=== PATIENT | male | born 1965 | race Caucasian/White ===

== ENCOUNTER 2020-04-06 01:39 | Emergency (ER) | payer OTHER, SELFPAY ==
--- NOTE | 2020-04-06 01:51 | PC.NURSE ---
PATIENT ARRIVED VIA EMS. WAS CALLED IN CRISIS. DENIES SI/HI WITH STAFF. EMS REPORTS THAT HE DID NOT EXPRESS ANY SI OR HI STATEMENT TO THEM. OFFERED PATIENT TO BE TRIAGED BY POD NURSE AND THEN TRANSFERRED TO A BED IN MAIN ED SOON WAS AVAILABLE. REFUSED ESCALATING IN UNIT. EXPLAINED THE ONLY OTHER OPTION IS TO GO TO THE WAITING ROOM AND START THE TRIAGE PROCESS WITH THE NURSE OUT THERE. REPORTS HE IS ONLY HERE FOR ARM PAIN DUE TO SHOOTING UP FOR DAYS.
[2020-04-06 02:00] VITALS: TEMP 36.1; BMI 23.8
--- NOTE | 2020-04-06 02:09 | PC.NURSE ---
PATIENT REPEATEDLY APPROACHING THIS RN AT ED TRIAGE DESK. STATES I DEMAND TO SPEAK TO THE CHARGE NURSE! SHE PROMISED ME A FUCKING SANDWICH IF I CAME HERE AND GOT SEEN. PATIENT POLITELY ASKED BY THIS RN TO HAVE A SEAT IN THE WAITING ROOM. PATIENT INITIALLY REFUSED TO SIT, STATING WELL I'M JUST GONNA GO TO [facility] THEN . ENCOURAGED TO STAY IN ED FOR EVALUATION. CURRENTLY SITTING IN WAITING ROOM, FIDGETTING BUT COOPERATING WITH STAFF AT THIS TIME. SECURITY NEARBY AND AWARE OF SITUATION.
--- NOTE | 2020-04-06 02:22 | PC.NURSE ---
PATIENT CALLING [facility] FROM WAITING ROOM PHONE, ATTEMPTING TO REQUEST TO BE PICKED UP BY POLICE DEPARTMENT SO THAT HE CAN BE BROUGHT TO HIS TRUCK TO GO TO [place]. SECURITY AND THIS RN REPEATEDLY TELLING PATIENT THAT [facility] WILL NOT PRINT SHOP STENOGRAPHER PATIENT TO PROVIDE RIDE, BUT PATIENT CALLED D ANYWAYS. PATIENT STATING CALL THE CHARGE NURSE AND TELL HER TO GIVE ME A DAMN SANDWICH AND A CAB RIDE OR SOMETHING TO GET OUT OF HERE . PATIENT AWARE THAT HE IS NOT BEING HELD IN ED AGAINST HIS WILL, BUT WILL NEED TO WAIT TO BE SEEN BY ED MD.
[2020-04-06 02:46] VITALS: BP 145/83; PULSE 91; RESP 20; O2SAT 95
--- NOTE | 2020-04-06 02:47 | PC.NURSE ---
Pt ambulatory to the ER for complaint of pain/burning to bilat arms. Pt is CAOx4, speaking full sentences, unable to sit still, states he was sober for several years but recently relapsed 2 week ago. Pt reports smoking crack and using IV cocaine. Pt states he most recently smoked crack 1 hour ago. Pt reports that he hasn't ate in 1 week due to SA. Pt requesting food/drink. This RN discussing detox with pt, per pt, he is unsure if he wants detox. Pt agreeable to VS, awaiting primary MD soria. Continue to monitor.
--- NOTE | 2020-04-06 03:11 | PC.NURSE ---
Pt requesting Ativan for withdrawals. This RN explaining to pt that he has not been seen by an MD yet and there is no orders for Ativan. Pt states if you get me some, I'll buy it off you! This RN explaining to pt that he is not able to buy Ativan from the nursing staff. Pt requesting to file a complaint due to interactions in Triage, bulk sugar handler and nursing dual rate supervisor aware.
--- NOTE | 2020-04-06 03:29 | PC.NURSE ---
Pt again requesting Ativan, pacing in room, awaiting MD soria. Pt previously given 2 sandwiches, again requesting more food. Pt provided with crackers and water. Continue to monitor.
--- NOTE | 2020-04-06 03:45 | PC.NURSE ---
at bedside for primary eval.
--- NOTE | 2020-04-06 03:50 | ED.GENADULT ---
HPI - General Adult General Chief complaint: ETOH/Substance Use Stated complaint: CRISIS Time Seen by Provider: 04/06/20 03:48 Source: patient Mode of arrival: EMS Limitations: no limitations History of Present Illness HPI narrative: This is a 54-year-old male who presents via EMS after a bystander called 911 because patient was sleeping in his own vehicle. Patient is very upset as he states he is not having any fevers, chills, GI symptoms and is demanding to know how he will get back to his truck. He states he has been spending approximately 10,000 dollars on injecting crack cocaine into bilateral upper extremities over the past week. Related Data Allergies Allergy/AdvReac Type Severity Reaction Status Date / Time penicillin G Allergy Unknown UNKNOWN Unverified 01/22/20 15:57 Review of Systems Review of Systems: pertinent positives and negatives as stated in HPI 10 point review of systems is otherwise negative. PMFSH Past Medical History Source: nursing notes reviewed Medical History Asthma Drug abuse Hepatitis C Smoker Social History Social History Advance Directives: No Advance Directives Information Provided: No Physical Exam Vital Signs: Vital Signs: Last Vital Signs Temp 97.0 F 04/06/20 02:00 Pulse 16 L 04/06/20 04:59 Resp 16 04/06/20 06:04 BP 145/83 H 04/06/20 02:46 Pulse Ox 95 04/06/20 02:46 Body Mass Index 23.8 VITAL SIGNS: Reviewed. GENERAL: Well developed, well nourished, in no acute distress. HEAD: Normocephalic/atraumatic, EYES: PERRLA, EOMI intact without pain, no nystagmus/pallor/icterus noted EARS: Ext canals without abnormality, TMs non-bulging and non-erythematous NOSE: Nares patent bilateral OROPHARYNX: no oral lesions noted, posterior pharynx clear and non-erythematous without noted tonsillar enlargement/erythema/exudates NECK: Supple, no adenopathy LUNGS: Normal breath sounds. No adventitious sounds or accessory muscle use. SpO2<95> CARDIOVASCULAR: Regular rate and rhythm without noted murmurs, no JVD or lower extremity edema. ABDOMEN: Soft, non-tender, non-distended with bowel sounds. No rigidity. No guarding. No palpable masses or hernias noted MUSCULOSKELETAL: No tenderness, deformities, or effusions noted on gross inspection. EXTREMITIES: No cyanosis, clubbing or edema. SKIN: Inspection of the skin reveals no rashes, ulcerations, jaundice, pallor, or petechiae. NEUROLOGIC: Alert and oriented x 4. Strength and sensation to light touch were grossly intact x 4. Course Course Course Narrative: This is a 54-year-old male with history and clinical presentation consistent with drug use and declining detox at this time. On review of notes patient was belligerent to the staff in the waiting area and he continues to be aggressive in behavior and antagonistic to the staff in the emergency room. He was calm somewhat after offering juice and sandwiches. Patient was discharged in stable condition as he wanted to get back to his truck. Discharge Plan Discharge Clinical Impression: Substance abuse Patient Disposition: Home, Self-Care Instructions: Polysubstance Abuse (ED) Additional Instructions: The patient and/or family acknowledge understanding of results (as applicable), diagnosis, treatment plan, need for follow up, and symptoms that should prompt a return to the emergency room. Referrals: Physician,Unknown [Primary Care Provider] - 2 days Interventions: ED Discharge Assessment Last Done: 04/06/20 06:33 Discharge Date/Time: 04/06/20 06:45
--- NOTE | 2020-04-06 04:09 | PC.NURSE ---
Pt laying supine in bed, sleeping in NAD, visible chest rise noted. Continue to monitor.
[2020-04-06 04:59] VITALS: PULSE 16
--- NOTE | 2020-04-06 05:00 | PC.NURSE ---
Pt remains asleep in bed, sleeping soundly at this time. Continue to monitor.
[2020-04-06 06:04] VITALS: RESP 16
--- NOTE | 2020-04-06 06:37 | PC.NURSE ---
Pt wakes easily in bed, aware of pending DC. Pt uncooperative with discharge, states what if I want to stay now , how am I going to get back to my car? Pt refusing VS, provided with DC paperwork.
== END 2020-04-06 06:45 | disposition home or self-care (01) ==
PROVIDERS: Emergency Provider Student in an Organized Health Care Education/Training Program
DX: F19.10 Other psychoactive substance abuse, uncomplicated (principal); B19.20 Unspecified viral hepatitis C without hepatic coma; F17.200 Nicotine dependence, unspecified, uncomplicated
CPT/HCPCS: 99283; 99284

== ENCOUNTER 2021-01-17 12:19 | Emergency (ER) | payer OTHER, SELFPAY ==
--- NOTE | 2021-01-17 12:23 | ED.OVERDOSE ---
HPI - Overdose General Chief Complaint: ETOH/Substance Use Stated Complaint: OD,8MG OF NARCAN GIVEN W/GOOD RESULTS Time Seen by Provider: 01/17/21 12:23 Source: patient and EMS Mode of arrival: EMS Limitations: other (uncooperative) History of Present Illness HPI Narrative: EMS unsure why he received narcan by clinic notes he has been agitated during the ride complaint: other (EMS notes he was laying down but breathing at clinic staff gave 8mg IN narcan) Onset (ago): minute(s) Timing confirmed by: other (clinic staff) Context: Accidental Overdose: wanted to get high Treatments Prior to Arrival: narcan (8mg IN narcan but no actual overdose reported. ) Related Data Allergies Allergy/AdvReac Type Severity Reaction Status Date / Time penicillin G Allergy Unknown UNKNOWN Unverified 01/22/20 15:57 Review of Systems Review of Systems: ROS unable to be obtained due to being uncooperative PMFSH Past Medical History Attestation statement: The following information was validated with the patient. Medical History Asthma Drug abuse Hepatitis C Smoker Social History Social History (Updated 01/17/21 @ 12:34 by Jayshree Contreras DO) Patient Tobacco Use Status: Never used Tobacco Substance Use Type: Crack/Cocaine Advance Directives: No Advance Directives Information Provided: No Physical Exam Vital Signs: Vital Signs: Last Vital Signs Temp 98.1 F 01/17/21 12:34 Pulse 109 H 01/17/21 12:34 Resp 18 01/17/21 12:34 BP 106/60 01/17/21 12:34 Pulse Ox 98 01/17/21 12:34 Body Mass Index 20.9 Appearance: Alert. Oriented X3. No acute distress. Anxious, you spic this was directed at our staff. Repeatedly yelling for juice Eyes: Pupils equal, round and reactive to light. ENT: Pharynx normal. Neck: Normal inspection. Neck supple. CVS: Normal heart rate and rhythm. Pulses normal. Respiratory: No respiratory distress. Breath sounds normal. Abdomen: Soft and nontender. Skin: Skin warm and dry. Normal skin color. Normal skin turgor. Extremities: No lower extremity edema. No calf ttp Neuro: Oriented X 3. No motor deficit. No sensory deficit. Course Course Course Narrative: no need for repeat narcan obx x 2 hours MDM - Overdose MDM Narrative Medical decision making narrative: 55 yo male with reported heroin/cocaine abuse demanding food yelling at staff, he denies SI was looking for detox but he is so hostile I don't think he is appropriate for our substance abuse team, no signs of trauma, will observe x 1 hour if no need for repeat narcan will give him detox list Discharge Plan Discharge Clinical Impression: Polysubstance abuse Patient Disposition: Home, Self-Care Instructions: Polysubstance Abuse (ED) Additional Instructions: return to ED for any worsening symptoms or concerns
[2021-01-17 12:34] VITALS: BP 106/60; BP 140/82; PULSE 109; PULSE 98; RESP 18; TEMP 36.7; O2SAT 98; BMI 20.9
--- NOTE | 2021-01-17 13:51 | MHC.RECOVSUP ---
Recovery Support note: Patient is a 55 year old Chinese speaking male who presented to [facility] ED after an accidental overdose. This real estate underwriter met with patient to discuss his substance use and recovery supports. Patient needed to be woken up several times throughout conversation. Patient reported to this real estate underwriter that he is gonna get the person who did this to me, the person who put this in my arms. Patient reports he does not use heroin and that he typically uses cocaine. Patient reports he did not know there was heroin in the substance that he was using. Patient reports he is not interested in reducing his cocaine use at this time. Discussed harm reduction with patient explained community resources available if he chooses to reduce consumption. This real estate underwriter is available if patient is interested in continuing this converstation prior to discharge.
== END 2021-01-17 15:00 | disposition home or self-care (01) ==
LOC: HO.ED 13:22
PROVIDERS: Emergency Provider Emergency Medicine; PCP Student in an Organized Health Care Education/Training Program
DX: T40.5X1A Poisoning by cocaine, accidental (unintentional), initial encounter (principal); Y92.410 Unspecified street and highway as the place of occurrence of the external cause; F17.200 Nicotine dependence, unspecified, uncomplicated; Z71.6 Tobacco abuse counseling; Z79.899 Other long term (current) drug therapy; Z71.51 Drug abuse counseling and surveillance of drug abuser
CPT/HCPCS: 99283

== ENCOUNTER 2021-04-07 11:33 | Outpatient (REF) | payer OTHER, SELFPAY ==
--- NOTE | ~2021-04-07 | XR_ITS ---
EXAMINATION: XR SHOULDER, RIGHT CLINICAL INFORMATION: Primary osteoarthritis. Pain. COMPARISON: None TECHNIQUE: AP external rotation, Grashey, scapular Y, and axillary views of the right shoulder. FINDINGS: Bone alignment is normal. No fracture or dislocation is seen. There is severe arthritis at the glenohumeral joint with joint space narrowing and osteophyte formation. There is arthritis at the acromioclavicular joint. There is subchondral lucency and sclerosis of the humeral head questionable for AVN. Soft tissues are unremarkable. XR/XR shoulder RT min 2V IMPRESSION: Severe arthritis at the glenohumeral joint and mild arthritis at the acromioclavicular joint. Question AVN of the humeral head.
== END 2021-04-07 11:34 | disposition home or self-care (01) ==
LOC: HO.XRAY 11:33
PROVIDERS: Absent Provider Student in an Organized Health Care Education/Training Program; PCP Student in an Organized Health Care Education/Training Program; Visit Provider Emergency Medicine
DX: M19.019 Primary osteoarthritis, unspecified shoulder (principal); M25.511 Pain in right shoulder
CPT/HCPCS: 73030

== ENCOUNTER → 2021-06-09 10:03 | Outpatient (BNVA) | payer OTHER, SELFPAY | PROVIDERS: PCP Student in an Organized Health Care Education/Training Program; Visit Provider Physician Assistant | DX: M19.011 Primary osteoarthritis, right shoulder (principal) | CPT/HCPCS: 20610; 99202; J1040 ==

== ENCOUNTER 2021-08-17 04:44 | Emergency (ER) | payer OTHER, SELFPAY ==
[2021-08-17 05:08] VITALS: BP 132/72; PULSE 120; O2SAT 98
[2021-08-17 05:11] VITALS: BP 132/79; PULSE 82; RESP 18; TEMP 36.7; O2SAT 98; BMI 27.3
--- NOTE | 2021-08-17 05:26 | PC.NURSE ---
pt is walking with a steady gait. asking for food, starving. no meds taken in 4 days. pt has been drinking and using drugs, s1 and h1. with acting on by running out infront of traffic 3 times. pt states he is homeless and was at respite for 14 days.
--- NOTE | 2021-08-17 06:29 | PC.NURSE ---
pt is not sure about having his labs drawn at this time due to he wants to given his veins a rest try later. pt pulls back his arm and is shakey.
--- NOTE | 2021-08-17 06:30 | ED.PSYCH ---
HPI - Psych General Chief Complaint: Psychiatric Symptoms Stated Complaint: crisis Time Seen by Provider: 08/17/21 06:30 Source: patient Mode of arrival: EMS Limitations: no limitations History of Present Illness MD complaint: suicidal ideation, feels depressed and substance abuse Onset (ago): day(s) Duration: getting worse History of same: Yes Relieving factors: none Exacerbating factors: drug use Context: recent drug abuse and significant life stressor Associated psychiatric symptoms: depression and suicidal ideation Associated symptoms: denies other symptoms If self harm: admits thoughts of self harm Related Data Home Medications Medication Instructions Recorded Confirmed clotrimazole 1 % topical cream 1 appl TOPICAL BID 08/17/21 08/17/21 ibuprofen 800 mg tablet 1 tab PO TID 08/17/21 08/17/21 nicotine 21 mg/24 hr daily 1 patch TOPICAL DAILY 08/17/21 08/17/21 transdermal patch sertraline 50 mg tablet 2 tab PO DAILY 08/17/21 08/17/21 trazodone 150 mg tablet 2 tab PO BEDTIME PRN 08/17/21 08/17/21 Allergies Allergy/AdvReac Type Severity Reaction Status Date / Time penicillin G Allergy Unknown UNKNOWN Unverified 06/09/21 10:08 Review of Systems Review of Systems: Constitutional : No Fever, No Chills ENT/Mouth : No Ear Pain, No Nasal Congestion, No sore throat Eyes: No Eye Pain, No Swelling, No Redness Cardiovascular : No Chest Pain, No SOB Respiratory : No Cough, No Sputum, No Dyspnea Gastrointestinal : No Nausea, No Vomiting, No Diarrhea, No Hematochezia, No Melena Genitourinary : No Dysuria, No Urinary Frequency, No Hematuria Musculoskeletal : No Myalgias Skin : No Skin Lesions, No rash Neuro : No Weakness, No Numbness, No Paresthesias, No Dizziness, No Headache Psych : positive Anxiety, positive Depression, positive SI/HI Heme/Lymph: No Lymphadenopathy Endocrine : No Polyuria, No Polydipsia All other systems reviewed and are negative [facility] Past Medical History Attestation statement: The following information was validated with the patient. Medical History Asthma Drug abuse Hepatitis C Smoker Social History Social History Patient Tobacco Use Status: Never used Tobacco Substance Use Type: Crack/Cocaine Advance Directives: No Physical Exam Vital Signs: Vital Signs: Last Vital Signs Temp 98.1 F 08/17/21 05:11 Pulse 82 08/17/21 05:11 Resp 18 08/17/21 05:11 BP 132/79 08/17/21 05:11 Pulse Ox 98 08/17/21 05:11 BMI result Body Mass Index 27.3 Appearance: Alert. Oriented X3. No acute distress. Cooperative initially tearful then was able to answer questions Eyes: Pupils equal, round and reactive to light. ENT: Pharynx normal. Neck: Normal inspection. Neck supple. CVS: Normal heart rate and rhythm. Pulses normal. Respiratory: No respiratory distress. Breath sounds normal. Abdomen: Soft and non-tender. Skin: Skin warm and dry. Normal skin color. Normal skin turgor. Extremities: No lower extremity edema. No calf ttp Neuro: Oriented X 3. No motor deficit. No sensory deficit. CN2-12 intact Course Course Course Narrative: Physician observation started at 416pm. Patient placed in physician observation because the patient needed more time for BHN to assess the need for psych admission. At the time observation was started the patient's vitals were stable, patient is alert and oriented but slightly anxious, Neuro: nonfocal, CV RRR, Lungs clear MDM - Psych MDM Narrative Medical decision making narrative: 56 yo male here with c/o substance abuse as well as SI/HI will need labs, [facility]N consult. Dispo per their recommendation Lab Data Labs: Lab Results 08/17/21 Range/Units 06:19 COVID-19 (CATE) Negative (Negative) COVID-19 Clin Com See Note Discharge Plan Discharge Clinical Impression: Depression Qualifiers: Depression Type: unspecified Qualified Code(s): F32.A - Depression, unspecified Prescriptions: No Action ibuprofen 800 mg tablet 1 tab PO TID 0RF trazodone 150 mg tablet 2 tab PO BEDTIME PRN (Reason: insomnia) 0RF nicotine 21 mg/24 hr patch 24 hour 1 patch topical DAILY 0RF clotrimazole 1 % cream 1 appl topical BID 0RF sertraline 50 mg tablet 2 tab PO DAILY 0RF
[2021-08-17 06:43] LABS: COVID-19 Test Negative (Negative)
--- NOTE | 2021-08-17 06:43 | PC.NURSE ---
attempted to obtain the ekg and pt was shaking and unable to obtain at this time.
--- NOTE | 2021-08-17 07:47 | PC.NURSE ---
patient appears to remain asleep respirations are even and unlabored patient appears in no distress
--- NOTE | 2021-08-17 08:06 | PC.NURSE ---
patient remains asleep presently respirations are even and unlabored patient appears in no distress
[2021-08-17] MEDS: Nicotine 21 MG PATCH.TD24 TRANSDERMA (14:20)
[2021-08-17] MEDS: Ibuprofen 800 MG TABLET PO ×2 (14:20→20:03)
[2021-08-17] MEDS: hydrOXYzine HCL 25 MG TABLET PO (14:20)
[2021-08-17] MEDS: Sertraline HCL 100 MG TABLET PO (14:20)
[2021-08-17 17:31] VITALS: BP 102/72; PULSE 77; RESP 16; TEMP 38.3; O2SAT 97
--- NOTE | 2021-08-17 17:36 | MHC.RECOVSUP ---
Addendum entered by Jose A Son 08/18/21 12:46: Patient accepted to [facility]. patient has to be there for 2:15pm Original Note: ? Reason for consult Recovery support o Current location: [facility] o Identified substance use concern: Alcohol, Cocaine,and Heroin... <del>-</del> <del>Overdose</del> - Withdrawal - Seeking ATS (detox) - Support ? Intervention: o ATS bed search [id number] <del>o</del> <del>MAT</del> <del>started</del> <del>or</del> <del>to</del> <del>be</del> <del>started</del> o Community resources provided o Harm reduction discussion ? Plan: <del>o</del> <del>Referral</del> <del>to</del> <del>CCC</del> <del>o</del> <del>Bed</del> <del>search</del> <del>in</del> <del>progress</del> <del>to</del> o Follow up tomorrow <del>o</del> <del>Patient</del> <del>awaiting</del> <del>crisis</del> <del>evaluation</del> o Patient to follow up with [facility] after discharge ? Additional information: Patient stated that he had a bed at [facility] .. [facility] and was told that he was not on the list for today.. But that he may have a bed tomorrow Morning but may need to update intake.
--- NOTE | 2021-08-17 18:15 | MHC.CARE ---
Patient evaluated by the CARE Team for treatment recommendations he recanted suicidal statements and determined most appropriate for detox/EATS placement. [facility] to update patient intake in the morning. Providers updated
[2021-08-17 18:39] LABS: Basophils Percent Auto 0.4 % (0-2); Eosinophils Absolute Auto 0.1 X10*3/uL (0.0-0.4); Hematocrit 38.4 % (42.0-52.0); Hemoglobin 12.8 g/dl (14.0-18.0); Imm Gran Abs Auto 0.02 X10*3/uL (0.00-0.03); Imm Gran Pct Auto 0.4 % (0.0-0.4); Lymphocytes Absolute Auto 1.5 X10*3/uL (1.2-4.9); MANUAL DIFF FLAG NO; Mean Corpuscular HGB Conc 33.3 g/dl (31.0-36.0); Mean Corpuscular Hemoglobin 29.8 pg (27.0-33.0); Mean Corpuscular Volume 89.5 fL (80.0-98.0); Mean Platelet Volume 9.2 fL (9.4-12.4); Monocytes Absolute Auto 0.9 X10*3/uL (0.1-1.2); Monocytes Percent Auto 19.9 % (2-11); Neutrophils Absolute Auto 2.1 x10*3/uL (2.0-8.3); Neutrophils Percent Auto 44.3 % (45-73); Platelet Count 155 X10*3/uL (160-400); Red Blood Count 4.29 X10*6/uL (4.60-5.80); Red Cell Distribution Width 13.8 % (11.0-16.0); White Blood Count 4.6 X10*3/uL (4.8-10.8)
[2021-08-17 18:50] LABS: Ethanol < 10 mg/dL
[2021-08-17 18:51] LABS: Anion Gap 12 (12-20); Blood Urea Nitrogen 20 mg/dL (9-16); Calcium 8.9 mg/dL (8.4-10.2); Carbon Dioxide 28 mmol/L (22-29); Chloride 102 mmol/L (96-108); Creatinine Clr Calc Pharmacy 97.3; Estimated Glomerular Filt Rate > 60; Glucose Random 82 mg/dL (60-115); Potassium 4.1 mmol/L (3.3-5.1); Sodium 138 mmol/L (135-145)
[2021-08-17 19:12] VITALS: TEMP 37.5
[2021-08-17] MEDS: Acetaminophen 325 MG TABLET 650 MG PO (19:12)
[2021-08-17 19:16] LABS: Influenza A PCR NEGATIVE (Negative); Influenza B PCR NEGATIVE (Negative); Resp Syncy Virus RNA Qual PCR NEGATIVE (Negative); SARS COV2 PCR INHOUSE NEGATIVE (Negative)
[2021-08-17 19:33] VITALS: BP 131/70; PULSE 76; RESP 18; O2SAT 96
--- NOTE | 2021-08-17 19:47 | PC.NURSE ---
PT stated that he is feeling the effects on withdrawal from alcohol and cocaine and would like something to help him feel better. Provider notified of PT's current vital signs and CIWA score. Provider delivered verbal order to this RN for 2 mg of Ativan PO to give now.
[2021-08-17] MEDS: LORazepam 1 MG TABLET 2 MG PO (20:01)
[2021-08-18] MEDS: traZODone HCL 100 MG TABLET 300 MG PO (03:15)
[2021-08-18 03:20] VITALS: BP 134/90; PULSE 68; RESP 16; TEMP 36.7; O2SAT 98
--- NOTE | 2021-08-18 07:38 | PC.NURSE ---
Reports recieved from [facility]. PT has been sleeping since this RN arrival.
[2021-08-18 08:45] LABS: Appearance Urine CLEAR; Color Urine YELLOW; Glucose Urine UA NEG (NEG); Leukocyte Esterase Urine TRACE (NEG); Nitrite Urine NEG (NEG); UACC Culture Trigger YES; Urine Blood NEG (NEG); Urine Ketones NEG (NEG); Urine Protein NEG (NEG-TRACE)
[2021-08-18 08:59] LABS: Amphetamine Screen Urine Not Detected (Not Detect); Barbiturates, Urine Not Detected (Not Detect); Benzodiazepines Screen Urine Not Detected (Not Detect); Cannabinoid Screen Urine POSITIVE (Not Detect); Cocaine Screen Urine POSITIVE (Not Detect); Fentanyl, urine POSITIVE (Not Detect); Opiate Screen Urine Not Detected (Not Detect); Phencyclidine Screen Urine Not Detected (Not Detect)
[2021-08-18 09:04] LABS: Squamous Epithelial Cell Urine TRACE /LPF
[2021-08-18 09:05] LABS: RBC Urine 0 /HPF (0)
[2021-08-18] MEDS: Sertraline HCL 100 MG TABLET PO (09:41)
[2021-08-18] MEDS: Ibuprofen 800 MG TABLET PO (09:41)
--- NOTE | 2021-08-18 11:03 | PC.NURSE ---
Pt has been resting quietly throughout the am. Sleeping on and off. up for mult cups of coffee. Completed [facility] intake conversation and awaits acceptance. No complaints at this time.
--- NOTE | 2021-08-18 11:41 | PC.NURSE ---
PT REFUSED EKG WAS UNCOOPERATIVE
[2021-08-18] MEDS: Acetaminophen 325 MG TABLET 650 MG PO (12:30)
--- NOTE | 2021-08-18 12:37 | PC.NURSE ---
P)t has been sleeping on and off. When awake he is irritable and impatient with multiple requests for coffee. Refused an EKG stating i don't want to pay for that . NO tremor noted. steady on feet.
[2021-08-18 12:53] VITALS: BP 127/76; PULSE 65; RESP 18; TEMP 36.7; O2SAT 98
== END 2021-08-18 14:25 | disposition home or self-care (01) ==
PROVIDERS: Nurse Practitioner Family; Emergency Provider Emergency Medicine
DX: F33.1 Major depressive disorder, recurrent, moderate (principal); R45.851 Suicidal ideations; F14.19 Cocaine abuse with unspecified cocaine-induced disorder; Z20.822 Contact with and (suspected) exposure to COVID-19; Z71.51 Drug abuse counseling and surveillance of drug abuser; Z79.899 Other long term (current) drug therapy
CPT/HCPCS: 0241U; 36415; 80048; 80307; 81001; 82077; 85025; 87086; 87635; 99285

== ENCOUNTER 2022-03-13 07:05 | Emergency (ER) | payer OTHER, SELFPAY ==
[2022-03-13] VITALS (9 sets, daily range): BP systolic 159; BP diastolic 80; PULSE 63; RESP 14–20; TEMP 36.7; O2SAT 99; BMI 26.6
--- NOTE | 2022-03-13 07:22 | PC.NURSE ---
multiple attempts to triage patient. pt in bathroom, outside, and states IM NOT READY YET!
--- OUTSIDE RECORDS SUMMARY | 2022-03-13 08:24 | XMS_ITS | Continuity of Care Document ---
:1965 Author Organization [facility] Address [address] [place] [id number]- Care Team Providers Name Role Phone Nicole Blackmon MD Primary Care Physician Encounter [facility] Date(s): 12/30/19 - 12/30/[address] [id number]- [facility] Discharge Disposition: A-D/C Home Attending Physician: Tej TO, Vielka Rojas Admitting Physician: Tej TO, Vielka Rojas Referring Physician: Not on Staff, Referring MD Allergies, Adverse Reactions, Alerts Substance Reaction Severity Status penicillin Active Immunizations Not Given Vaccine Date Status Refusal Reason influenza virus vaccine, inactivated 02/27/15 Not Given Patient Refuses pneumococcal 23-valent vaccine 02/27/15 Not Given P atient Refuses Medications albuterol CFC free 90 mcg/inh inhalation aerosol 2, puffs, Inhalation, 4 times a day, PRN, # 25 Gm, Refills 0, Tot. Refills 0, Maintenance, 07/08/18 17:23:23 EST, Aerosol, Print Requisition Start Date: 07/08/18 Status: OrderedAzithromycin 5 Day Dose Pack 250 mg oral tablet See Instructions, as directed on package labeling, # 6 tablet, 0 Refills, Maintenance, 07/08/18 17:23:18 EST Start Date: 07/08/18 Status: Orderedclindamycin 300 mg oral capsule 1 capsule = 300 mg, By Mouth, Every 6 hours, # 40 capsule, 0 Refills, Maintenance, 08/27/18 16:54:19EDT, Capsule Start Date: 08/27/18 Stop Date: 09/06/18 Status: OrderedcloNIDine 0.1 mg oral tablet 0.1 mg, 1, tablet, By Mouth, 3 times a day, Refills 0, Maintenance, 08/14/17 9:42:48 EDT Start Date: 08/14/17 Status: Ordereddiclofenac 3% topical gel 1 application, Topically, 2 times a day, # 50 Gm, 0 Refills, Maintenance, 01/14/18 11:18:06 EDT, Gel, 1 application Topically 2 times a day Start Date: 01/14/18 Status: OrderedIbuprofen 600 mg, By Mouth, 3 times a day, with food or milk, Refills 0, Maintenance, 08/14/17 9:43:07 EDT Start Date: 08/14/17 Status: Orderedibuprofen 800 mg oral tablet 800 mg, 1, tablet, By Mouth, Every 8 hours, # 30 tablet, Refills 0, Tot. Refills 0, Maintenance, 08/27/18 16:54:25 EDT, Print Requisition Start Date: 08/27/18 Status: OrderedTrazodone = 100 mg, By Mouth, Daily at bedtime, PRN Sleep, May take 1-2 tabs as needed for sleep., 0 Refills, Maintenance, 08/14/17 9:43:36 EDT Start Date: 08/14/17 Status: OrderedZithromax Z-Bhavesh 250 mg oral tablet 1 pack/packet, By Mouth, Once, # 6 tablet, 0 Refills, Soft Stop, 06/01/19 13:32:00 EST, Tablet, [facility] - [address], 173, cm, 06/01/19 11:04:00 EST, Height, 82, kg, 06/01/19 11:04:00 EST, Dry Weight Start Date: 06/01/19 Status: Ordered Vital Signs Most recent to oldest 1 2 3 [Reference Range]: Height 173 cm 173 cm (12/30/19 3:35 PM) (12/30/19 8:47 AM) Weight 72.5 kg 72.5 kg (12/30/19 3:35 PM) (12/30/19 8:47 AM) Oxygen Saturation [94-100 %] 98 % 99 % 96 % (12/30/19 3:35 PM) (12/30/19 8:47 AM) (12/30/19 8:4 5 AM) Pulse Rate [55-90 bpm] 63 bpm 74 bpm 77 bpm (12/30/19 3:35 PM) (12/30/19 8:47 AM) (12/30/19 8:4 5 AM) Body Mass Index [18.5-24.99] 24.22 24.22 (12/30/19 3:35 PM) (12/30/19 8:47 AM) Blood Pressure [90-138/55-84 mm 131/90 mm Hg 144/90 mm Hg Hg] (12/30/19 3:35 PM) *H* (12/30/19 8:47 AM) Respiratory Rate [16-30 br/min] 18 br/min 18 br/min (12/30/19 3:35 PM) (12/30/19 8:47 AM) Temperature [96.8-100.4 DegF] 98.1 DegF 98.3 DegF (12/30/19 3:35 PM) (12/30/19 8:47 AM) Mode of Delivery (Oxygen) Room air Room air Room a ir (12/30/19 3:35 PM) (12/30/19 8:47 AM) (12/30/19 8:4 5 AM) Blood pressure sites Arm, right Arm, right (12/30/19 3:35 PM) (12/30/19 8:47 AM) Temperature Route Oral Oral (12/30/19 3:35 PM) (12/30/19 8:47 AM) Dry Weight 72.5 kg 72.5 kg (12/30/19 3:35 PM) (12/30/19 8:47 AM) Weight Obtained Via Standing scale (12/30/19 8:47 AM) Dry Weight Obtained Via Standing scale (12/30/19 8:47 AM) Social History Social History Type Response Smoking Status Current every day smoker; To bacco user in household: Yes; Type: Cigarettes; Interested in cessation: Yes; Tobacco use times per day: pack/day; Number of years: 40; Cessation attempts: 0; entered on: 12/19/16 Sex Male
--- OUTSIDE RECORDS SUMMARY | 2022-03-13 08:24 | XMS_ITS | Continuity of Care Document ---
:1965 Author Organization [facility] Address [address] [place] [address]- Care Team Providers Name Role Phone Nicole Blackmon MD Primary Care Physician Encounter [facility] [place] Date(s): 05/17/20 - 05/17/[address] [address]- Encounter Diagnosis Right shoulder pain (Final) - 05/17/20 Muscle strain (Final) - 05/17/20 Discharge Disposition: A-D/C Home Attending Physician: Luciana Gaming MD Admitting Physician: Luciana Gaming MD Referring Physician: Not on Staff, Referring MD [...] Dry Weight Start Date: 06/01/19 Status: Ordered Results Radiology Reports Exam Date Time Procedure Performing Provider Status 05/17/20 11:25 AM Shoulder Min 2 Views Right Mago Allen; Au th (Verified) Notes:(Shoulder Min 2 Views Right) Reason For Exam: PainRESULT: Shoulder Min 2 Views Right Shoulder Min 2 Views Right, 3 views Hx of Present Illness: pt from home, fell last night and has some increased shoulder pain on right side; Reason: Pain; Clinical Question(s): Fracture FINDINGS: Gleno-humeral joint intact. Moderate degenerative changes clinical- humeral joint. AC jointunremarkable. No soft tissue calcifications. IMPRESSION: Moderate degenerative changes. WSN: [id number] Ordering Physician: Pancho Browne MD Dictated By: Burt De León MD Dictated Date/Time: 05/17/20 11:28 a Reviewed By: Burt De León MD Signed By: Burt De León MD Signed Date/Time: 05/17/20 11:28 am Transcribed By: JOSE EDUARDO Transcribed Date/Time: 05/17/20 11:26 am Vital Signs Most recent to oldest [Reference Range]: 1 Oxygen Saturation [94-100 %] 99 % (05/17/20 9:57 AM) Pulse Rate [55-90 bpm] 72 bpm (05/17/20 9:57 AM) Blood Pressure [90-138/55-84 mm Hg] 120/76 mm Hg (05/17/20 9:57 AM) Respiratory Rate [16-30 br/min] 18 br/min (05/17/20 9:57 AM) Temperature [96.8-100.4 DegF] 98.5 DegF (05/17/20 9:57 AM) Mode of Delivery (Oxygen) Room air (05/17/20 9:57 AM) Blood pressure sites Arm, right (05/17/20 9:57 AM) Temperature Route Oral (05/17/20 9:57 AM) Social History Social History Type Response Smoking Status Current every day smoker; To bacco user in household: Yes; Type: Cigarettes; Interested in cessation: Yes; Tobacco use times per day: pack/day; Number of years: 40; Cessation attempts: 0; entered on: 12/19/16 Sex Male
--- OUTSIDE RECORDS SUMMARY | 2022-03-13 08:24 | XMS_ITS | Continuity of Care Document ---
:1965 Author Organization [facility] Address [address] [place] [address]- Care Team Providers Name Role Phone Nicole Blackmon MD Primary Care Physician Encounter [facility] [place] Date(s): 01/21/21 - 01/25/[address] [address]- Encounter Diagnosis Suicidal ideation (Final) - 01/21/21 Cocaine use disorder (Final) - 01/21/21 Discharge Disposition: A-D/C Home Attending Physician: Marvin Valle MD Admitting Physician: Marvin Valle MD Referring Physician: Filiberto Dill MD Allergies, Adverse Reactions, Alerts Substance Reaction [...] Exam Date Time Procedure Performing Provider Status 01/21/21 5:23 AM Chest 2 Views Frontal and Lat Yeni Peace ; Auth (Verified) Notes:(Chest 2 Views Frontal and Lat) Reason For Exam: CoughRESULT: Chest 2 Views Frontal and Lat Chest 2 Views Frontal and Lat INDICATION: Cough; Clinical Question(s): Pneumonia / Pneumonia COMPARISON: 06/01/2019 FINDINGS: LINES AND TUBES: None. LUNGS AND PLEURA: Mild linear scarring in the lingula. Otherwise clear lungs. No pleural effusion. No pneumothorax. HEART, MEDIASTINUM AND DELFINA: Heart is normal in size. Aorta is mildly calcified. BONES AND SOFT TISSUES: No acute abnormality. Right glenohumeral joint osteoarthritis. IMPRESSION: No evidence of acute abnormality. WSN: [id number] Ordering Physician: Filiberto Dill Dictated By: Nas Payton MD Dictated Date/Time: 01/21/21 7:28 am Reviewed By: Nas Payton MD Signed By: Nas Payton MD Signed Date/Time: 01/21/21 7:28 am Transcribed By: JOSE EDUARDO Transcribed Date/Time: 01/21/21 7:27 am Vital Signs Most recent to oldest 1 2 3 [Reference Range]: Oxygen Saturation [94-100 %] 97 % 98 % 98 % (01/24/21 7:03 AM) (01/23/21 11:46 PM) (01/23/21 4: 03 PM) Pulse Rate [55-90 bpm] 68 bpm 70 bpm 77 bpm (01/24/21 7:03 AM) (01/23/21 11:46 PM) (01/23/21 4: 03 PM) Blood Pressure [90-138/55-84 110/66 mm Hg 116/64 mm Hg 121 /71 mm Hg mm Hg] (01/24/21 7:03 AM) (01/23/21 11:46 PM) (01/23/21 4: 03 PM) Respiratory Rate [16-30 16 br/min 16 br/min 16 br/mi n br/min] (01/24/21 7:03 AM) (01/23/21 11:46 PM) (01/23/21 4: 03 PM) Temperature [96.8-100.4 DegF] 97.8 DegF 97.5 DegF 97 .5 DegF (01/24/21 7:03 AM) (01/23/21 11:46 PM) (01/23/21 4: 03 PM) Mode of Delivery (Oxygen) Room air Room air Room a ir (01/24/21 7:03 AM) (01/23/21 11:46 PM) (01/23/21 4: 03 PM) Blood pressure sites Arm, right Arm, right Arm, right (01/24/21 7:03 AM) (01/23/21 11:46 PM) (01/23/21 4: 03 PM) Temperature Route Oral Oral Oral (01/24/21 7:03 AM) (01/23/21 11:46 PM) (01/23/21 4: 03 PM) Social History Social History Type Response Smoking Status Current every day smoker; To bacco user in household: Yes; Type: Cigarettes; Interested in cessation: Yes; Tobacco use times per day: pack/day; Number of years: 40; Cessation attempts: 0; entered on: 12/19/16 Sex Male
--- OUTSIDE RECORDS SUMMARY | 2022-03-13 08:24 | XMS_ITS | Continuity of Care Document ---
:1965 Author Organization [facility] Address [address] [place] [address]- Care Team Providers Name Role Phone Nicole Blackmon MD Primary Care Physician Encounter [facility] [place] Date(s): 05/14/20 - 05/14/[address] [address]- Encounter Diagnosis Chest pain (Final) - 05/14/20 Discharge Disposition: A-D/C AMA Attending Physician: Sheree Vitale DO Admitting Physician: Sheree Vitale DO Referring Physician: Not on Staff, Referring MD [...] Ordered Vital Signs Most recent to oldest [Reference Range]: 1 2 Oxygen Saturation [94-100 %] 100 % (05/14/20 6:01 AM) Pulse Rate [55-90 bpm] 79 bpm 79 bpm (05/14/20 6:10 AM) (05/14/20 6:01 AM) Blood Pressure [90-138/55-84 mm Hg] 127/84 mm Hg 127/ 84 mm Hg (05/14/20 6:10 AM) (05/14/20 6:01 AM) Respiratory Rate [16-30 br/min] 16 br/min 16 br/mi n (05/14/20 6:10 AM) (05/14/20 6:01 AM) Temperature [96.8-100.4 DegF] 98.3 DegF 98.3 DegF (05/14/20 6:10 AM) (05/14/20 6:01 AM) Mode of Delivery (Oxygen) Room air (05/14/20 6:01 AM) Blood pressure sites Arm, right (05/14/20 6:01 AM) Temperature Route Oral Oral (05/14/20 6:10 AM) (05/14/20 6:01 AM) Social History Social History Type Response Smoking Status Current every day smoker; To bacco user in household: Yes; Type: Cigarettes; Interested in cessation: Yes; Tobacco use times per day: pack/day; Number of years: 40; Cessation attempts: 0; entered on: 12/19/16 Sex Male
--- OUTSIDE RECORDS SUMMARY | 2022-03-13 08:24 | XMS_ITS | Continuity of Care Document ---
:1965 Author Organization [facility] Address [address] [place] [address]- Care Team Providers Name Role Phone Nicole Blackmon MD Primary Care Physician Encounter [facility] [place] Date(s): 01/05/22 - 01/05/[address] [address]- Discharge Disposition: A-D/C Walkout Attending Physician: Not on Staff, Attending MD Admitting Physician: Not on Staff, Admitting MD Referring Physician: Not on Staff, Referring [...] Aerosol, Print Requisition Start Date: 07/08/18 Status: Orderedclotrimazole 1% topical cream See Instructions, Topically 2 times a day, # 12 Gm, 0 Refills, Maintenance, 08/10/21 10:23:00 EDT, Cream, [id number], Partial fill upon patient request if the prescription is for a schedule II opioid drug., Topically 2 times a day, 173, cm, 04... Start Date: 08/10/21 Status: Orderednicotine 21 mg/24 hr transdermal film, extended release 1 patch, Topically, Daily, # 30 patch, 0 Refills, Maintenance, 08/10/21 10:24:00 EDT, Patch, [id number], Partial fill upon patient request if the prescription is for a schedule II opioid drug.,1 patch Topically Daily, 173, cm, 08/09/21 22:08:... Start Date: 08/10/21 Status: Orderedsertraline 50 mg oral tablet 2 tablet = 100 mg, By Mouth, Daily, # 60 tablet, 0 Refills, Maintenance, 08/10/21 10:24:00 EDT, Tablet, [id number], Partial fill upon patient request if the prescription is for a schedule II opioid drug., 173, cm, 08/09/21 22:08:00 EDT, Height... Start Date: 08/10/21 Status: OrderedtraZODone 300 mg oral tablet 1 tablet = 300 mg, By Mouth, Daily at bedtime, PRN Sleep, # 30 tablet, 0 Refills, Maintenance, 08/10/21 10:23:00 EDT, Tablet, [id number], Partial fill upon patient request if the prescription is for a schedule II opioid drug., 173, cm, ... Start Date: 08/10/21 Status: OrderedTylenol 325 mg oral tablet 650 mg, 2, tablet, By Mouth, Every 4 hours, PRN, # 120 tablet, Refills 0, Tot. Refills 0, Acute 02/05/22 12:37:00 EDT, for pain, 02/04/21 12:35:00 EDT, Route to Pharmacy Electronically, [facility] - [address], Partial fill upon patient request if the... Start Date: 02/04/21 Stop Date: 02/05/22 Status: Ordered Vital Signs Most recent to oldest [Reference Range]: 1 Oxygen Saturation [94-100 %] 95 % (01/05/22 5:30 AM) Pulse Rate [55-90 bpm] 76 bpm (01/05/22 5:30 AM) Blood Pressure [90-138/55-84 mm Hg] 137/105 mm Hg (01/05/22 5:30 AM) Respiratory Rate [16-30 br/min] 16 br/min (01/05/22 5:30 AM) Temperature [96.8-100.4 DegF] 98.3 DegF (01/05/22 5:30 AM) Mode of Delivery (Oxygen) Room air (01/05/22 5:30 AM) Blood pressure sites Arm, left (01/05/22 5:30 AM) Temperature Route Oral (01/05/22 5:30 AM) Social History Social History Type Response Smoking Status Current every day smoker; To bacco user in household: Yes; Type: Cigarettes; Interested in cessation: Yes; Tobacco use times per day: pack/day; Number of years: 40; Cessation attempts: 0; entered on: 12/19/16 Sex Male Care Team PersonnelName: Neymar TO, Nicole Rodrigues Address: [address] [place] [id number]
--- OUTSIDE RECORDS SUMMARY | 2022-03-13 08:24 | XMS_ITS | Continuity of Care Document ---
:1965 Author Organization [facility] Address [address] [place] [address]- Care Team Providers Name Role Phone Nicole Blackmon MD Primary Care Physician Encounter [facility] [place] Date(s): 02/02/21 - 02/04/[address] [address]- Encounter Diagnosis Suicidal ideation (Final) - 02/02/21 2019 novel coronavirus disease (COVID-19) (Final) - 02/03/21 Discharge Disposition: A-D/C Home Attending Physician: Vielka Burnham MD Admitting Physician: Vielka Burnham MD Referring Physician: Not on Staff, Referring [...] 9:43:07 EDT Start Date: 08/14/17 Status: Orderedibuprofen 400 mg oral tablet 400 mg, 1, tablet, By Mouth, Every 4 hours, PRN, # 60 tablet, Refills 0, Tot. Refills 0, Acute 02/05/22 12:37:00 EDT, for pain, 02/04/21 12:35:00 EDT, Route to Pharmacy Electronically, [email or web address] - [address], Partial fill upon patient request if the p... Start Date: 02/04/21 Stop Date: 02/05/22 Status: Orderedibuprofen 800 mg oral tablet 800 mg, 1, tablet, By Mouth, Every 8 hours, # 30 tablet, Refills 0, Tot. Refills 0, Maintenance, 08/27/18 16:54:25 EDT, Print Requisition Start Date: 08/27/18 Status: OrderedTrazodone = 100 mg, By Mouth, Daily at bedtime, PRN Sleep, May take 1-2 tabs as needed for sleep., 0 Refills, Maintenance, 08/14/17 9:43:36 EDT Start Date: 08/14/17 Status: OrderedTylenol 325 mg oral tablet 650 mg, 2, tablet, By Mouth, Every 4 hours, PRN, # 120 tablet, Refills 0, Tot. Refills 0, Acute 02/05/22 12:37:00 EDT, for pain, 02/04/21 12:35:00 EDT, Route to Pharmacy Electronically, [facility] - [address], Partial fill upon patient request if the... Start Date: 02/04/21 Stop Date: 02/05/22 Status: OrderedZithromax Z-Bhavesh 250 mg oral tablet 1 pack/packet, By Mouth, Once, # 6 tablet, 0 Refills, Soft Stop, 06/01/19 13:32:00 EST, Tablet, [facility] - [address], 173, cm, 06/01/19 11:04:00 EST, Height, 82, kg, 06/01/19 11:04:00 EST, Dry Weight Start Date: 06/01/19 Status: Ordered Results Orders for Microbiology Reports Name Date Blood Culture 02/02/21 Blood Culture #2 02/02/21 Microbiology Reports TEST:Blood Culture, Second Order STATUS:Unauthenticated BODY SITE: SOURCE:Blood COLLECTED DATE/TIME:02/02/21 8:30 AMBlood Culture, Second Order SPECIMEN DESCRIPTION : BLOOD LAC SPECIAL REQUESTS : NONE CULTURE : NO GROWTH AFTER 48 HOURS REPORT STATUS : PRELIMINARY REPORT TEST:Blood Culture STATUS:Unauthenticated BODY SITE: SOURCE:Blood COLLECTED DATE/TIME:02/02/21 8:19 AMBlood Culture SPECIMEN DESCRIPTION : BLOOD RAC SPECIAL REQUESTS : NONE CULTURE : NO GROWTH AFTER 48 HOURS REPORT STATUS : PRELIMINARY REPORT Radiology Reports Exam Date Time Procedure Performing Provider Status 02/02/21 9:56 AM Shoulder Min 2 Views Right Sherine Nieves; Theresa (Verified) Notes:(Shoulder Min 2 Views Right) Reason For Exam: Other:RESULT: Shoulder Min 2 Views Right Shoulder Min 2 Views Right, views Hx of Present Illness: SI. Recently discharged from [facility]. Has been on church. Injecting cocaine about 3g today, last 0500. States he injected EtOH in SI attempt and also had thoughts of jumping in front of bus. +Chills, arm pain.; COMPARISON: 05/17/2020. FINDINGS: No fracture, dislocation, or focal osseous lesions are seen. There is moderate glenohumeral joint space narrowing with moderate-sized marginal osteophyte formation off the inferior aspect humeral head. Lateral downsloping acromion predisposing to impingement. IMPRESSION: No acute osseous abnormality. WSN: [id number] Ordering Physician: Jey Birmingham Dictated By: Colt Leary MD Dictated Date/Time: 02/02/21 12:12 p Reviewed By: Colt Leary MD Signed By: Colt Leary MD Signed Date/Time: 02/02/21 12:12 pm Transcribed By: JOSE EDUARDO Transcribed Date/Time: 02/02/21 12:10 pm Exam Date Time Procedure Performing Provider Status 02/02/21 9:56 AM Chest 2 Views Frontal and Lat Allen Nieves [facility] (Verified) Notes:(Chest 2 Views Frontal and Lat) Reason For Exam: Shortness of Breath, Fever;Other:RESULT: Chest 2 Views Frontal and Lat Chest 2 Views Frontal and Lat INDICATION: Shortness of breath. COMPARISON: Multiple prior radiographs, most recent 01/21/2021. FINDINGS: LINES AND TUBES: None. LUNGS AND PLEURA: Clear lungs. Normal pulmonary vascularity. No pleural effusion. No pneumothorax. HEART, MEDIASTINUM AND DELFINA: Heart is normal in size. Normal upper mediastinal and hilar contour. BONES AND SOFT TISSUES: No acute abnormality. IMPRESSION: No acute abnormality. I have personally reviewed the images and I agree with this report. WSN: [id number] Ordering Physician: Jey Birmingham Dictated By: Rigo Bose MD Dictated Date/Time: 02/02/21 12:32 p Reviewed By: Bunny Gupta MD Signed By: Bunny Gupta MD Signed Date/Time: 02/02/21 12:37 pm Transcribed By: JOSE EDUARDO Transcribed Date/Time: 02/02/21 10:20 am Vital Signs Most recent to oldest 1 2 3 [Reference Range]: Height 173 cm 173 cm 173 cm (02/04/21 6:22 AM) (02/03/21 9:19 AM) (02/02/21 5:5 5 AM) Weight 64 kg 64 kg 64 kg (02/04/21 6:22 AM) (02/03/21 9:19 AM) (02/02/21 5:5 5 AM) Oxygen Saturation [94-100 99 % 98 % 99 % %] (02/04/21 12:49 PM) (02/04/21 6:22 AM) (02/03/21 6: 36 PM) Pulse Rate [55-90 bpm] 62 bpm 60 bpm 62 bpm (02/04/21 12:49 PM) (02/04/21 6:22 AM) (02/03/21 6: 36 PM) Body Mass Index 21.38 21.38 [18.5-24.99] (02/04/21 6:22 AM) (02/03/21 9:19 AM) Blood Pressure 110/82 mm Hg 104/82 mm Hg 109/67 mm Hg [90-138/55-84 mm Hg] (02/04/21 12:49 PM) (02/04/21 6:22 AM) ( 6:36 PM) Respiratory Rate [16-30 18 br/min 20 br/min 16 br/mi n br/min] (02/04/21 12:49 PM) (02/04/21 6:22 AM) (02/04/21 2: 15 AM) Temperature [96.8-100.4 98.1 DegF 98.0 DegF 98.6 Deg F DegF] (02/04/21 12:49 PM) (02/04/21 6:22 AM) (02/03/21 6: 36 PM) Mode of Delivery (Oxygen) Room air Room air Room a ir (02/04/21 12:49 PM) (02/04/21 6:22 AM) (02/03/21 6: 36 PM) Blood pressure sites Arm, right Arm, left Arm, left (02/04/21 12:49 PM) (02/04/21 6:22 AM) (02/03/21 6: 36 PM) Temperature Route Oral Oral Oral (02/04/21 12:49 PM) (02/04/21 6:22 AM) (02/03/21 6: 36 PM) Dry Weight 64 kg 64 kg 64 kg (02/04/21 6:22 AM) (02/03/21 9:19 AM) (02/02/21 5:5 5 AM) Weight Obtained Via Patient/family stated (02/02/21 5:55 AM) Dry Weight Obtained Via Patient/family stated (02/02/21 5:55 AM) Social History Social History Type Response Smoking Status Current every day smoker; To bacco user in household: Yes; Type: Cigarettes; Interested in cessation: Yes; Tobacco use times per day: pack/day; Number of years: 40; Cessation attempts: 0; entered on: 12/19/16 Sex Male
--- OUTSIDE RECORDS SUMMARY | 2022-03-13 08:24 | XMS_ITS | Continuity of Care Document ---
:1965 Author Organization [facility] Address [address] [place] [address]- Care Team Providers Name Role Phone Nicole Blackmon MD Primary Care Physician [place] [facility] [place] - 06/01/[address] [address] [phone] Discharge Disposition: A-D/C Home Attending Physician: Talha Crespo MD Admitting Physician: Talha Crespo MD Referring Physician: Not on Staff, Referring [...] EDT, Print Requisition Start Date: 08/27/18 Status: OrderedNorco 325 mg-5 mg oral tablet 1 tablet, By Mouth, Every 4 hours, PRN for pain, for 2 days, You have the option to receive a partial prescription if you would like., # 7 tablet, 0 Refills, Acute 06/03/19 13:32:00 EST, 06/01/19 13:32:00 EST, Tablet, [facility] - [address], Partial f... Start Date: 06/01/19 Stop Date: 06/03/19 Status: OrderedTrazodone = 100 mg, By Mouth, [...] Exam Date Time Procedure Performing Provider Status 06/01/19 12:12 PM Chest 2 Views Frontal and Lat Cecille Mulligan; Theresa (Verified) Notes:(Chest 2 Views Frontal and Lat) Reason For Exam: Shortness of Breath RESULT: Chest 2 Views Frontal and Lat Chest 2 Views Frontal and Lat Reason: Shortness of Breath; Clinical Question(s): Pneumonia; Hx of Present Illness: Cough, ROBERT, had4 teeth extracted on Sunday. COMPARISON: 09/23/2018 and 07/08/2018. FINDINGS: LINES AND TUBES: None. LUNGS AND PLEURA: There is a hazy opacity in the left lung base. No pleural effusion. No pneumothorax. HEART, MEDIASTINUM AND DELFINA: Heart is normal in size. Normal mediastinal and hilar contour. BONES AND SOFT TISSUES: No acute abnormality. IMPRESSION: Hazy opacity left lung base which given the history of cough may represent pneumonia. Follow-up to resolution is recommended. WSN: [id number] Dictated By: Feli Taylor MD Dictated Date/Time: 06/01/19 12:18 p Reviewed By: Feli Taylor MD Signed By: Feli Taylor MD Signed Date/Time: 06/01/19 12:18 pm Transcribed By: JOSE EDUARDO Transcribed Date/Time: 06/01/19 12:13 pm Vital Signs Most recent to oldest [Reference Range]: 1 2 Height 173 cm 173 cm (06/01/19 1:52 PM) (06/01/19 11:04 AM) Weight 82 kg 82 kg (06/01/19 1:52 PM) (06/01/19 11:04 AM) Oxygen Saturation [94-100 %] 97 % 97 % (06/01/19 1:52 PM) (06/01/19 11:04 AM) Pulse Rate [55-90 bpm] 91 bpm 101 bpm *H* *H* (06/01/19 1:52 PM) (06/01/19 11:04 AM) Body Mass Index [18.5-24.99] 27.4 *H* (06/01/19 1:52 PM) Blood Pressure [90-138/55-84 mm Hg] 124/97 mm Hg 139/ 87 mm Hg (06/01/19 1:52 PM) *H* (06/01/19 11:04 AM) Respiratory Rate [16-30 br/min] 18 br/min 18 br/mi n (06/01/19 1:52 PM) (06/01/19 11:04 AM) Temperature [96.8-100.4 DegF] 99.0 DegF 98.7 DegF (06/01/19 1:52 PM) (06/01/19 11:04 AM) Mode of Delivery (Oxygen) Room air Room air (06/01/19 1:52 PM) (06/01/19 11:04 AM) Blood pressure sites Arm, right Arm, right (06/01/19 1:52 PM) (06/01/19 11:04 AM) Temperature Route Oral Oral (06/01/19 1:52 PM) (06/01/19 11:04 AM) Dry Weight 82 kg 82 kg (06/01/19 1:52 PM) (06/01/19 11:04 AM) Social History Social History Type Response Smoking Status Current every day smoker; To bacco user in household: Yes; Type: Cigarettes; Interested in cessation: Yes; Tobacco use times per day: pack/day; Number of years: 40; Cessation attempts: 0; entered on: 12/19/16 Sex
--- OUTSIDE RECORDS SUMMARY | 2022-03-13 08:24 | XMS_ITS | Continuity of Care Document ---
:1965 Author Organization [facility] Address [address] [place] [address]- Care Team Providers Name Role Phone Nicole Blackmon MD Primary Care Physician Encounter [facility] [place] Date(s): 03/26/21 - 03/26/[address] [address]- Encounter Diagnosis Suicidal ideation (Final) - 03/26/21 Discharge Disposition: A-D/C Home Attending Physician: Luciana [...] 02/04/21 12:35:00 EDT, Route to Pharmacy Electronically, [facility] - [address], Partial fill upon [...] 1 2 Height 173 cm 173 cm (03/26/21 2:51 PM) (03/26/21 3:34 AM) Weight 68.5 kg 68.5 kg (03/26/21 2:51 PM) (03/26/21 3:34 AM) Oxygen Saturation [94-100 %] 99 % (03/26/21 3:34 AM) Pulse Rate [55-90 bpm] 67 bpm (03/26/21 3:34 AM) Blood Pressure [90-138/55-84 mm Hg] 128/81 mm Hg (03/26/21 3:34 AM) Respiratory Rate [16-30 br/min] 18 br/min (03/26/21 3:34 AM) Temperature [96.8-100.4 DegF] 97.4 DegF (03/26/21 3:34 AM) Mode of Delivery (Oxygen) Room air (03/26/21 3:34 AM) Blood pressure sites Arm, right (03/26/21 3:34 AM) Temperature Route Oral (03/26/21 3:34 AM) Dry Weight 68.5 kg 68.5 kg (03/26/21 2:51 PM) (03/26/21 3:34 AM) Dry Weight Obtained Via Patient/family stated (03/26/21 3:34 AM) Social History Social History Type Response Smoking Status Current every day smoker; To bacco user in household: Yes; Type: Cigarettes; Interested in cessation: Yes; Tobacco use times per day: pack/day; Number of years: 40; Cessation attempts: 0; entered on: 12/19/16 Sex Male
--- OUTSIDE RECORDS SUMMARY | 2022-03-13 08:24 | XMS_ITS | Continuity of Care Document ---
:1965 Author Organization [facility] Address [address] [place] [address]- Care Team Providers Name Role Phone Nicole Blackmon MD Primary Care Physician [place] [facility] [place]17[place] - 01/18/[address] [address]- Discharge Disposition: A-D/C Home Attending Physician: John Shirley MD Admitting Physician: John Shirley MD Referring Physician: Not on Staff, Referring [...] oldest 1 2 3 [Reference Range]: Height 172 cm 172 cm 172 cm (01/18/21 10:59 AM) (01/17/21 7:03 PM) (01/17/21 7: 01 PM) Weight 69.0 kg 69.0 kg 69.0 kg (01/18/21 10:59 AM) (01/17/21 7:03 PM) (01/17/21 7: 01 PM) Oxygen Saturation [94-100 %] 98 % 99 % (01/18/21 9:15 AM) (01/17/21 7:01 PM) Pulse Rate [55-90 bpm] 83 bpm 85 bpm (01/18/21 9:15 AM) (01/17/21 7:01 PM) Body Mass Index [18.5-24.99] 23.32 (01/17/21 7:01 PM) Blood Pressure [90-138/55-84 106/59 mm Hg 117/67 mm Hg mm Hg] (01/18/21 9:15 AM) (01/17/21 7:01 PM) Respiratory Rate [16-30 20 br/min 17 br/min 16 br/mi n br/min] (01/18/21 9:15 AM) (01/18/21 4:36 AM) (01/18/21 2:3 8 AM) Temperature [96.8-100.4 DegF] 99.3 DegF 99.5 DegF (01/18/21 9:15 AM) (01/17/21 7:01 PM) Mode of Delivery (Oxygen) Room air Room air (01/18/21 9:15 AM) (01/17/21 7:01 PM) Temperature Route Oral Temporal (01/18/21 9:15 AM) (01/17/21 7:01 PM) Dry Weight 69.0 kg 69.0 kg 69.0 kg (01/18/21 10:59 AM) (01/17/21 7:03 PM) (01/17/21 7: 01 PM) Weight Obtained Via Standing scale (01/17/21 7:01 PM) Social History Social History Type Response Smoking Status Current every day smoker; To bacco user in household: Yes; Type: Cigarettes; Interested in cessation: Yes; Tobacco use times per day: pack/day; Number of years: 40; Cessation attempts: 0; entered on: 12/19/16 Sex Male
--- OUTSIDE RECORDS SUMMARY | 2022-03-13 08:24 | XMS_ITS | Continuity of Care Document ---
:1965 Author Organization [facility] Address [address] [place] [address]- Care Team Providers Name Role Phone Nicole Blackmon MD Primary Care Physician Encounter [facility] [place] Date(s): 05/08/20 - 05/09/[address] [address]- Discharge Disposition: A-D/C Home Attending Physician: Sarina Gonzalez DO Admitting Physician: Sarina Gonzalez DO Referring Physician: Not on Staff, Referring [...] Vital Signs Most recent to oldest [Reference 1 2 3 Range]: Oxygen Saturation [94-100 %] 100 % 99 % 100 % (05/09/20 6:13 AM) (05/08/20 7:04 PM) (05/08/20 12:03 PM) Pulse Rate [55-90 bpm] 66 bpm 76 bpm 74 bpm (05/09/20 6:13 AM) (05/08/20 7:04 PM) (05/08/20 12:03 PM) Blood Pressure [90-138/55-84 mm 110/64 mm Hg 113/75 mm Hg 136/78 mm Hg Hg] (05/09/20 6:13 AM) (05/08/20 7:04 PM) (05/08/20 12:03 PM) Respiratory Rate [16-30 br/min] 18 br/min 20 br/min 20 br/min (05/09/20 6:13 AM) (05/08/20 7:04 PM) (05/08/20 12:03 PM) Temperature [96.8-100.4 DegF] 98.9 DegF 98.9 DegF 97 .4 DegF (05/09/20 6:13 AM) (05/08/20 7:04 PM) (05/08/20 12:03 PM) Mode of Delivery (Oxygen) Room air Room air Room a ir (05/09/20 6:13 AM) (05/08/20 7:04 PM) (05/08/20 12:03 PM) Blood pressure sites Arm, right Arm, left Arm, left (05/09/20 6:13 AM) (05/08/20 7:04 PM) (05/08/20 12:03 PM) Temperature Route Oral Oral Oral (05/09/20 6:13 AM) (05/08/20 7:04 PM) (05/08/20 12:03 PM) Social History Social History Type Response Smoking Status Current every day smoker; To bacco user in household: Yes; Type: Cigarettes; Interested in cessation: Yes; Tobacco use times per day: pack/day; Number of years: 40; Cessation attempts: 0; entered on: 12/19/16 Sex Male
--- OUTSIDE RECORDS SUMMARY | 2022-03-13 08:24 | XMS_ITS | Continuity of Care Document ---
:1965 Author Organization [facility] Address [address] [place] [address]- Care Team Providers Name Role Phone Nicole Blackmon MD Primary Care Physician Encounter [facility] [place] Date(s): 07/21/21 - 07/22/[address] [address]- Discharge Disposition: Transfer to [facility] Facility Attending Physician: Cortney Clements MD Admitting Physician: Cortney Clements MD Referring Physician: Not on Staff, Referring [...] 07/08/18 17:23:18 EST Start Date: 07/08/18 Status: Orderedbaclofen 10 mg oral tablet 10 mg, 1, tablet, By Mouth, 2 times a day, PRN, Refills 0, Maintenance, Spasm, 07/22/21 14:48:00 EDT, Partial fill upon patient request if the prescription is for a schedule II opioid drug. Start Date: 07/22/21 Status: Orderedclindamycin 300 mg oral capsule 1 capsule = 300 mg, By Mouth, Every 6 hours, # 40 capsule, 0 Refills, Maintenance, 08/27/18 16:54:19EDT, Capsule Start Date: 08/27/18 Stop Date: 09/06/18 Status: OrderedcloNIDine 0.1 mg oral tablet 0.1 mg, 1, tablet, By Mouth, 2 times a day, # 180 tablet, Refills 0, Maintenance, 07/21/21 4:58:00 EDT, Partial fill upon patient request if the prescription is for a schedule II opioid drug. Start Date: 07/21/21 Status: OrderedcloNIDine 0.1 mg oral tablet 0.1 mg, 1, tablet, By Mouth, 3 times a day, Refills 0, Maintenance, 08/14/17 9:42:48 EDT Start Date: 08/14/17 Status: Ordereddiclofenac 3% topical gel 1 application, Topically, 2 times a day, # 50 Gm, 0 Refills, Maintenance, 01/14/18 11:18:06 EDT, Gel, 1 application Topically 2 times a day Start Date: 01/14/18 Status: Orderedescitalopram 10 mg oral tablet TAKE 1 TABLET BY MOUTH EVERY DAY Start Date: 07/21/21 Status: OrderedhydrOXYzine hydrochloride 50 mg oral tablet 1 tablet = 50 mg, By Mouth, 3 times a day, PRN as needed for anxiety, 0 Refills, Maintenance, 07/22/21 14:49:00 EDT, Partial fill upon patient request if the prescription is for a schedule II opioid drug. Start Date: 07/22/21 Status: OrderedIbuprofen 600 mg, By Mouth, 3 [...] Requisition Start Date: 08/27/18 Status: OrderedTrazodone = 300 mg, By Mouth, Daily at bedtime, 0 Refills, Maintenance, 08/14/17 9:43:36 EDT Start Date: 08/14/17 Status: OrderedtraZODone 100 mg oral tablet 100 mg, 1, tablet, By Mouth, 3 times a day, # 270 tablet, Refills 0, Maintenance, 07/21/21 4:59:00 EDT, Partial fill upon patient request if the prescription is for a schedule II opioid drug. Start Date: 07/21/21 Status: OrderedTylenol 325 mg oral tablet 650 [...] 3 [Reference Range]: Oxygen Saturation [94-100 %] 99 % 99 % 98 % (07/22/21 1:09 PM) (07/22/21 6:33 AM) (07/21/21 9:1 4 PM) Pulse Rate [55-90 bpm] 80 bpm 84 bpm 72 bpm (07/22/21 1:09 PM) (07/22/21 6:33 AM) (07/21/21 9:1 4 PM) Blood Pressure [90-138/55-84 mm 128/80 mm Hg 124/77 mm Hg 96/66 mm Hg Hg] (07/22/21 1:09 PM) (07/22/21 6:33 AM) (07/21/21 9:1 4 PM) Respiratory Rate [16-30 br/min] 16 br/min 17 br/min 16 br/min (07/22/21 1:09 PM) (07/22/21 6:33 AM) (07/21/21 9:1 4 PM) Temperature [96.8-100.4 DegF] 98.5 DegF 97.7 DegF 98 .5 DegF (07/22/21 1:09 PM) (07/22/21 6:33 AM) (07/21/21 9:1 4 PM) Mode of Delivery (Oxygen) Room air Room air Room a ir (07/22/21 1:09 PM) (07/22/21 6:33 AM) (07/21/21 9:1 4 PM) Blood pressure sites Arm, right Arm, right Arm, right (07/22/21 1:09 PM) (07/22/21 6:33 AM) (07/21/21 9:1 4 PM) Temperature Route Oral Oral Oral (07/22/21 1:09 PM) (07/22/21 6:33 AM) (07/21/21 9:1 4 PM) Social History Social History Type Response Smoking Status Current every day smoker; To bacco user in household: Yes; Type: Cigarettes; Interested in cessation: Yes; Tobacco use times per day: pack/day; Number of years: 40; Cessation attempts: 0; entered on: 12/19/16 Sex Male
--- OUTSIDE RECORDS SUMMARY | 2022-03-13 08:24 | XMS_ITS | Continuity of Care Document ---
:1965 Author Organization [facility] Address [address] [place] [id number]- Care Team Providers Name Role Phone Nicole Blackmon MD Primary Care Physician Encounter [facility] [place] Date(s): 12/07/19 - 12/07/[address] [address]- [facility] Encounter Diagnosis Alcohol intoxication (Final) - 12/07/19 Discharge Disposition: A-D/C Home Attending Physician: Benny Toney MD Admitting Physician: Benny Toney MD Referring Physician: Not on Staff, Referring [...] Range]: 1 2 Oxygen Saturation [94-100 %] 97 % 99 % (12/07/19 6:13 AM) (12/07/19 1:39 AM) Pulse Rate [55-90 bpm] 62 bpm 64 bpm (12/07/19 6:13 AM) (12/07/19 1:39 AM) Blood Pressure [90-138/55-84 mm Hg] 117/64 mm Hg 120/ 79 mm Hg (12/07/19 6:13 AM) (12/07/19 1:39 AM) Respiratory Rate [16-30 br/min] 18 br/min 18 br/mi n (12/07/19 6:13 AM) (12/07/19 1:39 AM) Temperature [96.8-100.4 DegF] 97.2 DegF 98.6 DegF (12/07/19 6:13 AM) (12/07/19 1:39 AM) Mode of Delivery (Oxygen) Room air Room air (12/07/19 6:13 AM) (12/07/19 1:39 AM) Blood pressure sites Arm, right (12/07/19 1:39 AM) Temperature Route Oral Oral (12/07/19 6:13 AM) (12/07/19 1:39 AM) Social History Social History Type Response Smoking Status Current every day smoker; To bacco user in household: Yes; Type: Cigarettes; Interested in cessation: Yes; Tobacco use times per day: pack/day; Number of years: 40; Cessation attempts: 0; entered on: 12/19/16 Sex
--- OUTSIDE RECORDS SUMMARY | 2022-03-13 08:25 | XMS_ITS | Continuity of Care Document ---
:1965 Author Organization [facility] Address [address] [place] [address]- Care Team Providers Name Role Phone Nicoel Blackmon MD Primary Care Physician Encounter [facility] [place] Date(s): 07/22/21 - 08/10/21 [facility] [address] [place] [id number]- Discharge Disposition: A-D/C Home Attending Physician: Espinoza Davenport MD Admitting Physician: Espinoza Davenport MD Referring Physician: Espinoza Davenport MD Allergies, Adverse Reactions, Alerts Substance Reaction [...] Refills, Maintenance, 08/10/21 10:23:00 EDT, Cream, [id number], Partial fill upon patient request if the prescription is for a schedule II opioid drug., Topically 2 times a day, 173, cm, 04... Start Date: 08/10/21 Status: OrderedIbuprofen Tablet 400 mg, Tablet, By Mouth, Every 6 hours, PRN for Pain , Mild, Minor headache, up to 3x/24 hours. Do not give if patient is on [place] or Aspirin, Routine, 07/22/21 15:26:00 EDT Start Date: 07/22/21 Stop Date: 08/10/21 Status: Discontinuednicotine 21 mg/24 hr transdermal film, extended release [...] 0 Refills, Maintenance, 08/10/21 10:24:00 EDT, Tablet, [id number], Partial fill upon [...] Height 173 cm 173 cm 173 cm (08/10/21 8:29 AM) (08/09/21 10:08 PM) (08/09/21 8:40 AM) Weight 80.2 kg 79.1 kg 74.2 kg (08/08/21 3:09 PM) (07/29/21 3:11 PM) (07/22/21 2:52 PM) Oxygen Saturation [94-100 %] 99 % 100 % 99 % (08/10/21 8:29 AM) (08/09/21 10:08 PM) (08/09/21 8:40 AM) Pulse Rate [55-90 bpm] 75 bpm 58 bpm 56 bpm (08/10/21 8:29 AM) (08/09/21 10:08 PM) (08/09/21 8:40 AM) Body Mass Index [18.5-24.99] 24.79 (07/22/21 2:52 PM) Blood Pressure [90-138/55-84 mm 133/87 mm Hg 134/81 mm Hg 107/70 mm Hg Hg] (08/10/21 8:29 AM) (08/09/21 10:08 PM) (08/09/21 8:40 AM) Respiratory Rate [16-30 br/min] 16 br/min 16 br/min 16 br/min (08/10/21 8:30 AM) (08/10/21 8:29 AM) (08/10/21 6:16 A M) Temperature [96.8-100.4 DegF] 97.1 DegF 97.1 DegF 97 .1 DegF (08/10/21 8:29 AM) (08/09/21 10:08 PM) (08/09/21 8:40 AM) Mode of Delivery (Oxygen) Room air Room air Room a ir (08/10/21 8:29 AM) (08/09/21 10:08 PM) (08/09/21 8:40 AM) Blood pressure sites Arm, left Arm, left Arm, left (08/10/21 8:29 AM) (08/09/21 10:08 PM) (08/09/21 8:40 AM) Temperature Route Temporal Temporal Temporal (08/10/21 8:29 AM) (08/09/21 10:08 PM) (08/09/21 8:40 AM) Dry Weight 74.2 kg (07/22/21 2:52 PM) Weight Obtained Via Standing scale (08/08/21 3:09 PM) Social History Social History Type Response Smoking Status Current every day smoker; To bacco user in household: Yes; Type: Cigarettes; Interested in cessation: Yes; Tobacco use times per day: pack/day; Number of years: 40; Cessation attempts: 0; entered on: 12/19/16 Sex Male
--- NOTE | 2022-03-13 09:01 | ED.PSYCH ---
HPI - Psych General Chief Complaint: Psychiatric Symptoms Stated Complaint: depression crisis Time Seen by Provider: 03/13/22 08:15 Source: patient Mode of arrival: ambulatory Limitations: no limitations History of Present Illness HPI Narrative: Patient is a 56-year-old male presents to emergency department for evaluation of suicidal ideations. He reports approximately 2 months ago he relapsed on cocaine, IV heroin, alcohol usage. He states he has been using daily, does not quantify how much she has been using. He states that he has been living in his car and this has been causing him to have increasing depression. Reports that he has never been homeless before. He states that he had a bed at a local detox but he ?missed the chance? and is very upset. He expresses concerns of wanting to jump in front of a vehicle to take his life as he wants to go to detox. He will not discuss whether he has any history of past suicidal attempts. Related Data Home Medications Medication Instructions Recorded Confirmed No Known Home Meds 03/13/22 03/13/22 Allergies Allergy/AdvReac Type Severity Reaction Status Date / Time penicillin G Allergy Unknown UNKNOWN Verified 08/17/21 20:00 Review of Systems Review of Systems: Constitutional : No Fever, No Chills ENT/Mouth : No Ear Pain, No Nasal Congestion, No sore throat Eyes: No Eye Pain, No Swelling, No Redness Cardiovascular : No Chest Pain, No SOB Respiratory : No Cough, No Sputum, No Dyspnea Gastrointestinal : No Nausea, No Vomiting, No Diarrhea, No Hematochezia, No Melena Genitourinary : No Dysuria, No Urinary Frequency, No Hematuria Musculoskeletal : No Myalgias Skin : No Skin Lesions, No rash Neuro : No Weakness, No Numbness, No Paresthesias, No Dizziness, No Headache Psych : positive Anxiety, positive Depression, positive SI, no HI Heme/Lymph: No Lymphadenopathy Endocrine : No Polyuria, No Polydipsia Yes all other systems are reviewed and are negative [facility] Past Medical History Attestation statement: The following information was validated with the patient. Source: old records reviewed Medical History Asthma Drug abuse Hepatitis C Smoker Social History Social History Alcohol intake: current Patient Tobacco Use Status: Never used Tobacco Smoked in Last 30 Days: Yes Use of substances other than those prescribed or required for medical reasons: Yes Substance Use Type: Crack/Cocaine Advance Directives: No Advance Directives Information Provided: No Physical Exam Vital Signs: Vital Signs: Last Vital Signs Temp 98.1 F 03/13/22 08:56 Pulse 63 03/13/22 08:56 Resp 18 03/13/22 15:58 BP 159/80 H 03/13/22 08:56 Pulse Ox 99 03/13/22 08:56 O2 Del Method 03/13/22 08:56 BMI result Body Mass Index 26.6 Appearance: Alert.?Oriented to person, place and time. No acute distress.?Normal affect. Eyes: Pupils equal, round and reactive to light.? ENT: Pharynx normal.?? Neck: Normal inspection.? Neck supple.?? CVS: Heart sounds normal. Normal heart rate and rhythm.? Pulses normal.?? Respiratory: No respiratory distress.? Lung sounds clear to auscultation bilaterally?? Abdomen: Soft and non-tender. Normoactive bowel sounds. ? Skin: Skin warm and dry.? Normal skin color.? Extremities: No lower extremity edema.? Neuro: Moves all extremities spontaneously. Sensation intact bilaterally. CN II-XII intact. No focal neuro deficits. Ambulates with normal steady gait. Course Course Course Narrative: Patient is a 56-year-old male with a past medical history of asthma, polysubstance abuse, hepatitis-C who presents emergency department for evaluation of polysubstance use and suicidal ideations. Patient with no reports of physical complaints at this time. He is well appearing, vital signs are stable. will obtain basic labs, refer to [facility] for evaluation of whether inpatient psychiatric services are required at this time, and may additionally require assistance with detox. Reevaluation(s) Reevaluation #1: Patient was evaluated by care team, he is a voluntary bed search at this time. Labs overall unremarkable for any acute findings. Urinalysis presence of pyuria, no bacteria seen, no genitourinary symptoms, would defer treatment at this time. Culture was sent. Drug abuse screen positive for cocaine marijuana. Ethanol level not detectable. COVID negative. Patient was placed in physician observation at this time, the reason for observation being he will require additional time for bed search to continue. Time: 13:01 Medications Administered Discontinued Medications Generic Name Dose Route Start Last Admin Trade Name Freq PRN Reason Stop Dose Admin Chlordiazepoxide HCl 25 mg 11/07/22 16:09 03/13/22 16:19 Chlordiazepoxide Hcl 25 Mg Capsule PO 03/13/22 16:10 25 mg ONCE ONE Administration MDM - Psych Medical Records Attestation: I reviewed the patient's medical records. Lab Data Attestation: I reviewed the patient's lab results. Result diagrams: 03/13/22 10:24 03/13/22 10:24 Labs: Lab Results 03/13/22 03/13/22 03/13/22 Range/Units 09:05 10:23 10:23 WBC (4.8-10.8) X10*3/uL RBC (4.60-5.80) X10*6/uL Hgb (14.0-18.0) g/dl Hct (42.0-52.0) % MCV (80.0-98.0) fL MCH (27.0-33.0) pg MCHC (31.0-36.0) g/dl RDW (11.0-16.0) % Plt Count (160-400) X10*3/uL MPV (9.4-12.4) fL Immature Gran % (Auto) (0.0-0.4) % Neut % (Auto) (45-73) % Lymph % (Auto) (20-40) % [place] % (Auto) (2-11) % Eos % (Auto) (0-4) % Baso % (Auto) (0-2) % Lymph # (Auto) (1.2-4.9) X10*3/uL [place] # (Auto) (0.1-1.2) X10*3/uL Eos # (Auto) (0.0-0.4) X10*3/uL Baso # (Auto) (0.0-0.2) X10*3/uL Abs Immat Gran (auto) (0.00-0.03) X10*3/uL Absolute Neuts (auto) (2.0-8.3) x10*3/uL Absolute Nucleated RBC (0.0-0.012) X10*3/uL Nucleated RBC % (auto) (0.0-0.2) /100WBC Sodium (135-145) mmol/L Potassium (3.3-5.1) mmol/L Chloride (96-108) mmol/L Carbon Dioxide (22-29) mmol/L Anion Gap (12-20) BUN (9-16) mg/dL Creatinine (0.5-1.4) mg/dL Estim Creat Clear Calc Estimated GFR Random Glucose (60-115) mg/dL Calcium (8.4-10.2) mg/dL Total Bilirubin (0.0-1.0) mg/dL AST (5-37) U/L ALT (0-40) U/L Alkaline Phosphatase (39-117) U/L Total Protein (6.5-8.0) g/dL Albumin (3.5-5.0) g/dL Urine Color Yellow Urine Appearance Turbid Urine pH 8.0 (5.0-9.0) Ur Specific [place] 1.020 (1.005-1.025) Urine Protein Negative (Neg-Trace) mg/dL Urine Glucose (UA) Negative (Negative) mg/dL Urine Ketones Negative (Negative) mg/dL Urine Blood Negative (Negative) Urine Nitrite Negative (Negative) Ur Leukocyte Esterase Moderate (2+) H (Negative) Urine RBC 0-2 (0-2) /HPF Urine WBC 21-50 H (0-5) /HPF Ur Squamous Epith Cells 0-2 (0-2) /HPF Urine Bacteria None Seen (None Seen) Hyaline Casts 0-2 (0-2) /LPF Urine Opiates Screen Not Detected (Not Detect) Urine Fentanyl Screen Not Detected (Not Detect) Ur Barbiturates Screen Not Detected (Not Detect) Ur Phencyclidine Scrn Not Detected (Not Detect) Ur Amphetamines Screen Not Detected (Not Detect) U Benzodiazepines Scrn Not Detected (Not Detect) Urine Cocaine Screen POSITIVE H (Not Detect) U Marijuana (THC) Screen POSITIVE H (Not Detect) Ethyl Alcohol mg/dL COVID-19 (CATE) Negative (Negative) COVID-19 Clin Com See Note 03/13/22 03/13/22 Range/Units 10:24 10:24 WBC 4.6 L (4.8-10.8) X10*3/uL RBC 4.41 L (4.60-5.80) X10*6/uL Hgb 12.6 L (14.0-18.0) g/dl Hct 39.0 L (42.0-52.0) % MCV 88.4 (80.0-98.0) fL MCH 28.6 (27.0-33.0) pg MCHC 32.3 (31.0-36.0) g/dl RDW 13.7 (11.0-16.0) % Plt Count 211 D (160-400) X10*3/uL MPV 9.4 (9.4-12.4) fL Immature Gran % (Auto) 0.2 (0.0-0.4) % Neut % (Auto) 54.7 (45-73) % Lymph % (Auto) 29.1 (20-40) % [place] % (Auto) 12.3 H (2-11) % Eos % (Auto) 3.3 (0-4) % Baso % (Auto) 0.4 (0-2) % Lymph # (Auto) 1.3 (1.2-4.9) X10*3/uL [place] # (Auto) 0.6 (0.1-1.2) X10*3/uL Eos # (Auto) 0.2 (0.0-0.4) X10*3/uL Baso # (Auto) 0.0 (0.0-0.2) X10*3/uL Abs Immat Gran (auto) 0.01 (0.00-0.03) X10*3/uL Absolute Neuts (auto) 2.5 (2.0-8.3) x10*3/uL Absolute Nucleated RBC 0.000 (0.0-0.012) X10*3/uL Nucleated RBC % (auto) 0.0 (0.0-0.2) /100WBC Sodium 141 (135-145) mmol/L Potassium 4.1 (3.3-5.1) mmol/L Chloride 104 (96-108) mmol/L Carbon Dioxide 25 (22-29) mmol/L Anion Gap 16 (12-20) BUN 11 (9-16) mg/dL Creatinine 0.88 (0.5-1.4) mg/dL Estim Creat Clear Calc 87.6 Estimated GFR > 60 Random Glucose 126 H D (60-115) mg/dL Calcium 9.0 (8.4-10.2) mg/dL Total Bilirubin 0.4 (0.0-1.0) mg/dL AST 16 (5-37) U/L ALT 17 (0-40) U/L Alkaline Phosphatase 86 (39-117) U/L Total Protein 6.7 (6.5-8.0) g/dL Albumin 3.9 (3.5-5.0) g/dL Urine Color Urine Appearance Urine pH (5.0-9.0) Ur Specific [place] (1.005-1.025) Urine Protein (Neg-Trace) mg/dL Urine Glucose (UA) (Negative) mg/dL Urine Ketones (Negative) mg/dL Urine Blood (Negative) Urine Nitrite (Negative) Ur Leukocyte Esterase (Negative) Urine RBC (0-2) /HPF Urine WBC (0-5) /HPF Ur Squamous Epith Cells (0-2) /HPF Urine Bacteria (None Seen) Hyaline Casts (0-2) /LPF Urine Opiates Screen (Not Detect) Urine Fentanyl Screen (Not Detect) Ur Barbiturates Screen (Not Detect) Ur Phencyclidine Scrn (Not Detect) Ur Amphetamines Screen (Not Detect) U Benzodiazepines Scrn (Not Detect) Urine Cocaine Screen (Not Detect) U Marijuana (THC) Screen (Not Detect) Ethyl Alcohol < 10 mg/dL COVID-19 (CATE) (Negative) COVID-19 Clin Com Discharge Plan Discharge Clinical Impression: Suicidal ideation, Polysubstance use disorder Patient Disposition: Still a Patient Prescriptions: No Action No Known Home Meds
[2022-03-13 09:32] LABS: COVID-19 Test Negative (Negative); IDNOW Serial# 16C4AD1C
--- NOTE | 2022-03-13 09:35 | PC.NURSE ---
Addendum entered by Soni Larkin 03/13/22 10:53: Belongings researched by security. Per nuclear security officer: belongings are clear of drugs/paraphernalia. Re locked up in Laundry closet. Addendum entered by Soni Larkin 03/13/22 10:32: Contact made to coin machine service repairer and security: Plan at this time is for security to research belongings outside of pod. Due to the nature of belonging being secured there is little to no risk of OD/access. Addendum entered by Soni Larkin 03/13/22 10:25: Pt is verbally aggressive when asked to comply with pod rules. Pt adamently refusing to allow female techs to draw blood/provide UA. A male ERT went into the room to draw blood. ERT reported to me that the patient asked him for heroin/coke/ needles . Per pt: I have stuff in my bag . Addendum entered by Soni Larkin 03/13/22 09:44: Per pt: ruth been off my meds for months . Original Note: Arrives ambulatory w/ verbally abusive and disruptive behaviors. Pt encouraged to change management analyst to pod pants, Smart sheet filled out, Refusing Blood work and UA at this time
[2022-03-13 10:32] LABS: MANUAL DIFF FLAG NO
[2022-03-13 10:34] LABS: Basophils Percent Auto 0.4 % (0-2); Eosinophils Absolute Auto 0.2 X10*3/uL (0.0-0.4); Eosinophils Percent Auto 3.3 % (0-4); Hemoglobin 12.6 g/dl (14.0-18.0); Imm Gran Abs Auto 0.01 X10*3/uL (0.00-0.03); Imm Gran Pct Auto 0.2 % (0.0-0.4); Lymphocytes Absolute Auto 1.3 X10*3/uL (1.2-4.9); Lymphocytes Percent Auto 29.1 % (20-40); Mean Corpuscular HGB Conc 32.3 g/dl (31.0-36.0); Mean Corpuscular Hemoglobin 28.6 pg (27.0-33.0); Mean Corpuscular Volume 88.4 fL (80.0-98.0); Mean Platelet Volume 9.4 fL (9.4-12.4); Monocytes Absolute Auto 0.6 X10*3/uL (0.1-1.2); Monocytes Percent Auto 12.3 % (2-11); Neutrophils Absolute Auto 2.5 x10*3/uL (2.0-8.3); Neutrophils Percent Auto 54.7 % (45-73); Platelet Count 211 X10*3/uL (160-400); Red Blood Count 4.41 X10*6/uL (4.60-5.80); Red Cell Distribution Width 13.7 % (11.0-16.0); White Blood Count 4.6 X10*3/uL (4.8-10.8)
[2022-03-13 10:37] LABS: Appearance Urine Turbid; Color Urine Yellow; Glucose Urine UA Negative (Negative); Leukocyte Esterase Urine Moderate (2+) (Negative); Nitrite Urine Negative (Negative); UMIC TRIGGER UACC YES; Urine Blood Negative (Negative); Urine Ketones Negative (Negative); Urine Protein Negative (Neg-Trace)
[2022-03-13 10:42] LABS: Bacteria Urine None Seen (None Seen); Hyaline Casts Urine 0-2 /LPF (0-2); RBC Urine 0-2 /HPF (0-2); Squamous Epithelial Cell Urine 0-2 /HPF (0-2); UACC Culture Trigger YES; WBC Urine 21-50 /HPF (0-5)
[2022-03-13 10:55] LABS: Amphetamine Screen Urine Not Detected (Not Detect); Barbiturates, Urine Not Detected (Not Detect); Benzodiazepines Screen Urine Not Detected (Not Detect); Cannabinoid Screen Urine POSITIVE (Not Detect); Cocaine Screen Urine POSITIVE (Not Detect); Fentanyl, urine Not Detected (Not Detect); Opiate Screen Urine Not Detected (Not Detect); Phencyclidine Screen Urine Not Detected (Not Detect)
[2022-03-13 10:56] LABS: Alanine Aminotransferase 17 U/L (0-40); Albumin Level 3.9 g/dL (3.5-5.0); Alkaline Phosphatase 86 U/L (39-117); Anion Gap 16 (12-20); Aspartate Amino Transferase 16 U/L (5-37); Bilirubin Total 0.4 mg/dL (0.0-1.0); Blood Urea Nitrogen 11 mg/dL (9-16); Carbon Dioxide 25 mmol/L (22-29); Chloride 104 mmol/L (96-108); Creatinine Clr Calc Pharmacy 87.6; Estimated Glomerular Filt Rate > 60; Ethanol < 10 mg/dL; Glucose Random 126 mg/dL (60-115); Potassium 4.1 mmol/L (3.3-5.1); Sodium 141 mmol/L (135-145); Total Protein 6.7 g/dL (6.5-8.0)
--- NOTE | 2022-03-13 11:21 | MHC.CARE ---
CARE Team met with Pt who reported being frustrated with getting into detox at [facility]. Pt stated he has been on waiting list for multiple days and has not gotten a bed. Pt reports daily alcohol and cocaine use. Pt expressed hopelessness is the context of loosing everything . Pt appears to have chronic, intermittent fleeting suicidal ideation at baseline in the context of ongoing substance use and housing insecurities. Pt is not endorsing active SI with plan, intent or means. Pt stated he has history of mental health treatment. Pt states he would like to go to detox. Plan for recovery team to follow up with Pt.
[2022-03-13] MEDS: chlordiazePOXIDE HCl 25 MG CAPSULE PO (16:19)
--- NOTE | 2022-03-13 16:48 | MHC.RECOVRN ---
This life insurance underwriter met w/ pt. Pt was laying in bed. Pt reports daily CRACK/KARISHMA, ETOH use. Pt reports $100 plus daily in Crack/KARISHMA and a few beers daily. Pt states does not want to do this right now, has already answered these questions. This life insurance underwriter let pt know this is the process to collect information for detoxes. Pt reports only want to go to [facility], do not want to go to any other detox . Pt reports has been calling [facility] detox for past 5 days. This life insurance underwriter confirmed pt is on waitlist at [facility], [facility] reports pt can continue to call daily to see if any male beds. This life insurance underwriter let Pod RN and CM know that at this time recommendation would be for pt to f/u w/ [facility] in the community, as pt is not interested in any other detoxes and has been cleared by the Care Team.
--- NOTE | 2022-03-13 19:08 | PC.NURSE ---
Addendum entered by Rosa Santos RN 03/14/22 06:44: report given to MARQUIS Saravia Original Note: report received from MARQUIS Shafer pt appear asleep no signs of acute distress notice breathing equally unlabored close monitoring maintained
[2022-03-13] MEDS: cloNIDine HCL 0.1 MG TABLET PO (22:41)
[2022-03-13] MEDS: Ibuprofen 800 MG TABLET PO (22:41)
[2022-03-13] MEDS: traZODone HCL 100 MG TABLET 300 MG PO (22:41)
[2022-03-14 05:56] VITALS: RESP 18
--- NOTE | 2022-03-14 07:32 | PC.NURSE ---
patient appears to remain asleep at present respirations are even and unlabored patient appears in no distress
--- NOTE | 2022-03-14 09:15 | MHC.RECOVRN ---
Spoke with Sachi at [facility], per clinical supervisor partial denture department pt requires medications that are not being reported and/or pt is not taking. Pt reported during phone intake with [facility] that he hasn't taken medications for months. Pt must be stabilized on medications prior to being accepted to [facility]. CARE Team aware.
--- NOTE | 2022-03-14 09:46 | PC.NURSE ---
notified client rupa amanda declined admission, informed patient of this then patient said im willing to go to [facility] just not ad care.
--- NOTE | 2022-03-14 12:58 | P.CNPS_ITS ---
History of Present Illness Date of Service: 03/14/22 Chief Complaint: depression crisis Reason for Consult: assess Sources of Information: patient interviewed, chart reviewed and crisis/core team assessment reviewed HPI Narrative: Patient is a 56-year-old male with long history of polysubstance abuse, depression, anxiety, history of poor follow-up with aftercare who presents wanting detox for cocaine abuse but then later saying he is suicidal. Patient is detoxing from cocaine; denies alcohol withdrawal saying he has only been drinking a little bit. Initially patient said that he wanted help getting admission to a detox. He was particular about which once he would not go to however limiting staff from pursuing available resources. When faced with doing dwindling options, patient then said that he was suicidal and would kill himself if he did not get in to somewhere, saying he has never been homeless before (he has) and needs help getting his life back together, expressly saying he needs help getting housing. Patient said that Zoloft was helpful to him and he would like to get back on it; however when writer editor offered to restart it, he refused saying he would only restart it once he got on to a psych unit. Veneer Drier Feeder revisited patient to make sure he understood that on a psychiatric unit, while treatment is available, there is very little staff there can do to help him obtain housing. With this in mind, patient reverted back to his original request now again preferring to go to a detox saying a detox will be fine and that he is safe to go; patient also said he will go pretty much to any detox available. He also agreed to restart Zoloft. Past Psychiatric History: Numerous hospitalizations for similar presentation Med trial: Remeron, not tolerated Seroquel, not tolerated Risperdal: unknown effect Trileptal: unknown effect Medical Evaluation Reviewed: Yes [facility] Medical History Asthma Cocaine dependence Drug abuse Hepatitis C Smoker Family History: deferred Social History: Reports his mother recently History of incarcerations for drug charges Substance History: long hx of polysubstance abuse Trauma History: deferred Diagnostics Vital Signs (24Hr): Vital Signs - 24 hr 03/13/22 14:00 03/13/22 15:58 03/13/22 18:00 Respiratory Rate 18 18 16 03/13/22 20:00 03/13/22 22:00 03/14/22 05:56 Respiratory Rate 18 14 18 BMI result Body Mass Index 26.6 Labs Results: 03/13/22 10:24 03/13/22 10:24 Labs: Laboratory Results - last 48 hr 03/13/22 03/13/22 03/13/22 09:05 10:23 10:23 WBC RBC Hgb Hct MCV MCH MCHC RDW Plt Count MPV Immature Gran % (Auto) Neut % (Auto) Lymph % (Auto) [place] % (Auto) Eos % (Auto) Baso % (Auto) Lymph # (Auto) [place] # (Auto) Eos # (Auto) Baso # (Auto) Abs Immat Gran (auto) Absolute Neuts (auto) Absolute Nucleated RBC Nucleated RBC % (auto) Sodium Potassium Chloride Carbon Dioxide Anion Gap BUN Creatinine Estim Creat Clear Calc Estimated GFR Random Glucose Calcium Total Bilirubin AST ALT Alkaline Phosphatase Total Protein Albumin Urine Color Yellow Urine Appearance Turbid Urine pH 8.0 Ur Specific [place] 1.020 Urine Protein Negative Urine Glucose (UA) Negative Urine Ketones Negative Urine Blood Negative Urine Nitrite Negative Ur Leukocyte Esterase Moderate (2+) H Urine RBC 0-2 Urine WBC 21-50 H Ur Squamous Epith Cells 0-2 Urine Bacteria None Seen Hyaline Casts 0-2 Urine Opiates Screen Not Detected Urine Fentanyl Screen Not Detected Ur Barbiturates Screen Not Detected Ur Phencyclidine Scrn Not Detected Ur Amphetamines Screen Not Detected U Benzodiazepines Scrn Not Detected Urine Cocaine Screen POSITIVE H U Marijuana (THC) Screen POSITIVE H Ethyl Alcohol COVID-19 (CATE) Negative COVID-19 Clin Com See Note 03/13/22 03/13/22 10:24 10:24 WBC 4.6 L RBC 4.41 L Hgb 12.6 L Hct 39.0 L MCV 88.4 MCH 28.6 MCHC 32.3 RDW 13.7 Plt Count 211 D MPV 9.4 Immature Gran % (Auto) 0.2 Neut % (Auto) 54.7 Lymph % (Auto) 29.1 [place] % (Auto) 12.3 H Eos % (Auto) 3.3 Baso % (Auto) 0.4 Lymph # (Auto) 1.3 [place] # (Auto) 0.6 Eos # (Auto) 0.2 Baso # (Auto) 0.0 Abs Immat Gran (auto) 0.01 Absolute Neuts (auto) 2.5 Absolute Nucleated RBC 0.000 Nucleated RBC % (auto) 0.0 Sodium 141 Potassium 4.1 Chloride 104 Carbon Dioxide 25 Anion Gap 16 BUN 11 Creatinine 0.88 Estim Creat Clear Calc 87.6 Estimated GFR > 60 Random Glucose 126 H D Calcium 9.0 Total Bilirubin 0.4 AST 16 ALT 17 Alkaline Phosphatase 86 Total Protein 6.7 Albumin 3.9 Urine Color Urine Appearance Urine pH Ur Specific [place] Urine Protein Urine Glucose (UA) Urine Ketones Urine Blood Urine Nitrite Ur Leukocyte Esterase Urine RBC Urine WBC Ur Squamous Epith Cells Urine Bacteria Hyaline Casts Urine Opiates Screen Urine Fentanyl Screen Ur Barbiturates Screen Ur Phencyclidine Scrn Ur Amphetamines Screen U Benzodiazepines Scrn Urine Cocaine Screen U Marijuana (THC) Screen Ethyl Alcohol < 10 COVID-19 (CATE) COVID-19 Clin Com Mental Status Exam Mental Status Exam Narrative: Pt is alert and oriented; behavior is irritable, demanding; dressed in hospital attire with, disheveled; mood is described as depressed and affect congruent; eye contact appropriate; Speech is normal rate, volume and prosody and not pressured; no psychomotor agitation/retardation present; thought process is organized and goal directed; Thought content is on tx or SI; otherwise pertinent to relevant topics and without any delusional content, paranoid ideations or grandiosity; intermittently endorses SI which depends on disposition options. There is no evidence of perceptual disturbance. Patients insight and judgment appear intact. Medications Allergies Allergies Allergy/AdvReac Type Severity Reaction Status Date / Time penicillin G Allergy Unknown UNKNOWN Verified 08/17/21 20:00 Assessment & Plan Assessment & Plan (1) Cocaine dependence: Status: Acute Code(s): F14.20 - Cocaine dependence, uncomplicated (2) Cocaine abuse with cocaine-induced mood disorder: Status: Acute Code(s): F14.14 - Cocaine abuse with cocaine-induced mood disorder (3) Polysubstance use disorder: Status: Acute Code(s): F19.90 - Other psychoactive substance use, unspecified, uncomplicated Plan Patient is a 56-year-old male with long history of polysubstance abuse, depression, anxiety, history of poor follow-up with aftercare who presents wanting detox for cocaine abuse but then later saying he is suicidal. Patient did not come in suicidal. Suicidality only seemed to arise when trying to negotiate disposition options with staff going from saying he will be suicidal when worried about being discharged from ED to saying he is safe if he's able to get to go to a program. Patient agrees to get back on Zoloft. Veneer Drier Feeder does not dispute that patient is currently in emotional distress, coming off cocaine and not wanting to be homeless. However patient only brings up suicidality when he is trying to negotiate disposition options. His Suicidality cleared up once he decided he would be better suited at a detox than a psychiatric unit. At this time, patient does not seem in imminent risk for harm to self or others and writer editor agrees with patient that his needs will be best met at a detox facility. -Will restart Zoloft (was recently on 100mg) -peers patient has a UTI; discussed with ED attending who will assess I spent minutes with the patient and/or on the patient floor today, greater than?50% of which was spent counseling/coordinating care. Patient educated on: diagnosis, medication risk/benefits and substance abuse Informed Consent: understands
[2022-03-14] MEDS: Sertraline HCL 25 MG TABLET 12.5 MG PO (13:27)
--- NOTE | 2022-03-14 14:12 | MHC.RECOVRN ---
ATS referral sent to [facility].
--- NOTE | 2022-03-14 14:55 | PC.NURSE ---
Attempt made to engage pt in individual OT tx. Pt immediately dismisses this SHARI/L stating I'm too depressed to talk I'm good but thanks . Pts nurse whiteness to refusal and aware of pts current mood/disposition.
[2022-03-14 15:01] LABS: Appearance Urine Clear; Color Urine Yellow; Glucose Urine UA Negative (Negative); Leukocyte Esterase Urine Negative (Negative); Nitrite Urine Negative (Negative); PH 7.5 (5.0-9.0); Urine Blood Negative (Negative); Urine Ketones Negative (Negative); Urine Protein Negative (Neg-Trace)
--- NOTE | 2022-03-14 15:08 | MHC.RECOVRN ---
Unable to reach staff at [facility], will continue to call.
--- NOTE | 2022-03-14 15:39 | PC.NURSE ---
Patient came requesting all his home medications librium, ibupofen, Vistaril, and clonidine. Will request from MD brunson.
--- NOTE | 2022-03-14 16:08 | MHC.RECOVRN ---
Spoke with staff at [facility] who informed t/w it's too late for an admission today and they would call tomorrow and be able to accommodate an admission then. CARE Team aware.
[2022-03-14] MEDS: Ibuprofen 800 MG TABLET PO (16:58)
--- NOTE | 2022-03-14 19:37 | PC.NURSE ---
report received from MARQUIS Tabor pt appears asleep no signs of acute distress notice breathing equally unlabored close monitoring maintained
[2022-03-14] MEDS: traZODone HCL 100 MG TABLET 300 MG PO (20:03)
[2022-03-14] MEDS: cloNIDine HCL 0.1 MG TABLET PO (20:04)
--- NOTE | 2022-03-15 01:00 | PC.NURSE ---
Pt requested a shower and during that time, room was cleaned of excess food and wrappers and linen was changed.
[2022-03-15 06:39] VITALS: BP 143/87; PULSE 67; RESP 17; TEMP 36.8; O2SAT 95
--- NOTE | 2022-03-15 07:06 | PC.NURSE ---
report given to MARQUIS Roach
[2022-03-15 07:27] VITALS: BP 128/70; PULSE 68; RESP 16; TEMP 36.7; O2SAT 98
--- NOTE | 2022-03-15 07:30 | PC.NURSE ---
pt is a/o x 4 no sob/dwaine noted skin pink warm and dry speaks in full sentences. pt states that he would like to his meds.pt states i go to [facility] [address], [facility]. i haven't been taking my meds because i have been living in my car because i am homeless and i have been using drugs. i have need my meds because i feel terrible . aware. pt amb (i) gait steady. pt ate 100% of breakfast.
--- NOTE | 2022-03-15 07:54 | PHA.MEDREC ---
Pharmacy Consult ? Medication Reconciliation Pharmacy has completed the medication reconciliation. MEDS PER THE PHARMACY THE PT SAID HE USES. HE ALSO SAID HE HASNT TAKEN HIS MEDS IN 2 MONTHS BECAUSE HE HAS BEEN HOMELESS
[2022-03-15] MEDS: hydrOXYzine HCL 25 MG TABLET PO (08:09)
[2022-03-15] MEDS: chlordiazePOXIDE HCl 25 MG CAPSULE PO (08:09)
[2022-03-15] MEDS: Sertraline HCL 25 MG TABLET PO (08:10)
[2022-03-15] MEDS: Ibuprofen 800 MG TABLET PO (08:10)
[2022-03-15] MEDS: cloNIDine HCL 0.1 MG TABLET PO (08:10)
--- NOTE | 2022-03-15 08:16 | PC.NURSE ---
pt denies any si/hi.
--- NOTE | 2022-03-15 09:18 | MHC.RECOVRN ---
[facility] does not have available beds today. Referral sent to [facility]. Awaiting review.
--- NOTE | 2022-03-15 11:25 | MHC.RECOVRN ---
Pts referral sent to [facility]. Awaiting review.
--- NOTE | 2022-03-15 12:05 | PC.NURSE ---
dr. shea at bedside pt aware of plan of care.
--- NOTE | 2022-03-15 12:11 | MHC.RECOVRN ---
Spoke with nursing at [facility], pt accepted. Awaiting call for phone intake.
--- NOTE | 2022-03-15 13:06 | MHC.RECOVRN ---
Pt accepted to [facility] for 3PM admission.
--- NOTE | 2022-03-15 13:25 | PC.NURSE ---
pt has a navin size open area to l forearm, no drainage noted area is moist, dr. bedoya assess/eval area. topical abt to be applied and covered with c/d/d.
[2022-03-15 14:02] VITALS: BP 123/76; PULSE 62; RESP 16; TEMP 37.2; O2SAT 98
[2022-03-15] MEDS: Mupirocin 2 % Oint 22 GM TUBE 1 APPL TOPICAL (14:08)
--- NOTE | 2022-03-15 14:11 | PC.NURSE ---
pt's l forearm open area (navin size) was cleansed with normal saline followed by bactroban oint and covered with a large bandaid. pt ronak well. pt was given the bactroban ointment and several bandage upon discharge which he needs to apply for 7 days. pt aware of plan of care.
--- NOTE | 2022-03-15 14:29 | MHC.RECOVRN ---
Pt discharged, escorted to [facility] by t/w. Pt states I'll take the ride but I'm not going to detox. I'm going to get high. Pt continues to verbalize his displeasure with [facility] placement. Pt aware it is the only available bed. Pt did get in Lyft and will be dropped off at [facility].
== END 2022-03-15 14:31 | disposition other institution (70) ==
PROVIDERS: Nurse Practitioner Family; Emergency Provider Emergency Medicine; PCP Student in an Organized Health Care Education/Training Program
DX: R45.851 Suicidal ideations (principal); F19.10 Other psychoactive substance abuse, uncomplicated; F41.9 Anxiety disorder, unspecified; F32.A Depression, unspecified; F14.20 Cocaine dependence, uncomplicated; Z59.02 Unsheltered homelessness; B19.20 Unspecified viral hepatitis C without hepatic coma; F17.200 Nicotine dependence, unspecified, uncomplicated; Z20.822 Contact with and (suspected) exposure to COVID-19
CPT/HCPCS: 80053; 80307; 81001; 81003; 82077; 85025; 87086; 87635; 99285

== ENCOUNTER 2022-03-23 01:13 | Emergency (ER) | payer OTHER, SELFPAY ==
[2022-03-23 01:18] VITALS: BP 148/86; PULSE 86; RESP 20; TEMP 36.2; O2SAT 96; BMI 25.0
[2022-03-23 01:54] LABS: Amphetamine Screen Urine Not Detected (Not Detect); Barbiturates, Urine Not Detected (Not Detect); Benzodiazepines Screen Urine POSITIVE (Not Detect); Cannabinoid Screen Urine Not Detected (Not Detect); Cocaine Screen Urine POSITIVE (Not Detect); Fentanyl, urine Not Detected (Not Detect); Opiate Screen Urine Not Detected (Not Detect); Phencyclidine Screen Urine Not Detected (Not Detect)
[2022-03-23 01:59] LABS: COVID-19 Test Negative (Negative); IDNOW Serial# 16C4AD1C
[2022-03-23] MEDS: Acetaminophen 325 MG TABLET 650 MG PO (02:10)
[2022-03-23 02:12] LABS: Ethanol < 10 mg/dL
--- NOTE | 2022-03-23 03:06 | ED.PSYCH ---
HPI - Psych General Chief Complaint: Psychiatric Symptoms Stated Complaint: SI, depression Time Seen by Provider: 03/23/22 01:43 Source: patient Mode of arrival: ambulatory History of Present Illness HPI Narrative: 56-year-old male who presents with complaints of depression, SI without a plan but continues to state ?I just do not want to go on and I want to join my mother?. Patient states that he was in at detox at [facility] which was a dual diagnosis but states that while he was there they did not continue his depression medication because it was not covered by his insurance. In addition, patient states that the methadone they started him on has been making him sick and that he has not used heroin in a very long time it is simply that the crack/cocaine that he uses was tainted with fentanyl. He otherwise denies any other complaints and denies any other medical history. Related Data Home Medications Medication Instructions Recorded Confirmed clonidine HCl 0.1 mg tablet 1 tab PO TID 03/15/22 03/15/22 hydroxyzine pamoate 50 mg capsule 1 cap PO TID PRN anxiety 03/15/22 03/15/22 sertraline 100 mg tablet 1 tab PO DAILY 03/15/22 03/15/22 trazodone 150 mg tablet 2 tab PO BEDTIME 03/15/22 03/15/22 Previous Rx's Medication Instructions Recorded sertraline 100 mg tablet See Rx Instructions .Route 03/15/22 .COMPLEX #30 tabs Allergies Allergy/AdvReac Type Severity Reaction Status Date / Time penicillin G Allergy Unknown UNKNOWN Verified 03/23/22 01:20 Review of Systems Review of Systems: Pertinent positives and negatives as stated in HPI 10 point review of systems is otherwise PMFSH Past Medical History Source: nursing notes reviewed Medical History Asthma Cocaine dependence Drug abuse Hepatitis C Smoker Social History Social History Alcohol intake: current Alcohol intake frequency: 3 or more drinks per day Alcohol type: beer Patient Tobacco Use Status: Never used Tobacco Smoked in Last 30 Days: Yes Use of substances other than those prescribed or required for medical reasons: Yes Substance Use Type: Crack/Cocaine Substance Use Frequency: Chronic Longstanding Last Used Substance: Hours (ago) Advance Directives: No Physical Exam Vital Signs: Vital Signs: Last Vital Signs Temp 97.2 F 03/23/22 01:18 Pulse 86 03/23/22 01:18 Resp 20 03/23/22 01:18 BP 148/86 H 03/23/22 01:18 Pulse Ox 96 03/23/22 01:18 O2 Del Method 03/23/22 01:18 BMI result Body Mass Index 25.0 VITAL SIGNS: Reviewed. GENERAL: Well developed, well nourished, in no acute distress. HEAD: Normocephalic/atraumatic EYES: PERRLA, EOMI EARS: Ext canals without abnormality OROPHARYNX: no oral lesions noted, posterior pharynx clear LUNGS: Normal breath sounds. No adventitious sounds or accessory muscle use. SpO2<96> CARDIOVASCULAR: Regular rate and rhythm without noted murmurs ABDOMEN: Soft, non-tender, non-distended with bowel sounds. MUSCULOSKELETAL: No tenderness, deformities, or effusions noted on gross inspection. EXTREMITIES: No cyanosis, clubbing or edema. SKIN: Inspection of the skin reveals no rashes, NEUROLOGIC: Alert and oriented x 4. Strength and sensation to light touch were grossly intact x 4, cranial nerves 2-12 are grossly intact. PSYCH: Depressed affect Course Course Course Narrative: 56-year-old male with history and clinical presentation after review of all investigations consistent with depression due to no access to his medication hand patient continues to complain of depression and vague SI and appears to be unhappy with his relapse after leaving [facility] this afternoon. He is otherwise medically cleared for further evaluation by the [facility] team. Reevaluation(s) Reevaluation #1: Patient placed in physician observation because the patient needed more time for crisis evaluation. At the time observation was started the patient's vital signs were stable, patient is alert and oriented, neuro: Nonfocal, CV RRR, lungs clear Time: 03:12 Medications Administered Discontinued Medications Generic Name Dose Route Start Last Admin Trade Name Freq PRN Reason Stop Dose Admin Acetaminophen 650 mg 03/23/22 02:07 03/23/22 02:10 Acetaminophen 325 Mg Tablet PO 03/23/22 02:08 650 mg ONCE ONE Administration MDM - Psych Lab Data Labs: Lab Results 03/23/22 03/23/22 03/23/22 Range/Units 01:35 01:36 01:45 Urine Opiates Screen Not Detected (Not Detect) Urine Fentanyl Screen Not Detected (Not Detect) Ur Barbiturates Screen Not Detected (Not Detect) Ur Phencyclidine Scrn Not Detected (Not Detect) Ur Amphetamines Screen Not Detected (Not Detect) U Benzodiazepines Scrn POSITIVE H (Not Detect) Urine Cocaine Screen POSITIVE H (Not Detect) U Marijuana (THC) Screen Not Detected (Not Detect) Ethyl Alcohol < 10 mg/dL COVID-19 (CATE) Negative (Negative) COVID-19 Clin Com See Note Discharge Plan Discharge Clinical Impression: Depression, Suicidal ideation, Cocaine dependence Patient Disposition: Still a Patient Prescriptions: No Action clonidine HCl 0.1 mg tablet 1 tab PO TID sertraline 100 mg tablet 1 tab PO DAILY hydroxyzine pamoate 50 mg capsule 1 cap PO TID PRN (Reason: anxiety) trazodone 150 mg tablet 2 tab PO BEDTIME sertraline 100 mg tablet See Rx Instructions .ROUTE .COMPLEX Qty: 30 0RF Rx Instructions: take 1/2 tab daily for 4 days and then take 1 tab daily
--- NOTE | 2022-03-23 03:24 | PC.NURSE ---
Smart sheet submitted
--- NOTE | 2022-03-23 03:32 | PC.NURSE ---
Pt sleeping. Breaths are even and unlabored with equal chest rises. No apparent distress noted. Will continue to monitor.
--- NOTE | 2022-03-23 04:12 | PC.NURSE ---
Med req completed.
--- NOTE | 2022-03-23 05:04 | PC.NURSE ---
Pt ambulates to the bathroom with no assistance.
[2022-03-23 05:32] VITALS: BP 110/68; PULSE 64; RESP 16; TEMP 36.9; O2SAT 98
--- NOTE | 2022-03-23 05:49 | PC.NURSE ---
Pt reports abd pain, 5/10, and I don't feel too good, I think I'm having withdrawal from dope. Pt is restless at the bedside and is up and ambulating to the bathroom. VSS. Dr. Ledezma notified. EKG, labs, PO lidocaine and Maalox ordered by Dr. Ledezma. Pt refuses to have EKG, labs, and meds ordered and states I'm not doing any of that. I'm just dope sick. Dr. Ledezma notified.
== END 2022-03-23 10:41 | disposition home or self-care (01) ==
PROVIDERS: Student in an Organized Health Care Education/Training Program; Emergency Provider Emergency Medicine Emergency Medical Services
DX: F33.1 Major depressive disorder, recurrent, moderate (principal); R45.851 Suicidal ideations; F14.20 Cocaine dependence, uncomplicated; Z20.822 Contact with and (suspected) exposure to COVID-19; Z79.899 Other long term (current) drug therapy
CPT/HCPCS: 80307; 82077; 87635; 99285

== ENCOUNTER 2023-01-24 06:20 | Inpatient (IN) | payer OTHER, SELFPAY ==
[2023-01-24 06:49] VITALS: BP 101/66; BP 160/90; PULSE 63; PULSE 70; RESP 16; TEMP 36.3; O2SAT 94; O2SAT 98; BMI 23.5
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
--- NOTE | 2023-01-24 09:14 | MHC.RECOVRN ---
T/w met with pt to discuss recovery goals. Pt reports discharging from detox yesterday, states he blew through 700 dollars on coke and alcohol pt reports he is now homeless, has never been homeless before. Pt stating, I'd rather be than homeless . Pt declining detox at this time. Fixated on his housing situation. Provider and care team aware.
[2023-01-24 12:34] LABS: MANUAL DIFF FLAG NO
[2023-01-24 12:36] LABS: Basophils Percent Auto 0.4 % (0-2); Eosinophils Absolute Auto 0.1 X10*3/uL (0.0-0.4); Eosinophils Percent Auto 1.6 % (0-4); Hematocrit 38.3 % (42.0-52.0); Hemoglobin 12.9 g/dl (14.0-18.0); Imm Gran Abs Auto 0.03 X10*3/uL (0.00-0.03); Imm Gran Pct Auto 0.4 % (0.0-0.4); Lymphocytes Absolute Auto 1.9 X10*3/uL (1.2-4.9); Mean Corpuscular HGB Conc 33.7 g/dl (31.0-36.0); Mean Corpuscular Volume 89.1 fL (80.0-98.0); Monocytes Absolute Auto 1.2 X10*3/uL (0.1-1.2); Monocytes Percent Auto 15.7 % (2-11); Neutrophils Absolute Auto 4.1 x10*3/uL (2.0-8.3); Neutrophils Percent Auto 55.9 % (45-73); Platelet Count 184 X10*3/uL (160-400); Red Cell Distribution Width 13.4 % (11.0-16.0); White Blood Count 7.4 X10*3/uL (4.8-10.8)
[2023-01-24 12:52] LABS: Anion Gap 12 (12-20); Blood Urea Nitrogen 24 mg/dL (9-16); Calcium 9.6 mg/dL (8.4-10.2); Carbon Dioxide 25 mmol/L (22-29); Chloride 105 mmol/L (96-108); Creatinine Clr Calc Pharmacy 83.7; Estimated Glomerular Filt Rate > 60; Glucose Random 114 mg/dL (60-115); Potassium 4.2 mmol/L (3.3-5.1); Sodium 138 mmol/L (135-145)
[2023-01-24 13:56] LABS: Appearance Urine Clear; Color Urine Yellow; Glucose Urine UA Negative (Negative); Leukocyte Esterase Urine Small (1+) (Negative); Nitrite Urine Negative (Negative); Specific Gravity - Urine 1.025 (1.005-1.025); UMIC TRIGGER UACC YES; Urine Blood Negative (Negative); Urine Ketones Negative (Negative); Urine Protein Trace mg/dL (Neg-Trace)
[2023-01-24 13:59] LABS: Bacteria Urine None Seen (None Seen); Hyaline Casts Urine 0-2 /LPF (0-2); RBC Urine 0-2 /HPF (0-2); Squamous Epithelial Cell Urine 0-2 /HPF (0-2); UACC Culture Trigger YES
[2023-01-24 14:02] LABS: Amphetamine Screen Urine Not Detected (Not Detect); Barbiturates, Urine Not Detected (Not Detect); Benzodiazepines Screen Urine POSITIVE (Not Detect); Cannabinoid Screen Urine Not Detected (Not Detect); Cocaine Screen Urine POSITIVE (Not Detect); Fentanyl, urine Not Detected (Not Detect); Opiate Screen Urine Not Detected (Not Detect); Phencyclidine Screen Urine Not Detected (Not Detect)
[2023-01-24 14:17] LABS: Ethanol < 10 mg/dL
--- NOTE | 2023-01-24 15:25 | PC.NURSE ---
med rec done
[2023-01-24 16:20] VITALS: RESP 18; TEMP 37.1
--- NOTE | 2023-01-24 17:32 | PC.NURSE ---
come from main ED here for detox
[2023-01-24] MEDS: Ibuprofen 800 MG TABLET PO ×2 (17:37→20:50)
[2023-01-24] MEDS: cloNIDine HCL 0.1 MG TABLET PO ×2 (17:38→20:50)
[2023-01-24 20:48] VITALS: BP 110/68; PULSE 68; RESP 16; TEMP 36.2; O2SAT 98
[2023-01-24] MEDS: Baclofen 10 MG TABLET PO (20:49)
[2023-01-24] MEDS: traZODone HCL 100 MG TABLET 300 MG PO (20:49)
--- NOTE | 2023-01-25 05:58 | PC.NURSE ---
Patient slept through the night, no distress observed/reported, disposition per care team is pending psych consult, VSS, medication compliant, behavior non concerning but highly labile, labs completed/resulted, asymptomatic of withdrawal, will continue to monitor.
[2023-01-25 06:00] VITALS: BP 122/64; PULSE 70; RESP 18; TEMP 36.8; O2SAT 97
[2023-01-25] MEDS: Sertraline HCL 50 MG TABLET PO (09:13)
[2023-01-25] MEDS: Ibuprofen 800 MG TABLET PO ×3 (09:13→20:58)
[2023-01-25] MEDS: Baclofen 10 MG TABLET PO ×2 (09:14→20:59)
--- NOTE | 2023-01-25 13:06 | ECG_ITS ---
Test Reason : check prolong qt Blood Pressure : / mmHG Vent. Rate : 060 BPM Atrial Rate : 060 BPM P-R Int : 128 ms QRS Dur : 106 ms QT Int : 414 ms P-R-T Axes : -22 003 033 degrees QTc Int : 414 ms Normal sinus rhythm Normal ECG When compared with ECG of 17-SEP-2016 11:39, No significant change was found Referred By: Юлия Contreras Electronically Signed By:RENNY WILLSON
[2023-01-25] MEDS: cloNIDine HCL 0.1 MG TABLET PO ×2 (14:26→20:59)
[2023-01-25] MEDS: hydrOXYzine HCL 50 MG TABLET PO ×2 (14:26→20:58)
[2023-01-25 14:39] LABS: COVID-19 Test Negative (Negative); IDNOW Serial# BCCEAD1C
[2023-01-25 15:15] VITALS: BP 120/64; PULSE 68; RESP 18; TEMP 36.3; O2SAT 96
--- NOTE | 2023-01-25 18:28 | PC.NURSE ---
Marvin has been OOB this shift and has been pleasant and cooperative with staff. No behavioral concerns noted. Marvin has been compliant with medications except his AM clonidine as he reports it can make him tired. Marvin did take his 1500 clonidine and req/rec Hydroxyzine for anxiety with reported good effect. Marvin does endorse SI but reports he is safe while here as his plan was to jump into traffic when discharged.
[2023-01-25] MEDS: traZODone HCL 100 MG TABLET 300 MG PO (20:58)
[2023-01-25] MEDS: traZODone HCL 50 MG TABLET PO (20:59)
[2023-01-25 22:20] VITALS: BP 111/72; PULSE 72; RESP 17; TEMP 36.7; O2SAT 96
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
[2023-01-26] MEDS: cloNIDine HCL 0.1 MG TABLET PO (08:26)
[2023-01-26] MEDS: Ibuprofen 800 MG TABLET PO ×3 (08:26→20:30)
[2023-01-26] MEDS: Baclofen 10 MG TABLET PO ×2 (08:26→20:30)
[2023-01-26] MEDS: Sertraline HCL 50 MG TABLET PO (08:26)
[2023-01-26 08:30] VITALS: BP 105/57; PULSE 64; RESP 16; TEMP 36.1; O2SAT 97
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
[2023-01-26 18:15] VITALS: BP 131/63; PULSE 72; RESP 18; TEMP 36.2; O2SAT 98
[2023-01-26] MEDS: traZODone HCL 100 MG TABLET 300 MG PO (20:30)
[2023-01-27 06:00] VITALS: BP 118/65; PULSE 65; RESP 16; TEMP 36.4; O2SAT 98
[2023-01-27] MEDS: Ibuprofen 800 MG TABLET PO ×3 (08:39→19:13)
[2023-01-27] MEDS: Baclofen 10 MG TABLET PO ×2 (08:39→19:14)
[2023-01-27] MEDS: cloNIDine HCL 0.1 MG TABLET PO ×3 (08:40→19:13)
[2023-01-27] MEDS: Sertraline HCL 50 MG TABLET PO (08:40)
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
[2023-01-27] MEDS: hydrOXYzine HCL 25 MG TABLET PO (12:21)
[2023-01-27] MEDS: Gabapentin 100 MG CAPSULE 200 MG PO ×3 (12:42→19:14)
[2023-01-27] MEDS: traZODone HCL 100 MG TABLET 300 MG PO (19:12)
[2023-01-27 20:26] VITALS: BP 97/54; PULSE 61; RESP 16; TEMP 36.3; O2SAT 97
[2023-01-28 08:06] VITALS: BP 117/70; PULSE 63; RESP 16; TEMP 35.9; O2SAT 97
[2023-01-28] MEDS: Gabapentin 100 MG CAPSULE 200 MG PO (08:28)
[2023-01-28] MEDS: Sertraline HCL 50 MG TABLET PO (08:28)
[2023-01-28] MEDS: cloNIDine HCL 0.1 MG TABLET PO (08:28)
[2023-01-28] MEDS: Ibuprofen 800 MG TABLET PO ×3 (08:28→20:08)
[2023-01-28] MEDS: Baclofen 10 MG TABLET PO ×3 (08:28→20:08)
[2023-01-28] MEDS: hydrOXYzine HCL 50 MG TABLET PO (12:09)
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
[2023-01-28] MEDS: Gabapentin 300 MG CAPSULE PO ×2 (14:05→20:08)
[2023-01-28 19:30] VITALS: BP 118/68; PULSE 68; RESP 16; TEMP 36; O2SAT 97
[2023-01-28] MEDS: traZODone HCL 100 MG TABLET 300 MG PO (20:08)
[2023-01-29 08:14] VITALS: BP 144/71; PULSE 77; RESP 16; TEMP 36.4; O2SAT 96
[2023-01-29] MEDS: hydrOXYzine HCL 50 MG TABLET PO (08:18)
[2023-01-29] MEDS: Baclofen 10 MG TABLET PO ×3 (08:19→20:07)
[2023-01-29] MEDS: cloNIDine HCL 0.1 MG TABLET PO ×2 (08:19→14:06)
[2023-01-29] MEDS: Ibuprofen 800 MG TABLET PO ×3 (08:19→20:09)
[2023-01-29] MEDS: Sertraline HCL 50 MG TABLET PO (08:19)
[2023-01-29] MEDS: Gabapentin 300 MG CAPSULE PO ×3 (08:20→20:08)
[2023-01-29] MEDS: Nicotine 21 MG PATCH.TD24 TRANSDERMA (09:29)
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
[2023-01-29 14:05] VITALS: BP 131/78; PULSE 75
[2023-01-29] MEDS: Sertraline HCL 25 MG TABLET PO (14:06)
[2023-01-29 18:00] VITALS: BP 120/76; PULSE 82; RESP 16; TEMP 36.6; O2SAT 97
[2023-01-29] MEDS: traZODone HCL 100 MG TABLET 300 MG PO (20:14)
[2023-01-30] MEDS: Ibuprofen 800 MG TABLET PO ×3 (08:55→19:19)
[2023-01-30] MEDS: hydrOXYzine HCL 50 MG TABLET PO ×2 (08:56→14:10)
[2023-01-30] MEDS: Gabapentin 300 MG CAPSULE PO ×3 (08:56→19:20)
[2023-01-30] MEDS: Sertraline HCL 25 MG TABLET 75 MG PO (08:56)
[2023-01-30] MEDS: Baclofen 10 MG TABLET PO ×3 (08:56→19:20)
[2023-01-30] MEDS: Nicotine 21 MG PATCH.TD24 TRANSDERMA (09:03)
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
[2023-01-30] MEDS: traZODone HCL 100 MG TABLET 300 MG PO (20:37)
[2023-01-31] MEDS: traZODone HCL 50 MG TABLET PO (01:30)
[2023-01-31] MEDS: cloNIDine HCL 0.1 MG TABLET PO ×2 (08:18→12:40)
[2023-01-31] MEDS: Sertraline HCL 100 MG TABLET PO (08:18)
[2023-01-31] MEDS: Ibuprofen 800 MG TABLET PO ×3 (08:18→20:02)
[2023-01-31] MEDS: Baclofen 10 MG TABLET PO ×3 (08:19→20:03)
[2023-01-31] MEDS: Gabapentin 300 MG CAPSULE PO ×3 (08:19→20:03)
[2023-01-31] MEDS: Nicotine 21 MG PATCH.TD24 TRANSDERMA (08:22)
[2023-01-31 09:17] VITALS: BP 129/72; PULSE 74; RESP 18; TEMP 35.7; O2SAT 99
[2023-01-31 12:38] VITALS: BP 116/76
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
[2023-01-31] MEDS: traZODone HCL 100 MG TABLET 300 MG PO (20:03)
[2023-02-01] MEDS: traZODone HCL 50 MG TABLET PO ×2 (01:27→21:24)
[2023-02-01] MEDS: Sertraline HCL 100 MG TABLET PO (07:59)
[2023-02-01] MEDS: Ibuprofen 800 MG TABLET PO ×3 (07:59→20:12)
[2023-02-01] MEDS: Baclofen 10 MG TABLET PO ×3 (07:59→20:12)
[2023-02-01] MEDS: Gabapentin 300 MG CAPSULE PO ×2 (07:59→14:10)
[2023-02-01] MEDS: Nicotine 21 MG PATCH.TD24 TRANSDERMA (08:02)
[2023-02-01 08:10] VITALS: BP 104/64; PULSE 74; RESP 16; TEMP 36.4; O2SAT 97
[2023-02-01 09:20] VITALS: BMI 28.8
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
[2023-02-01] MEDS: OLANZapine 2.5 MG TABLET PO (12:22)
[2023-02-01] MEDS: OLANZapine 5 MG TABLET PO ×2 (16:20→20:12)
[2023-02-01] MEDS: traZODone HCL 100 MG TABLET 300 MG PO (20:13)
[2023-02-01] MEDS: Gabapentin 400 MG CAPSULE PO (20:13)
[2023-02-02] MEDS: Baclofen 10 MG TABLET PO ×3 (07:57→21:04)
[2023-02-02] MEDS: Gabapentin 400 MG CAPSULE PO ×3 (07:57→21:04)
[2023-02-02] MEDS: Ibuprofen 800 MG TABLET PO ×3 (07:57→21:04)
[2023-02-02] MEDS: Sertraline HCL 100 MG TABLET PO (07:58)
[2023-02-02] MEDS: Famotidine 20 MG TABLET PO (07:58)
[2023-02-02] MEDS: Nicotine 21 MG PATCH.TD24 TRANSDERMA (07:58)
[2023-02-02 08:52] VITALS: BP 129/71; PULSE 70; RESP 16; TEMP 36.5; O2SAT 97
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
[2023-02-02] MEDS: OLANZapine 5 MG TABLET PO ×2 (14:45→21:04)
[2023-02-02 17:12] VITALS: BP 134/78; PULSE 69; TEMP 36.5; O2SAT 97
[2023-02-02] MEDS: traZODone HCL 100 MG TABLET 300 MG PO (21:03)
[2023-02-02] MEDS: traZODone HCL 50 MG TABLET PO (23:18)
[2023-02-02] MEDS: cloNIDine HCL 0.1 MG TABLET PO (23:18)
[2023-02-02] MEDS: hydrOXYzine HCL 50 MG TABLET PO (23:18)
[2023-02-03 08:35] VITALS: BP 141/71; PULSE 63; RESP 16; TEMP 36.4; O2SAT 100
[2023-02-03] MEDS: Nicotine 21 MG PATCH.TD24 TRANSDERMA (08:58)
[2023-02-03] MEDS: OLANZapine 5 MG TABLET PO (08:59)
[2023-02-03] MEDS: Sertraline HCL 25 MG TABLET 125 MG PO (08:59)
[2023-02-03] MEDS: Ibuprofen 800 MG TABLET PO ×3 (08:59→21:21)
[2023-02-03] MEDS: Baclofen 10 MG TABLET PO ×3 (08:59→21:20)
[2023-02-03] MEDS: Famotidine 20 MG TABLET PO (09:00)
[2023-02-03] MEDS: Gabapentin 400 MG CAPSULE PO ×3 (09:37→21:20)
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
[2023-02-03] MEDS: cloNIDine HCL 0.1 MG TABLET PO (12:18)
[2023-02-03] MEDS: hydrOXYzine HCL 50 MG TABLET PO (12:18)
[2023-02-03] MEDS: traZODone HCL 100 MG TABLET 300 MG PO (21:21)
[2023-02-04 08:26] VITALS: BP 123/68; PULSE 84; RESP 16; TEMP 36.4; O2SAT 98
[2023-02-04] MEDS: Baclofen 10 MG TABLET PO ×3 (09:24→21:16)
[2023-02-04] MEDS: Famotidine 20 MG TABLET PO (09:24)
[2023-02-04] MEDS: OLANZapine 5 MG TABLET PO ×2 (09:24→13:50)
[2023-02-04] MEDS: Ibuprofen 800 MG TABLET PO ×3 (09:24→21:17)
[2023-02-04] MEDS: Sertraline HCL 25 MG TABLET 125 MG PO (09:24)
[2023-02-04] MEDS: Gabapentin 400 MG CAPSULE PO ×3 (09:24→21:18)
[2023-02-04] MEDS: Nicotine 21 MG PATCH.TD24 TRANSDERMA (09:25)
[2023-02-04] MEDS: hydrOXYzine HCL 50 MG TABLET PO (13:50)
[2023-02-04] MEDS: cloNIDine HCL 0.1 MG TABLET PO (13:50)
[2023-02-04] MEDS: LORazepam 1 MG TABLET PO (15:48)
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
[2023-02-04] MEDS: traZODone HCL 100 MG TABLET 300 MG PO (21:17)
[2023-02-05] MEDS: cloNIDine HCL 0.1 MG TABLET PO (00:10)
[2023-02-05] MEDS: hydrOXYzine HCL 50 MG TABLET PO ×2 (00:11→14:43)
[2023-02-05] MEDS: Acetaminophen 325 MG TABLET 650 MG PO (05:22)
[2023-02-05 07:45] VITALS: BP 124/77; PULSE 80; RESP 18; TEMP 36.3; O2SAT 98
[2023-02-05] MEDS: Sertraline HCL 25 MG TABLET 125 MG PO (09:01)
[2023-02-05] MEDS: Ibuprofen 800 MG TABLET PO ×3 (09:02→22:09)
[2023-02-05] MEDS: Famotidine 20 MG TABLET PO (09:02)
[2023-02-05] MEDS: Gabapentin 400 MG CAPSULE PO ×3 (09:02→22:09)
[2023-02-05] MEDS: OLANZapine 5 MG TABLET PO (09:03)
[2023-02-05] MEDS: Baclofen 10 MG TABLET PO ×3 (09:03→22:09)
[2023-02-05] MEDS: Nicotine 21 MG PATCH.TD24 TRANSDERMA (09:04)
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
[2023-02-05 18:00] VITALS: RESP 16
[2023-02-05] MEDS: traZODone HCL 100 MG TABLET 300 MG PO (22:08)
[2023-02-06] MEDS: hydrOXYzine HCL 50 MG TABLET PO (00:21)
[2023-02-06 08:54] VITALS: BP 130/73; PULSE 69; RESP 18; TEMP 36.1; O2SAT 97
[2023-02-06] MEDS: Ibuprofen 800 MG TABLET PO ×3 (09:24→21:11)
[2023-02-06] MEDS: Baclofen 10 MG TABLET PO ×3 (09:25→21:12)
[2023-02-06] MEDS: Sertraline HCL 100 MG TABLET PO (09:25)
[2023-02-06] MEDS: Nicotine 21 MG PATCH.TD24 TRANSDERMA (09:26)
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
[2023-02-06 18:00] VITALS: BP 122/77; PULSE 69; TEMP 36.3; O2SAT 98
[2023-02-06] MEDS: traZODone HCL 100 MG TABLET 300 MG PO (21:09)
[2023-02-07] MEDS: traZODone HCL 100 MG TABLET PO (01:52)
[2023-02-07] MEDS: Acetaminophen 325 MG TABLET 650 MG PO ×2 (05:54→16:40)
[2023-02-07] MEDS: hydrOXYzine HCL 50 MG TABLET PO ×2 (06:55→14:34)
[2023-02-07] MEDS: Baclofen 10 MG TABLET PO ×3 (08:13→22:05)
[2023-02-07] MEDS: Ibuprofen 800 MG TABLET PO ×3 (08:13→22:06)
[2023-02-07] MEDS: Nicotine 21 MG PATCH.TD24 TRANSDERMA (08:13)
[2023-02-07] MEDS: Sertraline HCL 100 MG TABLET PO (08:13)
[2023-02-07 08:54] VITALS: BP 115/60; PULSE 65; RESP 16; TEMP 36.4; O2SAT 98
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
[2023-02-07 18:00] VITALS: BP 122/75; PULSE 68; O2SAT 97
[2023-02-07] MEDS: traZODone HCL 100 MG TABLET 300 MG PO (22:05)
[2023-02-08 08:07] VITALS: BP 139/74; PULSE 66; RESP 16; TEMP 36.4; O2SAT 95
[2023-02-08] MEDS: Ibuprofen 800 MG TABLET PO (08:19)
[2023-02-08] MEDS: Sertraline HCL 100 MG TABLET PO (08:19)
[2023-02-08] MEDS: Baclofen 10 MG TABLET PO ×3 (08:19→22:35)
[2023-02-08] MEDS: Nicotine 21 MG PATCH.TD24 TRANSDERMA (08:20)
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
[2023-02-08] MEDS: Acetaminophen 325 MG TABLET 650 MG PO (12:40)
[2023-02-08] MEDS: traZODone HCL 100 MG TABLET 300 MG PO (22:33)
[2023-02-09 08:00] VITALS: BP 117/77; PULSE 70; RESP 18; TEMP 36.6; O2SAT 95
[2023-02-09] MEDS: Nicotine 21 MG PATCH.TD24 TRANSDERMA (08:30)
[2023-02-09] MEDS: Baclofen 10 MG TABLET PO ×3 (08:30→21:39)
[2023-02-09] MEDS: Sertraline HCL 100 MG TABLET PO (08:30)
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
[2023-02-09] MEDS: Acetaminophen 325 MG TABLET 650 MG PO (11:05)
[2023-02-09] MEDS: hydrOXYzine HCL 50 MG TABLET PO ×2 (13:34→21:39)
[2023-02-09] MEDS: traZODone HCL 100 MG TABLET 300 MG PO (21:39)
[2023-02-10] MEDS: Baclofen 10 MG TABLET PO ×3 (09:09→20:49)
[2023-02-10] MEDS: Nicotine 21 MG PATCH.TD24 TRANSDERMA (09:11)
[2023-02-10] MEDS: Sertraline HCL 100 MG TABLET PO (09:14)
--- NOTE | 2023-02-10 09:14 | PC.NURSE ---
Pt states that he was unaware that Sunday is a holiday. He therefore feels that he needs to remain on the unit until Sunday morning to find housing.
[2023-02-10 10:53] VITALS: RESP 16
[2023-02-10] MEDS: hydrOXYzine HCL 50 MG TABLET PO ×2 (14:42→20:54)
[2023-02-10 16:23] VITALS: BP 126/59; PULSE 65; TEMP 36.8; O2SAT 98
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
[2023-02-10] MEDS: Magnesium Hydrox/Alum Hydrox 30 ML ORAL.SUSP PO (18:21)
[2023-02-10] MEDS: traZODone HCL 100 MG TABLET 300 MG PO (20:50)
[2023-02-11] MEDS: Sertraline HCL 100 MG TABLET PO (08:33)
[2023-02-11] MEDS: Baclofen 10 MG TABLET PO ×3 (08:33→20:39)
[2023-02-11] MEDS: hydrOXYzine HCL 50 MG TABLET PO (10:36)
[2023-02-11 11:07] VITALS: RESP 16
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
[2023-02-11 18:00] VITALS: RESP 16
[2023-02-12] MEDS: Baclofen 10 MG TABLET PO (08:26)
[2023-02-12] MEDS: Sertraline HCL 100 MG TABLET PO (08:26)
--- NOTE | 2023-02-12 17:55 | PM.PSYDC ---
DS: Providers Provider Date of Service: 02/12/23 Date of admission: 01/25/23 18:37 Date of discharge: 02/12/23 Primary care physician: None Physician Admitting clinician: Attila Lenz Attending physician on admission: Attila Lenz Attending physician on discharge: Darnell Philippe Discharging clinician: Kalyn Ford DS: Diagnosis Discharge Diagnosis (1) MDD (major depressive disorder), recurrent episode, moderate: Status: Acute (2) Cocaine abuse with cocaine-induced mood disorder: Status: Acute (3) Cocaine dependence: Status: Deleted (4) Alcohol use disorder: Status: Acute DS: Medications Discharge Medications Home Medications: Previous Rx's Medication Instructions Recorded baclofen 10 mg tablet 10 mg PO TID #90 tabs 02/12/23 hydroxyzine pamoate 50 mg capsule 1 cap PO TID PRN anxiety #90 caps 02/12/23 ibuprofen 800 mg tablet 800 mg PO TID #90 tabs 02/12/23 nicotine (polacrilex) 2 mg gum 4 mg buccal Q2H PRN Nicotine 02/12/23 Cravings #60 ea nicotine 21 mg/24 hr daily 21 mg transdermal DAILY #30 ea 02/12/23 transdermal patch sertraline 100 mg tablet 1 tab PO DAILY #30 tabs 02/12/23 trazodone 150 mg tablet 2 tab PO BEDTIME #60 tabs 02/12/23 Mental Status Exam Mental Status Exam Patient Appearance: Appropriate Patient Orientation: Person, Place, Time and Situation Level of Consciousness: Alert Patient Behavior: Talkative Mood Description: Appropriate Affect Description: Appropriate Patient Cognition Impaired: No Ability to Follow Directions: Good Speech Pattern: Spontaneous Speech Memory Description: Intact Hallucinations: None Delusions: Not Present Thought Process: Rumination Thought Content: positive for Perseveration, positive for Suicidal Ideation (denies) and positive for Homicidal Ideation (denies) Judgement: Good Data Data Completed and Pending Completed studies during hospitalization [Text1]: 01/24/23 Unknown Urine clean catch - Urine lopez top Urine Culture - Final No growth. DS: Summary Hospital Course Hospital Course: Admission to adult psychiatry for exacerbation of depression, alcohol and cocaine use disorder. Pt reported leaving detox 72 hours prior to admission. Medications were re-evaluated, suggestions were made-pt would accept only trazodone and sertraline. Pt worked on aftercare planning and was active in calling residential rehab/[facility] programs to interview for ongoing treatment. He is discharged to respite care and will continue to work on placement options while in respite. Time spent discussing smoking cessation with patient: 3 to 10 minutes Status at Discharge Functional status at discharge: independent ambulation Overall status at discharge: patient is back to baseline Time Spent with Patient Time attestation: Total time managing care of this patient today ____ minutes. Time spent: Greater than 30 minutes Discharge Plan Discharge Anticipated Discharge Date/Time: 02/12/23 12:03 Patient Disposition: Xfer to Respite Facility Discharge Diagnosis: Depression Alcohol and Cocaine Use Disorder Referrals: Nicole Blackmon MD [Physician] - (Call office to schedule follow up appointment) Discharge Medications: New baclofen 10 mg Tablet 10 mg PO TID Qty: 90 0RF nicotine 21 mg/24 hr Patch 24 Hour 21 mg transdermal DAILY Qty: 30 0RF nicotine (polacrilex) 2 mg Gum 4 mg buccal Q2H PRN (Reason: Nicotine Cravings) Qty: 60 0RF Continued ibuprofen 800 mg tablet 800 mg PO TID Qty: 90 0RF sertraline 100 mg tablet 1 tab PO DAILY Qty: 30 0RF hydroxyzine pamoate 50 mg capsule 1 cap PO TID PRN (Reason: anxiety) Qty: 90 0RF trazodone 150 mg tablet 2 tab PO BEDTIME Qty: 60 0RF Discontinued clonidine HCl 0.1 mg tablet 1 tab PO TID baclofen 10 mg tablet 10 mg PO BID Discharge Orders: Discharge Order (Routine); Ordered 02/12/23 Ordered By: Kalyn Ford Diet: Advance to usual diet Activity on Discharge: As tolerated Stand Alone Forms: Patient Portal Discharge page, Community Support Care Plan Goals: Mood and Behavioral Stabilization Work on Sobriety Health Concerns: Mood and Behavioral Stabilization Sobriety Plan of Treatment: Attend scheduled appointments Work on sobriety Take medication as directed Assessment: Pt interviewed prior to discharge and found to be fully oriented and without SI/HI. Pt has insight and demonstrates good judgment in terms of wanting to pursue treatment. Pt is not in imminent risk of harm to self or others and has a safety plan that includes presenting to the closest ER or calling 911 if feeling unsafe. Pt has been observed closely by nursing and unit staff throughout admission. Pt has not engaged in any behaviors that suggest dangerousness to self or others and has demonstrated appropriate behaviors and impulse control. Discharge Date/Time: 02/12/23 11:35
== END 2023-02-12 11:35 | DRG 885 ==
LOC: HO.ED 15:22 → HO.PM5 01-25 19:00
PROVIDERS: Admitting Provider Psychiatry & Neurology Psychiatry; Emergency Provider Emergency Medicine; Visit Provider Psychiatry & Neurology Psychiatry
DX: F33.1 Major depressive disorder, recurrent, moderate (principal); R45.851 Suicidal ideations; F14.23 Cocaine dependence with withdrawal; F41.9 Anxiety disorder, unspecified; F14.24 Cocaine dependence with cocaine-induced mood disorder; F17.210 Nicotine dependence, cigarettes, uncomplicated; Z71.6 Tobacco abuse counseling; Z79.899 Other long term (current) drug therapy
CPT/HCPCS: 36415; 80048; 80307; 81001; 85025; 87086; 87635; 93005; 99285; S9485

== ENCOUNTER → 2023-01-25 18:37 | Outpatient (BNV) | payer OTHER, SELFPAY | PROVIDERS: Admitting Provider Psychiatry & Neurology Psychiatry; Emergency Provider Emergency Medicine; Visit Provider Psychiatry & Neurology Psychiatry | DX: F33.1 Major depressive disorder, recurrent, moderate (principal); F14.20 Cocaine dependence, uncomplicated; F10.90 Alcohol use, unspecified, uncomplicated | CPT/HCPCS: 90792; 99231; 99232; 99239 ==

== ENCOUNTER 2024-06-19 11:36 | Outpatient (REF) | payer OTHER, SELFPAY ==
[2024-06-19 14:28] LABS: Alanine Aminotransferase 25 U/L (0-40); Albumin Level 3.4 g/dL (3.5-5.0); Alkaline Phosphatase 91 U/L (39-117); Anion Gap 9 (12-20); Aspartate Amino Transferase 31 U/L (5-37); Bilirubin Direct < 0.2 mg/dL (0.0-0.5); Bilirubin Total 0.2 mg/dL (0.0-1.0); Blood Urea Nitrogen 13 mg/dL (9-16); Calcium 8.7 mg/dL (8.4-10.2); Carbon Dioxide 26 mmol/L (22-29); Chloride 110 mmol/L (96-108); Cholesterol 89 mg/dL (<200); Estimated Glomerular Filt Rate > 60; Glucose Random 104 mg/dL (60-115); HDL Cholesterol 23 mg/dL (>40); LDL Cholesterol Calculated 55 mg/dL (<100); Potassium 4.2 mmol/L (3.3-5.1); Sodium 141 mmol/L (135-145); Total Protein 6.7 g/dL (6.5-8.0); Triglycerides 56 mg/dL (<150)
[2024-06-20 07:56] LABS: HIV AB/AG Nonreactive (Nonreactive); HIV Num 1 0.12 S/CO (0.00-0.99); ~HepC Num1 11.04 S/CO (0.00-0.79); ~Hepatitis C Antibody Reactive (Nonreactive)
[2024-06-23 17:23] LABS: HCV Log PCR <1.18 NOT DETECTED Log IU/mL (NOT DETECTED); HepC Viral Load <15 NOT DETECTED IU/mL (NOT DETECTED)
== END 2024-06-19 11:37 | disposition home or self-care (01) ==
LOC: HO.CHCLDS 11:36
PROVIDERS: Visit Provider Student in an Organized Health Care Education/Training Program
DX: F10.10 Alcohol abuse, uncomplicated (principal); F19.10 Other psychoactive substance abuse, uncomplicated; B18.2 Chronic viral hepatitis C; Z11.3 Encounter for screening for infections with a predominantly sexual mode of transmission; Z13.6 Encounter for screening for cardiovascular disorders
CPT/HCPCS: 36415; 80048; 80061; 80076; 86803; 87389; 87522

== ENCOUNTER 2024-08-15 11:51 | Inpatient (IN) | payer OTHER, SELFPAY ==
--- NOTE | ~2024-08-15 | XR_ITS ---
EXAMINATION: XR CHEST CLINICAL INFORMATION: cough COMPARISON: 09/11/2016. TECHNIQUE: 2 views of the chest were obtained. FINDINGS: The cardiac, hilar, and mediastinal contours are normal. Aortic mural calcifications. The lungs are clear bilaterally. There is no pneumothorax or pleural effusion. There is no focal osseous or soft tissue abnormality. Mild spinal degenerative changes. Degenerative changes in both shoulder joints. XR/XR chest 2V IMPRESSION: No active pulmonary disease. Electronically signed by: Myron Friedman MD 08/15/2024 12:39 PM EDT
[2024-08-15 11:57] VITALS: BP 125/80; PULSE 60; RESP 20; TEMP 37; O2SAT 98; BMI 21.6
--- NOTE | 2024-08-15 11:58 | ED.PSYCH ---
HPI - Psych General Chief Complaint: Psychiatric Symptoms Stated Complaint: Psych, hearing loss Time Seen by Provider: 08/15/24 13:20 Related Data Previous Rx's ?Medication ?Instructions ?Recorded trazodone 150 mg tablet 2 tab PO BEDTIME #60 tabs 02/12/23 Allergies Allergy/AdvReac Type Severity Reaction Status Date / Time penicillin G Allergy Unknown UNKNOWN Verified 08/15/24 12:03 [facility] Past Medical History Medical History Alcohol use disorder MDD (major depressive disorder), recurrent episode, moderate Hepatitis C Smoker Asthma Drug abuse Social History Social History Household Members: Unknown / Unable to assess Unable to assess alcohol history related to: Refusing to respond Alcohol intake: current Alcohol intake frequency: 3 or more drinks per day Alcohol type: beer Patient Tobacco Use Status: Current everyday Tobacco user Tobacco use type: Cigarette Cigarette Packs Per Day: 1 Cigarettes Per Day: 20.0 Smoked in Last 30 Days: No Second Hand Smoke Exposure: No Use of substances other than those prescribed or required for medical reasons: Yes Substance Use Type: Crack/Cocaine Substance Use Frequency: Daily Advance Directives: No Advance Directives Information Provided: Yes service: No Sexual orientation: Straight/Heterosexual Physical Exam Vital Signs: Vital Signs: Last Vital Signs Temp 98.5 F 08/18/24 05:26 Pulse 68 08/18/24 05:26 Resp 12 08/18/24 05:26 BP 140/85 H 08/18/24 05:26 Pulse Ox 97 08/18/24 05:26 O2 Del Method Room Air 08/18/24 05:26 BMI result Body Mass Index 21.6 Course Course Course Narrative: This is an RME performed by Cecile Prakash CNP: Additional HPI, ROS, PE not included below will be deferred to primary provider. Patient is a 59-year-old male who presents emergency department with senior mainframe programmer analyst for evaluation. Over the past few weeks he has been having issues with hearing loss, a productive cough, occasional difficulty breathing, no fevers. Chronic cigarette smoker.. He was evaluated at an urgent care prior to arrival, had COVID-19 testing done which was negative, reports ear examination was normal, no CXR serum labs were obtained. Additionally, he is complaining of depression, ?I do not want to live? my girlfriend last mother's day, and has been trying to go myself with drugs ever since, particularly with cocaine. I am so isolated in my apartment, I am so depressed . pathology laboratory director states he has been she actively planning suicide jumping off of a bridge, walking in front of a bus, buying fentanyl 2 bags will do it? Plan: Serum labs, CXR, toxicology testing, will be brought back to ED promptly for observation given SI Reevaluation(s) Reevaluation #1: see additional note dated 08/15/[address] Lopez Reevaluation #2: This patient was signed out to me by the previous emergency physician. The patient is a 59-year-old male who presented with complaints of depression and suicidal thoughts. He was also complaining of respiratory symptoms and was concerned that he might have sinus infection. He was started on a course of azithromycin by the previous emergency physician. He has been seen by the care team who have recommended that the patient be hospitalized for psychiatric care because of his depression and suicidal ideation. The very soon will therefore be placed in physician observation pending disposition by the care team. Time: 02:31 Reevaluation #3: Time: 08:44 Date: 08/16/24 Provider: Юлия Contreras, Patient in physician observation for psychiatric evaluation.? No acute events reported overnight. No current complaints. VS stable.? Patient is in bed search status. Will continue to monitor. Time: 13:04 Date: 08/18/24 Provider: Юлия Contreras DO Physician observation ended at 104pm. Patient to be admitted as inpatient to psychiatry. Additional Reevaluation(s): Time: 19:29 Date: 08/17/24 Provider: Ricardo Pate MD Patient in physician observation for psychiatric evaluation.? Today the patient complained of decreased hearing which he says affects both of his ears. He says that the change in his hearing began fairly recently. He told me that his change in hearing started fairly abruptly a day or 2 before he came to the emergency room (however the triage note indicates that the patient had complained of 2 weeks' worth of right hearing loss on arrival). The patient tells me that he feels the hearing is diminished in both ears and he can not really tell which your might be hearing better than the other. The patient had assumed that his hearing problems were related to sinusitis and he was started on a course of azithromycin here in the emergency room on the day he arrived. The patient says that his hearing has continued to be poor despite the antibiotic. He is concerned about the degree to which he has had diminished hearing over the last several days or weeks. On my exam both ear canals are normal in both ear canals are clear. He seems to have diminished but not absent hearing in both of his ears. The patient cannot tell me of 1 ear seems to be hearing better than the other. Leone testing with a tuning fork applied to the patient's mid forehead lateralized as to the right ear. Rinne testing indicates that bone conduction is superior to air conduction in both ears. Given the absence of any obstructive process on physical exam and given that bone conduction is superior to air conduction in both ears I am making a presumptive diagnosis of possible sensorineural hearing loss and have started the patient on a course of prednisone. According to Up-to-Date the standard course of steroid therapy is 60 mg once daily for 10 days. At the moment I do not think this necessarily effects the patient is disposition as far as him being a psychiatric bed search. However if he is re-evaluated by the care team and he is judged to be dischargeable from the emergency room the next step would be for him to follow up with the ENT as an outpatient. Labs were done that are unremarkable. Otherwise the the patient seems stable. The patient will be kept in the psychiatric area under physician observation. Medications Administered Generic Name Dose Route Start Last Admin Trade Name Freq PRN Reason Stop Dose Admin Azithromycin 250 mg 08/16/24 09:00 08/18/24 08:49 Azithromycin 250 Mg Tablet PO 08/20/24 16:00 250 mg DAILY [place] Administration Hydroxyzine HCl 50 mg 08/16/24 10:10 08/17/24 20:55 Hydroxyzine Hcl 50 Mg Tablet PO 50 mg TID PRN Administration anxiety/restlessness Prednisone 40 mg 08/18/24 10:00 08/18/24 10:12 Prednisone 20 Mg Tablet PO 08/21/24 09:01 40 mg DAILY [place] Administration Trazodone HCl 300 mg 08/15/24 21:00 08/17/24 20:51 Trazodone Hcl 100 Mg Tablet PO 300 mg BEDTIME [place] Administration Discontinued Medications Generic Name Dose Route Start Last Admin Trade Name Freq PRN Reason Stop Dose Admin Acetaminophen 650 mg 08/17/24 15:47 08/17/24 15:49 Acetaminophen 325 Mg Tablet PO 08/17/24 15:48 650 mg ONCE ONE Administration Al Hydroxide/Mg Hydroxide 30 ml 08/15/24 20:26 08/15/24 20:29 Magnesium Hydrox/Alum Hydrox 30 Ml Oral.Susp PO 08/15/24 20:27 30 ml ONCE ONE Administration Azithromycin 500 mg 08/15/24 15:54 08/15/24 16:26 Azithromycin 500 Mg Tablet PO 08/15/24 15:55 500 mg ONCE ONE Administration Hydroxyzine HCl 50 mg 08/15/24 17:35 08/15/24 17:51 Hydroxyzine Hcl 50 Mg Tablet PO 08/15/24 17:36 50 mg ONCE ONE Administration Hydroxyzine HCl 50 mg 08/16/24 00:14 08/16/24 00:23 Hydroxyzine Hcl 50 Mg Tablet PO 08/16/24 00:15 50 mg ONCE ONE Administration Ibuprofen 400 mg 08/17/24 20:55 08/17/24 20:57 Ibuprofen 400 Mg Tablet PO 08/17/24 20:56 400 mg ONCE STA Administration Loperamide HCl 4 mg 08/16/24 00:15 08/16/24 00:23 Loperamide Hcl 2 Mg Capsule PO 08/16/24 00:16 4 mg ONCE ONE Administration Melatonin 6 mg 08/16/24 00:13 08/16/24 00:23 Melatonin 3 Mg Tablet PO 08/16/24 00:14 6 mg ONCE ONE Administration Melatonin 6 mg 08/16/24 23:31 08/16/24 23:43 Melatonin 3 Mg Tablet PO 08/16/24 23:32 6 mg ONCE ONE Administration Melatonin 6 mg 08/17/24 20:55 08/17/24 20:58 Melatonin 3 Mg Tablet PO 08/17/24 20:56 6 mg ONCE ONE Administration Prednisone 60 mg 08/17/24 17:58 08/17/24 18:49 Prednisone 20 Mg Tablet PO 08/17/24 17:59 60 mg ONCE ONE Administration Medical Decision Making Lab Data 08/17/24 18:13 08/17/24 18:13 Labs: Lab Results 08/15/24 08/15/24 08/15/24 Range/Units 12:36 12:45 15:28 WBC (4.8-10.8) X10*3/uL RBC (4.60-5.80) X10*6/uL Hgb (14.0-18.0) g/dl Hct (42.0-52.0) % MCV (80.0-98.0) fL MCH (27.0-33.0) pg MCHC (31.0-36.0) g/dl RDW (11.0-16.0) % Plt Count (160-400) X10*3/uL MPV (9.4-12.4) fL Immature Gran % (Auto) (0.0-0.4) % Neut % (Auto) (45-73) % Lymph % (Auto) (20-40) % Nance % (Auto) (2-11) % Eos % (Auto) (0-4) % Baso % (Auto) (0-2) % Lymph # (Auto) (1.2-4.9) X10*3/uL Nance # (Auto) (0.1-1.2) X10*3/uL Eos # (Auto) (0.0-0.4) X10*3/uL Baso # (Auto) (0.0-0.2) X10*3/uL Abs Immat Gran (auto) (0.00-0.03) X10*3/uL Absolute Neuts (auto) (2.0-8.3) x10*3/uL Absolute Nucleated RBC (0.0-0.012) X10*3/uL Nucleated RBC % (auto) (0.0-0.2) /100WBC Sodium 139 (135-145) mmol/L Potassium 4.6 (3.3-5.1) mmol/L Chloride 106 (96-108) mmol/L Carbon Dioxide 27 (22-29) mmol/L Anion Gap 11 L (12-20) BUN 12 (9-16) mg/dL Creatinine 0.74 (0.5-1.4) mg/dL Estim Creat Clear Calc 89.6 Estimated GFR > 60 Random Glucose 135 H (60-115) mg/dL Calcium 9.2 (8.4-10.2) mg/dL Total Bilirubin 0.3 (0.0-1.0) mg/dL Direct Bilirubin (0.0-0.5) mg/dL AST 20 (5-37) U/L ALT 9 (0-40) U/L Alkaline Phosphatase 83 (39-117) U/L C-Reactive Protein (< or = 0.50) mg/dL Total Protein 7.1 (6.5-8.0) g/dL Albumin 3.6 (3.5-5.0) g/dL Urine Color Yellow Urine Appearance Clear Urine pH 5.5 (5.0-9.0) Ur Specific [place] 1.010 (1.005-1.025) Urine Protein Negative (Neg-Trace) mg/dL Urine Glucose (UA) Negative (Negative) mg/dL Urine Ketones Negative (Negative) mg/dL Urine Blood Negative (Negative) Urine Nitrite Negative (Negative) Ur Leukocyte Esterase Negative (Negative) Urine Opiates Screen Not Detected (Not Detect) Ur Buprenorphine Scrn Not Detected (Not Detect) ng/mL Ur Oxycodone Screen Not Detected (Not Detect) ng/mL Urine Methadone Screen Not Detected (Not Detect) ng/mL Urine Fentanyl Screen Not Detected (Not Detect) Ur Barbiturates Screen Not Detected (Not Detect) Ur Phencyclidine Scrn Not Detected (Not Detect) Ur Amphetamines Screen Not Detected (Not Detect) U Benzodiazepines Scrn Not Detected (Not Detect) Urine Cocaine Screen POSITIVE H (Not Detect) U Marijuana (THC) Screen Not Detected (Not Detect) Ethyl Alcohol < 10 mg/dL Influenza Type A (PCR) NEGATIVE (Negative) Influenza Type B (PCR) NEGATIVE (Negative) RSV RNA Qual (PCR) NEGATIVE (Negative) SARS-CoV-2 RNA (RT-PCR) NEGATIVE (Negative) 08/17/24 Range/Units 18:13 WBC 6.1 (4.8-10.8) X10*3/uL RBC 3.97 L (4.60-5.80) X10*6/uL Hgb 11.6 L (14.0-18.0) g/dl Hct 35.7 L (42.0-52.0) % MCV 89.9 (80.0-98.0) fL MCH 29.2 (27.0-33.0) pg MCHC 32.5 (31.0-36.0) g/dl RDW 14.1 (11.0-16.0) % Plt Count 193 (160-400) X10*3/uL MPV 9.6 (9.4-12.4) fL Immature Gran % (Auto) 0.8 H (0.0-0.4) % Neut % (Auto) 53.0 (45-73) % Lymph % (Auto) 29.4 (20-40) % Nance % (Auto) 14.3 H (2-11) % Eos % (Auto) 2.0 (0-4) % Baso % (Auto) 0.5 (0-2) % Lymph # (Auto) 1.8 (1.2-4.9) X10*3/uL Nance # (Auto) 0.9 (0.1-1.2) X10*3/uL Eos # (Auto) 0.1 (0.0-0.4) X10*3/uL Baso # (Auto) 0.0 (0.0-0.2) X10*3/uL Abs Immat Gran (auto) 0.05 H (0.00-0.03) X10*3/uL Absolute Neuts (auto) 3.2 (2.0-8.3) x10*3/uL Absolute Nucleated RBC 0.000 (0.0-0.012) X10*3/uL Nucleated RBC % (auto) 0.0 (0.0-0.2) /100WBC Sodium 138 (135-145) mmol/L Potassium 4.2 (3.3-5.1) mmol/L Chloride 102 (96-108) mmol/L Carbon Dioxide 27 (22-29) mmol/L Anion Gap 13 (12-20) BUN 22 H (9-16) mg/dL Creatinine 0.74 (0.5-1.4) mg/dL Estim Creat Clear Calc 89.6 Estimated GFR > 60 Random Glucose 110 (60-115) mg/dL Calcium 9.4 (8.4-10.2) mg/dL Total Bilirubin 0.2 (0.0-1.0) mg/dL Direct Bilirubin < 0.2 (0.0-0.5) mg/dL AST 23 (5-37) U/L ALT 16 (0-40) U/L Alkaline Phosphatase 102 (39-117) U/L C-Reactive Protein 0.56 H (< or = 0.50) mg/dL Total Protein 7.4 (6.5-8.0) g/dL Albumin 3.7 (3.5-5.0) g/dL Urine Color Urine Appearance Urine pH (5.0-9.0) Ur Specific [place] (1.005-1.025) Urine Protein (Neg-Trace) mg/dL Urine Glucose (UA) (Negative) mg/dL Urine Ketones (Negative) mg/dL Urine Blood (Negative) Urine Nitrite (Negative) Ur Leukocyte Esterase (Negative) Urine Opiates Screen (Not Detect) Ur Buprenorphine Scrn (Not Detect) ng/mL Ur Oxycodone Screen (Not Detect) ng/mL Urine Methadone Screen (Not Detect) ng/mL Urine Fentanyl Screen (Not Detect) Ur Barbiturates Screen (Not Detect) Ur Phencyclidine Scrn (Not Detect) Ur Amphetamines Screen (Not Detect) U Benzodiazepines Scrn (Not Detect) Urine Cocaine Screen (Not Detect) U Marijuana (THC) Screen (Not Detect) Ethyl Alcohol mg/dL Influenza Type A (PCR) (Negative) Influenza Type B (PCR) (Negative) RSV RNA Qual (PCR) (Negative) SARS-CoV-2 RNA (RT-PCR) (Negative) Discharge Plan Discharge Clinical Impression: Cocaine abuse with cocaine-induced mood disorder, Suicidal ideation, Acute sinusitis Patient Disposition: Admitted As Inpatient Interventions: [place]-Suicide Risk Severity Scale Last Done: 08/17/24 15:00
--- NOTE | 2024-08-15 12:05 | PC.NURSE ---
Pt also reporting auditory hallucinations from his mom and GF since they have .
[2024-08-15 12:47] LABS: Appearance Urine Clear; Color Urine Yellow; Glucose Urine UA Negative (Negative); Leukocyte Esterase Urine Negative (Negative); Nitrite Urine Negative (Negative); PH 5.5 (5.0-9.0); Urine Blood Negative (Negative); Urine Ketones Negative (Negative); Urine Protein Negative (Neg-Trace)
[2024-08-15 12:52] LABS: Amphetamine Screen Urine Not Detected (Not Detect); Barbiturates, Urine Not Detected (Not Detect); Benzodiazepines Screen Urine Not Detected (Not Detect); Buprenorphine Scr Not Detected (Not Detect); Cannabinoid Screen Urine Not Detected (Not Detect); Cocaine Screen Urine POSITIVE (Not Detect); Fentanyl, urine Not Detected (Not Detect); Methadone Screen, Urine Not Detected (Not Detect); Opiate Screen Urine Not Detected (Not Detect); Oxycodone Screen Urine Not Detected (Not Detect); Phencyclidine Screen Urine Not Detected (Not Detect)
[2024-08-15 13:06] LABS: Alanine Aminotransferase 9 U/L (0-40); Albumin Level 3.6 g/dL (3.5-5.0); Alkaline Phosphatase 83 U/L (39-117); Anion Gap 11 (12-20); Aspartate Amino Transferase 20 U/L (5-37); Bilirubin Total 0.3 mg/dL (0.0-1.0); Blood Urea Nitrogen 12 mg/dL (9-16); Calcium 9.2 mg/dL (8.4-10.2); Carbon Dioxide 27 mmol/L (22-29); Chloride 106 mmol/L (96-108); Creatinine Clr Calc Pharmacy 89.6; Estimated Glomerular Filt Rate > 60; Ethanol < 10 mg/dL; Glucose Random 135 mg/dL (60-115); Potassium 4.6 mmol/L (3.3-5.1); Sodium 139 mmol/L (135-145); Total Protein 7.1 g/dL (6.5-8.0)
--- OUTSIDE RECORDS SUMMARY | 2024-08-15 13:59 | XMS_ITS | Encounter Summary ---
Author Organization [employer] Address [address] [facility] [address] [place] [address] Care Team Providers Care Log Cooker Name Role Phone Nicole Blackmon MD Primary Care Provider [phone] Reason for Visit * Reason Comments Med Change Request Encounter Details Date Type Department Care Team ([facility] st Contact Info) Description 07/25/2022 Refill [facility] [address], [place] [phone] Nicole Blackmon MD [address] [place] [address] Insomnia, unspecified type Social History Tobacco Use Types Packs/Day Years Used Date Smoking Tobacco: Never Assessed Sex and Gender Information Value Date Recorded Sex Assigned at Male 03/06/2022 10:17 AM EDT Legal Sex Male 10:17 AM EDT Gender Identity Male 03/06/2022 10:17 AM EDT Sexual Orientation Straight 03/06/2022 10 :17 AM EDT documented as of this encounter Miscellaneous Notes * Telephone Encounter - Armida Schuler - 07/25/2022 3:32 PM EDT Tc from patient calling in regards to trazodone 300 mg, states his insurance doesn't cover that it only covers 150 mg. Patient is currently out of medication and is requesting a call back when scriptis sent. * Telephone Encounter - Marcia Rowe RN - 07/25/2022 2:35 PM EDT RN called pt and informed him Rx requested for has been sent to the pharmacy. Pt verbalizes understanding documented in this encounter Plan of Treatment Not on file documented as of this encounter Visit Diagnoses Diagnosis Insomnia, unspecified type documented in this encounter Care Teams Log Cooker Relationship Specialty Start Date End Date Nicole Blackmon MD [address] [place] [id number] PCP - General Family Medicine 04/19/12 documented as of this encounter
--- OUTSIDE RECORDS SUMMARY | 2024-08-15 13:59 | XMS_ITS | Encounter Summary ---
Author Organization [facility] [employer] Address [address] [facility] [address] [place] [address] Care Team Providers Care Call Center Dispatcher Name Role Phone Nicole Blackmon MD Primary Care Provider Reason for Visit * Reason Comments Med Refill Encounter Details Date Type Department Care Team (Late st Contact Info) Description 11/06/2023 Refill [facility] [address] [place] [address] Nicole Blackmon MD [address] [place] [address] Pain; Insomnia, unspecified type Social History Tobacco Use Types Packs/Day Years Used Date Smoking Tobacco: Never Assessed Sex and Gender Information Value Date Recorded Sex Assigned at Male 03/06/2022 10:17 AM EDT Legal Sex Male 10:17 AM EDT Gender Identity Male 03/06/2022 10:17 AM EDT Sexual Orientation Straight 03/06/2022 10 :17 AM EDT documented as of this encounter Plan of Treatment Not on file documented as of this encounter Visit Diagnoses Diagnosis Pain Generalized pain Insomnia, unspecified type documented in this encounter Care Teams Call Center Dispatcher Relationship Specialty Start Date End Date Nicole Blackmon MD [address], [place] [phone] PCP - General Family Medicine 04/19/12 documented as of this encounter
--- OUTSIDE RECORDS SUMMARY | 2024-08-15 13:59 | XMS_ITS | Encounter Summary ---
Author Organization [id number] Address [address] [facility] [address] [place] [address] Care Team Providers Care Certified Hyperbaric Technologist Name Role Phone Nicole Blackmon MD Primary Care Provider [phone] Encounter Details Date Type Department Care Team (Late st Contact Info) Description 08/15/2024 Orders Only [facility] External Provider, [facility] Social History Tobacco Use Types Packs/Day Years Used Date Smoking Tobacco: Every Day Cigarettes Alcohol Use Standard Drinks/Week Comments Yes 0 (1 standard drink = 0.6 oz pur e alcohol) Depression Answer Date Recorded Patient Health Questionnaire-9 Score 16 06/12/2024 Patient Health Questionnaire-9 Score 16 06/12/2024 Last PHQ-9: Questionnaire Data Not on file 0 06/12/2024 Housing Stability Answer Date Recorded What is your housing situation today? I have alysia jovel 06/12/[address] you li ve. Do you have problems with any of the following? None of the above 06/12/2024 Food Insecurity Answer Date Recorded Within the past 12 months, y ou worried that your food would run out before you got money to buy more: Never True 06/12/2024 Within the past 12 months,th e food you bought just didn't last and you didn't have enough money to get more: Never True 10/2024 Transportation Answer Date Recorded In the past 12 months, has l ack of transportation kept you from medical appts, meetings, work or from getting things needed for daily living? No 06/12/2024 Utilities Answer Date Recorded In the past 12 months, has t he electric, gas, oil or water company threatened to shut off services in your home? No 06/12/2024 Depression Answer Date Recorded Patient Health Questionnaire-2 Score 6 06/12/2024 Internet Access Answer Date Recorded Internet Access Q1 No 06/12/2024 Internet Access Q2 I do not want or need it 10/2024 Sex and Gender Information Value Date Recorded Sex Assigned at Male 03/06/2022 10:17 AM EDT Legal Sex Male 10:17 AM EDT Gender Identity Male 03/06/2022 10:17 AM EDT Sexual Orientation Straight 03/06/2022 10 :17 AM EDT documented as of this encounter Plan of Treatment Not on file documented as of this encounter Procedures Procedure Name Priority Date/Time Associated Diagnosis Comments ETHANOL Routine 08/15/2024 12:45 PM EDT COMPREHENSIVE METABOLIC PANEL Routine 08/15/2024 12:45 PM EDT DRUG MONITOR, PANEL 1, SCREEN, URINE Routine 08/15/2024 12:36 PM EDT URINALYSIS WITH REFLEX MICROSCOPIC Routine 08/15/2024 12:36 PM EDT XR CHEST 2 VIEWS Routine 08/15/2024 12:0 2 PM EDT documented in this encounter Results * Ethanol (08/15/2024 12:45 PM EDT) ETHANOL (MG/DL) IN SER/PLAS <10 mg/dL [facility] Comment:Serum/plasma ethanol results are to be used formedical/treatment purposes only. 08/15/2024 12:4 5 PM EDT 08/15/2024 12:50 PM EDT us Generic External Data Provider LAB BLOOD ORDERAB LES Final Result [facility] [address] [place] [phone] * (ABNORMAL) Comprehensive Metabolic Panel (08/15/2024 12:45 PM EDT) Sodium 139 135 - 145 mmol/L [facility] Potassium 4.6 3.3 - 5.1 mmol/L [facility] Chloride 106 96 - 108 mmol/L [facility] Carbon Dioxide 27 22 - 29 mmol/L [facility] Anion Gap 11(L) 12 - 20 [facility] Urea Nitrogen (BUN) 12 9 - 16 mg/dL [facility] Creatinine, Serum 0.74 0.5 - 1.4 mg/dL [facility] Creatinine Clr Calc Pharmacy 89.6 [facility] Comment:eGFR (calculated fro m the MDRD study equation) and eCrCl(calculated from the Cockcroft-Gault equation) are based ondifferent parameters and may not yield comparable results.If eCrCl result is absurd, please check patient'sheight/weight. Estimated Glomerular Filt Rate >60 [facility] Comment:Chronic Kidney Disea se: Estimated GFR < 60 mL/min/1.90p5Jukpqv Kidney Disease: Estimated GFR < 15 mL/min/1.73m2 Glucose 135(H) 60 - 115 mg/dL [facility] Calcium 9.2 8.4 - 10.2 mg/dL [facility] Bilirubin, Total 0.3 0.0 - 1.0 mg/dL [facility] Aspartate Amino Transferase 20 5 - 37 U/L [facility] Alanine Aminotransferase 9 0 - 40 U/L [facility] Total Protein 7.1 6.5 - 8.0 g/dL [facility] Albumin Level 3.6 3.5 - 5.0 g/dL [facility] Alkaline Phosphatase 83 39 - 117 U/L [facility] 08/15/2024 12:4 5 PM EDT 08/15/2024 12:50 PM EDT us Generic External Data Provider LAB BLOOD ORDERAB LES Final Result [facility] [address] [place] [phone] * (ABNORMAL) Drug Monitoring, Panel 1, Screen, Urine (08/15/2024 12:36 PM EDT) Opiate Screen Urine Not Detected Not Detect [facility] Comment:Opiate cut-off is 30 0 ng/mL.Positive results are unconfirmed and should not be used fornon-medical purposes. Barbiturates, Urine Not Detected Not Detect [facility] Comment:Barbiturate cut-off is 200 ng/mL.Positive results are unconfirmed and should not be used fornon-medical purposes. Phencyclidine Screen Urine Not Detected Not Detect [facility] Comment:Phencyclidine cut-of f is 25 ng/mL.Positive results are unconfirmed and should not be used fornon-medical purposes. Amphetamine Screen Urine Not Detected Not Detect [facility] Comment:Amphetamine cut-off is 1000 ng/mL.Positive results are unconfirmed and should not be used fornon-medical purposes. Benzodiazepines Screen Urine Not Detected Not Detect [facility] Comment:Benzodiazepine cut-o ff is 200 ng/mL.Positive results are unconfirmed and should not be used fornon-medical purposes. Cocaine Screen Urine POSITIVE(A) Not Detect [facility] Comment:Cocaine cut-off is 3 00 ng/mL.Positive results are unconfirmed and should not be used fornon-medical purposes. Cannabinoid Screen Urine Not Detected Not Detect [facility] Comment:Cannabinoid cut-off is 50 ng/mL.Positive results are unconfirmed and should not be used fornon-medical purposes. Methadone Screen, Urine Not Detected Not Detect ng/mL [facility] Comment:Methadone cut-off is 300 ng/mL.Positive results are unconfirmed and should not be used fornon-medical purposes. FENTANYL URINE Not Detected Not Detect [facility] Comment:Fentanyl cut-off is 1 ng/mL.Positive results are unconfirmed and should not be used fornon-medical purposes. Oxycodone Urine Screen Not Detected Not Detect ng/mL [facility] Comment:Oxycodone cut-off is 100 ng/mL.Positive results are unconfirmed and should not be used fornon-medical purposes. Buprenorphine Screen Not Detected Not Detect ng/mL [facility] Comment:Buprenorphine cut-of f is 5 ng/mL.Positive results are unconfirmed and should not be used fornon-medical purposes. 08/15/2024 12:3 6 PM EDT 08/15/2024 12:39 PM EDT Generic External Data Provider LAB URINE ORDERAB LES Final Result Performing Organization Address [facility] de Phone Number [facility] [address] [place] [phone] * Urinalysis w/reflex microscopic (08/15/2024 12:36 PM EDT) Color Urine Yellow [facility] Appearance Urine Clear [facility] PH 5.5 5.0 - 9.0 [facility] Glucose Urine UA Negative Negative mg/dL [facility] Urine Blood Negative Negative [facility] Specific [place] - Urine 1.010 1.005 - 1.025 [facility] Urine Protein Negative Neg-Trace mg/dL [facility] Urine Ketones Negative Negative mg/dL [facility] Nitrite Urine Negative Negative [facility] Leukocyte Esterase Urine Negative Negative [facility] 08/15/2024 12:3 6 PM EDT 08/15/2024 12:39 PM EDT Narrative [facility] - 08/15/2024 12:49 PM EDT [id number], [employer] Generic External Data Provider LAB URINE ORDERAB LES Final Result Performing Organization Address [facility] de Phone Number [facility] [address] [place] [phone] * XR Chest 2 Views (08/15/2024 12:02 PM EDT) Anatomical Region Laterality Modality Chest Radiographic Cecilia ging 08/15/2024 12:0 2 PM EDT Narrative 08/15/2024 12:42 PM EDT ? [facility] ?[address] ?[place] [address] ?XRay Report ? Signed ? Patient: Rodriguez,Marvin M ?MR#: [id number] ?? [id number] ? : 1965 ?Acct:[id number] ? Age/Sex: 59 / M ?ADM Date: 08/15/24 ? Loc: HO.ED ? Attending Dr: ? Ordering Physician: Ekaterina Prakash CNP ?? Date of Service: 08/15/24 ?? Procedure(s): XR chest 2V ?? Accession Number(s): [id number] ? cc: Ekaterina Prakash CNP; Nicole Blackmon MD ? EXAMINATION: ?? XR CHEST ? CLINICAL INFORMATION: ?? cough ? COMPARISON: ?? 09/11/2016. ? TECHNIQUE: ?? 2 views of the chest were obtained. ? FINDINGS: ?? The cardiac, hilar, and mediastinal contours are normal. Aortic mural ?? calcifications. ? The lungs are clear bilaterally. There is no pneumothorax or pleural ?? effusion. ? There is no focal osseous or soft tissue abnormality. Mild spinal ?? degenerative changes. Degenerative changes in both shoulder joints. ? XR/XR chest 2V ?? IMPRESSION: ?? No active pulmonary disease. ? Electronically signed by: ??Myron Friedman MD ??08/15/2024 12:39 PM EDT RP ? Dictated By: ?Myron Friedman MD ? Signed By: ?<Electronically signed by Myron Friedman MD in OV> ?08/15/24 1239 ? DD/ 1202 ? TD/TT: 08/15/24 1225 ? Coatings Inspector: ? Procedure Note Nancy Orozco - 08/15/[address] [address] XRay Report Signed Patient: Marvin Rodriguez [facility]#: [id number] : 1965Acct:[id number] Age/Sex: 59 / MADM Date: 08/15/24 Loc: HO.ED Attending Dr: Ordering Physician: Ekaterina Prakash CNP Date of Service: 08/15/24 Procedure(s): XR chest 2V Accession Number(s): [id number] cc: kEaterina Prakash CNP; Nicole Blackmon MD EXAMINATION: XR CHEST CLINICAL INFORMATION: cough COMPARISON: 09/11/2016. TECHNIQUE: 2 views of the chest were obtained. FINDINGS: The cardiac, hilar, and mediastinal contours are normal. Aortic mural calcifications. The lungs are clear bilaterally. There is no pneumothorax or pleural effusion. There is no focal osseous or soft tissue abnormality. Mild spinal degenerative changes. Degenerative changes in both shoulder joints. XR/XR chest 2V IMPRESSION: No active pulmonary disease. Electronically signed by: Myron Friedman MD 08/15/2024 12:39 PM EDT RP Dictated By: Myron Friedman MD Signed By: <Electronically signed by Myron Friedman MD in OV> 08/15/24 1239 DD/ 1202 TD/TT: 08/15/24 1225 Coatings Inspector: [facility] External Provider IMG XR PROCEDURES Final Result documented in this encounter Visit Diagnoses Not on filedocumented in this encounter Additional Health Concerns Assessment Noted Time PHQ-9 Depression Total Score: 16 025 10:17 AM EST documented as of this encounter Care Teams Certified Hyperbaric Technologist Relationship Specialty Start Date End Date Nicole Blackmon MD [address] [place] [phone] PCP - General Family Medicine 04/19/12 documented as of this encounter
--- OUTSIDE RECORDS SUMMARY | 2024-08-15 13:59 | XMS_ITS | Clinical Summary ---
Author Organization [employer] Address [address] [place] [address] [address] [place] [address] Care Team Providers Care Slot Floor Attendant Name Role Phone Nicole Blackmon MD Primary Care Provider [phone] Allergies Active Allergy Reactions Criticality Noted Date Comments Penicillin V 05/10/2010 Other reaction(s): unspecified Medications magnesium hydroxide (Milk of Magnesia) 400 MG/5ML suspension Take 5 mL by mouth at bed time. Active Narcan 4 MG/0.1ML nasal spray INSTILL 1 SPRAY IN 1 NOSTRIL, MAY REPEAT DOSE EVERY 2-3 MINS NEEDED. ALTERNATE NOSTRILS 1 Active nicotine (Nicoderm, Step 1) 21 MG/24HR patchIndications :Pain Place 1 patch on the skin 1 (one) time each day at the same time. 30 patch 3 3 Active albuterol 108 (90 Base) MCG/ACT inhaler Inhale 2 puffs every 4 (four) hours if needed for wheezing or shortness of breath. 18 g 1 3 Active capsaicin (Zostrix) 0.025 % cream apply 2 g by topical route 3 times every day to the affected area(s) 56.6 g 11 3 Active ibuprofen 800 MG tabletIndication s:Pain TAKE 1 TABLET BY MOUTH THREE TIMES A DAY WITH FOOD 90 tablet 5 Active sertraline (Zoloft) 50 MG tabletIndication s:Insomnia, unspecified type Take 1 tablet (50 mg) by mouth Once per day. 30 tablet 5 5 Active hydrOXYzine pamoate (Vistaril) 50 MG capsuleIndicatio ns:Insomnia, unspecified type TAKE 1 CAPSULE BY MOUTH TwoTIMES A DAY NEEDED 60 capsule 2 5 Active Nutritional Supplements (Boost High Protein) liquid Use 1 can twice daily 237 mL 11 5 Active traZODone (Desyrel) 150 MG tabletIndication s:Insomnia, unspecified type TAKE 2 TABLETS BY MOUTH AT BEDTIME 60 tablet 3 5 Active Active Problems Problem Noted Date Diagnosed Date Alcohol abuse 06/12/2024 Chronic drug abuse 06/12/2024 Hepatitis C 12/03/2012 Insomnia 12/03/2012 Encounters Date Type Department Care Team Description 08/15/2024 Orders Only [facility] External Provider, [facility] 07/08/[address] [address] Nicoel Blackmon MD Insomnia, unspecified type 06/24/[address] [address] Nicole Blackmon MD Results 06/19/2024 Orders Only [facility] [address] [place] [address] Nicole Blackmon MD 06/17/2024 Patient Outreach [facility] [address] [place] [address] Nicole Blackmon MD Care Coordination ([facility] outreach for SDOH PT-1 and food needs-LVM ) 06/12/2024 9:45 AM EST Office Visit [facility] [address] [place] [address] Nicole Blackmon MD Chronic hepatitis C without hepatic coma (CMS/HCC) (Primary Dx); Insomnia, unspecified type; Alcohol abuse; Chronic drug abuse (CMS/HCC); Depression, unspecified depression type; Screen for STD (sexually transmitted disease); Encounter for screening for malignant neoplasm of colon; Weight loss 06/12/2024 Travel 06/05/2024 Patient Outreach [facility] [address] [place] [address] Nicole Blackmon MD Pre-visit Planning (SDOH unable to reach, number disconnected) 06/05/[address] [address] Nicole Blackmon MD Durable Medical Equipment 06/04/2024 Telephone [facility] [address] [place] [address] Nicole Blackmon MD from Last 3 Months Immunizations Name Administration Dates Next Due Hep A, Adult 05/24/2013,11/13/2003 Hep B, adult 11/13/2003 Influenza, Split (incl. purified surface antigen ) 04/24/2011 Moderna Covid-19 Vaccine 12+ 04/04/2021 Pneumococcal Polysaccharide PPSV23 05/24/2013 Social History Tobacco Use Types Packs/Day Years Used Date Smoking Tobacco: Every Day Cigarettes Tobacco Cessation:Ready to Q uit: Not Asked; Counseling Given: Not Answered Alcohol Use Standard Drinks/Week Comments Yes 0 [...] Orientation Straight 03/06/2022 10 :17 AM EDT Last Filed Vital Signs Vital Sign Reading Time Taken Comments Blood Pressure 131/73 06/12/2024 10:16 AM EST Pulse 80 06/12/2024 10:16 AM EST Temperature 36.6 ??C (97.8 ??F) 06/12/2024 10:[address] Respiratory Rate 20 06/12/2024 10:16 AM EST Oxygen Saturation - - Inhaled Oxygen Concentration - - Weight 69.9 kg (154 lb) 06/12/2024 10:16 AM EST Height 172.7 cm (5' 8 ) 06/12/2024 10:16 AM EST Body Mass Index 23.42 06/12/2024 10:16 AM EST Plan of Treatment Health Maintenance Due Date Last Done Comments CT Colonography 1965 Colonoscopy 1965 Colorectal Cancer Screening 1965 FIT DNA/Cologuard 1965 FIT 1965 FOBT 1965 Sigmoidoscopy 1965 Hepatitis B Vaccines (2 of 3 - 19+ 3-dose series) 12/11/2003 11/13/2003 Pneumococcal Vaccine: 50+ Years (2 of 2 - PCV) 05/24/2014 05/24/2013 Zoster Vaccines (1 of 2) 2015 COVID-19 Vaccine (2 - 2023-2 5 season) 2024 04/04/2021 Influenza Vaccine (#1) 2024 04/24/2011 Depression Monitoring 12/10/2024 06/12/2024 , 06/12/2024 Alcohol/Substance Use Screening 06/12/2025 06/12/2024 Depression Screening 06/12/2025 06/12/2024, 06/12/2024 SDOH Screening 06/12/2025 06/12/2024 Tobacco Screening 06/12/2025 06/12/2024 Lipid Panel 06/19/2029 06/19/2024 DTaP/Tdap/Td Vaccines (2 - T d or Tdap) 11/27/2032 11/27/2022 RSV Patients and Patients Aged 60 years or older (1 - 1-dose 75+ series) 2040 Hepatitis A Vaccines Completed 05/24/2013, 11/13/2003 HIV Screening Completed 06/19/2024, 01/13/2020 HIB Vaccines Aged Out No longer eligi ble based on patient's age to complete this topic HPV Vaccines Aged Out No longer eligi ble based on patient's age to complete this topic IPV Vaccines Aged Out No longer eligi ble based on patient's age to complete this topic Meningococcal Vaccine Aged Out No argelia lesa eligible based on patient's age to complete this topic RSV under 20 months Aged Out No longe r eligible based on patient's age to complete this topic Rotavirus Vaccines Aged Out No longer eligible based on patient's age to complete this topic Procedures Procedure Name Priority Date/Time Associated Diagnosis Comments ETHANOL Routine 08/15/2024 12:45 PM EDT COMPREHENSIVE METABOLIC PANEL Routine 08/15/2024 12:45 PM EDT DRUG MONITOR, PANEL 1, SCREEN, URINE Routine 08/15/2024 12:36 PM EDT URINALYSIS WITH REFLEX MICROSCOPIC Routine 08/15/2024 12:36 PM EDT XR CHEST 2 VIEWS Routine 08/15/2024 12:0 2 PM EDT HEPATITIS C VIRAL RNA, QUANTITATIVE, REAL-TIME PCR Routine 06/19/2024 11:40 AM EST HIV 1/2 ANTIGEN/ANTIBODY, FOURTH GENERATION W/RFL Routine 06/19/2024 11:40 AM EST Screen for STD (sexually transmitted disease) HEPATITIS C AB W/REFL TO HCV RNA, QN, PCR Routine 06/19/2024 11:40 AM EST Chronic hepatitis C without hepatic coma (CMS/HCC) HEPATIC FUNCTION PANEL Routine 11:40 AM EST Chronic hepatitis C without hepatic coma (CMS/HCC) Alcohol abuse Chronic drug abuse (CMS/HCC) LIPID PANEL, STANDARD Routine 06/19/2024 11:40 AM EST Alcohol abuse Chronic drug abuse (CMS/HCC) BASIC METABOLIC PANEL Routine 06/19/2024 11:40 AM EST Alcohol abuse Chronic drug abuse (CMS/HCC) from Last 3 Months Results * Ethanol (08/15/2024 12:45 PM EDT) ETHANOL (MG/DL) IN SER/PLAS <10 mg/dL [facility] Comment:Serum/plasma ethanol results are to be used formedical/treatment purposes only. 08/15/2024 12:4 5 PM EDT 08/15/2024 12:50 PM EDT us Generic External Data Provider LAB BLOOD ORDERAB LES Final Result Performing Organization Address City/State/[facility] Co de Phone Number [facility] [address] [place] [phone] * (ABNORMAL) Comprehensive Metabolic Panel (08/15/2024 12:45 PM EDT) Pathologist [facility] Sodium 139 135 - 145 mmol/L [facility] Potassium 4.6 3.3 - 5.1 mmol/L [facility] Chloride 106 96 - 108 mmol/L [facility] Carbon Dioxide 27 22 - 29 mmol/L [facility] Anion Gap 11(L) 12 - 20 [facility] Urea Nitrogen (BUN) 12 9 - 16 mg/dL [facility] Creatinine, Serum 0.74 0.5 - 1.4 mg/dL [facility] Creatinine Clr Calc Pharmacy 89.6 [facility] Comment:eGFR (calculated fro m the MDRD study equation) and eCrCl(calculated from the Cockcroft-Gault equation) are based ondifferent parameters and may not yield comparable results.If eCrCl result is absurd, please check patient'sheight/weight. Estimated Glomerular Filt Rate >60 [facility] Comment:Chronic Kidney Disea se: Estimated GFR < 60 mL/min/1.74s7Cdflgn Kidney Disease: Estimated GFR < 15 mL/min/1.73m2 Glucose 135(H) 60 - 115 mg/dL [facility] Calcium 9.2 8.4 - 10.2 mg/dL [facility] Bilirubin, Total 0.3 0.0 - 1.0 mg/dL [facility] Aspartate Amino Transferase 20 5 - 37 U/L [facility] Alanine Aminotransferase 9 0 - 40 U/L [facility] Total Protein 7.1 6.5 - 8.0 g/dL [facility] Albumin Level 3.6 3.5 - 5.0 g/dL [facility] Alkaline Phosphatase 83 39 - 117 U/L [facility] 08/15/2024 12:4 5 PM EDT 08/15/2024 12:50 PM EDT us Generic External Data Provider LAB BLOOD ORDERAB LES Final Result [facility] [address] [place] [address] [phone] * (ABNORMAL) Drug Monitoring, Panel 1, Screen, Urine (08/15/2024 12:36 PM EDT) Opiate Screen Urine Not Detected Not Detect [facility] Comment:Opiate cut-off is 30 0 ng/mL.Positive results are unconfirmed and should not be used fornon-medical purposes. Barbiturates, Urine Not Detected Not Detect [facility] Comment:Barbiturate cut-off is 200 ng/mL.Positive results are unconfirmed and should not be used fornon-medical purposes. Phencyclidine Screen Urine Not Detected Not Detect [facility] Comment:Phencyclidine cut-of f is 25 ng/mL.Positive results are unconfirmed and should not be used fornon-medical purposes. Amphetamine Screen Urine Not Detected Not Detect [facility] Comment:Amphetamine cut-off is 1000 ng/mL.Positive results are unconfirmed and should not be used fornon-medical purposes. Benzodiazepines Screen Urine Not Detected Not Detect [facility] Comment:Benzodiazepine cut-o ff is 200 ng/mL.Positive results are unconfirmed and should not be used fornon-medical purposes. Cocaine Screen Urine POSITIVE(A) Not Detect [facility] Comment:Cocaine cut-off is 3 00 ng/mL.Positive results are unconfirmed and should not be used fornon-medical purposes. Cannabinoid Screen Urine Not Detected Not Detect [facility] Comment:Cannabinoid cut-off is 50 ng/mL.Positive results are unconfirmed and should not be used fornon-medical purposes. Methadone Screen, Urine Not Detected Not Detect ng/mL [facility] Comment:Methadone cut-off is 300 ng/mL.Positive results are unconfirmed and should not be used fornon-medical purposes. FENTANYL URINE Not Detected Not Detect [facility] Comment:Fentanyl cut-off is 1 ng/mL.Positive results are unconfirmed and should not be used fornon-medical purposes. Oxycodone Urine Screen Not Detected Not Detect ng/mL [facility] Comment:Oxycodone cut-off is 100 ng/mL.Positive results are unconfirmed and should not be used fornon-medical purposes. Buprenorphine Screen Not Detected Not Detect ng/mL [facility] Comment:Buprenorphine cut-of f is 5 ng/mL.Positive results are unconfirmed and should not be used fornon-medical purposes. 08/15/2024 12:3 6 PM EDT 08/15/2024 12:39 PM EDT Generic External Data Provider LAB URINE ORDERAB LES Final Result [facility] [address] [place] [address] [phone] * Urinalysis w/reflex microscopic (08/15/2024 12:36 PM EDT) Color Urine Yellow [facility] Appearance Urine Clear [facility] PH 5.5 5.0 - 9.0 [facility] Glucose Urine UA Negative Negative mg/dL [facility] Urine Blood Negative Negative [facility] Specific Stigler - Urine 1.010 1.005 - 1.025 [facility] Urine Protein Negative Neg-Trace mg/dL [facility] Urine Ketones Negative Negative mg/dL [facility] Nitrite Urine Negative Negative [facility] Leukocyte Esterase Urine Negative Negative [facility] 08/15/2024 12:3 6 PM EDT 08/15/2024 12:39 PM EDT Narrative [facility] - 08/15/2024 12:49 PM EDT [id number], Clean Catch us Generic External Data Provider LAB URINE ORDERAB LES Final Result [facility] [address] [place] [address] [phone] * XR Chest 2 Views (08/15/2024 12:02 PM EDT) Anatomical Region Laterality Modality Chest Radiographic Cecilia ging 08/15/2024 12:0 2 PM EDT Narrative 08/15/2024 12:42 PM EDT ? [facility] ?[address] ?[place] [address] ?XRay Report ? Signed ? Patient: Marvin Rodriguez ?MR#: [id number] ?? [id number] ? : 1965 ?Acct:[id number] ? Age/Sex: 59 / M ?ADM Date: 08/15/24 ? Loc: HO.ED ? Attending Dr: ? Ordering Physician: Ekaterina Prakash CNP ?? Date of Service: 08/15/24 ?? Procedure(s): XR chest 2V ?? Accession Number(s): [id number] ? cc: Ekaterina Prakash CNP; Nicole Blackmon [...] PM EDT RP ? Dictated By: ?Myron Firedman MD ? Signed By: ?<Electronically signed by Myron Friedman MD in OV> ?08/15/24 1239 ? DD/ 1202 ? TD/TT: 08/15/24 1225 ? Transaction Advisory Services Manager: ? Procedure Note Donalcirater, Image - 08/15/2024 [place] [address] XRay Report Signed Patient: Marvin Rodriguez MMR#: [id number] : 1965Acct:[id number] Age/Sex: 59 / MADM Date: 08/15/24 Loc: HO.ED Attending Dr: Ordering Physician: Ekaterina Prakash CNP Date of Service: 08/15/24 Procedure(s): XR chest 2V Accession Number(s): [id number] cc: Ekaterina Prakash CNP; Nicole Blackmon MD EXAMINATION: XR [...] Myron Friedman MD 08/15/2024 12:39 PM EDT Dictated By: Myron Friedman MD Signed By: <Electronically signed by Myron Friedman MD in OV> 08/15/24 1239 DD/ 1202 TD/TT: 08/15/24 1225 Transaction Advisory Services Manager: [facility] External Provider IMG XR PROCEDURES Final Result * Hepatitis C Viral RNA, Quantitative, Real-Time PCR (06/19/2024 11:40 AM EST) [facility] Hepatitis C Viral Load <15 NOT DETECTED NOT DETECTED IU/mL [facility] HCV Log PCR <1.18 NOT DETECTED NOT DETECTED Log IU/mL [facility] Comment:For additional infor davidecarmelo, please refer [email or web address].[email or web address]/faq/[email or web address](This link is being provided for informational/educational purposes only.)THIS TEST WAS PERFORMED AT:[email or web address] [place] [phone] LEE MD 06/19/2024 11:4 0 AM EST 06/20/2024 11:55 AM EST Nicole Blackmon MD LAB BLOOD ORDERABLES Final Resul t Performing Organization Address [facility] Co de Phone Number [facility] [address] [place] [phone] * (ABNORMAL) Hepatitis C Antibody with Reflex to HCV, RNA, Quantitative, Real- Time PCR (06/19/2024 11:40 AM EST) [facility] Hepatitis C Antibody Reactive( A) Nonreactive [facility] Comment:Presumptive evidence of antibodies to HCV. Blood Venous blood specimen / Unknown 06/19/2024 11:40 AM EST 06/19/2024 2:05 PM EST Result [facility] Nicole Blackmon MD LAB BLOOD ORDERABLES Final Resul t Performing Organization Address [facility] Co de Phone Number [facility] [address] [place] [phone] * HIV-1/2 Antigen and Antibodies, Fourth Generation, with Reflexes (06/19/2024 11:40 AM EST) [facility] HIV AB/AG Nonreactive Nonreactive [facility] Comment:HIV-1 p24 Ag and/or HIV-1/HIV-2 Ab not detected.A test result that is nonreactive does not exclude thepossibility of exposure to or infection with HIV-1 and/orHIV-2. Nonreactive results in this assay for individualswith prior exposure to HIV-1 and/or HIV-2 may be due toantigen and antibody levels that are below the limit ofdetection of this assay.The [employer] HIV Ag/Ab Combo assay result andsupplemental assay results should be interpreted inconjunction with the patient's clinical presentation,history and other laboratory results. If the results areinconsistent with clinical evidence, additional testing issuggested to confirm the result. Blood Venous blood specimen / Unknown 06/19/2024 11:40 AM EST 06/19/2024 2:05 PM EST Nicole Blackmon MD LAB BLOOD ORDERABLES Final Resul t [facility] [address] [place] [phone] * (ABNORMAL) Hepatic Function Panel (06/19/2024 11:40 AM EST) Bilirubin, Total 0.2 0.0 - 1.0 mg/dL [facility] Bilirubin, Direct <0.2 0.0 - 0.5 mg/dL [facility] Aspartate Amino Transferase 31 5 - 37 U/L [facility] Alanine Aminotransferase 25 0 - 40 U/L [facility] Total Protein 6.7 6.5 - 8.0 g/dL [facility] Albumin Level 3.4(L) 3.5 - 5.0 g/dL [facility] Alkaline Phosphatase 91 39 - 117 U/L [facility] Blood Venous blood specimen / Unknown 06/19/2024 11:40 AM EST 06/19/2024 2:05 PM EST Nicole Blackmon MD LAB BLOOD ORDERABLES Final Resul t Performing Organization Address City/[facility] de Phone Number [facility] [address] [place] [address] [phone] * (ABNORMAL) Lipid Panel, Standard (06/19/2024 11:40 AM EST) Triglycerides 56 <150 mg/dL [facility] Comment:Desirable Triglyceri de: less than 150 mg/dLBorderline High Triglyceride 150-199 mg/dLHigh Triglyceride: 200-499 mg/dLVery High Triglyceride: greater than or equal to 5OO mg/dL Cholesterol 89 <200 mg/dL [facility] Comment:Desirable Cholestero l: less than 200 mg/dLBorderline High Cholesterol: 200-239 mg/dLHigh Cholesterol: greater than 239 mg/dL LDL Cholesterol Calculated 55 <100 mg/dL [facility] Comment:Desirable LDL: less than 100 mg/dLNear Optimal/Above Optimal LDL: 110- 129 mg/dLBorderline High LDL: 130-159 mg/dLHigh LDL: 160-189 mg/dLVery High LDL: greater than or equal to 190 mg/dL HDL Cholesterol 23(L) >40 mg/dL [facility] Comment:Desirable HDL: great er than 40 mg/dL Note: This HDL assay may give artificially low results in patients with liver disease. Blood Venous blood specimen / Unknown 06/19/2024 11:40 AM EST 06/19/2024 2:05 PM EST Nicole Blackmon MD LAB BLOOD ORDERABLES Final Resul t Performing Organization Address [facility] Co de Phone Number [facility] [address] [place] [address] [phone] * (ABNORMAL) Basic Metabolic Panel (06/19/2024 11:40 AM EST) Sodium 141 135 - 145 mmol/L [facility] Potassium 4.2 3.3 - 5.1 mmol/L [facility] Chloride 110(H) 96 - 108 mmol/L [facility] Carbon Dioxide 26 22 - 29 mmol/L [facility] Anion Gap 9(L) 12 - 20 [facility] Urea Nitrogen (BUN) 13 9 - 16 mg/dL [facility] Creatinine, Serum 0.81 0.5 - 1.4 mg/dL [facility] Estimated Glomerular Filt Rate >60 [facility] Comment:Chronic Kidney Disea se: Estimated GFR < 60 mL/min/1.04d5Dxmhwh Kidney Disease: Estimated GFR < 15 mL/min/1.73m2 Glucose 104 60 - 115 mg/dL [facility] Calcium 8.7 8.4 - 10.2 mg/dL [facility] Blood Venous blood specimen / Unknown 06/19/2024 11:40 AM EST 06/19/2024 2:05 PM EST us Nicole Blackmon MD LAB BLOOD ORDERABLES Final Resul t [facility] [address] [place] [phone] [phone] from Last [address] [place] [address] [place] [address] - [employer] Care Teams Slot Floor Attendant Relationship Specialty Start Date End Date Nicole Blackmon MD [address] [place] [phone] PCP - General Family Medicine 04/19/12
--- NOTE | 2024-08-15 14:29 | PC.NURSE ---
COUNSELOR JUAN AMAYA CLINICAL DIRECTOR OF CHD, SUPERVISES [facility]. STATES HE HAS BEEN MAKING SI STATEMENTS TO HER, TRYING TO MAKE PLANS FOR AFTER HE DIES.RECENT ADMISSIONS TO [facility] AND [facility] FOR DEPRESSION. TAKES ONLY TRAZODONE AT NIGHT. SHE STATES HE DOES NOT SLEEP WELL, AND TALKS OUT LOUD WITH HIS MOTHER AND PARTNER WHO 1 YEAR AGO. SHE SAYS HEARING HAS WORSENED OVER PAST 2 WKS. HE WAS CLEARED FROM WALK IN CLINIC [facility] FOR COVID & FLU. JUAN'S NUMBER [phone]
--- NOTE | 2024-08-15 15:58 | ED_ITS ---
HPI - Psych General Chief Complaint: Psychiatric Symptoms Stated Complaint: Psych, hearing loss Time Seen by Provider: 08/15/24 13:20 History of Present Illness HPI Narrative: Patient is a 59-year-old male presented today with having hearing loss that is been ongoing. Also complaining of congestion. Patient been coughing up yellow- greenish sputum after using cocaine and smoking. Patient significant other killed herself about a year ago. Patient now has suicidal thoughts. Did not have any specific plans. Patient denies drinking alcohol. Related Data Previous Rx's ?Medication ?Instructions ?Recorded trazodone 150 mg tablet 2 tab PO BEDTIME #60 tabs 02/12/23 Allergies Allergy/AdvReac Type Severity Reaction Status Date / Time penicillin G Allergy Unknown UNKNOWN Verified 08/15/24 12:03 Review of Systems 2 Review of Systems: Positive cocaine Positive congestion Positive upper respiratory symptoms Yes all other systems are reviewed and are negative [facility] Past Medical History Attestation statement: The following information was validated with the patient. Medical History Alcohol use disorder MDD (major depressive disorder), recurrent episode, moderate Hepatitis C Smoker Asthma Drug abuse Social History Social History Household Members: Unknown / Unable to assess Unable to assess alcohol history related to: Refusing to respond Alcohol intake: current Alcohol intake frequency: 3 or more drinks per day Alcohol type: beer Patient Tobacco Use Status: Current everyday Tobacco user Tobacco use type: Cigarette Cigarette Packs Per Day: 1 Cigarettes Per Day: 20.0 Smoked in Last 30 Days: No Second Hand Smoke Exposure: No Use of substances other than those prescribed or required for medical reasons: Yes Substance Use Type: Crack/Cocaine Substance Use Frequency: Daily Advance Directives: No Advance Directives Information Provided: Yes service: No Sexual orientation: Straight/Heterosexual Physical Exam 2 Vital Signs: Vital Signs: Last Vital Signs Temp 98.6 F 08/15/24 11:57 Pulse 60 08/15/24 11:57 Resp 20 08/15/24 11:57 BP 125/80 08/15/24 11:57 Pulse Ox 98 08/15/24 11:57 O2 Del Method Room Air 08/15/24 11:57 BMI result Body Mass Index 21.6 Appearance: Alert. Oriented X3. No acute distress. Eyes: Pupils equal, round and reactive to light. ENT: Pharynx normal. TMs are intact bilaterally. There is no earwax noted. Neck: Normal inspection. Neck supple. No lymph nodes noted. No crepitus CVS: Normal heart rate and rhythm. Pulses normal. Normal S1 and S2 Respiratory: No respiratory distress. Breath sounds normal. No Wheezing. No rales Abdomen: Soft and nontender. No rigidity. No distention. good BS x4 Skin: Skin warm and dry. Normal skin color. Normal skin turgor. Extremities: No lower extremity edema. Neurovascular intact to all extremities. No Lacerations. No Rash Neuro: Oriented X 3. No motor deficit. No sensory deficit. Moving all extermities. No slurred speech. Cranial nerves intact Medical Decision Making Medical Decision Making [facility] Narrative: Patient well-appearing no acute distress. Positive suicidal ideation after using crack cocaine. Positive coughing upper respiratory symptoms. Will get a COVID flu RSV test. Patient wants an antibiotic for his sinusitis. A Z-Bhavesh was prescribed. Patient chest x-ray by my interpretation was grossly negative no pneumonia noted. Patient's alcohol was negative electrolytes are unremarkable. Case discussed with care team. Patient to be evaluated. Differential Diagnosis Differential Diagnoses: The differential diagnosis associated with the presentation includes Suicidal ideation, polysubstance abuse Admission/Observation Consideration of admission/observation: Escalation of care including admission/observation considered Consult Healthcare Provider Management of the patient was discussed with: Missile Tracking Technician (Care team) Lab Data [facility] Lab Attestation statement: I reviewed the patient's lab results. 08/15/24 12:45 Labs: Lab Results 08/15/24 08/15/24 Range/Units 12:36 12:45 Sodium 139 (135-145) mmol/L Potassium 4.6 (3.3-5.1) mmol/L Chloride 106 (96-108) mmol/L Carbon Dioxide 27 (22-29) mmol/L Anion Gap 11 L (12-20) BUN 12 (9-16) mg/dL Creatinine 0.74 (0.5-1.4) mg/dL Estim Creat Clear Calc 89.6 Estimated GFR > 60 Random Glucose 135 H (60-115) mg/dL Calcium 9.2 (8.4-10.2) mg/dL Total Bilirubin 0.3 (0.0-1.0) mg/dL AST 20 (5-37) U/L ALT 9 (0-40) U/L Alkaline Phosphatase 83 (39-117) U/L Total Protein 7.1 (6.5-8.0) g/dL Albumin 3.6 (3.5-5.0) g/dL Urine Color Yellow Urine Appearance Clear Urine pH 5.5 (5.0-9.0) Ur Specific [place] 1.010 (1.005-1.025) Urine Protein Negative (Neg-Trace) mg/dL Urine Glucose (UA) Negative (Negative) mg/dL Urine Ketones Negative (Negative) mg/dL Urine Blood Negative (Negative) Urine Nitrite Negative (Negative) Ur Leukocyte Esterase Negative (Negative) Urine Opiates Screen Not Detected (Not Detect) Ur Buprenorphine Scrn Not Detected (Not Detect) ng/mL Ur Oxycodone Screen Not Detected (Not Detect) ng/mL Urine Methadone Screen Not Detected (Not Detect) ng/mL Urine Fentanyl Screen Not Detected (Not Detect) Ur Barbiturates Screen Not Detected (Not Detect) Ur Phencyclidine Scrn Not Detected (Not Detect) Ur Amphetamines Screen Not Detected (Not Detect) U Benzodiazepines Scrn Not Detected (Not Detect) Urine Cocaine Screen POSITIVE H (Not Detect) U Marijuana (THC) Screen Not Detected (Not Detect) Ethyl Alcohol < 10 mg/dL External Record Review External record reviewed: Inpatient record and Office record Chronic Conditions Polysubstance abuse Social Determinants Patient?s care significantly limited by Social Determinants of Health including: Alcoholism and drug addiction in family and Problems related to primary support group Discharge Plan Discharge Clinical Impression: Cocaine abuse with cocaine-induced mood disorder, Suicidal ideation Prescriptions: No Action trazodone 150 mg tablet 2 tab PO BEDTIME Qty: 60 0RF Interventions: Prentiss-Suicide Risk Severity Scale Last Done: 08/15/24 15:12 Print Language: Niuean
[2024-08-15 16:14] LABS: Influenza A PCR NEGATIVE (Negative); Influenza B PCR NEGATIVE (Negative); Resp Syncy Virus RNA Qual PCR NEGATIVE (Negative); SARS COV2 PCR INHOUSE NEGATIVE (Negative)
[2024-08-15] MEDS: Azithromycin 500 MG TABLET PO (16:26)
[2024-08-15] MEDS: hydrOXYzine HCL 50 MG TABLET PO (17:51)
--- NOTE | 2024-08-15 19:08 | MHC.EDTECH ---
Pt refused blood draw at this time due to having a hard time with previous tech. Offered to do a finger stick instead but pt still refused. RN aware
[2024-08-15] MEDS: traZODone HCL 100 MG TABLET 300 MG PO (20:01)
[2024-08-15 20:03] VITALS: RESP 16
[2024-08-15] MEDS: Magnesium Hydrox/Alum Hydrox 30 ML ORAL.SUSP PO (20:29)
[2024-08-16] MEDS: Loperamide HCl 2 MG CAPSULE 4 MG PO (00:23)
[2024-08-16] MEDS: hydrOXYzine HCL 50 MG TABLET PO ×3 (00:23→19:11)
[2024-08-16] MEDS: Melatonin 3 MG TABLET 6 MG PO ×2 (00:23→23:43)
--- NOTE | 2024-08-16 01:17 | PC.NURSE ---
late entry-patient c/o stomach upset, periodic swearing, had declined cbc and soon thereafter declined blood pressure also. a few hrs after administration client awake and irritable, stated he was going to make a phone call and be dc'ed, t/w informed client that wasnt possible presently and that he'd be reassessed in am, patient was irritable and continued to use foul language briefly. some brief period after this client requested addl medications to help him sleep which t/w pursued and administered. patient remains asleep at present. appears in no distress.
--- NOTE | 2024-08-16 09:18 | MHC.EDTECH ---
Patient is refusing labs. RN aware.
[2024-08-16 09:57] VITALS: BP 96/62; PULSE 75; RESP 18; TEMP 36.9; O2SAT 97
[2024-08-16] MEDS: Azithromycin 250 MG TABLET PO (11:04)
--- NOTE | 2024-08-16 15:31 | PC.NURSE ---
Patient educated on the importance of having labs drawn to medically clear him for care team. Patient refused x 2 for this nurse.
[2024-08-16 17:30] VITALS: BP 116/73; PULSE 63; RESP 16; O2SAT 98
--- NOTE | 2024-08-16 20:20 | PC.NURSE ---
patient irritable upon arrival to unit, had prev asked tech for hamburgers which tech had pursued for client. this was late on arrving so patient was escalated. loud accusatory tone, t/w told client we had called which was reiterated by tech for adult education professional but patient seemed hostile and dissatisfied. asked about discharge and t/w informed client that would have to be approached in am. t/w reiterated to zoila
[2024-08-16] MEDS: traZODone HCL 100 MG TABLET 300 MG PO (20:49)
--- NOTE | 2024-08-16 21:37 | MHC.EDTECH ---
pt refuse blood work
--- NOTE | 2024-08-16 22:41 | PC.NURSE ---
very frequently approaches staff asking for extra food.
--- NOTE | 2024-08-17 03:20 | PC.NURSE ---
Report received from Milagros rn ,, pt sleeping at this time.
[2024-08-17] MEDS: Azithromycin 250 MG TABLET PO (08:36)
--- NOTE | 2024-08-17 12:09 | PC.NURSE ---
Patient alert and oriented, states he cant hear but is able to use phone to talk with friend. Becomes agitated about food. Eat breakfast tray but immediately stating he is hungry and is being starved. Provided with pudding, cheese, and cereal multiple times. Care team at bedside
[2024-08-17] MEDS: hydrOXYzine HCL 50 MG TABLET PO ×2 (15:29→20:55)
[2024-08-17] MEDS: Acetaminophen 325 MG TABLET 650 MG PO (15:49)
--- NOTE | 2024-08-17 16:18 | PHA.MEDREC ---
Pharmacy Consult ? Medication Reconciliation Pharmacy has completed the medication reconciliation. Reviewed med rec done by nursing.
--- NOTE | 2024-08-17 16:33 | PC.NURSE ---
Patient agitated yelling at this RN that he cant hear and needs to be seen by the MD, reminded patient that MD is aware and will come check patients ears when he is able to. Patient agitated stating this RN is a liar and never told the MD that he needs to be seen. MD at bedside to assess patient
--- NOTE | 2024-08-17 16:37 | MHC.EDTECH ---
patient has been Verbally abusive towards staff and continues to state i lost my hearing but continues to speak with staff and understands what we are stating clearly . stated if the doctor does not come to see me i will throw things around .
[2024-08-17 18:22] LABS: MANUAL DIFF FLAG NO
[2024-08-17 18:23] LABS: Basophils Percent Auto 0.5 % (0-2); Eosinophils Absolute Auto 0.1 X10*3/uL (0.0-0.4); Hematocrit 35.7 % (42.0-52.0); Hemoglobin 11.6 g/dl (14.0-18.0); Imm Gran Abs Auto 0.05 X10*3/uL (0.00-0.03); Imm Gran Pct Auto 0.8 % (0.0-0.4); Lymphocytes Absolute Auto 1.8 X10*3/uL (1.2-4.9); Lymphocytes Percent Auto 29.4 % (20-40); Mean Corpuscular HGB Conc 32.5 g/dl (31.0-36.0); Mean Corpuscular Hemoglobin 29.2 pg (27.0-33.0); Mean Corpuscular Volume 89.9 fL (80.0-98.0); Mean Platelet Volume 9.6 fL (9.4-12.4); Monocytes Absolute Auto 0.9 X10*3/uL (0.1-1.2); Monocytes Percent Auto 14.3 % (2-11); Neutrophils Absolute Auto 3.2 x10*3/uL (2.0-8.3); Platelet Count 193 X10*3/uL (160-400); Red Blood Count 3.97 X10*6/uL (4.60-5.80); Red Cell Distribution Width 14.1 % (11.0-16.0); White Blood Count 6.1 X10*3/uL (4.8-10.8)
[2024-08-17 18:46] LABS: Alanine Aminotransferase 16 U/L (0-40); Albumin Level 3.7 g/dL (3.5-5.0); Alkaline Phosphatase 102 U/L (39-117); Anion Gap 13 (12-20); Aspartate Amino Transferase 23 U/L (5-37); Bilirubin Direct < 0.2 mg/dL (0.0-0.5); Bilirubin Total 0.2 mg/dL (0.0-1.0); Blood Urea Nitrogen 22 mg/dL (9-16); C Reactive Protein 0.56 mg/dL (< or = 0.50); Calcium 9.4 mg/dL (8.4-10.2); Carbon Dioxide 27 mmol/L (22-29); Chloride 102 mmol/L (96-108); Creatinine Clr Calc Pharmacy 89.6; Estimated Glomerular Filt Rate > 60; Glucose Random 110 mg/dL (60-115); Potassium 4.2 mmol/L (3.3-5.1); Sodium 138 mmol/L (135-145); Total Protein 7.4 g/dL (6.5-8.0)
[2024-08-17] MEDS: predniSONE 20 MG TABLET 60 MG PO (18:49)
[2024-08-17] MEDS: traZODone HCL 100 MG TABLET 300 MG PO (20:51)
[2024-08-17] MEDS: Ibuprofen 400 MG TABLET PO (20:57)
[2024-08-17] MEDS: Melatonin 3 MG TABLET 6 MG PO (20:58)
--- NOTE | 2024-08-18 | ECG_ITS ---
Test Reason : CHECK FOR PLONG QT Blood Pressure : */* mmHG Vent. Rate : 65 BPM Atrial Rate : 65 BPM P-R Int : 134 ms QRS Dur : 102 ms QT Int : 394 ms P-R-T Axes : 4 16 45 degrees QTcB Int : 409 ms Normal sinus rhythm Normal ECG When compared with ECG of 25-Jan-2023 14:41, No significant change was found Referred By: Ricarod Pate Electronically Signed By: PAM ARMANDO MD
[2024-08-18 05:26] VITALS: BP 140/85; PULSE 68; RESP 12; TEMP 36.9; O2SAT 97
--- NOTE | 2024-08-18 06:02 | PC.NURSE ---
Patient slept through the night, no distress observed/reported, meds and meals compliant. 15 minutes safety check, no behavior and safety concerns, disposition per care team is section 12 inpatient bed search, will continue to monitor
--- NOTE | 2024-08-18 06:06 | PC.NURSE ---
Patient slept most part of the night, no distress observed/reported, comes out of room intermittently for snacks and drinks, meds and meals compliant. 15 minutes safety check, no behavior and safety concerns, disposition per care team is section 12 inpatient bed search, will continue to monitor
--- NOTE | 2024-08-18 07:22 | PC.NURSE ---
Assumed care of patient at 0645, patient appears to be in no apparent distress, ate breakfast and now is resting in bed. Continue plan of care for S12 dual dx bedsearh
[2024-08-18] MEDS: Azithromycin 250 MG TABLET PO (08:49)
[2024-08-18] MEDS: predniSONE 20 MG TABLET 40 MG PO (10:12)
[2024-08-18 13:33] VITALS: BP 149/83; PULSE 72; RESP 18; TEMP 37; O2SAT 98
[2024-08-18 13:52] VITALS: BMI 26.4
[2024-08-18] MEDS: hydrOXYzine HCL 50 MG TABLET PO ×2 (14:17→21:35)
--- NOTE | 2024-08-18 14:49 | PC.NURSE ---
Cuauhtemoc's girlfriend came to the unit to drop off clean clothes for him. Per his request, she left with some of his belongings before they were inventoried on our unit. She took: Set of keys, Bowman, lopez joggers, black jacket, white baseball cap, 1 pair of socks.
[2024-08-18] MEDS: Acetaminophen 325 MG TABLET 650 MG PO (15:30)
[2024-08-18] MEDS: Baclofen 10 MG TABLET PO (15:30)
[2024-08-18 15:41] VITALS: BP 137/80
[2024-08-18] MEDS: cloNIDine HCL 0.1 MG TABLET PO ×2 (15:41→19:57)
--- NOTE | 2024-08-18 17:16 | PC.NURSE ---
Marvin (Cuauhtemoc) arrived from the pod at 13:30. He is here for depression and SI. The skin check was unremarkable aside from dry skin on his feet which he would like a prescription cream to address. He was selectively cooperative with the admission process, filling out menus but refusing to sign ROIs. He repeatedly states that his anxiety and depression are unmanageable. He is demanding of staff, asking for extra accommodations in his food and room. He makes some grandiose statements like ?my problem with cocaine is that I just never run out of money! I spend hundreds a day and I never run out. I have a [place] and two beautiful motorcycles and I just sit at home.? Per crisis report he is experiencing visual and auditory hallucinations but he did not mention this during the admission process and does not appear internally preoccupied. He became angry repeatedly about a variety of issues including being originally placed in a double room, being given only 2 coffees per meal, and the clothes that were delivered for him being too big. Tox screen is positive for cocaine only. Smoking consult ordered due to the history of pack per day for over 40 years. He states that he is here to start on meds and proudly proclaims that he never has taken anything ?on the street,? only using psych meds during his hospitalization. He plans to go to [facility] upon discharge.
[2024-08-18 19:51] VITALS: BP 131/75; PULSE 66; TEMP 36.9; O2SAT 96
[2024-08-18] MEDS: traZODone HCL 100 MG TABLET 300 MG PO (21:35)
[2024-08-18] MEDS: Magnesium Hydrox/Alum Hydrox 30 ML ORAL.SUSP PO (22:23)
[2024-08-19] MEDS: Azithromycin 250 MG TABLET PO (08:54)
[2024-08-19] MEDS: predniSONE 20 MG TABLET 40 MG PO (08:54)
[2024-08-19] MEDS: hydrOXYzine HCL 50 MG TABLET PO ×2 (09:44→16:52)
[2024-08-19] MEDS: Acetaminophen 325 MG TABLET 650 MG PO (09:44)
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
[2024-08-19 11:24] VITALS: BP 102/60
[2024-08-19] MEDS: cloNIDine HCL 0.1 MG TABLET PO ×2 (11:24→16:50)
[2024-08-19] MEDS: Sertraline HCL 25 MG TABLET PO (14:03)
[2024-08-19] MEDS: Clotrimazole 1 % Cream 15 GM TUBE 1 APPL TOPICAL (14:13)
[2024-08-19 16:50] VITALS: BP 116/67
[2024-08-19] MEDS: LORazepam 1 MG TABLET PO (17:33)
--- NOTE | 2024-08-19 18:16 | PC.NURSE ---
pt approached force dispatcher to ask for his [employer] yemeni . Slate Trimmer asked TW if she could give pt the entire box to which TW responded, NO, thats too much and pt's shouldn't be storing food in their rooms . Pt became irrate when he, although hard of hearing, overheard this typewriter assembler and force dispatcher discussing the situation. Pt began yelling and calling TW profanities and shouted, WTF just give it to me so I can eat it . At this point, TW instructed the force dispatcher to take the yemeni out of the box, cut it in half and hand him both plates as the container contained a tin-like plate, and it was falsely assumed by this typewriter assembler that the patient wanted to share and eat the yemeni in the common area. WTF is that, seriously? put it in the f*cking box . TW then explained the unit rules to the pt to which he responded, I already have a huge box of cereal and chips in my room, why are you being such a b*tch? Everyone else lets me TW attempted to to explain unit rules to the pt but kept being spoken over by pt. At this point the pt kept yelling and screaming and TW raised her voice to tell pt the conversation was over and instructed the pt that the serenity prayer may be helpful as pt was known to attend AA. Pt became rumanitive about the bitch behind the counter to other staff and peers. A short time later, he approached TW to ask to shave and insisted he had his own razor. Pt was initially instructed that he may only use a single bladed razor and again, became irrate, yelling that TW was trying to sabatoge me . TW then obtained acopy of the contraband list which clearly forbids personal razor to which the pt ripped in this writers face. Pt requested prn medication and TW asked another nurse to medicate the pt. Pt received hydroxyzine 50mg and clonodine 0.1mg Pt then demanded to leave and the new RN contacted the doctor to obtain DC orders and MD declined. Pt then stated, If I don't leave, I'm gonna act out . TW contacted security to do a walk through and speak with the pt. Security arrived to the unit and TW discussed the situation with security as the hard of hearing pt listened in the conversation, clearly understanding what was said, evidenced by the fact that he responded, thats not what happened . Security instructed pt that his behavior is not acceptable and instructed pt to remain in behavioral control. I short time later, pt continued to ruminate over his interactions w/ tW and a one time order for Ativan 1mg was ordered and administered. Pt then spoke to peers in a loud voice explaining, I have lots of woman, a sofi, and my own home. I don;t need to be here. I'm not like these other people . Pt also requested staff to call the kitchen numerous times for 2 grilled cheese sandwiches and a cheeseburger. Pt food was ordered and delivered. Again, a short time later, pt approached the nurses station reporting he did not receive his food to which another pt responded, yes you did, I watched you eat it . Kitchen was not contacted for additinal food. Pt was offered his yemeni.
[2024-08-19] MEDS: OLANZapine 5 MG TABLET PO (19:11)
[2024-08-19] MEDS: traZODone HCL 100 MG TABLET 300 MG PO (21:13)
[2024-08-19] MEDS: Baclofen 10 MG TABLET PO (21:14)
[2024-08-20] MEDS: OLANZapine 5 MG TABLET PO (01:51)
[2024-08-20] MEDS: hydrOXYzine HCL 50 MG TABLET PO ×5 (01:51→20:16)
[2024-08-20] MEDS: traZODone HCL 50 MG TABLET PO (01:51)
[2024-08-20 07:50] VITALS: BP 148/77; PULSE 80; RESP 16; TEMP 36.9; O2SAT 97
[2024-08-20] MEDS: Acetaminophen 325 MG TABLET 650 MG PO ×2 (08:48→16:53)
[2024-08-20] MEDS: Azithromycin 250 MG TABLET PO (08:48)
[2024-08-20] MEDS: predniSONE 20 MG TABLET 40 MG PO (08:48)
[2024-08-20] MEDS: cloNIDine HCL 0.1 MG TABLET PO ×2 (08:49→20:16)
[2024-08-20] MEDS: Sertraline HCL 50 MG TABLET PO (08:49)
[2024-08-20] MEDS: Baclofen 10 MG TABLET PO ×2 (08:49→16:53)
[2024-08-20] MEDS: Clotrimazole 1 % Cream 15 GM TUBE 1 APPL TOPICAL (08:51)
--- NOTE | 2024-08-20 11:17 | HO.PSYCHPN ---
Subjective Subjective Date of Service: 08/20/24 Reason For Visit: depression Diagnostics Vital Signs (24Hr): Vital Signs - 24 hr 08/19/24 11:24 08/19/24 16:50 08/20/24 07:50 Temperature 98.5 F Pulse Rate 80 Respiratory Rate 16 Blood Pressure 102/60 116/67 148/77 H Pulse Oximetry 97 BMI result Body Mass Index 26.4 Labs 08/17/24 18:13 08/17/24 18:13 Imaging Radiology Impressions: ITS Impressions Chest X-Ray 08/15/24 12:02 IMPRESSION: No active pulmonary disease. Electronically signed by: Myron Friedman MD 08/15/2024 12:39 PM EDT RP Medications Medications Current Medications Acetaminophen (Acetaminophen 325 Mg Tablet) 650 mg PO Q6H PRN PRN Reason: Headache/Pain, Scale 1-10 Last Admin: 08/20/24 08:48 Dose: 650 mg Al Hydroxide/Mg Hydroxide (Magnesium Hydrox/Alum Hydrox 30 Ml Oral.Susp) 30 ml PO Q6H PRN PRN Reason: Heartburn/Nausea Last Admin: 08/18/24 22:23 Dose: 30 ml Azithromycin (Azithromycin 250 Mg Tablet) 250 mg PO DAILY [place] Stop: 08/20/24 16:00 Last Admin: 08/20/24 08:48 Dose: 250 mg Baclofen (Baclofen 10 Mg Tablet) 10 mg PO BID PRN PRN Reason: sx of cocaine withdrawal Last Admin: 08/20/24 08:49 Dose: 10 mg Clonidine HCl (Clonidine Hcl 0.1 Mg Tablet) 0.1 mg PO Q4H PRN; Protocol PRN Reason: moderate anxiety Last Admin: 08/20/24 08:49 Dose: 0.1 mg Clotrimazole (Clotrimazole 1 % Cream 15 Gm Tube) 1 appl TOPICAL BID [place]; Protocol Last Admin: 08/20/24 08:51 Dose: 1 appl Hydroxyzine HCl (Hydroxyzine Hcl 50 Mg Tablet) 50 mg PO TID PRN PRN Reason: mild Anxiety/Restlessness Ibuprofen (Ibuprofen 600 Mg Tablet) 600 mg PO Q8H PRN PRN Reason: Pain, Mild (Pain Scale 1-3) Lorazepam (Lorazepam 1 Mg Tablet) 1 mg PO DAILY PRN PRN Reason: more severe anxiety Magnesium Hydroxide (Milk Of Magnesia 30 Ml Oral.Susp) 30 ml PO DAILY PRN PRN Reason: Constipation Nicotine Polacrilex (Nicotine Polacrilex 2 Mg Gum) 4 mg BUCCAL Q2H PRN PRN Reason: Nicotine Cravings Olanzapine (Olanzapine 5 Mg Tablet) 5 mg PO Q4H PRN PRN Reason: agitation Last Admin: 08/20/24 01:51 Dose: 5 mg Prednisone (Prednisone 20 Mg Tablet) 40 mg PO DAILY [place] Stop: 08/21/24 09:01 Last Admin: 08/20/24 08:48 Dose: 40 mg Sertraline HCl (Sertraline Hcl 50 Mg Tablet) 50 mg PO DAILY [place] Last Admin: 08/20/24 08:49 Dose: 50 mg Trazodone HCl (Trazodone Hcl 100 Mg Tablet) 300 mg PO BEDTIME [place] Last Admin: 08/19/24 21:13 Dose: 300 mg Trazodone HCl (Trazodone Hcl 50 Mg Tablet) 50 mg PO BEDTIME MRX1 PRN PRN Reason: Insomnia Last Admin: 08/20/24 01:51 Dose: 50 mg Allergies Allergies Allergy/AdvReac Type Severity Reaction Status Date / Time penicillin G Allergy Unknown UNKNOWN Verified 08/15/24 12:03 Assessment & Plan Time Spent With Patient Time: Total time managing care of this patient today ____ minutes.
[2024-08-20] MEDS: Ibuprofen 600 MG TABLET PO ×2 (13:16→22:51)
[2024-08-20] MEDS: LORazepam 1 MG TABLET PO (13:16)
[2024-08-20 20:00] VITALS: BP 124/76; PULSE 76; TEMP 36.6; O2SAT 96
[2024-08-20 20:16] VITALS: BP 125/69
[2024-08-20] MEDS: Gabapentin 300 MG CAPSULE PO (21:42)
[2024-08-20] MEDS: traZODone HCL 100 MG TABLET 300 MG PO (22:50)
[2024-08-21 07:00] VITALS: BMI 28.0
[2024-08-21] MEDS: Ibuprofen 600 MG TABLET PO (07:16)
[2024-08-21] MEDS: Gabapentin 300 MG CAPSULE PO ×4 (07:17→21:26)
[2024-08-21 08:00] VITALS: BP 133/76; PULSE 61; TEMP 36.7; O2SAT 97
[2024-08-21] MEDS: predniSONE 20 MG TABLET 40 MG PO (08:13)
[2024-08-21 08:14] VITALS: BP 133/76
[2024-08-21] MEDS: cloNIDine HCL 0.1 MG TABLET PO ×2 (08:14→18:24)
[2024-08-21] MEDS: Sertraline HCL 50 MG TABLET PO (08:14)
[2024-08-21] MEDS: Baclofen 10 MG TABLET PO (08:14)
[2024-08-21] MEDS: Acetaminophen 325 MG TABLET 650 MG PO (08:14)
[2024-08-21] MEDS: LORazepam 1 MG TABLET PO (08:19)
[2024-08-21] MEDS: hydrOXYzine HCL 50 MG TABLET PO ×3 (08:19→18:24)
[2024-08-21] MEDS: Clotrimazole 1 % Cream 15 GM TUBE 1 APPL TOPICAL (08:24)
[2024-08-21 18:24] VITALS: BP 130/70
[2024-08-21 20:00] VITALS: BP 133/86; PULSE 87; RESP 16; TEMP 36.6; O2SAT 97
[2024-08-21] MEDS: traZODone HCL 100 MG TABLET 300 MG PO (21:26)
[2024-08-22] MEDS: Gabapentin 300 MG CAPSULE PO (06:34)
[2024-08-22] MEDS: Ibuprofen 600 MG TABLET PO (06:34)
[2024-08-22] MEDS: Acetaminophen 325 MG TABLET 650 MG PO (06:34)
--- NOTE | 2024-08-22 08:52 | P.PNPSI_ITS ---
Subjective Subjective Date of Service: 08/21/24 Reason For Visit: depression Interim History: Late entry note for patient seen on 08/21 Diagnostics Vital Signs (24Hr): Vital Signs - 24 hr 08/21/24 18:24 08/21/24 20:00 Temperature 97.9 F Pulse Rate 87 Respiratory Rate 16 Blood Pressure 130/70 133/86 Pulse Oximetry 97 Oxygen Delivery Method Room Air BMI result Body Mass Index 28.0 Labs 08/17/24 18:13 08/17/24 18:13 Imaging Radiology Impressions: ITS Impressions Chest X-Ray 08/15/24 12:02 IMPRESSION: No active pulmonary disease. Electronically signed by: Myron Friedman MD 08/15/2024 12:39 PM EDT RP Medications Medications Current Medications Acetaminophen (Acetaminophen 325 Mg Tablet) 650 mg PO Q6H PRN PRN Reason: Headache/Pain, Scale 1-10 Last Admin: 08/22/24 06:34 Dose: 650 mg Al Hydroxide/Mg Hydroxide (Magnesium Hydrox/Alum Hydrox 30 Ml Oral.Susp) 30 ml PO Q6H PRN PRN Reason: Heartburn/Nausea Last Admin: 08/18/24 22:23 Dose: 30 ml Baclofen (Baclofen 10 Mg Tablet) 10 mg PO BID PRN PRN Reason: sx of cocaine withdrawal Last Admin: 08/21/24 08:14 Dose: 10 mg Clonidine HCl (Clonidine Hcl 0.1 Mg Tablet) 0.1 mg PO Q4H PRN; Protocol PRN Reason: moderate anxiety Last Admin: 08/21/24 18:24 Dose: 0.1 mg Clotrimazole (Clotrimazole 1 % Cream 15 Gm Tube) 1 appl TOPICAL BID COUNTS INCLUDE 234 BEDS AT THE [facility]; Protocol Last Admin: 08/21/24 22:20 Dose: Not Given Gabapentin (Gabapentin 300 Mg Capsule) 300 mg PO BID PRN PRN Reason: continued anxiety Last Admin: 08/22/24 06:34 Dose: 300 mg Hydroxyzine HCl (Hydroxyzine Hcl 50 Mg Tablet) 50 mg PO TID PRN PRN Reason: mild Anxiety/Restlessness Last Admin: 08/21/24 18:24 Dose: 50 mg Ibuprofen (Ibuprofen 600 Mg Tablet) 600 mg PO Q8H PRN PRN Reason: Pain, Mild (Pain Scale 1-3) Last Admin: 08/22/24 06:34 Dose: 600 mg Lorazepam (Lorazepam 1 Mg Tablet) 1 mg PO DAILY PRN PRN Reason: more severe anxiety Last Admin: 08/21/24 08:19 Dose: 1 mg Magnesium Hydroxide (Milk Of Magnesia 30 Ml Oral.Susp) 30 ml PO DAILY PRN PRN Reason: Constipation Multi-Ingred Cream/Lotion/Oil/Oint (Mineral Oil/Petrolatum,White 106 Gm Tube) 1 appl TOPICAL TID PRN; Protocol PRN Reason: dry skin Nicotine Polacrilex (Nicotine Polacrilex 2 Mg Gum) 4 mg BUCCAL Q2H PRN PRN Reason: Nicotine Cravings Olanzapine (Olanzapine 5 Mg Tablet) 5 mg PO Q4H PRN PRN Reason: agitation Last Admin: 08/20/24 01:51 Dose: 5 mg Sertraline HCl (Sertraline Hcl 25 Mg Tablet) 75 mg PO DAILY [place] Trazodone HCl (Trazodone Hcl 100 Mg Tablet) 300 mg PO BEDTIME [place] Last Admin: 08/21/24 21:26 Dose: 300 mg Trazodone HCl (Trazodone Hcl 50 Mg Tablet) 50 mg PO BEDTIME MRX1 PRN PRN Reason: Insomnia Last Admin: 08/20/24 01:51 Dose: 50 mg Allergies Allergies Allergy/AdvReac Type Severity Reaction Status Date / Time penicillin G Allergy Unknown UNKNOWN Verified 08/15/24 12:03 Assessment & Plan Time Spent With Patient Time: Total time managing care of this patient today ____ minutes.
--- NOTE | 2024-08-22 08:55 | PM.PSYDC ---
DS: Providers Provider Date of Service: 08/22/24 Date of admission: 08/18/24 12:43 Date of discharge: 08/22/24 Primary care physician: Nicole Blackmon MD Attending physician on admission: Attila Lenz Attending physician on discharge: Attila Lenz DS: Medications Discharge Medications Home Medications: Previous Rx's ?Medication ?Instructions ?Recorded clonidine HCl 0.1 mg tablet 0.1 mg PO Q4H PRN moderate anxiety 08/21/24 30 days #60 tabs clotrimazole 1 % topical cream 1 appl topical BID 4 weeks #15 08/21/24 grams food supplemt, lactose-reduced 1 ea PO BID 24 days #5,688 mL 08/21/24 (Ensure oral liquid) gabapentin 300 mg capsule 300 mg PO BID PRN continued 08/21/24 anxiety 30 days #60 caps hydroxyzine HCl 50 mg tablet 50 mg PO TID PRN mild 08/21/24 Anxiety/Restlessness 30 days #60 tabs sertraline 50 mg tablet 75 mg (1.5 x 50 mg) PO DAILY 30 08/21/24 days #45 tabs trazodone 150 mg tablet 300 mg (2 x 150 mg) PO BEDTIME 30 08/21/24 days #60 tabs Data Data Completed and Pending Completed studies during hospitalization [Text1]: 08/15/24 08/15/24 08/15/24 12:36 12:45 15:28 WBC RBC Hgb Hct MCV MCH MCHC RDW Plt Count MPV Immature Gran % (Auto) Neut % (Auto) Lymph % (Auto) [place] % (Auto) Eos % (Auto) Baso % (Auto) Lymph # (Auto) [place] # (Auto) Eos # (Auto) Baso # (Auto) Abs Immat Gran (auto) Absolute Neuts (auto) Absolute Nucleated RBC Nucleated RBC % (auto) Sodium 139 Potassium 4.6 Chloride 106 Carbon Dioxide 27 Anion Gap 11 L BUN 12 Creatinine 0.74 Estim Creat Clear Calc 89.6 Estimated GFR > 60 Random Glucose 135 H Calcium 9.2 Total Bilirubin 0.3 Direct Bilirubin AST 20 ALT 9 Alkaline Phosphatase 83 C-Reactive Protein Total Protein 7.1 Albumin 3.6 Urine Color Yellow Urine Appearance Clear Urine pH 5.5 Ur Specific [place] 1.010 Urine Protein Negative Urine Glucose (UA) Negative Urine Ketones Negative Urine Blood Negative Urine Nitrite Negative Ur Leukocyte Esterase Negative Urine Opiates Screen Not Detected Ur Buprenorphine Scrn Not Detected Ur Oxycodone Screen Not Detected Urine Methadone Screen Not Detected Urine Fentanyl Screen Not Detected Ur Barbiturates Screen Not Detected Ur Phencyclidine Scrn Not Detected Ur Amphetamines Screen Not Detected U Benzodiazepines Scrn Not Detected Urine Cocaine Screen POSITIVE H U Marijuana (THC) Screen Not Detected Ethyl Alcohol < 10 Influenza Type A (PCR) NEGATIVE Influenza Type B (PCR) NEGATIVE RSV RNA Qual (PCR) NEGATIVE SARS-CoV-2 RNA (RT-PCR) NEGATIVE 08/17/24 18:13 WBC 6.1 RBC 3.97 L Hgb 11.6 L Hct 35.7 L MCV 89.9 MCH 29.2 MCHC 32.5 RDW 14.1 Plt Count 193 MPV 9.6 Immature Gran % (Auto) 0.8 H Neut % (Auto) 53.0 Lymph % (Auto) 29.4 [place]anner % (Auto) 14.3 H Eos % (Auto) 2.0 Baso % (Auto) 0.5 Lymph # (Auto) 1.8 [place] # (Auto) 0.9 Eos # (Auto) 0.1 Baso # (Auto) 0.0 Abs Immat Gran (auto) 0.05 H Absolute Neuts (auto) 3.2 Absolute Nucleated RBC 0.000 Nucleated RBC % (auto) 0.0 Sodium 138 Potassium 4.2 Chloride 102 Carbon Dioxide 27 Anion Gap 13 BUN 22 H Creatinine 0.74 Estim Creat Clear Calc 89.6 Estimated GFR > 60 Random Glucose 110 Calcium 9.4 Total Bilirubin 0.2 Direct Bilirubin < 0.2 AST 23 ALT 16 Alkaline Phosphatase 102 C-Reactive Protein 0.56 H Total Protein 7.4 Albumin 3.7 Urine Color Urine Appearance Urine pH Ur Specific [place] Urine Protein Urine Glucose (UA) Urine Ketones Urine Blood Urine Nitrite Ur Leukocyte Esterase Urine Opiates Screen Ur Buprenorphine Scrn Ur Oxycodone Screen Urine Methadone Screen Urine Fentanyl Screen Ur Barbiturates Screen Ur Phencyclidine Scrn Ur Amphetamines Screen U Benzodiazepines Scrn Urine Cocaine Screen U Marijuana (THC) Screen Ethyl Alcohol Influenza Type A (PCR) Influenza Type B (PCR) RSV RNA Qual (PCR) SARS-CoV-2 RNA (RT-PCR) Imaging Diagnostic Imaging Impressions Chest X-Ray 08/15/24 12:02 IMPRESSION: No active pulmonary disease. Electronically signed by: Myron Friedman MD 08/15/2024 12:39 PM EDT RP DS: Summary Time Spent with Patient Time attestation: Total time managing care of this patient today ____ minutes. 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 Hours: M-F 10-12pm) [facility] with Jg Burnham [Other] - 1 Week (When you are ready to make the appointment with Jg call the above number. ) Blessing Vaughn [facility] Clinical Director [Other] - 1 Week AA Support: [facility] [Other] - 1 Week Norris Clemente [Physician] - 09/01/24 9:00 am (In office appointment ) Nicole Blackmon MD [Primary Care Provider] - 1 Week Discharge Medications: New clonidine HCl 0.1 mg Tablet 0.1 mg PO Q4H PRN (Reason: moderate anxiety) 30 Days Qty: 60 0RF Protocol: Hold for SBP< HOLD for SBP < : 90 gabapentin 300 mg Capsule 300 mg PO BID PRN (Reason: continued anxiety) 30 Days Qty: 60 0RF hydroxyzine HCl 50 mg Tablet 50 mg PO TID PRN (Reason: mild Anxiety/Restlessness) 30 Days Qty: 60 0RF sertraline 50 mg tablet 75 mg PO DAILY 30 Days Qty: 45 0RF clotrimazole 1 % Cream 1 appl topical BID 28 Days Qty: 15 0RF Protocol: Apply to: Apply to: b/l feet Rx Instructions: apply to affected areas on both feet Ensure Liquid 1 ea PO BID 24 Days Qty: 5688 0RF Changed trazodone 150 mg tablet 300 mg PO BEDTIME 30 Days Qty: 60 0RF Discharge Orders: Discharge Order (Routine); Ordered 08/22/24 Ordered By: Attila Lenz Diet: Regular diet Activity on Discharge: As tolerated Stand Alone Forms: Patient Portal Discharge page Print Language: Italian Care Plan Goals: Maintain mood and safe behaviors Take medications as prescribed Continue to pursue sobriety Practice coping skills Continue with outpatient providers and reach out to them as needed Health Concerns: Mood stability and behaviors Sobriety Plan of Treatment: Follow up with your PCP, psychiatric provider and other outpatient providers regarding above concerns Take medications as prescribed Assessment: Risk assessment at time of discharge:? Patient was interviewed prior to discharge and found to be fully oriented and without any SI or HI. Patient has improved insight and judgment and wants to continue treatment. Patient is not in imminent risk of harm to self or others and has a safety plan that includes presenting to the closest ER or calling 911 if feeling unsafe.? Patient has been observed closely by nursing and unit staff throughout admission; patient has not engaged in any behaviors that suggest dangerousness to self or others and has demonstrated appropriate behaviors and impulse control
[2024-08-22 09:00] VITALS: BP 122/54; PULSE 74; TEMP 36.9; O2SAT 97
[2024-08-22] MEDS: Sertraline HCL 25 MG TABLET 75 MG PO (09:21)
[2024-08-22] MEDS: Clotrimazole 1 % Cream 15 GM TUBE 1 APPL TOPICAL (10:16)
== END 2024-08-22 10:25 | disposition home or self-care (01) | DRG 885 ==
LOC: HO.ED 16:32 → HO.PM5 08-18 12:52
PROVIDERS: Emergency Medicine Emergency Medical Services; Nurse Practitioner Family; Admitting Provider Clinical Nurse Specialist Psychiatric/Mental Health, Adult; Emergency Provider Emergency Medicine; PCP Student in an Organized Health Care Education/Training Program; Visit Provider Psychiatry & Neurology Psychiatry
DX: F33.1 Major depressive disorder, recurrent, moderate (principal); R45.851 Suicidal ideations; F17.210 Nicotine dependence, cigarettes, uncomplicated; F43.10 Post-traumatic stress disorder, unspecified; Z62.810 Personal history of physical and sexual abuse in childhood; F14.10 Cocaine abuse, uncomplicated; F10.11 Alcohol abuse, in remission; Z20.822 Contact with and (suspected) exposure to COVID-19; Z71.6 Tobacco abuse counseling; Z91.199 Patient's noncompliance with other medical treatment and regimen due to unspecified reason; Z79.899 Other long term (current) drug therapy
CPT/HCPCS: 0241U; 36415; 71046; 80048; 80053; 80076; 80307; 81003; 85025; 86140; 93005; 99285; S9485

== ENCOUNTER → 2024-08-15 12:02 | Outpatient (BNV) | payer OTHER, SELFPAY | PROVIDERS: PCP Student in an Organized Health Care Education/Training Program; Visit Provider Radiology Diagnostic Radiology | DX: R05.9 Cough, unspecified (principal) | CPT/HCPCS: 71046 ==

== ENCOUNTER → 2024-08-18 09:21 | Outpatient (BNV) | payer OTHER, SELFPAY | PROVIDERS: Admitting Provider Clinical Nurse Specialist Psychiatric/Mental Health, Adult; Emergency Provider Emergency Medicine; PCP Student in an Organized Health Care Education/Training Program; Visit Provider Internal Medicine Cardiovascular Disease | DX: Z13.6 Encounter for screening for cardiovascular disorders (principal) | CPT/HCPCS: 93010 ==

== ENCOUNTER → 2024-08-18 12:43 | Outpatient (BNV) | payer OTHER, SELFPAY | PROVIDERS: Admitting Provider Clinical Nurse Specialist Psychiatric/Mental Health, Adult; Emergency Provider Emergency Medicine; PCP Student in an Organized Health Care Education/Training Program; Visit Provider Psychiatry & Neurology Psychiatry | DX: F33.1 Major depressive disorder, recurrent, moderate (principal); F60.9 Personality disorder, unspecified; F14.10 Cocaine abuse, uncomplicated; F43.11 Post-traumatic stress disorder, acute; H91.93 Unspecified hearing loss, bilateral | CPT/HCPCS: 90792; 99231; 99232; 99239 ==

== ENCOUNTER 2024-09-01 08:57 | Outpatient (REF) | payer OTHER, SELFPAY ==
--- OUTSIDE RECORDS SUMMARY | 2024-09-01 09:42 | XMS_ITS | Encounter Summary ---
Author Organization [employer] Address [address] [facility] [address] [place] [address] Care Team Providers Care Information Security Specialist Name Role Phone Nicole Blackmon MD Primary Care Provider [phone] Reason for Visit * Reason Comments Med Change Request Encounter Details Date Type Department Care Team ([facility] st Contact Info) Description 07/25/2022 Refill [facility]EDS [address] [place], [place] [phone] Nicole Blackmon MD [address] [place] [address] Insomnia, unspecified type Social History Tobacco Use [...] documented in this encounter Plan of Treatment Upcoming Encounters Date Type Department Care Team (Late st Contact Info) Description 09/02/2024 2:15 PM EDT Office Visit [facility] MED [facility]EDS [address] [place], [place] [phone] Kenna Gallagher MD [address] [place], [place] [phone] documented as of this encounter Visit Diagnoses Diagnosis Insomnia, unspecified type documented in this encounter Care Teams Information Security Specialist Relationship Specialty Start Date End Date Nicole Blackmon MD [address] [place] [id number] PCP - General Family Medicine 04/19/12 documented as of this encounter
--- OUTSIDE RECORDS SUMMARY | 2024-09-01 09:42 | XMS_ITS | Encounter Summary ---
Author Organization [employer] Address [address] [facility] [address] [place] [address] Care Team Providers Care Server Engineer Name Role Phone Nicole Blackmon MD Primary Care Provider [phone] Reason for Visit * Reason Comments Med Refill Encounter Details Date Type Department Care Team (Late st Contact Info) Description 11/06/2023 Refill [facility] MEDICINE [address] [place] [address] Nicole Blackmon MD [address] [place], [place] [phone] Pain; Insomnia, unspecified type Social History Tobacco Use Types Packs/Day Years Used Date Smoking Tobacco: Never Assessed Sex and Gender Information Value Date Recorded Sex Assigned at Male 03/06/2022 10:17 AM EDT Legal Sex Male 10:17 AM EDT Gender Identity Male 03/06/2022 10:17 AM EDT Sexual Orientation Straight 03/06/2022 10 :17 AM EDT documented as of this encounter Plan of Treatment Upcoming Encounters Date Type Department Care Team (Late st Contact Info) Description 09/02/2024 2:15 PM EDT Office Visit [facility] MED & PEDS [address] [place], [place] [phone] Kenna Gallagher MD [address] [place], [place] [phone] documented as of this encounter Visit Diagnoses Diagnosis Pain Generalized pain Insomnia, unspecified type documented in this encounter Care Teams Server Engineer Relationship Specialty Start Date End Date Nicole Blackmon MD [address] [place] [address] PCP - General Family Medicine 04/19/12 documented as of this encounter
--- OUTSIDE RECORDS SUMMARY | 2024-09-01 09:42 | XMS_ITS | Clinical Summary ---
Author Organization [employer] Address [address] [facility] [address] [place] [address] Care Team Providers Care Vacuum Metalizing Supervisor Name Role Phone Nicole Blackmon MD Primary Care Provider [phone] Allergies Active Allergy Reactions Criticality Noted Date Comments Penicillin V 05/10/2010 Other reaction(s): unspecified Medications magnesium hydroxide (Milk of Magnesia) 400 MG/5ML suspension Take 5 mL by mouth at bed time. Active Narcan 4 MG/0.1ML nasal spray INSTILL 1 SPRAY IN 1 NOSTRIL, MAY REPEAT DOSE EVERY 2-3 MINS NEEDED. ALTERNATE NOSTRILS 05/04/20 21 Active nicotine (Nicoderm, Step 1) 21 MG/24HR patchIndication s:Pain Place 1 patch on the skin 1 (one) time each day at the same time. 30 patch 3 07/21/19 23 Active albuterol 108 (90 Base) MCG/ACT inhaler Inhale 2 puffs every 4 (four) hours if needed for wheezing or shortness of breath. 18 g 1 08/01/19 23 Active capsaicin (Zostrix) 0.025 % cream apply 2 g by topical route 3 times every day to the affected area(s) 56.6 g 11 08/02/19 23 Active ibuprofen 800 MG tabletIndicatio ns:Pain TAKE 1 TABLET BY MOUTH THREE TIMES A DAY WITH FOOD 90 tablet 05/08/19 25 Active traZODone (Desyrel) 150 MG tabletIndicatio ns:Insomnia, unspecified type TAKE 2 TABLETS BY MOUTH AT BEDTIME 60 tablet 3 07/10/19 25 Active cloNIDine (Catapres) 0.1 MG tablet Take 0.1 mg by mouth every 4 (four) hours if needed (moderate anxiety). 08/22/19 Active gabapentin (Neurontin) 300 MG capsule Take 1 capsule by mouth if needed in the morning and at bedtime (continued anxiety). 08/22/19 Active hydrOXYzine HCl (Atarax) 50 MG tablet Take 1 tablet by mouth if needed in the morning, at noon, and at bedtime for anxiety (and restlesness) . 08/22/19 Active sertraline (Zoloft) 50 MG tablet Take 1.5 tablets by mouth Once per day. Active clotrimazole (Lotrimin) 1 % cream 1 APPL TOPICALLY 2 TIMES A DAY FOR 4 WEEKS APPLY TO AFFECTED AREAS ON BOTH FEET 08/22/19 Active Nutritional Supplements (ENSURE ORIGINAL PO) Take by mouth 2 times daily. Active sertraline (Zoloft) 50 MG tabletIndicatio ns:Insomnia, unspecified type Take 1 tablet (50 mg) by mouth Once per day. 30 tablet 5 06/12/19 25 025 Discontinued(Me d list cleanup (will not trigger notification to Pharmacy)) hydrOXYzine pamoate (Vistaril) 50 MG capsuleIndicati ons:Insomnia, unspecified type TAKE 1 CAPSULE BY MOUTH TwoTIMES A DAY NEEDED 60 capsule 2 06/12/19 25 025 Discontinued(Me d list cleanup (will not trigger notification to Pharmacy)) Nutritional Supplements (Boost High Protein) liquid Use 1 can twice daily 237 mL 11 06/16/19 25 025 Discontinued(Me d list cleanup (will not trigger notification to Pharmacy)) Active Problems Problem Noted Date Diagnosed Date Alcohol abuse 06/12/2024 Chronic drug abuse 06/12/2024 Hepatitis C 12/03/2012 Insomnia 12/03/2012 Encounters Date Type Department Care Team Description 08/31/2024 Refill [facility] [address] [place], [place] [phone] Nicole Blackmon MD Pain 08/26/2024 Orders Only [facility] [address] [place], [place] [phone] Kandis Oleary, PharmD 08/22/2024 Patient Outreach [facility] [address] [place], [place] [phone] Nicole Blackmon MD Transition Of Care (Tcm) (HDF scheduled and SDOH screening unable to complete) 08/20/2024 Orders Only [facility] [address] [place] [address] Nicole Blackmon MD 08/17/2024 Orders Only GENERIC EXTERNAL DATA DEPARTMENT Provider, Generic External Data 08/15/2024 Orders Only [facility] External Provider, [facility] 07/08/2024 Refill [facility] [address] [place] [phone] Nicole Blackmon MD Insomnia, unspecified type 06/24/[address] [phone] Nicole Blackmon MD Results 06/19/2024 Orders Only [facility] [address] [place] [address] Nicole Blackmon MD 06/17/2024 Patient Outreach [facility] [address] [place] [address] Nicole Blackmon MD Care Coordination (CHW outreach for SDOH PT-1 and food needs-LVM ) 06/12/2024 9:45 AM EST Office Visit [facility] [address] [place] [phone] Nicole Blackmon MD Chronic hepatitis C without hepatic coma (CMS/HCC) (Primary Dx); Insomnia, unspecified type; Alcohol abuse; Chronic drug abuse (CMS/HCC); Depression, unspecified depression type; Screen for STD (sexually transmitted disease); Encounter for screening for malignant neoplasm of colon; Weight loss 06/12/2024 Travel 06/05/2024 Patient Outreach [facility] [address] [place] [address] Nicole Blackmon MD Pre-visit Planning (SDOH unable to reach, number disconnected) 06/05/2024 Telephone [facility] [address] [place] [phone] Nicole Blackmon MD Durable Medical Equipment 06/04/2024 Telephone [facility] [address] [place] [address] Nicole Blackmon MD from Last 3 Months Immunizations Name Administration Dates Next Due Hep A, Adult 05/24/2013,11/13/2003 Hep B, adult 11/13/2003 Influenza, Split (incl. purified surface antigen ) 04/24/2011 Moderna Covid-19 Vaccine 12+ 04/04/2021 Pneumococcal Polysaccharide PPSV23 05/24/2013 Tdap 11/27/2022 Social History Tobacco Use Types Packs/Day Years [...] is your housing situation today? I have alysiaquita jovel 06/12/[address] you [...] t he electric, gas, oil or water [employer] threatened to shut off services in your [...] 06/12/2024 10:16 AM EST Plan of Treatment Upcoming Encounters Date Type Department Care Team (Late st Contact Info) Description 09/02/2024 2:15 PM EDT Office Visit [facility] [address] [place], [place] [phone] Kenna Gallagher MD [address] [place], [place] [phone] Health Maintenance Due Date Last Done Comments [...] 2024 04/04/2021 Influenza Vaccine (#1) 2024 04/24/2011 Alcohol/Substance Use Screening 06/12/2025 06/12/2024 Depression Screening [...] Procedure Name Priority Date/Time Associated Diagnosis Comments C-REACTIVE PROTEIN Routine 08/17/2024 6: 13 PM EDT BASIC METABOLIC PANEL Routine 08/17/2024 6:13 PM EDT HEPATIC FUNCTION PANEL Routine 6:13 PM EDT CBC WITH AUTO DIFFERENTIAL Routine 08/17/2024 6:13 PM EDT SARS COV2/INFLUENZA A/B AND RSV RNA QL NAAT Routine 08/15/2024 3:28 PM EDT ETHANOL Routine 08/15/2024 12:45 PM EDT COMPREHENSIVE [...] (CMS/HCC) from Last 3 Months Results * (ABNORMAL) CBC auto differential (08/17/2024 6:13 PM EDT) White Blood Count 6.1 4.8 - 10.8 X10*3/uL [facility] Red Blood Count 3.97(L) 4.60 - 5.80 X10*6/uL [facility] Hemoglobin 11.6(L) 14.0 - 18.0 g/dl [facility] Hematocrit 35.7(L) 42.0 - 52.0 % [facility] Mean Corpuscular Volume 89.9 80.0 - 98.0 fL [facility] Mean Corpuscular Hemoglobin 29.2 27.0 - 33.0 pg [facility] Mean Corpuscular HGB Conc 32.5 31.0 - 36.0 g/dl [facility] Red Cell Distribution Width 14.1 11.0 - 16.0 % [facility] Platelet Count 193 160 - 400 X10*3/uL [facility] Mean Platelet Volume 9.6 9.4 - 12.4 fL [facility] Neutrophils Percent Auto 53.0 45 - 73 % [facility] Imm Gran Pct Auto 0.8(H) 0.0 - 0.4 % [facility] Lymphocytes Percent Auto 29.4 20 - 40 % [facility] Monocytes Percent Auto 14.3(H) 2 - 11 % [facility] Eosinophils Percent Auto 2.0 0 - 4 % [facility] Basophils Percent Auto 0.5 0 - 2 % [facility] NRBC Pct Auto 0.0 0.0 - 0.2 /100WBC [facility] Neutrophils Absolute Auto 3.2 2.0 - 8.3 x10*3/uL [facility] Imm Gran Abs Auto 0.05(H) 0.00 - 0.03 X10*3/uL [facility] Lymphocytes Absolute Auto 1.8 1.2 - 4.9 X10*3/uL [facility] Monocytes Absolute Auto 0.9 0.1 - 1.2 X10*3/uL [facility] Eosinophils Absolute Auto 0.1 0.0 - 0.4 X10*3/uL [facility] Basophils Absolute Auto 0.0 0.0 - 0.2 X10*3/uL [facility] NRBC Abs Auto 0.000 0.0 - 0.012 X10*3/uL [facility] 08/17/2024 6:13 PM EDT 08/17/2024 6:21 PM EDT us Generic External Data Provider LAB BLOOD ORDERAB LES Final Result [facility] [address] [place], [place] [phone] * (ABNORMAL) C-reactive Protein (08/17/2024 6:13 PM EDT) C Reactive Protein 0.56(H) < or = 0.50 mg/dL [facility] 08/17/2024 6:13 PM EDT 08/17/2024 6:21 PM EDT Generic External Data Provider LAB BLOOD ORDERAB LES Final Result Performing Organization Address [facility] Co de Phone Number [facility] [address] [place] [phone] * Hepatic Function Panel (08/17/2024 6:13 PM EDT) Only the most recent of2 resultswithin the time period is included. Bilirubin, Total 0.2 0.0 - 1.0 mg/dL [facility] Bilirubin, Direct <0.2 0.0 - 0.5 mg/dL [facility] Aspartate Amino Transferase 23 5 - 37 U/L [facility] Alanine Aminotransferase 16 0 - 40 U/L [facility] Total Protein 7.4 6.5 - 8.0 g/dL [facility] Albumin Level 3.7 3.5 - 5.0 g/dL [facility] Alkaline Phosphatase 102 39 - 117 U/L [facility] 08/17/2024 6:13 PM EDT 08/17/2024 6:21 PM EDT us Generic External Data Provider LAB BLOOD ORDERAB LES Final Result Performing Organization Address [facility] de Phone Number [facility] [address] [place] [phone] * (ABNORMAL) Basic Metabolic Panel (08/17/2024 6:13 PM EDT) Only the most recent of2 resultswithin the time period is included. Sodium 138 135 - 145 mmol/L [facility] Potassium 4.2 3.3 - 5.1 mmol/L [facility] Chloride 102 96 - 108 mmol/L [facility] Carbon Dioxide 27 22 - 29 mmol/L [facility] Anion Gap 13 12 - 20 [facility] Urea Nitrogen (BUN) 22(H) 9 - 16 mg/dL [facility] Creatinine, Serum 0.74 0.5 - 1.4 mg/dL [facility] Creatinine Clr Calc Pharmacy 89.6 [facility] Comment:eGFR (calculated fro m the MDRD study equation) and eCrCl(calculated from the Cockcroft-Gault equation) are based ondifferent parameters and may not yield comparable results.If eCrCl result is absurd, please check patient'sheight/weight. Estimated Glomerular Filt Rate >60 [facility] Comment:Chronic Kidney Disea se: Estimated GFR < 60 mL/min/1.57g2Mssxrz Kidney Disease: Estimated GFR < 15 mL/min/1.73m2 Glucose 110 60 - 115 mg/dL [facility] Calcium 9.4 8.4 - 10.2 mg/dL [facility] 08/17/2024 6:13 PM EDT 08/17/2024 6:21 PM EDT us Generic External Data Provider LAB BLOOD ORDERAB LES Final Result [facility] [address] [place] [phone] * SARS-CoV-2 RNA, Influenza A/B, and RSV RNA, Ql NAAT (08/15/2024 3:28 PM EDT) Influenza A PCR NEGATIVE Negative [facility] Influenza B PCR NEGATIVE Negative [facility] Resp Syncy Virus RNA Qual PCR NEGATIVE Negative [facility] SARS COV2 PCR NEGATIVE Negative [facility] Comment:All test results mus t be correlated with clinical findings.Negative results do not preclude SARS-CoV2, influenza Avirus, influenza B virus and/or RSV infectionand should not be used as the sole basis for treatment orother patient management decisions. Negative results must becombined with clinical observations, patient history, andepidemiological information.This test has not been evaluated for monitoring treatment ofinfection.This test has been authorized by the FDA under an EmergencyUse Authorization (EUA) for use by authorized laboratories.Testing performed on the [employer] GeneXpert utilizingreal-time RT-PCR.All SARS CoV2 and positive influenza A/B results arereported to [facility]. 08/15/2024 3:28 PM EDT 08/15/2024 3:34 PM EDT Generic External Data Provider LAB MICROBIOLOGY - GENERAL ORDERABLES Final Result Performing Organization Address [facility]/ZIP Co de Phone Number [facility] [address] [place] [phone] * Ethanol (08/15/2024 12:45 PM EDT) ETHANOL (MG/DL) IN SER/PLAS <10 mg/dL [facility] Comment:Serum/plasma ethanol results are to be used formedical/treatment purposes only. 08/15/2024 12:4 5 PM EDT 08/15/2024 12:50 PM EDT Generic External Data Provider LAB BLOOD ORDERAB LES Final Result Performing Organization Address [facility] Co de Phone Number [facility] [address] [place] [phone] * (ABNORMAL) Comprehensive Metabolic Panel (08/15/2024 12:45 PM EDT) Sodium 139 135 - 145 mmol/L [facility] Potassium 4.6 3.3 - 5.1 mmol/L [facility] Chloride 106 96 - 108 mmol/L [facility] Carbon Dioxide 27 22 - 29 mmol/L [facility] Anion Gap 11(L) 12 - 20 [facility] Urea Nitrogen (BUN) 12 9 - 16 mg/dL [facility] Creatinine, Serum 0.74 0.5 - 1.4 mg/dL [facility] Creatinine Clr Calc Pharmacy 89.6 [facility] Comment:eGFR (calculated fro m the MDRD study equation) and eCrCl(calculated from the Cockcroft-Gault equation) are based ondifferent parameters and may not yield comparable results.If eCrCl result is absurd, please check patient'sheight/weight. Estimated Glomerular Filt Rate >60 [facility] Comment:Chronic Kidney Disea se: Estimated GFR < 60 mL/min/1.82j4Pghejh Kidney Disease: Estimated GFR < 15 mL/min/1.73m2 Glucose 135(H) 60 - 115 mg/dL [facility] Calcium 9.2 8.4 - 10.2 mg/dL [facility] Bilirubin, Total 0.3 0.0 - 1.0 mg/dL [facility] Aspartate Amino Transferase 20 5 - 37 U/L [facility] Alanine Aminotransferase 9 0 - 40 U/L [facility] Total Protein 7.1 6.5 - 8.0 g/dL [facility] Albumin Level 3.6 3.5 - 5.0 g/dL [facility] Alkaline Phosphatase 83 39 - 117 U/L [facility] 08/15/2024 12:4 5 PM EDT 08/15/2024 12:50 PM EDT us Generic External Data Provider LAB BLOOD ORDERAB LES Final Result [facility] [address] [place] [phone] * (ABNORMAL) Drug Monitoring, Panel 1, Screen, Urine (08/15/2024 12:36 PM EDT) Opiate Screen Urine Not Detected Not Detect [facility] Comment:Opiate cut-off is 30 0 ng/mL.Positive results are unconfirmed and should not be used fornon-medical purposes. Barbiturates, Urine Not Detected Not Detect [facility] Comment:Barbiturate cut-off is 200 ng/mL.Positive results are unconfirmed and should not be used fornon-medical purposes. Phencyclidine Screen Urine Not Detected Not Detect [facility] Comment:Phencyclidine cut-of f is 25 ng/mL.Positive results are unconfirmed and should not be used fornon-medical purposes. Amphetamine Screen Urine Not Detected Not Detect [facility] Comment:Amphetamine cut-off is 1000 ng/mL.Positive results are unconfirmed and should not be used fornon-medical purposes. Benzodiazepines Screen Urine Not Detected Not Detect [facility] Comment:Benzodiazepine cut-o ff is 200 ng/mL.Positive results are unconfirmed and should not be used fornon-medical purposes. Cocaine Screen Urine POSITIVE(A) Not Detect [facility] Comment:Cocaine cut-off is 3 00 ng/mL.Positive results are unconfirmed and should not be used fornon-medical purposes. Cannabinoid Screen Urine Not Detected Not Detect [facility] Comment:Cannabinoid cut-off is 50 ng/mL.Positive results are unconfirmed and should not be used fornon-medical purposes. Methadone Screen, Urine Not Detected Not Detect ng/mL [facility] Comment:Methadone cut-off is 300 ng/mL.Positive results are unconfirmed and should not be used fornon-medical purposes. FENTANYL URINE Not Detected Not Detect [facility] Comment:Fentanyl cut-off is 1 ng/mL.Positive results are unconfirmed and should not be used fornon-medical purposes. Oxycodone Urine Screen Not Detected Not Detect ng/mL [facility] Comment:Oxycodone cut-off is 100 ng/mL.Positive results are unconfirmed and should not be used fornon-medical purposes. Buprenorphine Screen Not Detected Not Detect ng/mL [facility] Comment:Buprenorphine cut-of f is 5 ng/mL.Positive results are unconfirmed and should not be used fornon-medical purposes. 08/15/2024 12:3 6 PM EDT 08/15/2024 12:39 PM EDT us Generic External Data Provider LAB URINE ORDERAB LES Final Result [facility] [address] [place] [phone] * Urinalysis w/reflex microscopic (08/15/2024 12:36 PM EDT) Color Urine Yellow [facility] Appearance Urine Clear [facility] PH 5.5 5.0 - 9.0 [facility] Glucose Urine UA Negative Negative mg/dL [facility] Urine Blood Negative Negative [facility] Specific [place] - Urine 1.010 1.005 - 1.025 [facility] Urine Protein Negative Neg-Trace mg/dL [facility] Urine Ketones Negative Negative mg/dL [facility] Nitrite Urine Negative Negative [facility] Leukocyte Esterase Urine Negative Negative [facility] 08/15/2024 12:3 6 PM EDT 08/15/2024 12:39 PM EDT Narrative [facility] - 08/15/2024 12:49 PM EDT [id number], Clean Catch us Generic External Data Provider LAB URINE ORDERAB LES Final Result [facility] [address] [place] [phone] * XR Chest 2 Views (08/15/2024 12:02 PM EDT) Anatomical Region Laterality Modality Chest Radiographic Cecilia ging 08/15/2024 12:0 2 PM EDT Narrative 08/15/2024 12:42 PM EDT ? [facility] ?[address] ?[place] [address] ?XRay Report ? Signed ? Patient: Marvin Rodriguez ?MR#: [id number] ?? [id number] ? : 1965 ?Acct:[id number] ? Age/Sex: 59 / M ?ADM Date: 04//25 ? Loc: HO.ED ? Attending Dr: ? Ordering Physician: Ekaterina Prakash [employer] ?? Date of Service: 08/15/24 ?? Procedure(s): XR chest 2V ?? Accession Number(s): [id number] ? cc: Ekaterina Prakash CNP; Nicole Blackmon [...] DD/ 1202 ? TD/TT: 08/15/24 1225 ? Display Carver: ? Procedure Note Donjosseline, Image - 08/15/2024 [place] [address] XRay Report Signed Patient: Marvin Rodriguez MMR#: [id number] : 1965Acct:[id number] Age/Sex: 59 / MADM Date: 08/15/24 Loc: HO.ED Attending Dr: Ordering Physician: Ekaterina Prakash CNP Date of Service: 08/15/24 Procedure(s): XR chest 2V Accession Number(s): [id number] cc: Ekaterina Prakash CNP; Nicole Blackmon MD [...] 08/15/24 1239 DD/ 1202 TD/TT: 08/15/24 1225 Display Carver: Result [facility] External Provider IMG XR PROCEDURES Final Result * Hepatitis C Viral RNA, Quantitative, Real-Time PCR (06/19/2024 11:40 AM EST) Pathologist [facility] [place] Hepatitis C Viral Load <15 NOT DETECTED NOT DETECTED IU/mL [facility] HCV Log PCR <1.18 NOT DETECTED NOT DETECTED Log IU/mL [facility] Comment:For additional infor mation, please refer tohttp://education.[employer]/faq/AND42r0(This link is being provided for informational/educational purposes only.)THIS TEST WAS PERFORMED AT:[facility] [place] [phone] LEE MD 06/19/2024 11:4 0 AM EST 06/20/2024 11:55 AM EST Result [facility] Nicole Blackmon MD LAB BLOOD ORDERABLES Final Resul t Performing Organization Address [facility] Co de Phone Number [facility] [address] [place] [phone] * (ABNORMAL) Hepatitis C Antibody with Reflex to HCV, RNA, Quantitative, Real- Time PCR (06/19/2024 11:40 AM EST) Pathologist [facility] [place] Hepatitis C Antibody Reactive( A) Nonreactive [facility] Comment:Presumptive evidence of antibodies to HCV. Blood Venous blood specimen / Unknown 06/19/2024 11:40 AM EST 06/19/2024 2:05 PM EST Result [facility] Nicole Blackmon MD LAB BLOOD ORDERABLES Final Resul t Performing Organization Address [facility]/ZIP Co de Phone Number [facility] [address] [place] [address] [phone] * HIV-1/2 Antigen and Antibodies, Fourth Generation, with Reflexes (06/19/2024 11:40 AM EST) HIV AB/AG Nonreactive Nonreactive [facility] Comment:HIV-1 p24 Ag and/or HIV-1/HIV-2 Ab not detected.A test result that is nonreactive does not exclude thepossibility of exposure to or infection with HIV-1 and/orHIV-2. Nonreactive results in this assay for individualswith prior exposure to HIV-1 and/or HIV-2 may be due toantigen and antibody levels that are below the limit ofdetection of this assay.The benchee HIV Ag/Ab Combo assay result andsupplemental assay results should be interpreted inconjunction with the patient's clinical presentation,history and other laboratory results. If the results areinconsistent with clinical evidence, additional testing issuggested to confirm the result. Blood Venous blood specimen / Unknown 06/19/2024 11:40 AM EST 06/19/2024 2:05 PM EST us Nicole Blackmon MD LAB BLOOD ORDERABLES Final Resul t [facility] [address] [place] [phone] * (ABNORMAL) Lipid Panel, Standard (06/19/2024 11:40 AM EST) Triglycerides 56 <150 mg/dL [facility] Comment:Desirable Triglyceri de: less than 150 mg/dLBorderline High Triglyceride 150-199 mg/dLHigh Triglyceride: 200-499 mg/dLVery High Triglyceride: greater than or equal to 5OO mg/dL Cholesterol 89 <200 mg/dL [facility] Comment:Desirable Cholestero l: less than 200 mg/dLBorderline High Cholesterol: 200-239 mg/dLHigh Cholesterol: greater than 239 mg/dL LDL Cholesterol Calculated 55 <100 mg/dL [facility] Comment:Desirable LDL: less than 100 mg/dLNear Optimal/Above Optimal LDL: 110- 129 mg/dLBorderline High LDL: 130-159 mg/dLHigh LDL: 160-189 mg/dLVery High LDL: greater than or equal to 190 mg/dL HDL Cholesterol 23(L) >40 mg/dL [facility] Comment:Desirable HDL: great er than 40 mg/dL Note: This HDL assay may give artificially low results in patients with liver disease. Blood Venous blood specimen / Unknown 06/19/2024 11:40 AM EST 06/19/2024 2:05 PM EST us Nicole Blackmon MD LAB BLOOD ORDERABLES Final Resul t [facility] [address] [place] [address] [phone] from Last 3 Months Insurance [facility] < 65 [place] G[place] [phone] Care Teams Vacuum Metalizing Supervisor Relationship Specialty Start Date End Date Nicole Blackmon MD [address] [place] [phone] PCP - General Family Medicine 04/19/12
--- OUTSIDE RECORDS SUMMARY | 2024-09-01 09:42 | XMS_ITS | Encounter Summary ---
Author Organization [employer] Address [address] [facility] [address] [place] [address] Care Team Providers Care Sap [employer] Consultant Name Role Phone Nicole Blackmon MD Primary Care Provider [phone] Reason for Visit * Reason Comments Med Refill Encounter Details Date Type Department Care Team ([facility] st Contact Info) Description 08/31/2024 Refill [facility] MED & PEDS [address] [place], [place] [phone] Nicole Blackmon MD [address] [place] [address] Pain Social History Tobacco Use Types Packs/Day Years [...] Description 09/02/2024 2:15 PM EDT Office Visit [facility] [address] [place] [address] Kenna Gallagher MD [address] [place] [address] documented as of this encounter Visit Diagnoses Diagnosis Pain Generalized pain documented in this encounter Additional Health Concerns Assessment Noted Time PHQ-9 Depression Total Score: 16 025 10:17 AM EST documented as of this encounter Care Teams S[employer] Consultant Relationship Specialty Start Date End Date Nicole Blackmon MD [address] [place] [id number] PCP - General Family Medicine 04/19/12 documented as of this encounter
--- OUTSIDE RECORDS SUMMARY | 2024-09-01 09:42 | XMS_ITS | Encounter Summary ---
Author Organization [employer] Address [address] [facility] [address] [place] [address] Care Team Providers Care Is Project Manager Name Role Phone Nicole Blackmon MD Primary Care Provider [phone] Encounter Details Date Type Department Care Team ([facility] st Contact Info) Description 08/20/2024 Orders Only [facility] CHC MED & PEDS [address] [place] [address] Nicole Blackmon MD [address] [place] [address] Social History Tobacco Use Types Packs/Day Years [...] Upcoming Encounters Date Type Department Care Team ([facility] st Contact Info) Description 09/02/2024 2:15 PM EDT Office Visit [facility] [address] [place] [address] Kenna Gallagher MD [address] [place] [address] documented as of this encounter Visit Diagnoses Not on filedocumented in this encounter Additional Health Concerns Assessment Noted Time PHQ-9 Depression Total Score: 16 025 10:17 AM EST documented as of this encounter Care Teams Is Project Manager Relationship Specialty Start Date End Date Nicole Blackmon MD [address] [place] [phone] PCP - General Family Medicine 04/19/12 documented as of this encounter
== END 2024-09-01 08:58 | disposition home or self-care (01) ==
LOC: HO.SH 08:57
PROVIDERS: Visit Provider Colon & Rectal Surgery
DX: Z01.118 Encounter for examination of ears and hearing with other abnormal findings (principal); H90.6 Mixed conductive and sensorineural hearing loss, bilateral
CPT/HCPCS: 92553; 92555; 92567

== ENCOUNTER 2024-10-17 06:53 | Emergency (ER) | payer OTHER, SELFPAY ==
--- NOTE | 2024-10-17 07:30 | PC.NURSE ---
PT NOT IN THE WR, REGISTRATION REPORTS HE LEFT THE ED AND STATED HE WOULD BE BACK
== END 2024-10-17 08:00 | disposition left against medical advice (07) ==
PROVIDERS: Emergency Provider Emergency Medicine; PCP Student in an Organized Health Care Education/Training Program
DX: L98.9 Disorder of the skin and subcutaneous tissue, unspecified (principal); Z53.21 Procedure and treatment not carried out due to patient leaving prior to being seen by health care provider

== ENCOUNTER 2024-12-27 00:08 | Emergency (ER) | payer OTHER, SELFPAY ==
--- NOTE | 2024-12-27 00:36 | PC.NURSE ---
Pt called at 0015, [phone], and [phone]. no answer. Registration reported he stepped outside but pt no where to be seen.
== END 2024-12-27 00:38 | disposition left against medical advice (07) ==
PROVIDERS: Emergency Provider Emergency Medicine
DX: F33.1 Major depressive disorder, recurrent, moderate (principal); F60.9 Personality disorder, unspecified; F43.10 Post-traumatic stress disorder, unspecified; F14.10 Cocaine abuse, uncomplicated; Z53.21 Procedure and treatment not carried out due to patient leaving prior to being seen by health care provider

== ENCOUNTER 2025-01-15 22:00 | Inpatient (IN) | payer OTHER, SELFPAY ==
--- NOTE | 2025-01-15 22:05 | ED.PSYCH ---
HPI - Psych General Chief Complaint: Psychiatric Symptoms Stated Complaint: SI Time Seen by Provider: 01/15/25 22:26 Source: patient and old records reviewed Mode of arrival: ambulatory Limitations: no limitations History of Present Illness ED Provider: CHRISTINA FARRELL Narrative: 59 yo male with PMH of personality disorder, PTSD, hep C, IV cocaine use disorder, ETOH use disorder states he fell off the wagon 1 year ago after his girlfriend . He has been using $100 per day on cocaine since then. He admits he thinks there is opiates in it but he doesn't do opiates as he feels like shit right now. He states he has his Petey outside and he has SI he plans to crash it on the highway. He just became newly homeless. He denies any medical issue or trauma. MD complaint: suicidal ideation and feels depressed Onset (ago): month(s) Duration: getting worse History of same: Yes Relieving factors: none Exacerbating factors: drug use and other Context: recent drug abuse and significant life stressor Associated psychiatric symptoms: depression and suicidal ideation Associated symptoms: denies other symptoms Treatments prior to arrival: placed on mental health hold If self harm: admits thoughts of self harm and has plan Related Data Home Medications ?Medication ?Instructions ?Recorded ?Confirmed ibuprofen 800 mg tablet 800 mg PO TID 01/15/25 01/15/25 trazodone 100 mg tablet 200 mg PO BEDTIME PRN Anxiety 01/15/25 01/15/25 Allergies Allergy/AdvReac Type Severity Reaction Status Date / Time penicillin G Allergy Unknown UNKNOWN Verified 01/15/25 22:11 Review of Systems Review of Systems: Constitutional : No Fever, No Chills ENT/Mouth : No Ear Pain, No Nasal Congestion, No sore throat Eyes: No Eye Pain, No Swelling, No Redness Cardiovascular : No Chest Pain, No SOB Respiratory : No Cough, No Sputum, No Dyspnea Gastrointestinal : No Nausea, No Vomiting, No Diarrhea, No Hematochezia, No Melena Genitourinary : No Dysuria, No Urinary Frequency, No Hematuria Musculoskeletal : No Myalgias Skin : No Skin Lesions, No rash Neuro : No Weakness, No Numbness, No Paresthesias, No Dizziness, No Headache Psych : positive Anxiety, positive Depression, positive SI no HI All other systems reviewed and are negative [facility] Past Medical History Attestation statement: The following information was validated with the patient. Source: old records reviewed Medical History Cocaine use disorder Personality disorder PTSD (post-traumatic stress disorder) Alcohol use disorder MDD (major depressive disorder), recurrent episode, moderate Hepatitis C Smoker Asthma Drug abuse Social History Social History Household Members: None Housing: Apartment Do you presently have visiting nurse or other home services: No Unable to assess alcohol history related to: Refusing to respond Alcohol intake: current Alcohol intake frequency: 3 or more drinks per day Alcohol type: beer Patient Tobacco Use Status: Current everyday Tobacco user Tobacco use type: Cigarette Cigarette Packs Per Day: 1 Cigarettes Per Day: 20 Years Smoked: 40 e-Cigarette/Vaping Use: Never Used Second Hand Smoke Exposure: No Use of substances other than those prescribed or required for medical reasons: Yes Substance Use Type: Crack/Cocaine Substance Use Frequency: Daily Last Used Substance: Hours (ago) Advance Directives: No Advance Directives Information Provided: Yes service: No Sexual orientation: Straight/Heterosexual Physical Exam Vital Signs: Vital Signs: Last Vital Signs Temp 99.1 F 01/15/25 22:09 Pulse 88 01/15/25 22:09 Resp 16 01/16/25 06:33 BP 147/65 H 01/15/25 22:09 Pulse Ox 96 01/15/25 22:09 O2 Del Method Room Air 01/15/25 22:09 BMI result Body Mass Index 22.5 Appearance: Alert. Oriented X3. No acute distress. appears at times under the influence Eyes: Pupils equal, round and reactive to light. ENT: Pharynx normal. atraumatic Neck: Normal inspection. Neck supple. CVS: Normal heart rate and rhythm. Pulses normal. Respiratory: No respiratory distress. Breath sounds normal. Abdomen: Soft and nontender. Skin: Skin warm and dry. Normal skin color. Normal skin turgor. Extremities: No lower extremity edema. Track saldaña on both arms noted but no signs of infection Neuro: Oriented X 3. No motor deficit. No sensory deficit. CN2-12 intact Course Course Course Narrative: This is a RME preformed in triage by Nadya Ortiz PA-C. Date: 01/15/2025, time 10:09 pm. Patient presents with SI with plan to crash bike on highway, gf a year ago (grief), cocaine use only, no HI, homeless for one month (lost apt, living in his car), no employment, hearing his gf and talking back to her. no new injuries or illnesses. Work UP: crisis order set Will defer full ROS and PE to treating provider. Patient will continued to be monitored in the interim- placed in POD. Reevaluation(s) Reevaluation #1: Time: 06:23 Date: 01/16/25 Provider: Rai Schulte MD Patient in physician observation for psychiatric evaluation.? No acute events reported overnight. No current complaints. VS stable.? Patient is in bed search status/pending CARE team evaluation. Will continue to monitor. Reevaluation #2: 01/16/2025 12:47 patient will be admitted to the psychiatric unit this will end the ED obs status Time: 12:48 Medications Administered Discontinued Medications Generic Name Dose Route Start Last Admin Trade Name Freq PRN Reason Stop Dose Admin Lorazepam 2 mg 01/15/25 22:33 01/15/25 23:17 Lorazepam 1 Mg Tablet PO 2 mg Q3H PRN Administration Anxiety Trazodone HCl 200 mg 01/15/25 22:34 01/15/25 23:17 Trazodone Hcl 100 Mg Tablet PO 01/15/25 22:35 200 mg ONCE ONE Administration Medical Decision Making Medical Decision Making MDM Narrative: 59 yo male with PMH of personality disorder, PTSD, hep C, IV cocaine use disorder, ETOH use disorder here with SI and plan to kill himself. He denies medical complaints other than he wants trazodone and ativan. I am going to obtain labs, CARE team consult. PRN ativan. Differential Diagnosis Differential Diagnoses: The differential diagnosis associated with the presentation includes substance abuse, personality d/o, SI Admission/Observation Consideration of admission/observation: Escalation of care including admission/observation considered physician observation started at 11pm pending CARE team Consult Healthcare Provider Management of the patient was discussed with: Behavioral Health Provider Lab Data [facility] Lab Attestation statement: I reviewed the patient's lab results. 01/15/25 22:53 01/15/25 22:53 Labs: Lab Results 01/15/25 Range/Units 22:53 WBC 8.0 (4.8-10.8) X10*3/uL RBC 4.17 L (4.60-5.80) X10*6/uL Hgb 12.5 L (14.0-18.0) g/dl Hct 36.1 L (42.0-52.0) % MCV 86.6 (80.0-98.0) fL MCH 30.0 (27.0-33.0) pg MCHC 34.6 (31.0-36.0) g/dl RDW 13.2 (11.0-16.0) % Plt Count 165 (160-400) X10*3/uL MPV 9.1 L (9.4-12.4) fL Immature Gran % (Auto) 0.4 (0.0-0.4) % Neut % (Auto) 74.5 H (45-73) % Lymph % (Auto) 17.2 L (20-40) % [place] % (Auto) 6.9 (2-11) % Eos % (Auto) 0.5 (0-4) % Baso % (Auto) 0.5 (0-2) % Lymph # (Auto) 1.4 (1.2-4.9) X10*3/uL [place] # (Auto) 0.6 (0.1-1.2) X10*3/uL Eos # (Auto) 0.0 (0.0-0.4) X10*3/uL Baso # (Auto) 0.0 (0.0-0.2) X10*3/uL Abs Immat Gran (auto) 0.03 (0.00-0.03) X10*3/uL Absolute Neuts (auto) 5.9 (2.0-8.3) x10*3/uL Absolute Nucleated RBC 0.000 (0.0-0.012) X10*3/uL Nucleated RBC % (auto) 0.0 (0.0-0.2) /100WBC Sodium 140 (135-145) mmol/L Potassium 3.4 (3.3-5.1) mmol/L Chloride 103 (96-108) mmol/L Carbon Dioxide 26 (22-29) mmol/L Anion Gap 14 (12-20) BUN 18 H (9-16) mg/dL Creatinine 1.00 (0.5-1.4) mg/dL Estim Creat Clear Calc 75.6 Estimated GFR > 60 Random Glucose 119 H (60-115) mg/dL Calcium 8.8 D (8.4-10.2) mg/dL Total Bilirubin 0.4 (0.0-1.0) mg/dL AST 21 (5-37) U/L ALT 12 (0-40) U/L Alkaline Phosphatase 61 (39-117) U/L Total Protein 7.1 (6.5-8.0) g/dL Albumin 4.1 (3.5-5.0) g/dL Salicylates < 5.0 L (15-30) mg/dL Acetaminophen < 3 (<30) mcg/mL Ethyl Alcohol < 10 mg/dL Independent Interpretation I performed an independent interpretation of an: EKG Interpretation: Rate: 71 Rhythm: NSR with a PAC [place]: normal Normal P waves. Normal KHLOE. Normal QRS complex. ST T wave : normal no NARGIS qTC: 421 prior studies: no acute ischemia The study has been interpreted contemporaneously by me. . External Record Review External record reviewed: Inpatient record and Outpatient record Social Determinants Patient?s care significantly limited by Social Determinants of Health including: Inadequate housing and Problems related to primary support group Discharge Plan Discharge Clinical Impression: Suicidal ideation Patient Disposition: Admitted As Inpatient Interventions: [place]-Suicide Risk Severity Scale Last Done: 01/15/25 22:26 Admission Worksheet (ED) Last Done: 01/16/25 12:48
--- NOTE | 2025-01-15 22:07 | ECG_ITS ---
Test Reason : MED CLEARANCE Blood Pressure : */* mmHG Vent. Rate : 71 BPM Atrial Rate : 71 BPM P-R Int : 126 ms QRS Dur : 112 ms QT Int : 388 ms P-R-T Axes : 8 25 61 degrees QTcB Int : 421 ms Sinus rhythm with Premature atrial complexes Otherwise normal ECG When compared with ECG of 18-Aug-2024 09:21, Premature atrial complexes are now Present Referred By: Nadya Ortiz Electronically Signed By: PAM ARMANDO MD
[2025-01-15 22:09] VITALS: BP 147/65; PULSE 88; RESP 16; TEMP 37.3; O2SAT 96; BMI 22.5
[2025-01-15 22:57] LABS: MANUAL DIFF FLAG NO
[2025-01-15 22:58] LABS: Hematocrit 36.1 % (42.0-52.0); Hemoglobin 12.5 g/dl (14.0-18.0); Imm Gran Abs Auto 0.03 X10*3/uL (0.00-0.03); Imm Gran Pct Auto 0.4 % (0.0-0.4); Lymphocytes Absolute Auto 1.4 X10*3/uL (1.2-4.9); Mean Corpuscular HGB Conc 34.6 g/dl (31.0-36.0); Mean Corpuscular Hemoglobin 30.0 pg (27.0-33.0); Mean Corpuscular Volume 86.6 fL (80.0-98.0); NRBC Abs Auto 0.000 X10*3/uL (0.0-0.012); NRBC Pct Auto 0.0 /100WBC (0.0-0.2); Platelet Count 165 X10*3/uL (160-400); Red Blood Count 4.17 X10*6/uL (4.60-5.80); White Blood Count 8.0 X10*3/uL (4.8-10.8)
[2025-01-15 23:15] LABS: Acetaminophen LAB < 3 mcg/mL (<30); Alanine Aminotransferase 12 U/L (0-40); Albumin Level 4.1 g/dL (3.5-5.0); Alkaline Phosphatase 61 U/L (39-117); Anion Gap 14 (12-20); Aspartate Amino Transferase 21 U/L (5-37); Blood Urea Nitrogen 18 mg/dL (9-16); Calcium 8.8 mg/dL (8.4-10.2); Carbon Dioxide 26 mmol/L (22-29); Chloride 103 mmol/L (96-108); Creatinine Clr Calc Pharmacy 75.6; Estimated Glomerular Filt Rate > 60; Potassium 3.4 mmol/L (3.3-5.1); Salicylate < 5.0 mg/dL (15-30); Sodium 140 mmol/L (135-145); Total Protein 7.1 g/dL (6.5-8.0)
--- OUTSIDE RECORDS SUMMARY | 2025-01-16 01:57 | XMS_ITS | Encounter Summary ---
Author Organization [employer] Address [address] [facility] [address] [place] [address] Care Team Providers Care Manager Knowledge Name Role Phone Nicole Blackmon MD Primary Care Provider [phone] Encounter Details Date Type Department Care Team ([facility] st Contact Info) Description 08/20/2024 Orders Only [facility] CHC MED & PEDS [address] [place] [address] Nicole Blackmon MD [address] [place] [address] Social History Tobacco Use Types Packs/Day Years [...] Care Team (Late st Contact Info) Description 01/22/2025 10:00 AM EDT Office Visit [facility] [address] [place] [address] Leola Underwood DDS [address] [place] [address] documented as of this encounter Visit Diagnoses Not on filedocumented in this encounter Additional Health Concerns Assessment Noted Time PHQ-9 Depression Total Score: 16 025 10:17 AM EST documented as of this encounter Care Teams Manager Knowledge Relationship Specialty Start Date End Date Nicole Blackmon MD [address] [place] [address] PCP - General Family Medicine 04/19/12 documented as of this encounter
--- OUTSIDE RECORDS SUMMARY | 2025-01-16 01:57 | XMS_ITS | Clinical Summary ---
Author Organization [facility] Address [address] [place] [address] Phone Care Team Providers Care Mine Equipment Design Engineer Name Role Phone Physician, Pcp Unknown Primary Care Provider Leona vailable Allergies No known active allergies Encounters Date Type Department Care Team Description 12/09/2024 2:25 PM EDT - 12/09/2024 2:[address] [facility] [address] [place] [address] Jh Monsivais MD Encounter for medical clearance for patient hold (Primary Dx) Discharge Disposition: Home or Self Care from Last 3 Months Social History Tobacco Use Types Packs/Day Years Used Date Smoking Tobacco: Every Day Cigarettes Smokeless Tobacco: Never Tobacco Cessation:Ready to Q uit: Not Asked; Counseling Given: Not Answered Alcohol Use Standard Drinks/Week Comments Never 0 (1 standard drink = 0.6 oz pur e alcohol) Sex and Gender Information Value Date Recorded Sex Assigned at Not on file Legal Sex Male 11:20 PM EST Gender Identity Not on file Sexual Orientation Not on file Obstetrics History Last Filed Vital Signs Vital Sign Reading Time Taken Comments Blood Pressure 122/79 12/09/2024 1:55 PM EDT Pulse 69 12/09/2024 1:55 PM EDT Temperature 36.8 C (98.2 F) 12/09/2024 1:55 PM EDT Respiratory Rate 18 12/09/2024 1:55 PM EDT Oxygen Saturation 99% 12/09/2024 1:55 PM EDT Inhaled Oxygen Concentration - - Weight 68 kg (150 lb) 12/09/2024 1:55 PM EDT Height 172.7 cm (5' 8 ) 12/09/2024 1:55 PM EDT Body Mass Index 22.81 12/09/2024 1:55 PM EDT Plan of Treatment Health Maintenance Due Date Last Done Comments Hepatitis B Vaccines (3 of 3 - 19+ 3-dose series) 07/19/2013 05/24/2013, 11/13/2003 Pneumococcal Vaccine: 50+ Years (2 of 2 - PCV) 05/24/2014 05/24/2013 Zoster Vaccines (1 of 2) 2015 Cholesterol Screening (Lipid Panel) 04/09/2022 Colorectal Cancer Screening: Colonoscopy 04/09/2022 Medicare Annual Wellness Visit 04/09/2022 Social Influencers of Health Screening 04/09/2022 Depression Screening 05/07/2024 COVID-19 Vaccine (3 - 2024-2 6 season) 2025 05/11/2021, 04/04/2021 Influenza Vaccine (#1) 2025 04/24/2011 DTaP,Tdap,and Td Vaccines (2 - Td or Tdap) 11/27/2032 11/27/2022 RSV Immunization Adult Patients (1 - 1-dose 75+ series) 2040 Hepatitis A Vaccines Completed 05/24/2013, 11/13/2003 HIV Screening Completed 12/10/2024 Hepatitis C Screening Completed 12/10/2024 HIB Vaccines Aged Out No longer eligi ble based on patient's age to complete this topic HPV Vaccines Aged Out No longer eligi ble based on patient's age to complete this topic IPV Vaccines Aged Out No longer eligi ble based on patient's age to complete this topic MMR Vaccines Aged Out No longer eligi ble based on patient's age to complete this topic Meningococcal ACWY Vaccine Aged Out N o longer eligible based on patient's age to complete this topic Meningococcal B Vaccine Aged Out No l onger eligible based on patient's age to complete this topic RSV Immunization Patients Under 20 months Aged Out No longer eligible b ased on patient's age to complete this topic Varicella Vaccines Aged Out No longer eligible based on patient's age to complete this topic Procedures Procedure Name Priority Date/Time Associated Diagnosis Comments TRIIODOTHYRONINE FREE Routine 12/10/2024 2:51 PM EDT Screening for human immunodeficiency virus Cocaine dependence, in remission ([facility] V24, CMS/[facility] V28) Acute alcoholic intoxication in alcoholism, in remission ([facility]/HCC V24, CMS/[facility] V28) Major depressive disorder, recurrent episode, moderate ([facility]/HCC V24, CMS/HCC V28) FREE THYROXINE WITH REFLEX TO FREE TRIIODOTHYRONINE Routine 12/10/2024 2:51 PM EDT Screening for human immunodeficiency virus Cocaine dependence, in remission (CMS/HCC V24, CMS/HCC V28) Acute alcoholic intoxication in alcoholism, in remission (CMS/HCC V24, CMS/HCC V28) Major depressive disorder, recurrent episode, moderate (CMS/HCC V24, CMS/HCC V28) AST, ALT, BILIRUBIN ELR STATE REPORTABLES Routine 12/10/2024 2:51 PM EDT Screening for human immunodeficiency virus Cocaine dependence, in remission (CMS/HCC V24, CMS/HCC V28) Acute alcoholic intoxication in alcoholism, in remission (CMS/HCC V24, CMS/HCC V28) Major depressive disorder, recurrent episode, moderate (CMS/HCC V24, CMS/HCC V28) HIV 1, 2 ANTIBODY, P24 ANTIGEN WITH REFLEX TO DIFFERENTIATION Routine 12/10/2024 2:51 PM EDT Screening for human immunodeficiency virus Cocaine dependence, in remission (CMS/HCC V24, CMS/HCC V28) Acute alcoholic intoxication in alcoholism, in remission (CMS/HCC V24, CMS/HCC V28) Major depressive disorder, recurrent episode, moderate (CMS/HCC V24, CMS/HCC V28) COMPLETE BLOOD COUNT Routine 12/10/2024 2:51 PM EDT Screening for human immunodeficiency virus Cocaine dependence, in remission (CMS/HCC V24, CMS/HCC V28) Acute alcoholic intoxication in alcoholism, in remission (CMS/HCC V24, CMS/HCC V28) Major depressive disorder, recurrent episode, moderate (CMS/HCC V24, CMS/HCC V28) THYROID STIMULATING HORMONE WITH REFLEX TO FREE T4 AND FREE T3 Routine 12/10/2024 2:51 PM EDT Screening for human immunodeficiency virus Cocaine dependence, in remission (CMS/HCC V24, CMS/HCC V28) Acute alcoholic intoxication in alcoholism, in remission (CMS/HCC V24, CMS/HCC V28) Major depressive disorder, recurrent episode, moderate (CMS/HCC V24, CMS/HCC V28) BILIRUBIN, DIRECT Routine 12/10/2024 2:5 1 PM EDT Screening for human immunodeficiency virus Cocaine dependence, in remission (CMS/HCC V24, CMS/HCC V28) Acute alcoholic intoxication in alcoholism, in remission (CMS/HCC V24, CMS/HCC V28) Major depressive disorder, recurrent episode, moderate (CMS/HCC V24, CMS/HCC V28) HEPATITIS PANEL, ACUTE WITH REFLEX TO CONFIRMATION Routine 12/10/2024 2:51 PM EDT Screening for human immunodeficiency virus Cocaine dependence, in remission (CMS/HCC V24, CMS/HCC V28) Acute alcoholic intoxication in alcoholism, in remission (CMS/HCC V24, CMS/HCC V28) Major depressive disorder, recurrent episode, moderate (CMS/HCC V24, CMS/HCC V28) COMPREHENSIVE METABOLIC PANEL Routine 12/10/2024 2:51 PM EDT Screening for human immunodeficiency virus Cocaine dependence, in remission (CMS/HCC V24, CMS/HCC V28) Acute alcoholic intoxication in alcoholism, in remission (CMS/HCC V24, CMS/HCC V28) Major depressive disorder, recurrent episode, moderate (CMS/HCC V24, CMS/HCC V28) from Last 3 Months Results * HIV 1,2 antibody, p24 antigen with reflex to differentiation (12/10/2024 2:51 PM EDT) HIV Combo AB/AG Negative Negative LAB CHEMISTRY METHOD 12/10/2024 6:11 PM EDT [facility] Blood Venous blood specimen / Unknown Venipuncture / Unknown 12/10/2024 2:51 PM EDT 12/10/2024 3:21 PM EDT Narrative [facility] - 12/10/2024 6:11 PM EDT This assay is a 4th generation assay allowing for earlier detection of HIV infection by detecting the presence of the HIV-1 p24 antigen as well as the traditional antibodies to HIV type 1 (including group O) and type 2. Use of a 4th generation assay is the current CDC recommendation for HIV screening. Abigail SLAUGHTER LAB BLOOD ORDERABLES Final Resu lt Performing Organization Address City/[facility]/ZIP Co de Phone Number [facility] [address] [place] [address], [place] [phone] * AST, ALT, Bilirubin ELR state reportables (12/10/2024 2:51 PM EDT) ALT (SGPT) 17 10 - 60 unit/L LAB CHEMISTRY METHOD 12/10/2024 7:05 PM EDT [facility] AST (SGOT) 20 10 - 42 unit/L LAB CHEMISTRY METHOD 12/10/2024 7:05 PM EDT [facility] Bilirubin, Direct 0.1 0.0 - 0.3 mg/dL LAB CHEMISTRY METHOD 12/10/2024 7:05 PM EDT [facility] Total Bilirubin 0.4 0.0 - 1.4 mg/dL LAB CHEMISTRY METHOD 12/10/2024 7:05 PM EDT [facility] Platelets 143 K/mcL LAB HEMETOLOGY METHOD 12/10/2024 7:05 PM EDT [facility] Blood Venous blood specimen / Unknown Venipuncture / Unknown 12/10/2024 2:51 PM EDT 12/10/2024 3:21 PM EDT us Abigail SLAUGHTER LAB BLOOD ORDERABLES Final Resu lt Performing Organization Address [facility]/ZIP Co de Phone Number [facility] [address] [place] [address], [place] [phone] * (ABNORMAL) Thyroid stimulating hormone with reflex to free t4 and free t3 (12/10/2024 2:51 PM EDT) TSH 0.36(L) 0.40 - 4.00 mcIU/mL LAB CHEMISTRY METHOD 12/10/2024 8:20 PM EDT [facility] Blood Venous blood specimen / Unknown Venipuncture / Unknown 12/10/2024 2:51 PM EDT 12/10/2024 3:21 PM EDT Abigail SLAUGHTER LAB BLOOD ORDERABLES Final Resu lt Performing Organization Address [facility]/ZIP Co de Phone Number [facility] [address] [place] [address], [place] [phone] * Free thyroxine with reflex to free triiodothyronine (12/10/2024 2:51 PM EDT) Free T4 1.19 0.70 - 1.80 ng/dL LAB CHEMISTRY METHOD 12/10/2024 9:11 PM EDT [facility] Blood Venous blood specimen / Unknown Venipuncture / Unknown 12/10/2024 2:51 PM EDT 12/10/2024 3:21 PM EDT Abigail SLAUGHTER LAB BLOOD ORDERABLES Final Resu lt Performing Organization Address [facility] de Phone Number [facility] [address] [place] [address], [place] [phone] * (ABNORMAL) Hepatitis panel, acute with reflex to confirmation (12/10/2024 2:51 PM EDT) Pathologist [facility] Hepatitis B Surface Ag Negative Negative LAB CHEMISTRY METHOD 12/10/2024 6:12 PM EDT [facility] Hepatitis A Antibody IgM Negative Negative LAB CHEMISTRY METHOD 12/10/2024 6:12 PM EDT [facility] Hep B Core IgM Negative Negative LAB CHEMISTRY METHOD 12/10/2024 6:12 PM EDT [facility] Hepatitis C Antibody Positive(A) Negative LAB CHEMISTRY METHOD 12/10/2024 6:12 PM EDT [facility] Comment:If confirmation of t his positive HCV Ab screening test is needed, please redraw and order HCV Viral Load. Note--> This test may not be added on due to different specimen requirements. Blood Venous blood specimen / Unknown Venipuncture / Unknown 12/10/2024 2:51 PM EDT 12/10/2024 3:21 PM EDT us Abigail SLAUGHTER LAB BLOOD ORDERABLES Final Resu lt [facility] [address] [place] [address], [place] [phone] * (ABNORMAL) Complete blood count (12/10/2024 2:51 PM EDT) WBC 5.0 4.8 - 10.8 K/mcL LAB HEMETOLOGY METHOD 12/10/2024 3:35 PM EDT [facility] RBC 4.30(L) 4.50 - 5.50 M/mcL LAB HEMETOLOGY METHOD 12/10/2024 3:35 PM EDT [facility] Hemoglobin 12.8(L) 13.5 - 17.5 g/dL LAB HEMETOLOGY METHOD 12/10/2024 3:35 PM EDT [facility] Hematocrit 40.8(L) 42.0 - 54.0 % LAB HEMETOLOGY METHOD 12/10/2024 3:35 PM EDT [facility] MCV 94.9 79.0 - 98.0 FL LAB HEMETOLOGY METHOD 12/10/2024 3:35 PM EDT [facility] MCH 29.8 27.0 - 32.0 pcg LAB HEMETOLOGY METHOD 12/10/2024 3:35 PM EDT [facility] MCHC 31.4(L) 32.0 - 37.0 g/dL LAB HEMETOLOGY METHOD 12/10/2024 3:35 PM EDT [facility] RDW 13.9 11.0 - 15.0 % LAB HEMETOLOGY METHOD 12/10/2024 3:35 PM EDT [facility] Platelets 143 130 - 400 K/mcL LAB HEMETOLOGY METHOD 12/10/2024 3:35 PM EDT [facility] MPV 9.6 7.0 - 11.0 FL LAB HEMETOLOGY METHOD 12/10/2024 3:35 PM EDT [facility] NRBC 0.0 <1.0 % LAB HEMETOLOGY METHOD 12/10/2024 3:35 PM EDT [facility] NRBC Absolute 0.00 <0.10 K/mcL LAB HEMETOLOGY METHOD 12/10/2024 3:35 PM EDT [facility] Blood Venous blood specimen / Unknown Venipuncture / Unknown 12/10/2024 2:51 PM EDT 12/10/2024 3:20 PM EDT Abigail SLAUGHTER LAB BLOOD ORDERABLES Final Resu lt Performing Organization Address City/[facility]/ZIP Co de Phone Number [facility] [address] [place] [address], [place] [phone] * Triiodothyronine free (12/10/2024 2:51 PM EDT) T3, Free 321 230 - 420 pcg/dL LAB CHEMISTRY METHOD 12/10/2024 9:33 PM EDT [facility] Blood Venous blood specimen / Unknown Venipuncture / Unknown 12/10/2024 2:51 PM EDT 12/10/2024 3:21 PM EDT Abigail SLAUGHTER LAB BLOOD ORDERABLES Final Resu lt Performing Organization Address City/[facility]/ZIP Co de Phone Number [facility] [address] [place] [address], [place] [phone] * Bilirubin, direct (12/10/2024 2:51 PM EDT) [facility] Bilirubin, Direct 0.1 0.0 - 0.3 mg/dL LAB CHEMISTRY METHOD 12/10/2024 4:23 PM EDT [facility] Blood Venous blood specimen / Unknown Venipuncture / Unknown 12/10/2024 2:51 PM EDT 12/10/2024 3:21 PM EDT us Abigail SLAUGHTER LAB BLOOD ORDERABLES Final Resu lt [facility] [address] [place] [address], * Comprehensive metabolic panel (12/10/2024 2:51 PM EDT) [facility] Sodium 137 133 - 145 mmol/L LAB CHEMISTRY METHOD 12/10/2024 4:39 PM [facility] Potassium 4.6 3.5 - 5.5 mmol/L LAB CHEMISTRY METHOD 12/10/2024 4:39 PM [facility] Chloride 105 96 - 110 mmol/L LAB CHEMISTRY METHOD 12/10/2024 4:39 PM [facility] CO2 28 21 - 32 mmol/L LAB CHEMISTRY METHOD 12/10/2024 4:39 PM [facility] Anion Gap 4 3 - 11 LAB CHEMISTRY METHOD 12/10/2024 4:39 PM [facility] Glucose 99 70 - 100 mg/dL LAB CHEMISTRY METHOD 12/10/2024 4:39 PM [facility] BUN 14 5 - 25 mg/dL LAB CHEMISTRY METHOD 12/10/2024 4:39 PM [facility] Creatinine 1.00 0.70 - 1.30 mg/dL LAB CHEMISTRY METHOD 12/10/2024 4:39 PM [facility] eGFR 87 >=60 mL/min/1. 73m2 LAB CHEMISTRY METHOD 12/10/2024 4:39 PM EDT [facility] Comment:Calculation based on the Chronic Kidney Disease Epidemiology Collaboration (CKD-EPI) equation refit without adjustment for race. BUN/Creatinine Ratio 14.0 LAB CHEMISTRY METHOD 12/10/2024 4:39 PM EDT [facility] Calcium 8.7 8.5 - 10.5 mg/dL LAB CHEMISTRY METHOD 12/10/2024 4:39 [facility] AST (SGOT) 20 10 - 42 unit/L LAB CHEMISTRY METHOD 12/10/2024 4:39 PM [facility] ALT (SGPT) 17 10 - 60 unit/L LAB CHEMISTRY METHOD 12/10/2024 4:39 PM [facility] Alkaline Phosphatase 72 42 - 121 unit/L LAB CHEMISTRY METHOD 12/10/2024 4:39 PM [facility] Total Protein 6.7 6.0 - 8.0 g/dL LAB CHEMISTRY METHOD 12/10/2024 4:39 PM [facility] Albumin 3.5 3.2 - 5.0 g/dL LAB CHEMISTRY METHOD 12/10/2024 4:39 PM [facility] Total Bilirubin 0.4 0.0 - 1.4 mg/dL LAB CHEMISTRY METHOD 12/10/2024 4:39 PM T [facility] Blood Venous blood specimen / Unknown Venipuncture / Unknown 12/10/2024 2:51 PM EDT 12/10/2024 3:21 PM EDT us Abigail SLAUGHTER LAB BLOOD ORDERABLES Final Resu lt [facility] [address] [place] [address], [place] [phone] from Last 3 Months Insurance Member Subscriber Plan / Payer (Ef fective 2023-Present) Name:MARVIN CAI Relation to Subscriber:Self Name:Marvin Cai Payer ID:[id number] Group ID:[id number] Type:Not on file Address: [address] [facility] [place] [id number] Care Teams Mine Equipment Design Engineer Relationship Specialty Start Date End Date Physician, Pcp Unknown PCP - General 12/09/24
--- OUTSIDE RECORDS SUMMARY | 2025-01-16 01:57 | XMS_ITS | Encounter Summary ---
Author Organization [employer] Address [address] [facility] [place] [address] Care Team Providers Care Cellophane Wrapping Examiner Name Role Phone Nicole Blackmon MD Primary Care Provider [phone] Reason for Visit * Reason Comments Med Change Request Encounter Details Date Type Department Care Team ([facility] st Contact Info) Description 07/25/2022 Refill [facility] [address] [place] [address] Nicole Blackmon MD [address] [place] [address] Insomnia, unspecified type Social History Tobacco Use [...] Description 01/22/2025 10:00 AM EDT Office Visit [facility] [address] [place] [address] Leola Underwood DDS [address] [place] [address] documented as of this encounter Visit Diagnoses Diagnosis Insomnia, unspecified type documented in this encounter Care Teams Cellophane Wrapping Examiner Relationship Specialty Start Date End Date Nicole Blackmon MD [address] [place] [address] PCP - General Family Medicine 04/19/12 documented as of this encounter
--- OUTSIDE RECORDS SUMMARY | 2025-01-16 01:57 | XMS_ITS | Clinical Summary ---
Author Organization [employer] Address [address] [place] [address] [address] [place] [address] Care Team Providers Care Hot Metal Charger Name Role Phone Nicole Blackmon MD Primary Care Provider [phone] Allergies Active Allergy Reactions Criticality Noted Date [...] area(s) 56.6 g 11 08/02/19 23 Active cloNIDine (Catapres) 0.1 MG tablet Take 0.1 mg by mouth every 4 (four) hours if needed (moderate anxiety). 08/22/19 25 Active clotrimazole (Lotrimin) 1 % cream 1 APPL TOPICALLY 2 TIMES A DAY FOR 4 WEEKS APPLY TO AFFECTED AREAS ON BOTH FEET 08/22/19 25 Active gabapentin (Neurontin) 300 MG capsuleIndicati ons:Decreased hearing of both ears Take 1 capsule (300 mg) by mouth if needed in the morning and at bedtime (continued anxiety). 60 capsule 3 09/03/19 25 Active hydrOXYzine HCl (Atarax) 50 MG tabletIndicatio ns:Anxiety Take 1 tablet (50 mg) by mouth every 8 (eight) hours if needed for anxiety (and restlesness). 90 tablet 3 09/03/19 25 Active sertraline (Zoloft) 50 MG tabletIndicatio ns:Depression, unspecified depression type Take 1.5 tablets (75 mg) by mouth Once per day. 45 tablet 3 09/03/19 25 Active traZODone (Desyrel) 150 MG tabletIndicatio ns:Insomnia, unspecified type Take 2 tablets (300 mg) by mouth at bedtime. 60 tablet 5 09/03/19 25 Active Nutritional Supplements (Ensure Original) liquidIndicatio ns:Nasal congestion,Alco hol abuse 237 ml 2 times a day. 42330 mL 11 09/03/19 25 Active predniSONE (Deltasone) 10 MG tabletIndicatio ns:Nasal congestion 40 mg x 3 days, 30 mg x 3 days, 20 mg x 3 days, 10 mg x 3 days. 30 tablet 09/03/19 25 Active ibuprofen 800 MG tabletIndicatio ns:Pain TAKE 1 TABLET BY MOUTH 3 TIMES A DAY WITH FOOD 90 tablet 01/08/20 25 Active ibuprofen 800 MG tabletIndicatio ns:Pain TAKE 1 TABLET BY MOUTH 3 TIMES A DAY WITH FOOD 90 tablet 11/27/19 25 025 Discontinued Active Problems Problem Noted Date Diagnosed Date Alcohol abuse 06/12/2024 Chronic drug abuse 06/12/2024 Hepatitis C 12/03/2012 Insomnia 12/03/2012 Encounters Date Type Department Care Team Description 01/06/2025 Refill [facility] MED [facility] PEDS [address] [place] [address] Nicole Blackmon MD Pain 11/25/2024 Refill [facility] MED & PEDS [address] [place], [place] [phone] Nicole Blackmon MD Pain from Last 3 Months Immunizations Immunization Administration Dates Next Due Hep A, Adult [...] Sign Reading Time Taken Comments Blood Pressure 141/85 09/02/2024 2:15 PM EDT Pulse 83 09/02/2024 2:15 PM EDT Temperature 36.7 C (98.1 F) 09/02/2024 2:15 PM EDT Respiratory Rate 20 09/02/2024 2:15 PM EDT Oxygen Saturation 98% 09/02/2024 2:15 PM EDT Inhaled Oxygen Concentration - - Weight 73.9 kg (163 lb) 09/02/2024 2:15 PM EDT Height 172.7 cm (5' 8 ) 09/02/2024 2:15 PM EDT Body Mass Index 24.78 09/02/2024 2:15 PM EDT Plan of Treatment Upcoming Encounters Date Type Department Care Team (Late st Contact Info) Description 01/22/2025 10:00 AM EDT Office Visit [facility] ADULT DENTAL [address] [place], [place] [phone] Leola Underwood, EMILEES [address] [employer] [place], [place] [phone] Health Maintenance Due Date Last Done Comments CT Colonography 1965 Colonoscopy 1965 Colorectal Cancer Screening 1965 FIT DNA/Cologuard 1965 FIT 1965 FOBT 1965 Sigmoidoscopy 1965 Hepatitis B Vaccines (2 of 3 - 19+ 3-dose series) 12/11/2003 11/13/2003 Pneumococcal Vaccine: 50+ Years (2 of 2 - PCV) 05/24/2014 05/24/2013 Zoster Vaccines (1 of 2) 2015 Depression Monitoring 12/10/2024 06/12/2024 , 06/12/2024 COVID-19 Vaccine (2 - 2024-2 6 season) 2025 04/04/2021 Influenza Vaccine (#1) 2025 04/24/2011 Alcohol/Substance Use Screening 06/12/2025 06/12/2024 Disability Screening 06/12/2025 06/12/2024 SDOH Screening 06/12/2025 06/12/2024 Tobacco Screening [...] Procedure Name Priority Date/Time Associated Diagnosis Comments HIV 1/2 ANTIGEN/ANTIBODY, FOURTH GENERATION W/RFL Routine 06/19/2024 11:40 AM EST Screen for STD (sexually transmitted disease) LIPID PANEL, STANDARD Routine 06/19/2024 11:40 AM EST Alcohol abuse Chronic drug abuse (CMS/HCC) from Last 3 Months or Most Recently Relevant to Health Maintenance Results * HIV-1/2 Antigen and Antibodies, Fourth Generation, with Reflexes (06/19/2024 11:40 AM EST) [facility] HIV AB/AG Nonreactive Nonreactive [facility] Comment:HIV-1 p24 Ag and/or HIV-1/HIV-2 Ab not detected.A test result that is nonreactive does not exclude thepossibility of exposure to or infection with HIV-1 and/orHIV-2. Nonreactive results in this assay for individualswith prior exposure to HIV-1 and/or HIV-2 may be due toantigen and antibody levels that are below the limit ofdetection of this assay.The [employer] HIV Ag/Ab Combo assay result andsupplemental assay results should be interpreted inconjunction with the patient's clinical presentation,history and other laboratory results. If the results areinconsistent with clinical evidence, additional testing issuggested to confirm the result. Blood Venous blood specimen / Unknown 06/19/2024 11:40 AM EST 06/19/2024 2:05 PM EST Nicole Blackmon MD LAB BLOOD ORDERABLES Final Resul t Performing Organization Address [facility] de Phone Number [facility] [address] [place] [phone] * (ABNORMAL) Lipid Panel, Standard (06/19/2024 11:40 AM EST) Triglycerides 56 <150 mg/dL [facility] Comment:Desirable Triglyceri de: less than 150 mg/dLBorderline High Triglyceride 150-199 mg/dLHigh Triglyceride: 200-499 mg/dLVery High Triglyceride: greater than or equal to 5OO mg/dL Cholesterol 89 <200 mg/dL [facility] Comment:Desirable Cholestero l: less than 200 mg/dLBorderline High Cholesterol: 200-239 mg/dLHigh Cholesterol: greater than 239 mg/dL LDL Cholesterol Calculated 55 <100 mg/dL [facility] Comment:Desirable LDL: less than 100 mg/dLNear Optimal/Above Optimal LDL: 110- 129 mg/dLBorderline High LDL: 130-159 mg/dLHigh LDL: 160-189 mg/dLVery High LDL: greater than or equal to 190 mg/dL HDL Cholesterol 23(L) >40 mg/dL [facility] Comment:Desirable HDL: great er than 40 mg/dL Note: This HDL assay may give artificially low results in patients with liver disease. Blood Venous blood specimen / Unknown 06/19/2024 11:40 AM EST 06/19/2024 2:05 PM EST Nicole Blackmon MD LAB BLOOD ORDERABLES Final Resul t Performing Organization Address [facility] Co de Phone Number [facility] [address] [place] [phone] from Last 3 Months or Most Recently Relevant to Health Maintenance Insurance [facility]ARE < [address] [facility] Care Teams Hot Metal Charger Relationship Specialty Start Date End Date Nicole Blackmon MD [address] [place] [phone] PCP - General Family Medicine 04/19/12
--- OUTSIDE RECORDS SUMMARY | 2025-01-16 01:57 | XMS_ITS | Encounter Summary ---
Author Organization [employer] Address [address] [place] [address] [address] [place] [address] Care Team Providers Care Courtesy Car Driver Name Role Phone Nicole Blackmon MD Primary Care Provider [phone] Reason for Visit * Reason Comments Med Refill Encounter Details Date Type Department Care Team (Late st Contact Info) Description 11/06/2023 Refill [facility] MEDICINE [address] [place] [address] Nicole Blackmon MD [address] [place], [place] [id number] Pain; Insomnia, unspecified type Social History Tobacco [...] Description 01/22/2025 10:00 AM EDT Office Visit [facility] ADULT DENTAL [address] [place] [address] Leola Underwood DDS [address] [place] [address] documented as of this encounter Visit Diagnoses Diagnosis Pain Generalized pain Insomnia, unspecified type documented in this encounter Care Teams Courtesy Car Driver Relationship Specialty Start Date End Date Nicole Blackmon MD [address] [place] [address] PCP - General Family Medicine 04/19/12 documented as of this encounter
--- NOTE | 2025-01-16 05:27 | MHC.EDTECH ---
pt continues to refuse to provide UA sample. rn aware.
[2025-01-16 06:33] VITALS: RESP 16
--- NOTE | 2025-01-16 07:01 | PC.NURSE ---
Care of Pt assumed at change of shift. Pt is observed resting quietly with eye closed. NAD noted. Breakfast tray left at bedside.
[2025-01-16 13:50] VITALS: BMI 21.7
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
--- NOTE | 2025-01-16 14:06 | PC.NURSE ---
Pt refused flu vaccine at this time
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
--- NOTE | 2025-01-16 16:21 | PC.NURSE ---
Attempted to assess pt's CIWA, pt refused, RN offered to come back at a later time pt stated don't wake me up if I'm asleep, I haven't slept in weeks.
[2025-01-16 20:00] VITALS: RESP 20
[2025-01-17 08:00] VITALS: RESP 14
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
--- NOTE | 2025-01-17 12:33 | PC.NURSE ---
RN attempted to assess pt's CIWA at 1200, pt asked to eat his lunch first. When RN approached pt after he ate lunch, pt became agitated, stated I don't want to talk just leave me alone, I'm not answering any of your questions. Pt refused CIWA assessment and vitals.
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
--- NOTE | 2025-01-19 14:16 | P.CONHOSP_ITS ---
History of Present Illness Data of Consult Service Date: 01/19/25 Primary Care Provider: Unknown Physician HPI Reason for consult: Medical management 59-year-old male with a past medical history of personality disorder, PTSD, EtOH disorder, cocaine use disorder, major depressive disorder, and arthritis of right shoulder presented to the ED with suicidal ideation, plans to [place] motorcycle on the [place]. On exam he is awake and alert, does not wish to be examined. Does report chronic right shoulder pain. Declines physical examination. He does not appear to be in any distress. Review of Systems 2 Review of Systems: Minimal review of symptoms, denies shortness of breath or chest pain. Reports chronic right shoulder pain. [facility] Medical History Cocaine use disorder Personality disorder PTSD (post-traumatic stress disorder) Alcohol use disorder MDD (major depressive disorder), recurrent episode, moderate Hepatitis C Smoker Asthma Drug abuse Social History Household Members: None Housing: Homeless Do you presently have visiting nurse or other home services: No Unable to assess alcohol history related to: Refusing to respond Alcohol intake: current Alcohol intake frequency: 3 or more drinks per day Alcohol type: beer Patient Tobacco Use Status: Current everyday Tobacco user Tobacco use type: Cigarette Cigarette Packs Per Day: 1 Cigarettes Per Day: 20.0 Years Smoked: 40 Smoked in Last 30 Days: Yes e-Cigarette/Vaping Use: Never Used Patient Interested in Nicotine Replacement: Yes Patient Given Instructions on How to Stop Smoking: No (pt refused) Second Hand Smoke Exposure: No Use of substances other than those prescribed or required for medical reasons: Yes Substance Use Type: Crack/Cocaine Substance Use Frequency: Daily Last Used Substance: Hours (ago) Currently Displaying Signs/Symptoms of Drug Intoxication Withdrawal: No Advance Directives: No Advance Directives Information Provided: Yes Do you have thoughts of harming others: None Do you have a plan to hurt others: No Plan Recently lost weight without trying: Yes How much weight loss: Unsure Eating poorly because of decreased appetite: Yes Nutrition screen score: 5 Nutrition Risks: Dental problems Poor oral hygiene: Yes service: No Sexual orientation: Straight/Heterosexual Meds Allergies Allergy/AdvReac Type Severity Reaction Status Date / Time penicillin G Allergy Unknown UNKNOWN Verified 01/15/25 22:11 Active Medications: Current Medications Acetaminophen (Acetaminophen 325 Mg Tablet) 650 mg PO Q6H PRN PRN Reason: Headache/Pain, Scale 1-10 Al Hydroxide/Mg Hydroxide (Magnesium Hydrox/Alum Hydrox 30 Ml Oral.Susp) 30 ml PO Q6H PRN PRN Reason: Heartburn/Nausea Clonidine HCl (Clonidine Hcl 0.1 Mg Tablet) 0.1 mg PO TID PRN; Protocol PRN Reason: W/D Hydroxyzine HCl (Hydroxyzine Hcl 25 Mg Tablet) 25 mg PO Q6H PRN PRN Reason: mild anxiety Last Admin: 01/19/25 10:57 Dose: 25 mg Ibuprofen (Ibuprofen 800 Mg Tablet) 800 mg PO TID PRN PRN Reason: severe pain Last Admin: 01/19/25 10:57 Dose: 800 mg Magnesium Hydroxide (Milk Of Magnesia 30 Ml Oral.Susp) 30 ml PO DAILY PRN PRN Reason: Constipation Nicotine (Nicotine 21 Mg Patch.Td24) 21 mg TRANSDERMA DAILY PRN PRN Reason: nicotine craving Nicotine Polacrilex (Nicotine Polacrilex 2 Mg Gum) 2 mg BUCCAL Q2H PRN PRN Reason: Nicotine Cravings Olanzapine (Olanzapine 5 Mg Tablet) 5 mg PO BID PRN PRN Reason: agitation Last Admin: 01/19/25 10:57 Dose: 5 mg Olanzapine (Olanzapine 5 Mg Tablet) 5 mg PO BID [facility] Last Admin: 01/19/25 09:06 Dose: Not Given Thiamine HCl (Thiamine Hcl 100 Mg Tablet) 100 mg PO DAILY [place] Last Admin: 01/19/25 09:06 Dose: Not Given Trazodone HCl (Trazodone Hcl 50 Mg Tablet) 50 mg PO BEDTIME PRN PRN Reason: Insomnia Last Admin: 01/17/25 02:47 Dose: 50 mg Trazodone HCl (Trazodone Hcl 100 Mg Tablet) 200 mg PO BEDTIME [place] Last Admin: 01/18/25 21:18 Dose: 200 mg Home Medications ?Medication ?Instructions ?Recorded ?Confirmed ?Last Taken ?Type ibuprofen 800 mg tablet 800 mg PO TID 01/15/2501/1501/14/25 History trazodone 100 mg tablet 200 mg PO BEDTIME PRN Anxiet y 01/15/25 01/15/25 01/14/25 History Physical Exam 2 Vital Signs and Narrative: Vital Signs: Last Vital Signs Temp 99.1 F 01/15/25 22:09 Pulse 88 01/15/25 22:09 Resp 14 01/17/25 08:00 BP 147/65 H 01/15/25 22:09 Pulse Ox 96 01/15/25 22:09 O2 Del Method Room Air 01/15/25 22:09 BMI result Body Mass Index 21.7 CONST: Alert and oriented, in NAD. Not cooperative with exam HEENT: Normocephalic, atraumatic RESP: Respiratory rate even and regular GI: Declined exam :Deferred SKIN: Warm dry and intact, no visible lesions or rashes NEURO:Speech clear PSYCH: Angry affect Results Labs 01/15/25 22:53 01/15/25 22:53 Assessment and Plan (1) Arthritis of right glenohumeral joint: Status: Acute Plan 59-year-old male with a past medical history of major depressive disorder, personality disorder, PTSD, EtOH use disorder, cocaine use disorder, and right shoulder arthritis is admitted to inpatient psychiatric unit for suicidal ideation with a plan. Patient is seen for medical follow up. Major depressive disorder/personality disorder/PTSD/EtOH use/Cocaine use disorder Treatment per psychiatric team Right shoulder arthritis Tylenol as needed Declines any other assessment or medications at this time Thank you for allowing me to participate in the care of this patient. Will follow as needed, please notify medical provider with any changes in condition or concerns.
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
== END 2025-01-20 08:33 | disposition home or self-care (01) | DRG 885 ==
LOC: HO.ED 01-16 01:56 → HO.PADLT16 01-16 12:42
PROVIDERS: Physician Assistant Medical; Admitting Provider Nurse Practitioner Psychiatric/Mental Health; Emergency Provider Emergency Medicine; Visit Provider Nurse Practitioner Psychiatric/Mental Health
DX: F33.1 Major depressive disorder, recurrent, moderate (principal); R45.851 Suicidal ideations; Z59.02 Unsheltered homelessness; F60.9 Personality disorder, unspecified; F10.90 Alcohol use, unspecified, uncomplicated; M19.011 Primary osteoarthritis, right shoulder; F14.10 Cocaine abuse, uncomplicated; F43.10 Post-traumatic stress disorder, unspecified; F17.210 Nicotine dependence, cigarettes, uncomplicated; Z71.6 Tobacco abuse counseling; Z63.4 Disappearance and death of family member
CPT/HCPCS: 36415; 80053; 80143; 80179; 80307; 85025; 93005; 99285; S9485

== ENCOUNTER → 2025-01-15 22:07 | Outpatient (BNV) | payer OTHER, SELFPAY | PROVIDERS: Emergency Provider Emergency Medicine; Visit Provider Internal Medicine Cardiovascular Disease | DX: I49.1 Atrial premature depolarization (principal) | CPT/HCPCS: 93010 ==

== ENCOUNTER → 2025-01-16 12:35 | Outpatient (BNV) | payer OTHER, SELFPAY | PROVIDERS: Admitting Provider Nurse Practitioner Psychiatric/Mental Health; Emergency Provider Emergency Medicine; Visit Provider Nurse Practitioner Family | DX: M19.011 Primary osteoarthritis, right shoulder (principal) | CPT/HCPCS: 99221 ==

== ENCOUNTER → 2025-01-16 12:35 | Outpatient (BNV) | payer OTHER, SELFPAY | PROVIDERS: Admitting Provider Nurse Practitioner Psychiatric/Mental Health; Emergency Provider Emergency Medicine; Visit Provider Nurse Practitioner Psychiatric/Mental Health | DX: F33.1 Major depressive disorder, recurrent, moderate (principal); F60.9 Personality disorder, unspecified; F14.10 Cocaine abuse, uncomplicated; F10.90 Alcohol use, unspecified, uncomplicated | CPT/HCPCS: 90792; 99232; 99238 ==

== ENCOUNTER 2025-02-20 03:39 | Inpatient (IN) | payer OTHER, SELFPAY ==
--- NOTE | ~2025-02-20 | XR_ITS ---
EXAMINATION: XR SHOULDER 2 OR MORE VIEWS RIGHT HISTORY: pain COMPARISON: Comparison is made with the prior examination dated 04/07/2021. FINDINGS: Four views of the right shoulder is are submitted. Osseous mineralization is normal. There is no fracture or dislocation. There is severe osteoarthritis of the glenohumeral joint with joint space narrowing, osteophyte formation, and subchondral cyst formation. There is mild to moderate narrowing of the AC joint. The soft tissues are unremarkable. XR/XR shoulder RT min 2V IMPRESSION: Severe osteoarthritis of the glenohumeral joint. Electronically signed by: Burt Howell MD 03/02/2025 10:27 AM EDT
[2025-02-20 03:40] VITALS: BP 130/85; PULSE 86; RESP 20; TEMP 36.1; O2SAT 98; BMI 21.3
--- NOTE | 2025-02-20 04:04 | MHC.EDTECH ---
pt belongings locked in locker #7 in POD.
--- NOTE | 2025-02-20 04:11 | ED.PSYCH ---
HPI - Psych General Chief Complaint: Psychiatric Symptoms Stated Complaint: crisis Time Seen by Provider: 02/20/25 03:58 Source: patient Mode of arrival: ambulatory Limitations: no limitations History of Present Illness ED Provider: Dr. Phuong Alexander HPI Narrative: Patient comes to the emergency room complaining of suicidal ideation with planning to overdose. Patient states that he has been very depressed, since mother's day of last year, his girlfriend diet and since then, patient states that he has been declining. Patient states that he has been using drugs. Patient states that he has been living in a car that will not start. Related Data Home Medications ?Medication ?Instructions ?Recorded ?Confirmed food supplemt, lactose-reduced 237 ea PO BID 02/20/25 02/20/25 (Ensure oral liquid) ibuprofen 800 mg tablet 800 mg PO TID 02/20/25 02/20/25 trazodone 150 mg tablet 300 mg PO BEDTIME 02/20/25 02/20/25 Allergies Allergy/AdvReac Type Severity Reaction Status Date / Time penicillin G Allergy Unknown UNKNOWN Verified 02/20/25 03:42 Review of Systems Review of Systems: Constitutional : No Weight loss, No Fever, No Chills, No Night Sweats, No Fatigue, No Malaise ENT/Mouth : No Hearing loss, No Ear Pain, No Nasal Congestion, No Sinus Pain, No Hoarseness, No sore throat, No Rhinorrhea, No Swallowing Difficulty Eyes: No Eye Pain, No Swelling, No Redness, No Foreign Body, No Discharge, No Vision Changes Cardiovascular : No Chest Pain, No SOB, No Dyspnea on Exertion, No Orthopnea, No Edema, No Palpitations Respiratory : No Cough, No Sputum, No Wheezing, No Smoke Exposure, No Dyspnea Gastrointestinal : No Nausea, No Vomiting, No Diarrhea, No Constipation, No abdominal Pain, No Hematochezia, No Melena Genitourinary : no irregular bleeding, No Dysuria, No Urinary Frequency, No Hematuria, No Urinary Incontinence, No Urgency, No Flank Pain, No Urinary Flow Changes, No Hesitancy Musculoskeletal : No joint pain, No Myalgias, No Joint Swelling Skin : No Skin Lesions, No rash Neuro : No Weakness, No Numbness, No Paresthesias, No Loss of Consciousness, No Dizziness, No Headache Psych : Complaining of anxiety, depression, suicidal ideation, polysubstance abuse, homeless Heme/Lymph: No Bruising, No Bleeding,No Lymphadenopathy Endocrine : No Polyuria, No Polydipsia, No Temperature Intolerance [facility] Past Medical History Medical History Cocaine use disorder Personality disorder PTSD (post-traumatic stress disorder) Alcohol use disorder MDD (major depressive disorder), recurrent episode, moderate Hepatitis C Smoker Asthma Drug abuse Social History Social History Household Members: None Housing: Homeless Do you presently have visiting nurse or other home services: No Alcohol intake: current Alcohol intake frequency: 0-2 drinks per day Alcohol type: beer Patient Tobacco Use Status: Current everyday Tobacco user Tobacco use type: Cigarette Cigarette Packs Per Day: 1 Cigarettes Per Day: 20.0 Years Smoked: 40 e-Cigarette/Vaping Use: Never Used Second Hand Smoke Exposure: No Use of substances other than those prescribed or required for medical reasons: Yes Substance Use Type: Crack/Cocaine Substance Use Frequency: Chronic Longstanding Last Used Substance: Just Prior to Admission Advance Directives: No service: No Sexual orientation: Straight/Heterosexual Physical Exam Exam: Exam: Appearance: Alert. Oriented X3. No acute distress. Eyes: Pupils equal, round and reactive to light. ENT: Pharynx normal. Neck: Normal inspection. Neck supple. No lymph nodes noted. No crepitus CVS: Normal heart rate and rhythm. Pulses normal. Normal S1 and S2 Respiratory: No respiratory distress. Breath sounds normal. No Wheezing. No rales Abdomen: Soft and nontender. No rigidity. No distention. Skin: Skin warm and dry. Normal skin color. Normal skin turgor. Extremities: No lower extremity edema. No Lacerations. No Rash Neuro: Oriented X 3. No motor deficit. No sensory deficit. Moving all extremities. No slurred speech. CN 2 through 12 grossly intact Psych: calm, cooperative, anxious, tearful Vital Signs: Vital Signs: Last Vital Signs Temp 98.2 F 02/20/25 07:59 Pulse 62 02/20/25 07:59 Resp 12 02/20/25 07:59 BP 155/91 H 02/20/25 07:59 Pulse Ox 95 02/20/25 07:59 O2 Del Method Room Air 02/20/25 07:59 BMI result Body Mass Index 21.3 Course Course Course Narrative: All of patient's labs pending Patient is on a section 12 Care team consult pending Physician observation started at 04:15 Reevaluation(s) Reevaluation #1: Time: 06:04 Date: 02/20/25 Provider: Юлия Contreras, DO Patient in physician observation for psychiatric evaluation.? No acute events reported overnight. No current complaints. VS stable.? Patient is in bed search status. Will continue to monitor. Time: 15:11 Date: 02/20/25 Provider: Юлия Contreras DO Physician observation ended at 1800. Patient to be admitted as inpatient to psychiatry at [facility] Medical Decision Making Medical Decision Making [facility] Narrative: My interpretation of labs: No significant abnormality in patient hematology or chemistry, ETOH level negative Urine toxicology pending Patient remains on a section 12, patient was seen by the care team: Recommendations inpatient level of care Differential Diagnosis Differential Diagnoses: The differential diagnosis associated with the presentation includes (Anxiety, depression, polysubstance abuse) Admission/Observation Consideration of admission/observation: Escalation of care including admission/observation considered (Patient will likely need inpatient level of care) Consult Healthcare Provider Management of the patient was discussed with: Behavioral Health Provider Lab Data [facility] Lab Attestation statement: I reviewed the patient's lab results. 02/20/25 04:32 02/20/25 04:32 Labs: Lab Results 02/20/25 02/20/25 Range/Units 04:32 11:33 WBC 5.9 (4.8-10.8) X10*3/uL RBC 4.44 L (4.60-5.80) X10*6/uL Hgb 13.1 L (14.0-18.0) g/dl Hct 39.1 L (42.0-52.0) % MCV 88.1 (80.0-98.0) fL MCH 29.5 (27.0-33.0) pg MCHC 33.5 (31.0-36.0) g/dl RDW 13.7 (11.0-16.0) % Plt Count 170 (160-400) X10*3/uL MPV 8.6 L (9.4-12.4) fL Immature Gran % (Auto) 0.2 (0.0-0.4) % Neut % (Auto) 61.0 (45-73) % Lymph % (Auto) 22.3 (20-40) % [place] % (Auto) 13.9 H (2-11) % Eos % (Auto) 1.9 (0-4) % Baso % (Auto) 0.7 (0-2) % Lymph # (Auto) 1.3 (1.2-4.9) X10*3/uL [place] # (Auto) 0.8 (0.1-1.2) X10*3/uL Eos # (Auto) 0.1 (0.0-0.4) X10*3/uL Baso # (Auto) 0.0 (0.0-0.2) X10*3/uL Abs Immat Gran (auto) 0.01 (0.00-0.03) X10*3/uL Absolute Neuts (auto) 3.6 (2.0-8.3) x10*3/uL Absolute Nucleated RBC 0.000 (0.0-0.012) X10*3/uL Nucleated RBC % (auto) 0.0 (0.0-0.2) /100WBC Sodium 139 (135-145) mmol/L Potassium 3.6 (3.3-5.1) mmol/L Chloride 106 (96-108) mmol/L Carbon Dioxide 25 (22-29) mmol/L Anion Gap 12 (12-20) BUN 17 H (9-16) mg/dL Creatinine 0.79 (0.5-1.4) mg/dL Estim Creat Clear Calc 90.4 Estimated GFR > 60 Random Glucose 156 H (60-115) mg/dL Calcium 9.1 (8.4-10.2) mg/dL Total Bilirubin 0.5 (0.0-1.0) mg/dL AST 23 (5-37) U/L ALT 13 (0-40) U/L Alkaline Phosphatase 66 (39-117) U/L Total Protein 6.9 (6.5-8.0) g/dL Albumin 4.2 (3.5-5.0) g/dL Urine Color Yellow Urine Appearance Clear Urine pH 6.0 (5.0-9.0) Ur Specific [place] 1.020 (1.005-1.025) Urine Protein Trace (Neg-Trace) mg/dL Urine Glucose (UA) Negative (Negative) mg/dL Urine Ketones Negative (Negative) mg/dL Urine Blood Trace H (Negative) Urine Nitrite Negative (Negative) Ur Leukocyte Esterase Small (1+) H (Negative) Urine RBC 0-2 (0-2) /HPF Urine WBC >50 H (0-5) /HPF Ur Squamous Epith Cells 0-2 (0-2) /HPF Urine Bacteria None Seen (None Seen) Hyaline Casts 0-2 (0-2) /LPF Urine Opiates Screen Not Detected (Not Detect) Ur Buprenorphine Scrn Not Detected (Not Detect) ng/mL Ur Oxycodone Screen Not Detected (Not Detect) ng/mL Urine Methadone Screen Not Detected (Not Detect) ng/mL Urine Fentanyl Screen POSITIVE H (Not Detect) Ur Barbiturates Screen Not Detected (Not Detect) Ur Phencyclidine Scrn Not Detected (Not Detect) Ur Amphetamines Screen Not Detected (Not Detect) U Benzodiazepines Scrn Not Detected (Not Detect) Urine Cocaine Screen POSITIVE H (Not Detect) U Marijuana (THC) Screen POSITIVE H (Not Detect) Ethyl Alcohol < 10 mg/dL Critical Care Time Critical Care Time Critical Care Time: Yes Total Critical Care Time: 35 Attestation: I have personally provided critical care time. Time includes review of lab data, radiology results, discussion with consultants, and monitoring for potential decompensation. Intervention performed as documented. Discharge Plan Discharge Clinical Impression: Suicidal ideation, Depression, Polysubstance abuse Patient Disposition: Xfer Psychiatric Hosp Transfer Details: [facility] Prescriptions: No Action ibuprofen 800 mg tablet 800 mg PO TID trazodone 150 mg tablet 300 mg PO BEDTIME Ensure Liquid 237 ea PO BID Interventions: [place]-Suicide Risk Severity Scale Last Done: 02/20/25 03:43 Print Language: Mozambican
--- OUTSIDE RECORDS SUMMARY | 2025-02-20 04:22 | XMS_ITS | Encounter Summary ---
Author Organization [employer] Address [address] [place] [address] Care Team Providers Care Otolaryngology Rep Name Role Phone Nicole Blackmon MD Primary Care Provider [phone] Encounter Details Date Type Department Care Team ([facility] st Contact Info) Description 08/20/2024 Orders Only [facility]S [address] [place] [address] Nicole Blackmon MD [address] [place] [address] Social History Tobacco Use Types Packs/Day Years [...] documented as of this encounter Care Teams Otolaryngology Rep Relationship Specialty Start Date End Date Nicole Blackmon MD [address] [place] [id number] PCP - General Family Medicine 04/19/12 documented as of this encounter
--- OUTSIDE RECORDS SUMMARY | 2025-02-20 04:22 | XMS_ITS | Encounter Summary ---
Author Organization [employer] Address [address] [place] [address] Care Team Providers Care Household Appliances Salesperson Name Role Phone Nicole Blackmon MD Primary Care Provider [phone] Reason for Visit * Reason Comments Med Change Request Encounter Details Date Type Department Care Team ([facility] st Contact Info) Description 07/25/2022 Refill [facility] [address] [place] [address] Nicole Blackmon MD [address] [place] [address] Insomnia, unspecified type Social History Tobacco Use [...] type documented in this encounter Care Teams Household Appliances Salesperson Relationship Specialty Start Date End Date Nicole Blackmon MD [address] [place] [id number] PCP - General Family Medicine 04/19/12 documented as of this encounter
--- OUTSIDE RECORDS SUMMARY | 2025-02-20 04:22 | XMS_ITS | Encounter Summary ---
Author Organization [employer] Address [address] [place] [address] Care Team Providers Care Public Accountant Name Role Phone Nicole Blackmon MD Primary Care Provider [phone] Reason for Visit * Reason Comments Med Refill Encounter Details Date Type Department Care Team ([facility] st Contact Info) Description 11/06/2023 Refill [facility]INE [address] [place] [address] Nicole Blackmon MD [address] [place], [place] [id number] Pain; Insomnia, unspecified type Social History Tobacco [...] type documented in this encounter Care Teams Public Accountant Relationship Specialty Start Date End Date Nicole Blackmon MD [address] [place] [address] PCP - General Family Medicine 04/19/12 documented as of this encounter
--- OUTSIDE RECORDS SUMMARY | 2025-02-20 04:22 | XMS_ITS | Clinical Summary ---
Author Organization [facility] Address [address] [place] [address] Phone Care Team Providers Care Auction Assistant Name Role Phone Physician, Pcp Unknown Primary Care Provider Leona vailable Allergies No known active allergies Encounters Date Type Department Care Team Description 12/09/2024 2:25 PM EDT - 12/09/2024 2:[address] [facility] Emergency [address] [place] [address] Jh Monsivais MD Encounter for [...] Health Maintenance Due Date Last Done Comments Colorectal Cancer Screening: Colonoscopy 1965 Hepatitis B Vaccines (3 of 3 - 19+ 3-dose series) 07/19/2013 05/24/2013, 11/13/2003 Pneumococcal Vaccine: 50+ Years (2 of 2 - PCV) 05/24/2014 05/24/2013 Zoster Vaccines (1 of 2) 2015 Cholesterol Screening (Lipid Panel) 04/09/2022 Medicare Annual Wellness Visit 04/09/2022 Social [...] human immunodeficiency virus Cocaine dependence, in remission ([facility] V24, CMS/[facility] V28) Acute alcoholic intoxication in alcoholism, in remission (CMS/HCC V24, CMS/[facility] V28) Major depressive disorder, recurrent episode, moderate (CMS/HCC V24, CMS/[facility] V28) FREE THYROXINE WITH REFLEX TO FREE [...] LAB CHEMISTRY METHOD 12/10/2024 6:[address] [facility] Blood Venous blood specimen / Unknown Venipuncture / Unknown 12/10/2024 2:51 PM EDT 12/10/2024 3:[address] [facility] - 12/10/2024 6:11 PM EDT [...] ORDERABLES Final Resu lt Performing Organization Address City/[facility]/ZIP Co de Phone Number [facility] [address] [place] [address], [place] [phone] * AST, ALT, Bilirubin ELR state reportables (12/10/2024 2:51 PM EDT) ALT (SGPT) 17 10 - 60 unit/L LAB CHEMISTRY METHOD 12/10/2024 7:[address] [facility] AST (SGOT) 20 10 - 42 unit/L LAB CHEMISTRY METHOD 12/10/2024 7:[address] [facility] Bilirubin, Direct 0.1 0.0 - 0.3 mg/dL LAB CHEMISTRY METHOD 12/10/2024 7:[address] [facility] Total Bilirubin 0.4 0.0 - 1.4 mg/dL LAB CHEMISTRY METHOD 12/10/2024 7:[address] [facility] Platelets 143 K/mcL LAB HEMETOLOGY METHOD 12/10/2024 7:[address] [facility] Blood Venous blood specimen / Unknown Venipuncture / Unknown 12/10/2024 2:51 PM EDT 12/10/2024 3:21 PM EDT us Abigail SLAUGHTER LAB BLOOD ORDERABLES Final Resu lt [facility] [address] [place] [address], [place] [phone] * (ABNORMAL) Thyroid stimulating hormone with reflex to free t4 and free t3 (12/10/2024 2:51 PM EDT) TSH 0.36(L) 0.40 - 4.00 mcIU/mL LAB CHEMISTRY METHOD 12/10/2024 8:[address] [facility] Blood Venous blood specimen / Unknown Venipuncture / Unknown 12/10/2024 2:51 PM EDT 12/10/2024 3:21 PM EDT Abigail SLAUGHTER LAB BLOOD ORDERABLES Final Resu lt Performing Organization Address [facility]/ZIP Co de Phone Number [facility] [address] [place] [address], [place] [phone] * Free thyroxine with reflex to free triiodothyronine (12/10/2024 2:51 PM EDT) Free T4 1.19 0.70 - 1.80 ng/dL LAB CHEMISTRY METHOD 12/10/2024 9:[address] [facility] Blood Venous blood specimen / Unknown Venipuncture / Unknown 12/10/2024 2:51 PM EDT 12/10/2024 3:21 PM EDT Abigail SLAUGHTER LAB BLOOD ORDERABLES Final Resu lt Performing Organization Address [facility] de Phone Number [facility] [address] [place] [address], [place] [phone] * (ABNORMAL) Hepatitis panel, acute with reflex to confirmation (12/10/2024 2:51 PM EDT) Pathologist [facility] Hepatitis B Surface Ag Negative Negative LAB CHEMISTRY METHOD 12/10/2024 6:[address] [facility] Hepatitis A Antibody IgM Negative Negative LAB CHEMISTRY METHOD 12/10/2024 6:[address] [facility] Hep B Core IgM Negative Negative LAB CHEMISTRY METHOD 12/10/2024 6:[address] [facility] Hepatitis C Antibody Positive(A) Negative LAB CHEMISTRY METHOD 12/10/2024 6:[address] [facility] Comment:If confirmation of t his positive HCV Ab screening test is needed, please redraw and order HCV Viral Load. Note--> This test may not be added on due to different specimen requirements. Blood Venous blood specimen / Unknown Venipuncture / Unknown 12/10/2024 2:51 PM EDT 12/10/2024 3:21 PM EDT us Abigail SLAUGHTER LAB BLOOD ORDERABLES Final Resu lt [facility] [address] [place] [address], [place] [phone] * (ABNORMAL) Complete blood count (12/10/2024 2:51 PM EDT) WBC 5.0 4.8 - 10.8 K/mcL LAB HEMETOLOGY METHOD 12/10/2024 3:[address] [facility] RBC 4.30(L) 4.50 - 5.50 M/mcL LAB HEMETOLOGY METHOD 12/10/2024 3:[address] [facility] Hemoglobin 12.8(L) 13.5 - 17.5 g/dL LAB HEMETOLOGY METHOD 12/10/2024 3:[address] [facility] Hematocrit 40.8(L) 42.0 - 54.0 % LAB HEMETOLOGY METHOD 12/10/2024 3:[address] [facility] MCV 94.9 79.0 - 98.0 FL LAB HEMETOLOGY METHOD 12/10/2024 3:[address] [facility] MCH 29.8 27.0 - 32.0 pcg LAB HEMETOLOGY METHOD 12/10/2024 3:[address] [facility] MCHC 31.4(L) 32.0 - 37.0 g/dL LAB HEMETOLOGY METHOD 12/10/2024 3:[address] [facility] RDW 13.9 11.0 - 15.0 % LAB HEMETOLOGY METHOD 12/10/2024 3:[address] [facility] Platelets 143 130 - 400 K/mcL LAB HEMETOLOGY METHOD 12/10/2024 3:[address] [facility] MPV 9.6 7.0 - 11.0 FL LAB HEMETOLOGY METHOD 12/10/2024 3:[address] [facility] NRBC 0.0 <1.0 % LAB HEMETOLOGY METHOD 12/10/2024 3:[address] [facility] NRBC Absolute 0.00 <0.10 K/mcL LAB HEMETOLOGY METHOD 12/10/2024 3:[address] [facility] Blood Venous blood specimen / Unknown Venipuncture / Unknown 12/10/2024 2:51 PM EDT 12/10/2024 3:20 PM EDT Abigail SLAUGHTER LAB BLOOD ORDERABLES Final Resu lt Performing Organization Address City/[facility]/ZIP Co de Phone Number [facility] [address] [place] [address], [place] [phone] * Triiodothyronine free (12/10/2024 2:51 PM EDT) T3, Free 321 230 - 420 pcg/dL LAB CHEMISTRY METHOD 12/10/2024 9:[address] [facility] Blood Venous blood specimen / Unknown Venipuncture / Unknown 12/10/2024 2:51 PM EDT 12/10/2024 3:21 PM EDT Abigail SLAUGHTER LAB BLOOD ORDERABLES Final Resu lt Performing Organization Address City/[facility]/ZIP Co de Phone Number [facility] [address] [place] [address], [place] [phone] * Bilirubin, direct (12/10/2024 2:51 PM EDT) Pathologist [facility] Bilirubin, Direct 0.1 0.0 - 0.3 mg/dL LAB CHEMISTRY METHOD 12/10/2024 4:[address] [facility] Blood Venous blood specimen / Unknown Venipuncture / Unknown 12/10/2024 2:51 PM EDT 12/10/2024 3:21 PM EDT us Abigail SLAUGHTER LAB BLOOD ORDERABLES Final Resu lt [facility] [address] [place] [address], * Comprehensive metabolic panel (12/10/2024 2:51 PM EDT) [facility] Sodium 137 133 - 145 mmol/L LAB CHEMISTRY METHOD 12/10/2024 4:39 PM [facility] Potassium 4.6 3.5 - 5.5 mmol/L LAB CHEMISTRY METHOD 12/10/2024 4:39 PM [facility] Chloride 105 96 - 110 mmol/L LAB CHEMISTRY METHOD 12/10/2024 4:39 PM [facility] CO2 28 21 - 32 mmol/L LAB CHEMISTRY METHOD 12/10/2024 4:39 PM [facility] Anion Gap 4 3 - 11 LAB CHEMISTRY METHOD 12/10/2024 4:39 PM [facility] Glucose 99 70 - 100 mg/dL LAB CHEMISTRY METHOD 12/10/2024 4:39 PM [facility] BUN 14 5 - 25 mg/dL LAB CHEMISTRY METHOD 12/10/2024 4:39 PM [facility] Creatinine 1.00 0.70 - 1.30 mg/dL LAB CHEMISTRY METHOD 12/10/2024 4:39 PM [facility] eGFR 87 >=60 mL/min/1. 73m2 LAB CHEMISTRY METHOD 12/10/2024 4:[address] [facility] Comment:Calculation based on the Chronic Kidney Disease Epidemiology Collaboration (CKD-EPI) equation refit without adjustment for race. BUN/Creatinine Ratio 14.0 LAB CHEMISTRY METHOD 12/10/2024 4:[address] [facility] Calcium 8.7 8.5 - 10.5 mg/dL LAB CHEMISTRY METHOD 12/10/2024 4:39 PM [facility] AST (SGOT) 20 10 - 42 unit/L LAB CHEMISTRY METHOD 12/10/2024 4:39 PM [facility] ALT (SGPT) 17 10 - 60 unit/L LAB CHEMISTRY METHOD 12/10/2024 4:39 PM [facility] Alkaline Phosphatase 72 42 - 121 unit/L LAB CHEMISTRY METHOD 12/10/2024 4:39 PM [facility] Total Protein 6.7 6.0 - 8.0 g/dL LAB CHEMISTRY METHOD 12/10/2024 4:39 PM [facility] Albumin 3.5 3.2 - 5.0 g/dL LAB CHEMISTRY METHOD 12/10/2024 4:39 PM [facility] Total Bilirubin 0.4 0.0 - 1.4 mg/dL LAB CHEMISTRY METHOD 12/10/2024 4:[address] [facility] Blood Venous blood specimen / Unknown Venipuncture / Unknown 12/10/2024 2:51 PM EDT 12/10/2024 3:21 PM EDT us Abigail SLAUGHTER LAB BLOOD ORDERABLES Final Resu lt [facility] [address] [place] [address], [place] [phone] from Last [address] [place] [address] [id number] MEDICARE Member Subscriber Plan / Payer (Ef fective 2023-Present) Name:MARVIN CAI Relation to Subscriber:Self Name:Marvin Cai Payer ID:[id number] Group ID:[id number] Type:Not on file Address: [address] [id number] Care Teams Auction Assistant Relationship Specialty Start Date End Date Physician, Pcp Unknown PCP - General 12/09/24
--- OUTSIDE RECORDS SUMMARY | 2025-02-20 04:23 | XMS_ITS | Encounter Summary ---
Author Organization [employer] Address [address] [place] [address] Care Team Providers Care Engineering Manager Electronics Name Role Phone Nicole Blackmon MD Primary Care Provider [phone] Reason for Visit * Reason Comments Med Refill Encounter Details Date Type Department Care Team ([facility] st Contact Info) Description 02/18/2025 Refill [facility] [address] [place] [address] Nicole Blackmon MD [address] [place] [address] Pain Social History Tobacco Use Types Packs/Day [...] documented as of this encounter Care Teams Engineering Manager Electronics Relationship Specialty Start Date End Date Nicole Blackmon MD [address] [place] [phone] PCP - General Family Medicine 04/19/12 documented as of this encounter
--- OUTSIDE RECORDS SUMMARY | 2025-02-20 04:24 | XMS_ITS | Clinical Summary ---
Author Organization [employer] Address [address] [place] [address] [address] [place] [address] Care Team Providers Care Fiberglass Roving Winder Name Role Phone Nicole Blackmon MD Primary Care Provider [phone] Allergies Active Allergy Reactions Criticality Noted Date [...] abuse 237 ml 2 times a day. 31837 mL 11 09/03/19 25 Active predniSONE (Deltasone) 10 MG tabletIndicatio ns:Nasal congestion 40 mg x 3 days, 30 mg x 3 days, 20 mg x 3 days, 10 mg x 3 days. 30 tablet 09/03/19 25 Active ibuprofen 800 MG tabletIndicatio ns:Pain TAKE 1 TABLET BY MOUTH THREE TIMES A DAY WITH FOOD 90 tablet 02/19/20 25 Active ibuprofen 800 MG tabletIndicatio ns:Pain TAKE 1 TABLET BY MOUTH 3 TIMES A DAY WITH FOOD 90 tablet 01/08/20 25 025 Discontinued Active Problems Problem Noted Date Diagnosed Date Alcohol abuse 06/12/2024 Chronic drug abuse 06/12/2024 Hepatitis C 12/03/2012 Insomnia 12/03/2012 Encounters Date Type Department Care Team Description 02/18/2025 Refill [facility] [address] [facility] [place] [address] Nicole Blackmon MD Pain 01/06/2025 Refill [facility] [address] [place] [address] Nicole Blackmon MD Pain 11/25/2024 Refill [facility] [address] [facility] [place] [address] Nicole Blackmon MD Pain from Last 3 [...] 09/02/2024 2:15 PM EDT Plan of Treatment Health Maintenance Due Date Last Done Comments CT Colonography 1965 Colonoscopy 1965 Colorectal Cancer Screening 1965 FIT DNA/Cologuard 1965 FIT 1965 FOBT 1965 Sigmoidoscopy 1965 Hepatitis B Vaccines (2 of 3 - 19+ 3-dose series) 12/11/2003 11/13/2003 Pneumococcal Vaccine: 50+ Years (2 of 2 - PCV) 05/24/2014 05/24/2013 Zoster Vaccines (1 of 2) 2015 Dental Oral Exam 09/18/2017 03/20/2017, 03/2016, 04/09/2015, Additional history exists Dental Prophylaxis 10/03/2017 04/04/2017, 1 , 03/03/2014 Dental X-Ray: Bitewings 03/21/2018 03/20/20 17, 02/17/2014, 01/04/2012 Dental X-Ray: Full Mouth 09/12/2020 018, 04/09/2015, 01/04/2012 Depression Monitoring 12/10/2024 06/12/2024, 025 COVID-19 Vaccine (2 - season) 2025 04/04/2021 Influenza Vaccine (#1) 2025 04/24/2011 Alcohol/Substance Use Screening 06/12/2025 06/12/2024 Disability Screening 06/12/2025 06/12/2024 SDOH Screening 06/12/2025 06/12/2024 Tobacco Screening 06/12/2025 06/12/2024 Lipid Panel 06/19/2029 06/19/2024 DTaP/Tdap/Td Vaccines (2 - Td or Tdap) 11/27/2032 11/27/2022 RSV Patients and Patients Aged 60 years or older (1 - 1-dose 75+ series) 2040 Hepatitis A Vaccines Completed 05/24/2013, 11/13/19 04 HIV Screening Completed 06/19/2024, 01/13/2020 HIB Vaccines [...] EST Alcohol abuse Chronic drug abuse (CMS/HCC) PANORAMIC RADIOGRAPHIC IMAGE Routine 09/11/2017 12:00 AM EDT PROPHYLAXIS - ADULT Routine 04/04/2017 1 2:00 AM EST BITEWINGS - 2 RADIOGRAPHIC IMAGES Routine 03/20/2017 12:00 AM EST PERIODIC ORAL EVALUATION - ESTABLISHED PATIENT Routine 03/20/2017 12:00 AM EST from Last 3 Months or Most Recently Relevant to Health Maintenance Results * HIV-1/2 Antigen and Antibodies, Fourth Generation, with Reflexes (06/19/2024 11:40 AM EST) HIV AB/AG Nonreactive Nonreactive [facility] Comment:HIV-1 p24 Ag and/or HIV-1/HIV-2 Ab not detected.A test result that is nonreactive does not exclude thepossibility of exposure to or infection with HIV-1 and/orHIV-2. Nonreactive results in this assay for individualswith prior exposure to HIV-1 and/or HIV-2 may be due toantigen and antibody levels that are below the limit ofdetection of this assay.The [employer] HIV Ag/Ab Combo assay result andsupplemental assay results should be interpreted inconjunction with the patient's clinical presentation,history and other laboratory results. If the results areinconsistent with clinical evidence, additional testing issuggested to confirm the result. Blood Venous blood specimen / Unknown 06/19/2024 11:40 AM EST 06/19/2024 2:05 PM EST us Nicole Blackmon MD LAB BLOOD ORDERABLES Final Resul t [facility] [address] [place] [phone] * (ABNORMAL) Lipid Panel, Standard (06/19/2024 11:40 AM EST) Triglycerides 56 <150 mg/dL [facility] Comment:Desirable Triglyceri de: less than 150 mg/dLBorderline High Triglyceride 150-199 mg/dLHigh Triglyceride: 200-499 mg/dLVery High Triglyceride: greater than or equal to 5OO mg/dL Cholesterol 89 <200 mg/dL [facility] Comment:Desirable Cholestero l: less than 200 mg/dLBorderline High Cholesterol: 200-239 mg/dLHigh Cholesterol: greater than 239 mg/dL LDL Cholesterol Calculated 55 <100 mg/dL [facility] Comment:Desirable LDL: less than 100 mg/dLNear Optimal/Above Optimal LDL: 110- 129 mg/dLBorderline High LDL: 130-159 mg/dLHigh LDL: 160-189 mg/dLVery High LDL: greater than or equal to 190 mg/dL HDL Cholesterol 23(L) >40 mg/dL [facility] Comment:Desirable HDL: great er than 40 mg/dL Note: This HDL assay may give artificially low results in patients with liver disease. Blood Venous blood specimen / Unknown 06/19/2024 11:40 AM EST 06/19/2024 2:05 PM EST us Nicole Blackmon MD LAB BLOOD ORDERABLES Final Resul t [facility] [address] [place] [address] [phone] from Last 3 Months or Most Recently Relevant to Health Maintenance Insurance [facility] < [address] [id number] [facility] Care Teams Fiberglass Roving Winder Relationship Specialty Start Date End Date Nicole Blackmon MD [address] [place] [phone] PCP - General Family Medicine 04/19/12
[2025-02-20 04:39] LABS: Hematocrit 39.1 % (42.0-52.0); Hemoglobin 13.1 g/dl (14.0-18.0); Imm Gran Abs Auto 0.01 X10*3/uL (0.00-0.03); Imm Gran Pct Auto 0.2 % (0.0-0.4); Lymphocytes Absolute Auto 1.3 X10*3/uL (1.2-4.9); MANUAL DIFF FLAG NO; Mean Corpuscular HGB Conc 33.5 g/dl (31.0-36.0); Mean Corpuscular Hemoglobin 29.5 pg (27.0-33.0); Mean Corpuscular Volume 88.1 fL (80.0-98.0); NRBC Abs Auto 0.000 X10*3/uL (0.0-0.012); NRBC Pct Auto 0.0 /100WBC (0.0-0.2); Platelet Count 170 X10*3/uL (160-400); Red Blood Count 4.44 X10*6/uL (4.60-5.80); White Blood Count 5.9 X10*3/uL (4.8-10.8)
[2025-02-20 04:55] LABS: Alanine Aminotransferase 13 U/L (0-40); Albumin Level 4.2 g/dL (3.5-5.0); Alkaline Phosphatase 66 U/L (39-117); Anion Gap 12 (12-20); Aspartate Amino Transferase 23 U/L (5-37); Blood Urea Nitrogen 17 mg/dL (9-16); Calcium 9.1 mg/dL (8.4-10.2); Carbon Dioxide 25 mmol/L (22-29); Chloride 106 mmol/L (96-108); Creatinine Clr Calc Pharmacy 90.4; Estimated Glomerular Filt Rate > 60; Potassium 3.6 mmol/L (3.3-5.1); Sodium 139 mmol/L (135-145); Total Protein 6.9 g/dL (6.5-8.0)
--- NOTE | 2025-02-20 07:24 | PC.NURSE ---
Assumed care, report received. Pt is currently sleeping, he is provided with breakfast.
--- NOTE | 2025-02-20 07:56 | ECG_ITS ---
Test Reason : check prolonged qt Blood Pressure : */* mmHG Vent. Rate : 68 BPM Atrial Rate : 68 BPM P-R Int : 134 ms QRS Dur : 104 ms QT Int : 386 ms P-R-T Axes : 17 -5 39 degrees QTcB Int : 410 ms Normal sinus rhythm Normal ECG When compared with ECG of 15-Jan-2025 22:59, Premature atrial complexes are no longer Present Nonspecific T wave abnormality no longer evident in Lateral leads Referred By: Юлия Contreras Electronically Signed By: Vahid Botello
[2025-02-20 07:59] VITALS: BP 155/91; PULSE 62; RESP 12; TEMP 36.8; O2SAT 95
[2025-02-20 11:47] LABS: Appearance Urine Clear; Glucose Urine UA Negative (Negative); PH 6.0 (5.0-9.0); Specific Gravity - Urine 1.020 (1.005-1.025); UMIC TRIGGER UACC YES
[2025-02-20 11:50] LABS: UACC Culture Trigger YES
[2025-02-20 11:53] LABS: Cannabinoid Screen Urine POSITIVE (Not Detect)
--- NOTE | 2025-02-20 14:32 | MHC.CARE ---
Addendum entered by Cammie Herbert RN 02/20/25 16:24: Admission to [facility] has been canceled due to patients refusal Original Note: Patient has been accepted to [facility] today. The accepting doc is Dr. Blas and the ETA is next available. [place] [address]. 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 Ambulance pickup here at 6pm, Nursing and Care Team notified. N2N is not needed for [facility].
--- NOTE | 2025-02-20 15:48 | MHC.EDTECH ---
Pt refused vital signs. MARQUIS roland aware
--- NOTE | 2025-02-20 19:35 | PC.NURSE ---
Patient arrived at the unit at 7H10 PM, safety and skin checked were done, vital was: T 98.2. pls 77, BP 134/97, O2 was 98%, Admission note is pending.
[2025-02-20 20:00] VITALS: BP 145/90; PULSE 62; RESP 16; TEMP 36.8; O2SAT 95
--- NOTE | 2025-02-21 02:43 | PC.ADMIT ---
Pt is a 59 yo male, admitted on a CV to [facility] from ED, [facility] for [place]. Pt has longstanding HX of multiple inpatient admission. His last admission was 01/19/25 at [facility]. Pt has HX of cocaine, Alcohol and cigarette use. Pt reports he continues to grieve the loss of his girlfriend, who in 2023 due to unintentional overdose. Per unit admission, he is calm and pleasant but declined to complete admission process due to tiredness. Pt states I just wants my meds and go to bed . Pt denies SI/HI/AH/VH. He refused to sign any admission paper work now. I will do that tomorrow morning. He took his bedtime meds before sleeping. Treatment plan initiated. Safety/skin check and v/s done during the previous shift.
[2025-02-21 08:00] VITALS: RESP 18
--- NOTE | 2025-02-21 10:07 | HO.PSYADMNOT ---
HPI Date of Service: 02/21/25 Chief Complaint: SI Sources of Information: patient interviewed, chart reviewed and crisis/core team assessment reviewed HPI Subjective Notes: Jarrett Warning and Conditional Voluntary Healthcare Proxy: No Guardianship: No Medical Problems Affecting Mental Status: No Narrative: Per Care team note: Patient is a 59 years old single, Finnish speaking, male who was BIBA to [facility] secondary to SI with a plan but refused to disclose details. Patient had history of MDD, personality disorder, PTSD, IV cocaine use disorder and alcohol use disorder. Reports ongoing cocaine use due to multiple life stressors. Recently being homeless and living in the car for a past month and also stated that he still grieving his girlfriend who last year. On M5: Patient signed a CV, did not want to talk I am tired I want to rest . Reason for being here is I want to . Denies SI/ SIB//HI AVH. Report mood is depressed . Do not engaged in for assessment. Denies fentanyl use, but reports cocaine use. He does not giving much details of history of drug use I am tired. I want to rest. Talk to you later to both attempt to talk to him in different days. Patient presented with the same behavior like he did a month ago when he was on M3. This time, this provider warns him that we will not taking the abusive behavior, if he is not behave himself not cooperative with the care, we will administrative discharge him. Patient is irritable, anxious, depressed, passive engaging in conversation/assessment. Less irritable compared to last admission. Alert and oriented x4. He asked for medication. Encouraged to compliant with medication this time. Speech is within, normal limit normal volume, and rate. Thought content is on treatment, denies SI/SIB/HI/AVH. Poor eye contact-closed during assessment time. Thought processes within normal limit, organized. He preferred to taking care by Dr. Lenz instead I want to have doctor Johnson . Poor judgment and poor insight. Past Psychiatric History: Numerous hospitalizations for similar presentation Med trial: Remeron, not tolerated Seroquel, not tolerated Risperdal: unknown effect Trileptal: unknown effect Medical Evaluation Reviewed: Yes [facility] Medical History Cocaine use disorder Personality disorder PTSD (post-traumatic stress disorder) Alcohol use disorder MDD (major depressive disorder), recurrent episode, moderate Hepatitis C Smoker Asthma Drug abuse Family History: Not able to obtain. Not cooperative. Social History: Per record: Reports his mother recently History of incarcerations for drug charges Substance History: U tox positive fentanyl, cocaine, and THC Trauma History: Not able to obtain. Not cooperative. Diagnostics Vital Signs (24Hr): Vital Signs - 24 hr 02/20/25 20:00 02/21/25 08:00 Temperature 98.2 F Pulse Rate 62 Respiratory Rate 16 18 Blood Pressure 145/90 H Pulse Oximetry 95 Oxygen Delivery Method Room Air BMI result Body Mass Index 21.3 Labs 02/20/25 04:32 02/20/25 04:32 Labs: Laboratory Results - last 48 hr 02/20/25 02/20/25 04:32 11:33 WBC 5.9 RBC 4.44 L Hgb 13.1 L Hct 39.1 L MCV 88.1 MCH 29.5 MCHC 33.5 RDW 13.7 Plt Count 170 MPV 8.6 L Immature Gran % (Auto) 0.2 Neut % (Auto) 61.0 Lymph % (Auto) 22.3 [place] % (Auto) 13.9 H Eos % (Auto) 1.9 Baso % (Auto) 0.7 Lymph # (Auto) 1.3 [place] # (Auto) 0.8 Eos # (Auto) 0.1 Baso # (Auto) 0.0 Abs Immat Gran (auto) 0.01 Absolute Neuts (auto) 3.6 Absolute Nucleated RBC 0.000 Nucleated RBC % (auto) 0.0 Sodium 139 Potassium 3.6 Chloride 106 Carbon Dioxide 25 Anion Gap 12 BUN 17 H Creatinine 0.79 Estim Creat Clear Calc 90.4 Estimated GFR > 60 Random Glucose 156 H Calcium 9.1 Total Bilirubin 0.5 AST 23 ALT 13 Alkaline Phosphatase 66 Total Protein 6.9 Albumin 4.2 Urine Color Yellow Urine Appearance Clear Urine pH 6.0 Ur Specific [place] 1.020 Urine Protein Trace Urine Glucose (UA) Negative Urine Ketones Negative Urine Blood Trace H Urine Nitrite Negative Ur Leukocyte Esterase Small (1+) H Urine RBC 0-2 Urine WBC >50 H Ur Squamous Epith Cells 0-2 Urine Bacteria None Seen Hyaline Casts 0-2 Urine Opiates Screen Not Detected Ur Buprenorphine Scrn Not Detected Ur Oxycodone Screen Not Detected Urine Methadone Screen Not Detected Urine Fentanyl Screen POSITIVE H Ur Barbiturates Screen Not Detected Ur Phencyclidine Scrn Not Detected Ur Amphetamines Screen Not Detected U Benzodiazepines Scrn Not Detected Urine Cocaine Screen POSITIVE H U Marijuana (THC) Screen POSITIVE H Ethyl Alcohol < 10 Meds/Allergies Meds Home Medications ?Medication ?Instructions ?Recorded ?Confirmed ?Type food supplemt, lactose-reduced 237 ea PO BID 02/20/25 02/20/25 History (Ensure oral liquid) ibuprofen 800 mg tablet 800 mg PO TID 02/20/25 02/20/25 History trazodone 150 mg tablet 300 mg PO BEDTIME 02/20/25 02/20/25 History Allergies Allergies Allergy/AdvReac Type Severity Reaction Status Date / Time penicillin G Allergy Unknown UNKNOWN Verified 02/20/25 03:42 Mental Status Exam Mental Status Exam Narrative: Patient is irritable, anxious, depressed, passive engaging in conversation/assessment. Less irritable compared to last admission. Alert and oriented x4. He asked for medication. Encouraged to compliant with medication this time. Speech is within, normal limit normal volume, and rate. Thought content is on treatment, denies SI/SIB/HI/AVH. Poor eye contact-closed during assessment time. Thought processes within normal limit, organized. Assessment & Plan Assessment & Plan (1) Suicidal ideation: Status: Acute Code(s): R45.851 - Suicidal ideations (2) PTSD (post-traumatic stress disorder): Status: Acute Code(s): F43.10 - Post-traumatic stress disorder, unspecified (3) MDD (major depressive disorder), recurrent episode, moderate: Status: Acute Code(s): F33.1 - Major depressive disorder, recurrent, moderate (4) Polysubstance abuse: Status: Acute Code(s): F19.10 - Other psychoactive substance abuse, uncomplicated Plan HPI: Patient is a 59 years old single, Finnish speaking, male who was BIBA to [facility] secondary to SI with a plan but refused to disclose details. Patient had history of MDD, personality disorder, PTSD, IV cocaine use disorder and alcohol use disorder. Reports ongoing cocaine use due to multiple life stressors. Recently being homeless and living in the car for a past month and also stated that he still grieving his girlfriend who last year. Was discharged on M3 last month on 01/20. Same presentation. Formulation/clinical reasoning: SI with plan, did not disclose, increase drug use. Not follow-up with appointments for aftercare, not sure if he has outpatient providers. However last time [facility] came in to visit him. History of MDD, polysubstance use, personality disorder. Given the above information, patient will benefit from restrictive environment for medication management, monitor for withdrawal, refer patient to outpatient aftercare services Hospital course: 02/21/25: Trazodone 50 at bedtime Zyprexa meant 10 mg at bedtime Baclofen 10 mg 3 times a day as needed for withdrawal. Clonidine 0.1 t.i.d. as needed for withdrawal from cocaine/fentanyl use. No severe withdrawal symptoms from fentanyl cocaine use at the current time. Plan Patient on 15 minute checks for safety. Admitted to . CV. Work with treatment team to do collateral for CSS/CCS if possible for aftercare. Refer to patient to substance abuse Patient educated on: diagnosis, medication risk/benefits, substance abuse and therapeutic strategies Informed Consent: understands and further education needed Reason for continued inpatient stay Substantial Risk for: med/psych decompensation Statement Statement: I have reviewed the history and physical and performed a pertinent examination on my patient. No changes have occurred unless specified. If the History and Physical was not performed prior to admission, the Hospitalist's service will be consulted for completing the admission physical. Time Spent With Patient Time: Total time managing care of this patient today ____ minutes.
[2025-02-21 20:00] VITALS: BP 133/75; PULSE 71; RESP 16; TEMP 37.3; O2SAT 98
[2025-02-22 08:00] VITALS: RESP 18
--- NOTE | 2025-02-22 13:47 | HO.PSYCHPN ---
Subjective Subjective Date of Service: 02/22/25 Reason For Visit: SI Subjective Notes: Conditional Voluntary Healthcare Proxy: No Guardianship: No Medical Problems Affecting Mental Status: No Interim History: Medical record and nursing notes reviewed; case discussed during rounds with team/nursing staff, and met with patient for supportive therapy/psychoeducation, as well as medication management. Met with patient in the kitchen, more pleasant upon approach, denies safety concerns or hallucinations but reports I am depressed . Patient said that he will not taking Zyprexa anymore as he does not feel right when he take it. Explained to patient that he took other PRNs combined with the scheduled meds yesterday at the same time which could be too much for him. Reports to the nurse that he takes trazodone 300 at bedtime. He does not remember what trials for antidepressant hx. Per record, was given trazodone 300 last pick up worker was in January. History of taking sertraline 25 mg. Patient also agree to see addiction team regarding treatment and aftercare for substance use. He he good like to go to the substance use treatment program for aftercare. Medication Compliance: Yes Side effects from medications: No Attending Groups: No Review of Systems Acute medical concerns: No Medical Review of Systems: unchanged Review of Systems Review of Systems Patient is not cooperative. No report of N.V. No SOB/Wheezing. No report of pain or NUR. Yes all other systems are reviewed and are negative Mental Status Exam Mental Status Exam Narrative: Patient is less irritable but anxious and depressed, cooperative. Approachable, less irritable. Alert and oriented x4. Encouraged to compliant with medication. Speech is within, normal limit normal volume, and rate. Thought content is on treatment, denies SI/SIB/HI/AVH. Poor eye contact. Thought processes within normal limit, organized, forgetful. Poor judgment and insight. Diagnostics Vital Signs (24Hr): Vital Signs - 24 hr 02/21/25 20:00 02/22/25 08:00 Temperature 99.1 F Pulse Rate 71 Respiratory Rate 16 18 Blood Pressure 133/75 Pulse Oximetry 98 Oxygen Delivery Method Room Air BMI result Body Mass Index 21.3 Labs 02/20/25 04:32 02/20/25 04:32 Medications Medications Current Medications Acetaminophen (Acetaminophen 325 Mg Tablet) 650 mg PO Q6H PRN PRN Reason: Headache/Pain, Scale 1-10 Al Hydroxide/Mg Hydroxide (Magnesium Hydrox/Alum Hydrox 30 Ml Oral.Susp) 30 ml PO Q6H PRN PRN Reason: Heartburn/Nausea Baclofen (Baclofen 10 Mg Tablet) 10 mg PO BID [facility] Last Admin: 02/22/25 11:39 Dose: 10 mg Clonidine HCl (Clonidine Hcl 0.1 Mg Tablet) 0.1 mg PO TID PRN; Protocol PRN Reason: Opioid/KARISHMA W/D Last Admin: 02/21/25 20:05 Dose: 0.1 mg Hydroxyzine HCl (Hydroxyzine Hcl 50 Mg Tablet) 50 mg PO Q6H PRN PRN Reason: mild anxiety Ibuprofen (Ibuprofen 800 Mg Tablet) 800 mg PO TID PRN PRN Reason: svere pain Magnesium Hydroxide (Milk Of Magnesia 30 Ml Oral.Susp) 30 ml PO DAILY PRN PRN Reason: Constipation Nicotine Polacrilex (Nicotine Polacrilex 2 Mg Gum) 2 mg BUCCAL Q2H PRN PRN Reason: Nicotine Cravings Olanzapine (Olanzapine 5 Mg Tablet) 5 mg PO BID PRN PRN Reason: agitation Last Admin: 02/21/25 18:57 Dose: 5 mg Olanzapine (Olanzapine 10 Mg Tablet) 10 mg PO BEDTIME [place] Last Admin: 02/21/25 20:05 Dose: 10 mg Trazodone HCl (Trazodone Hcl 50 Mg Tablet) 50 mg PO BEDTIME MRX1 PRN PRN Reason: Insomnia Trazodone HCl (Trazodone Hcl 50 Mg Tablet) 50 mg PO BEDTIME [facility] Last Admin: 02/21/25 20:05 Dose: 50 mg Allergies Allergies Allergy/AdvReac Type Severity Reaction Status Date / Time penicillin G Allergy Unknown UNKNOWN Verified 02/20/25 03:42 Assessment & Plan Assessment & Plan (1) Suicidal ideation: Status: Acute Code(s): R45.851 - Suicidal ideations (2) PTSD (post-traumatic stress disorder): Status: Acute Code(s): F43.10 - Post-traumatic stress disorder, unspecified (3) MDD (major depressive disorder), recurrent episode, moderate: Status: Acute Code(s): F33.1 - Major depressive disorder, recurrent, moderate (4) Polysubstance abuse: Status: Acute Code(s): F19.10 - Other psychoactive substance abuse, uncomplicated Plan HPI: Patient is a 59 years old single, Austrian speaking, male who was BIBA to [facility] secondary to SI with a plan but refused to disclose details. Patient had history of MDD, personality disorder, PTSD, IV cocaine use disorder and alcohol use disorder. Reports ongoing cocaine use due to multiple life stressors. Recently being homeless and living in the car for a past month and also stated that he still grieving his girlfriend who last year. Was discharged on M3 last month on 01/20. Same presentation. Formulation/clinical reasoning: SI with plan, did not disclose, increase drug use. Not follow-up with appointments for aftercare, not sure if he has outpatient providers. However last time [facility] came in to visit him. History of MDD, polysubstance use, personality disorder. Given the above information, patient will benefit from restrictive environment for medication management, monitor for withdrawal, refer patient to outpatient aftercare services Hospital course: 02/21/25: Trazodone 50 at bedtime for mood Zyprexa meant 10 mg at bedtime Baclofen 10 mg BID for withdrawal/craving Clonidine 0.1 t.i.d. as needed for withdrawal from cocaine/fentanyl use. No severe withdrawal symptoms from fentanyl cocaine use at the current time. 02/22/25: Met with patient in the kitchen, more pleasant upon approach, denies safety concerns or hallucinations but reports I am depressed . Patient said that he will not taking Zyprexa anymore as he does not feel right when he take it. Explained to patient that he took other PRNs combined with the scheduled meds yesterday at the same time which could be too much for him. Reports to the nurse that he takes trazodone 300 at bedtime. He does not remember what trials for antidepressant hx. Per record, was given trazodone 300 last pick up worker was in January. History of taking sertraline 25 mg. Patient also agree to see addiction team regarding treatment and aftercare for substance use. He he good like to go to the substance use treatment program for aftercare. Trazodone 300mg at HS start on 02/23. Sertraline 50mg in the AM for depression. Plan Patient on 15 minute checks for safety. Admitted to . CV. Work with treatment team to do collateral and for CSS/CCS if possible for aftercare. Refer to patient to substance abuse on 02/22/25: pending result. Patient educated on: medication risk/benefits, substance abuse and therapeutic strategies Informed Consent: understands and further education needed Reason for continued inpatient stay Substantial Risk for: med/psych decompensation Time Spent With Patient Time: Total time managing care of this patient today ____ minutes.
[2025-02-23 02:19] VITALS: BP 135/81
[2025-02-23 08:16] VITALS: BP 139/63; PULSE 79; RESP 16; TEMP 37.2; O2SAT 98
--- NOTE | 2025-02-23 09:49 | HO.PSYCHPN ---
Subjective Subjective Date of Service: 02/23/25 Reason For Visit: SI Subjective Notes: Conditional Voluntary Healthcare Proxy: No Guardianship: No Medical Problems Affecting Mental Status: No Interim History: Angry, dismissive allows only a brief meeting, I am miserable, I have never been homeless before. Reports meds are too strong. Asks to increase Trazodone to 300 mg hs which was completed. Hoping for acceptance to [facility]. Upset that his use included Fentanyl- I have nevery had this before-I am going to have to be more careful. Poor sleep last night. Not feeling well today, angry edge. Medication Compliance: Intermittent Side effects from medications: No Attending Groups: No Review of Systems Acute medical concerns: No Medical Review of Systems: unchanged Review of Systems Review of Systems I am miserable Mental Status Exam Mental Status Exam Patient Appearance: Fatigued and Appropriate Patient Orientation: Person, Place, Time and Situation Level of Consciousness: Alert Patient Behavior: Guarded, Talkative, Resistive to Care, Avoidant, Fatigued, Distractible and Poor Eye Contact Mood Description: Constricted and Angry Affect Description: Constricted and Angry Patient Cognition Impaired: No Ability to Follow Directions: Good Speech Pattern: Spontaneous Speech Memory Description: Intact Hallucinations: None Delusions: Not Present Perceptual Disturbances: Derealization Thought Process: Goal Oriented Thought Content: positive for [place], positive for Circumstantial and positive for Suicidal Ideation (denies) Depressive Symptoms: Thoughts of /Suicide (denies) Judgement: Fair Diagnostics Vital Signs (24Hr): Vital Signs - 24 hr 02/23/25 02:19 02/23/25 08:16 Temperature 99.0 F Pulse Rate 79 Respiratory Rate 16 Blood Pressure 135/81 139/63 Pulse Oximetry 98 Oxygen Delivery Method Room Air BMI result Body Mass Index 21.3 Labs 02/20/25 04:32 02/20/25 04:32 Medications Medications Current Medications Acetaminophen (Acetaminophen 325 Mg Tablet) 650 mg PO Q6H PRN PRN Reason: Headache/Pain, Scale 1-10 Al Hydroxide/Mg Hydroxide (Magnesium Hydrox/Alum Hydrox 30 Ml Oral.Susp) 30 ml PO Q6H PRN PRN Reason: Heartburn/Nausea Baclofen (Baclofen 10 Mg Tablet) 10 mg PO BID [place] Last Admin: 02/23/25 08:36 Dose: 10 mg Clonidine HCl (Clonidine Hcl 0.1 Mg Tablet) 0.1 mg PO TID PRN; Protocol PRN Reason: Opioid/KARISHMA W/D Last Admin: 02/23/25 02:19 Dose: 0.1 mg Hydroxyzine HCl (Hydroxyzine Hcl 50 Mg Tablet) 50 mg PO Q6H PRN PRN Reason: mild anxiety Last Admin: 02/23/25 02:19 Dose: 50 mg Ibuprofen (Ibuprofen 800 Mg Tablet) 800 mg PO TID PRN PRN Reason: svere pain Last Admin: 02/23/25 08:39 Dose: 800 mg Magnesium Hydroxide (Milk Of Magnesia 30 Ml Oral.Susp) 30 ml PO DAILY PRN PRN Reason: Constipation Nicotine Polacrilex (Nicotine Polacrilex 2 Mg Gum) 2 mg BUCCAL Q2H PRN PRN Reason: Nicotine Cravings Olanzapine (Olanzapine 5 Mg Tablet) 5 mg PO BID PRN PRN Reason: agitation Last Admin: 02/21/25 18:57 Dose: 5 mg Olanzapine (Olanzapine 10 Mg Tablet) 10 mg PO BEDTIME [place] Last Admin: 02/22/25 22:52 Dose: Not Given Sertraline HCl (Sertraline Hcl 50 Mg Tablet) 50 mg PO DAILY [place] Last Admin: 02/23/25 08:36 Dose: 50 mg Trazodone HCl (Trazodone Hcl 100 Mg Tablet) 300 mg PO BEDTIME [place] Allergies Allergies Allergy/AdvReac Type Severity Reaction Status Date / Time penicillin G Allergy Unknown UNKNOWN Verified 02/20/25 03:42 Assessment & Plan Assessment & Plan (1) Suicidal ideation: Status: Acute Code(s): R45.851 - Suicidal ideations (2) PTSD (post-traumatic stress disorder): Status: Acute Code(s): F43.10 - Post-traumatic stress disorder, unspecified (3) MDD (major depressive disorder), recurrent episode, moderate: Status: Acute Code(s): F33.1 - Major depressive disorder, recurrent, moderate (4) Polysubstance abuse: Status: Acute Code(s): F19.10 - Other psychoactive substance abuse, uncomplicated Plan HPI: Patient is a 59 years old single, Azeri speaking, male who was BIBA to [facility] secondary to SI with a plan but refused to disclose details. Patient had history of MDD, personality disorder, PTSD, IV cocaine use disorder and alcohol use disorder. Reports ongoing cocaine use due to multiple life stressors. Recently being homeless and living in the car for a past month and also stated that he still grieving his girlfriend who last year. Was discharged on M3 last month on 01/20. Same presentation. Formulation/clinical reasoning: SI with plan, did not disclose, increase drug use. Not follow-up with appointments for aftercare, not sure if he has outpatient providers. However last time [facility] came in to visit him. History of MDD, polysubstance use, personality disorder. Given the above information, patient will benefit from restrictive environment for medication management, monitor for withdrawal, refer patient to outpatient aftercare services Hospital course: 02/21/25: Trazodone 50 at bedtime for mood Zyprexa meant 10 mg at bedtime Baclofen 10 mg BID for withdrawal/craving Clonidine 0.1 t.i.d. as needed for withdrawal from cocaine/fentanyl use. No severe withdrawal symptoms from fentanyl cocaine use at the current time. 02/22/25: Met with patient in the kitchen, more pleasant upon approach, denies safety concerns or hallucinations but reports I am depressed . Patient said that he will not taking Zyprexa anymore as he does not feel right when he take it. Explained to patient that he took other PRNs combined with the scheduled meds yesterday at the same time which could be too much for him. Reports to the nurse that he takes trazodone 300 at bedtime. He does not remember what trials for antidepressant hx. 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 History of taking sertraline 25 mg. Patient also agree to see addiction team regarding treatment and aftercare for substance use. He he good like to go to the substance use treatment program for aftercare. Trazodone 300mg at HS start on 02/23. Sertraline 50mg in the AM for depression. 02/23: Continue tx Plan Patient on 15 minute checks for safety. Admitted to M5. CV. Work with treatment team to do collateral and for CSS/CCS if possible for aftercare. Refer to patient to substance abuse on 02/22/25: pending result. Reason for continued inpatient stay Substantial Risk for: rapid decompensation Time Spent With Patient Time: Total time managing care of this patient today ____ minutes.
--- NOTE | 2025-02-23 15:00 | MHC.RECOVRN ---
Pt declined to meet with the ACS team in regards to his substance use. Denied withdrawal symptoms & stated he is not interested in meeting with the provider in regards to MOUD initiation. Pt declined resources and any intervention.
[2025-02-24 17:49] VITALS: BP 127/69
[2025-02-24] MEDS: Magnesium Hydrox/Alum Hydrox 30 ML ORAL.SUSP PO (17:58)
--- NOTE | 2025-02-24 18:05 | P.PNPSI_ITS ---
Subjective Subjective Date of Service: 02/24/25 Reason For Visit: SI Subjective Notes: Conditional Voluntary Healthcare Proxy: No Guardianship: No Medical Problems Affecting Mental Status: No Interim History: Met with pt and Kierra BELLEW. Apologetic, not wanting to administratively discharge, I went to my first group this a.m. I want and need the help . Discussed meds-interested in lamictal, however, decided he will remain with Sertraline. Fears extensive homelessness and is very interested in a program. 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 Medication Compliance: Intermittent Side effects from medications: Yes Attending Groups: Yes Review of Systems Acute medical concerns: No Medical Review of Systems: unchanged Review of Systems Review of Systems denies Mental Status Exam Mental Status Exam Patient Appearance: Fatigued and Appropriate Patient Orientation: Person, Place, Time and Situation Level of Consciousness: Alert Patient Behavior: Appropriate, Talkative, Cooperative, Fatigued and Good Eye Contact Mood Description: Depressed Affect Description: Flat Patient Cognition Impaired: No Ability to Follow Directions: Good Speech Pattern: Spontaneous Speech Memory Description: Intact Hallucinations: None Delusions: Not Present Perceptual Disturbances: Derealization Thought Process: Goal Oriented Thought Content: positive for [place], positive for Circumstantial and positive for Suicidal Ideation (denies) Depressive Symptoms: Thoughts of /Suicide (denies) Judgement: Good Diagnostics Vital Signs (24Hr): Vital Signs - 24 hr 02/24/25 17:49 Blood Pressure 127/69 BMI result Body Mass Index 21.3 Labs 02/20/25 04:32 02/20/25 04:32 Medications Medications Current Medications Acetaminophen (Acetaminophen 325 Mg Tablet) 650 mg PO Q6H PRN PRN Reason: Headache/Pain, Scale 1-10 Al Hydroxide/Mg Hydroxide (Magnesium Hydrox/Alum Hydrox 30 Ml Oral.Susp) 30 ml PO Q6H PRN PRN Reason: Heartburn/Nausea Last Admin: 02/24/25 17:58 Dose: 30 ml Baclofen (Baclofen 10 Mg Tablet) 10 mg PO BID [place] Last Admin: 02/24/25 11:18 Dose: 10 mg Clonidine HCl (Clonidine Hcl 0.1 Mg Tablet) 0.1 mg PO TID PRN; Protocol PRN Reason: Opioid/KARISHMA W/D Last Admin: 02/24/25 17:49 Dose: 0.1 mg Hydroxyzine HCl (Hydroxyzine Hcl 50 Mg Tablet) 50 mg PO Q6H PRN PRN Reason: mild anxiety Last Admin: 02/24/25 17:49 Dose: 50 mg Ibuprofen (Ibuprofen 800 Mg Tablet) 800 mg PO TID PRN PRN Reason: svere pain Last Admin: 02/24/25 17:49 Dose: 800 mg Magnesium Hydroxide (Milk Of Magnesia 30 Ml Oral.Susp) 30 ml PO DAILY PRN PRN Reason: Constipation Nicotine Polacrilex (Nicotine Polacrilex 2 Mg Gum) 2 mg BUCCAL Q2H PRN PRN Reason: Nicotine Cravings Olanzapine (Olanzapine 5 Mg Tablet) 5 mg PO BID PRN PRN Reason: agitation Last Admin: 02/21/25 18:57 Dose: 5 mg Olanzapine (Olanzapine 10 Mg Tablet) 10 mg PO BEDTIME [place] Last Admin: 02/23/25 22:08 Dose: Not Given Sertraline HCl (Sertraline Hcl 50 Mg Tablet) 50 mg PO DAILY [place] Last Admin: 02/24/25 11:18 Dose: 50 mg Trazodone HCl (Trazodone Hcl 100 Mg Tablet) 300 mg PO BEDTIME [place] Last Admin: 02/23/25 22:06 Dose: 300 mg Allergies Allergies Allergy/AdvReac Type Severity Reaction Status Date / Time penicillin G Allergy Unknown UNKNOWN Verified 02/20/25 03:42 Assessment & Plan Assessment & Plan (1) Suicidal ideation: Status: Acute Code(s): R45.851 - Suicidal ideations (2) PTSD (post-traumatic stress disorder): Status: Acute Code(s): F43.10 - Post-traumatic stress disorder, unspecified (3) MDD (major depressive disorder), recurrent episode, moderate: Status: Acute Code(s): F33.1 - Major depressive disorder, recurrent, moderate (4) Polysubstance abuse: Status: Acute Code(s): F19.10 - Other psychoactive substance abuse, uncomplicated Plan HPI: Patient is a 59 years old single, Frisian speaking, male who was [place] [facility] secondary to SI with a plan but refused to disclose details. Patient had history of MDD, personality disorder, PTSD, IV cocaine use disorder and alcohol use disorder. Reports ongoing cocaine use due to multiple life stressors. Recently being homeless and living in the car for a past month and also stated that he still grieving his girlfriend who last year. Was discharged on M3 last month on 01/20. Same presentation. Formulation/clinical reasoning: SI with plan, did not disclose, increase drug use. Not follow-up with appointments for aftercare, not sure if he has outpatient providers. However last time [facility] came in to visit him. History of MDD, polysubstance use, personality disorder. Given the above information, patient will benefit from restrictive environment for medication management, monitor for withdrawal, refer patient to outpatient aftercare services Hospital course: 02/21/25: Trazodone 50 at bedtime for mood Zyprexa meant 10 mg at bedtime Baclofen 10 mg BID for withdrawal/craving Clonidine 0.1 t.i.d. as needed for withdrawal from cocaine/fentanyl use. No severe withdrawal symptoms from fentanyl cocaine use at the current time. 02/22/25: Met with patient in the kitchen, more pleasant upon approach, denies safety concerns or hallucinations but reports I am depressed . Patient said that he will not taking Zyprexa anymore as he does not feel right when he take it. Explained to patient that he took other PRNs combined with the scheduled meds yesterday at the same time which could be too much for him. Reports to the nurse that he takes trazodone 300 at bedtime. He does not remember what trials for antidepressant hx. 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 History of taking sertraline 25 mg. Patient also agree to see addiction team regarding treatment and aftercare for substance use. He he good like to go to the substance use treatment program for aftercare. Trazodone 300mg at HS start on 02/23. Sertraline 50mg in the AM for depression. 02/24: Continue tx Plan Patient on 15 minute checks for safety. Admitted to M5. CV. Work with treatment team to do collateral and for CSS/CCS if possible for aftercare. Refer to patient to substance abuse on 02/22/25: pending result. Reason for continued inpatient stay Substantial Risk for: rapid decompensation Time Spent With Patient Time: Total time managing care of this patient today ____ minutes.
[2025-02-25 07:58] VITALS: BP 122/61; PULSE 76; RESP 18; TEMP 37.1; O2SAT 98
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
[2025-02-25 19:20] VITALS: BP 180/92
[2025-02-25 20:00] VITALS: BP 145/77; PULSE 70; RESP 18; TEMP 36.7; O2SAT 97
[2025-02-26 07:00] VITALS: BMI 25.9
[2025-02-26 08:00] VITALS: BP 148/94; PULSE 71; RESP 16; TEMP 36.9; O2SAT 99
--- NOTE | 2025-02-26 16:06 | P.PNPSI_ITS ---
Subjective Subjective Date of Service: 02/26/25 Reason For Visit: SI Subjective Notes: Conditional Voluntary Healthcare Proxy: No Guardianship: No Medical Problems Affecting Mental Status: No Interim History: Discussed meds with pt who is anxious, apprehensive today. Asks for a scheduled benzodiazepine. Given Ativan 2 mg x 1 dose. Discussed with pt that this is not a med we would give regularly. Pt settled on Lamictal to begin bid this evening to begin to address anxiety. Visited with his friend today who is helping him remove his car from the road. Hopeful yet very apprehensive and anxious about program options. I will need to be able to smoke there. Medication Compliance: Yes Side effects from medications: No Attending Groups: Intermittent Review of Systems Acute medical concerns: No Medical Review of Systems: unchanged Review of Systems Review of Systems denies Mental Status Exam Mental Status Exam Patient Appearance: Appropriate Patient Orientation: Person, Place, Time and Situation Level of Consciousness: Alert Patient Behavior: Appropriate, Talkative, Cooperative and Good Eye Contact Mood Description: Depressed, Anxious and Apprehensive Affect Description: Anxious and Apprehensive Patient Cognition Impaired: No Ability to Follow Directions: Good Speech Pattern: Spontaneous Speech Memory Description: Intact Hallucinations: None Delusions: Not Present Perceptual Disturbances: Depersonalization and Derealization Thought Process: Goal Oriented Thought Content: positive for [place], positive for Circumstantial and positive for Suicidal Ideation (denies) Depressive Symptoms: Thoughts of /Suicide (denies) Judgement: Good Diagnostics Vital Signs (24Hr): Vital Signs - 24 hr 02/25/25 19:20 02/25/25 20:00 02/26/25 08:00 Temperature 98.1 F 98.4 F Pulse Rate 70 71 Respiratory Rate 18 16 Blood Pressure 180/92 H 145/77 H 148/94 H Pulse Oximetry 97 99 Oxygen Delivery Method Room Air Room Air BMI result Body Mass Index 25.9 Labs 02/20/25 04:32 02/20/25 04:32 Medications Medications Current Medications Acetaminophen (Acetaminophen 325 Mg Tablet) 650 mg PO Q6H PRN PRN Reason: Headache/Pain, Scale 1-10 Al Hydroxide/Mg Hydroxide (Magnesium Hydrox/Alum Hydrox 30 Ml Oral.Susp) 30 ml PO Q6H PRN PRN Reason: Heartburn/Nausea Last Admin: 02/24/25 17:58 Dose: 30 ml Baclofen (Baclofen 10 Mg Tablet) 10 mg PO BID [facility] Last Admin: 02/26/25 08:03 Dose: 10 mg Clonidine HCl (Clonidine Hcl 0.1 Mg Tablet) 0.1 mg PO TID PRN; Protocol PRN Reason: Opioid/KARISHMA W/D Last Admin: 02/25/25 19:20 Dose: 0.1 mg Hydroxyzine HCl (Hydroxyzine Hcl 50 Mg Tablet) 50 mg PO Q6H PRN PRN Reason: mild anxiety Last Admin: 02/25/25 19:20 Dose: 50 mg Ibuprofen (Ibuprofen 800 Mg Tablet) 800 mg PO TID PRN PRN Reason: svere pain Last Admin: 02/26/25 08:24 Dose: 800 mg Lamotrigine (Lamotrigine 25 Mg Tablet) 25 mg PO BID [facility] Magnesium Hydroxide (Milk Of Magnesia 30 Ml Oral.Susp) 30 ml PO DAILY PRN PRN Reason: Constipation Nicotine Polacrilex (Nicotine Polacrilex 2 Mg Gum) 2 mg BUCCAL Q2H PRN PRN Reason: Nicotine Cravings Olanzapine (Olanzapine 5 Mg Tablet) 5 mg PO BID PRN PRN Reason: agitation Last Admin: 02/21/25 18:57 Dose: 5 mg Sertraline HCl (Sertraline Hcl 50 Mg Tablet) 50 mg PO DAILY [facility] Last Admin: 02/26/25 08:03 Dose: 50 mg Trazodone HCl (Trazodone Hcl 100 Mg Tablet) 300 mg PO BEDTIME [facility] Last Admin: 02/25/25 19:53 Dose: 300 mg Allergies Allergies Allergy/AdvReac Type Severity Reaction Status Date / Time penicillin G Allergy Unknown UNKNOWN Verified 02/20/25 03:42 Assessment & Plan Assessment & Plan (1) Suicidal ideation: Status: Acute Code(s): R45.851 - Suicidal ideations (2) PTSD (post-traumatic stress disorder): Status: Acute Code(s): F43.10 - Post-traumatic stress disorder, unspecified (3) MDD (major depressive disorder), recurrent episode, moderate: Status: Acute Code(s): F33.1 - Major depressive disorder, recurrent, moderate (4) Polysubstance abuse: Status: Acute Code(s): F19.10 - Other psychoactive substance abuse, uncomplicated Plan HPI: Patient is a 59 years old single, Scottish speaking, male who was [place] [facility] secondary to SI with a plan but refused to disclose details. Patient had history of MDD, personality disorder, PTSD, IV cocaine use disorder and alcohol use disorder. Reports ongoing cocaine use due to multiple life stressors. Recently being homeless and living in the car for a past month and also stated that he still grieving his girlfriend who last year. Was discharged on M3 last month on 01/20. Same presentation. Formulation/clinical reasoning: SI with plan, did not disclose, increase drug use. Not follow-up with appointments for aftercare, not sure if he has outpatient providers. However last time [facility] came in to visit him. History of MDD, polysubstance use, personality disorder. Given the above information, patient will benefit from restrictive environment for medication management, monitor for withdrawal, refer patient to outpatient aftercare services Hospital course: 02/21/25: Trazodone 50 at bedtime for mood Zyprexa meant 10 mg at bedtime Baclofen 10 mg BID for withdrawal/craving Clonidine 0.1 t.i.d. as needed for withdrawal from cocaine/fentanyl use. No severe withdrawal symptoms from fentanyl cocaine use at the current time. 02/22/25: Met with patient in the kitchen, more pleasant upon approach, denies safety concerns or hallucinations but reports I am depressed . Patient said that he will not taking Zyprexa anymore as he does not feel right when he take it. Explained to patient that he took other PRNs combined with the scheduled meds yesterday at the same time which could be too much for him. Reports to the nurse that he takes trazodone 300 at bedtime. He does not remember what trials for antidepressant hx. 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 History of taking sertraline 25 mg. Patient also agree to see addiction team regarding treatment and aftercare for substance use. He he good like to go to the substance use treatment program for aftercare. Trazodone 300mg at HS start on 02/23. Sertraline 50mg in the AM for depression. 02/24: Continue tx 02/25: Continue tx. Pt will not consider further medication/mood stabilizer interventions at this time. 02/26: Lamictal 25 mg bid Plan Patient on 15 minute checks for safety. Admitted to . CV. Work with treatment team to do collateral and for CSS/CCS if possible for aftercare. Refer to patient to substance abuse on 02/22/25: pending result. Reason for continued inpatient stay Substantial Risk for: rapid decompensation Time Spent With Patient Time: Total time managing care of this patient today ____ minutes.
[2025-02-26] MEDS: Magnesium Hydrox/Alum Hydrox 30 ML ORAL.SUSP PO (20:24)
[2025-02-27 08:00] VITALS: RESP 15
[2025-02-27 12:04] VITALS: BP 135/74
--- NOTE | 2025-02-27 12:41 | P.PNPSI_ITS ---
Subjective Subjective Date of Service: 02/27/25 Reason For Visit: SI Subjective Notes: Conditional Voluntary Healthcare Proxy: No Guardianship: No Medical Problems Affecting Mental Status: No Interim History: Tolerating Lamictal. Asking for a medication to help with sleep-discussed and pt has decided against this at this time. Irritable and caustic at times. Team has applied to several programs on his behalf for ongoing treatment. Encouraged to attend groups and maximize participation in the milieu. Medication Compliance: Yes Side effects from medications: No Attending Groups: No Review of Systems Acute medical concerns: No Medical Review of Systems: unchanged Review of Systems Review of Systems Denies Mental Status Exam Mental Status Exam Patient Appearance: Appropriate Patient Orientation: Person, Place, Time and Situation Level of Consciousness: Alert Patient Behavior: Appropriate, Talkative, Cooperative and Good Eye Contact Mood Description: Depressed, Anxious and Apprehensive Affect Description: Anxious and Apprehensive Patient Cognition Impaired: No Ability to Follow Directions: Good Speech Pattern: Spontaneous Speech Memory Description: Intact Hallucinations: None Delusions: Not Present Perceptual Disturbances: Depersonalization and Derealization Thought Process: Goal Oriented Thought Content: positive for Trail, positive for Circumstantial and positive for Suicidal Ideation (denies) Depressive Symptoms: Thoughts of /Suicide (denies) Judgement: Good Diagnostics Vital Signs (24Hr): Vital Signs - 24 hr 02/27/25 08:00 02/27/25 12:04 Respiratory Rate 15 Blood Pressure 135/74 BMI result Body Mass Index 25.9 Labs 02/20/25 04:32 02/20/25 04:32 Medications Medications Current Medications Acetaminophen (Acetaminophen 325 Mg Tablet) 650 mg PO Q6H PRN PRN Reason: Headache/Pain, Scale 1-10 Al Hydroxide/Mg Hydroxide (Magnesium Hydrox/Alum Hydrox 30 Ml Oral.Susp) 30 ml PO Q6H PRN PRN Reason: Heartburn/Nausea Last Admin: 02/26/25 20:24 Dose: 30 ml Baclofen (Baclofen 10 Mg Tablet) 10 mg PO BID [place] Last Admin: 02/27/25 08:43 Dose: 10 mg Clonidine HCl (Clonidine Hcl 0.1 Mg Tablet) 0.1 mg PO TID PRN; Protocol PRN Reason: Opioid/KARISHMA W/D Last Admin: 02/27/25 12:04 Dose: 0.1 mg Hydroxyzine HCl (Hydroxyzine Hcl 50 Mg Tablet) 50 mg PO Q6H PRN PRN Reason: mild anxiety Last Admin: 02/27/25 12:04 Dose: 50 mg Ibuprofen (Ibuprofen 800 Mg Tablet) 800 mg PO TID PRN PRN Reason: svere pain Last Admin: 02/27/25 06:26 Dose: 800 mg Lamotrigine (Lamotrigine 25 Mg Tablet) 25 mg PO BID [facility] Last Admin: 02/27/25 08:42 Dose: 25 mg Magnesium Hydroxide (Milk Of Magnesia 30 Ml Oral.Susp) 30 ml PO DAILY PRN PRN Reason: Constipation Nicotine Polacrilex (Nicotine Polacrilex 2 Mg Gum) 2 mg BUCCAL Q2H PRN PRN Reason: Nicotine Cravings Sertraline HCl (Sertraline Hcl 50 Mg Tablet) 50 mg PO DAILY [facility] Last Admin: 02/27/25 08:43 Dose: 50 mg Trazodone HCl (Trazodone Hcl 100 Mg Tablet) 300 mg PO BEDTIME [facility] Last Admin: 02/26/25 20:22 Dose: 300 mg Allergies Allergies Allergy/AdvReac Type Severity Reaction Status Date / Time penicillin G Allergy Unknown UNKNOWN Verified 02/20/25 03:42 Assessment & Plan Assessment & Plan (1) Suicidal ideation: Status: Acute Code(s): R45.851 - Suicidal ideations (2) PTSD (post-traumatic stress disorder): Status: Acute Code(s): F43.10 - Post-traumatic stress disorder, unspecified (3) MDD (major depressive disorder), recurrent episode, moderate: Status: Acute Code(s): F33.1 - Major depressive disorder, recurrent, moderate (4) Polysubstance abuse: Status: Acute Code(s): F19.10 - Other psychoactive substance abuse, uncomplicated Plan HPI: Patient is a 59 years old single, [place]er speaking, male who was BIBA to [facility] secondary to SI with a plan but refused to disclose details. Patient had history of MDD, personality disorder, PTSD, IV cocaine use disorder and alcohol use disorder. Reports ongoing cocaine use due to multiple life stressors. Recently being homeless and living in the car for a past month and also stated that he still grieving his girlfriend who last year. Was discharged on M3 last month on 01/20. Same presentation. Formulation/clinical reasoning: SI with plan, did not disclose, increase drug use. Not follow-up with appointments for aftercare, not sure if he has outpatient providers. However last time [facility] came in to visit him. History of MDD, polysubstance use, personality disorder. Given the above information, patient will benefit from restrictive environment for medication management, monitor for withdrawal, refer patient to outpatient aftercare services Hospital course: 02/21/25: Trazodone 50 at bedtime for mood Zyprexa meant 10 mg at bedtime Baclofen 10 mg BID for withdrawal/craving Clonidine 0.1 t.i.d. as needed for withdrawal from cocaine/fentanyl use. No severe withdrawal symptoms from fentanyl cocaine use at the current time. 02/22/25: Met with patient in the kitchen, more pleasant upon approach, denies safety concerns or hallucinations but reports I am depressed . Patient said that he will not taking Zyprexa anymore as he does not feel right when he take it. Explained to patient that he took other PRNs combined with the scheduled meds yesterday at the same time which could be too much for him. Reports to the nurse that he takes trazodone 300 at bedtime. He does not remember what trials for antidepressant hx. Per record, was given trazodone 300 last picker was in January. History of taking sertraline 25 mg. Patient also agree to see addiction team regarding treatment and aftercare for substance use. He he good like to go to the substance use treatment program for aftercare. Trazodone 300mg at HS start on 02/23. Sertraline 50mg in the AM for depression. 02/24: Continue tx 02/25: Continue tx. Pt will not consider further medication/mood stabilizer interventions at this time. 02/26: Lamictal 25 mg bid 02/27: Continue tx Plan Patient on 15 minute checks for safety. Admitted to . CV. Work with treatment team to do collateral and for CSS/CCS if possible for aftercare. Refer to patient to substance abuse on 02/22/25: pending result. Reason for continued inpatient stay Substantial Risk for: rapid decompensation Time Spent With Patient Time: Total time managing care of this patient today ____ minutes.
[2025-02-27 18:34] VITALS: BP 115/77
[2025-02-27 20:00] VITALS: BP 115/77; PULSE 102; RESP 20; TEMP 37; O2SAT 100
[2025-02-28 08:00] VITALS: BP 107/64; PULSE 72; RESP 18; TEMP 36.8; O2SAT 98
--- NOTE | 2025-02-28 13:44 | P.PNPSI_ITS ---
Subjective Subjective Date of Service: 02/28/25 Reason For Visit: SI Interim History: Social with peers. irritable. focused on obtaining benzodiazepines; spoke of alternatives for his anxiety. Pt requested increase in his hydroxyzine; hydroxyzine increased to 75mg PO Q6HR PRN. Patient stated, I'm at a point where I just want to go. I'm trying to stay long enough to go to a program .continue tx plan. Medication Compliance: Yes Side effects from medications: No Mental Status Exam Mental Status Exam Patient Appearance: Appropriate Patient Orientation: Person, Place, Time and Situation Level of Consciousness: Awake and Alert Patient Behavior: Guarded, Cooperative and Pacing Mood Description: Anxious Affect Description: Constricted Ability to Follow Directions: Good Speech Pattern: Clear Memory Description: Intact Hallucinations: None Delusions: Not Present Thought Process: Intact Thought Content: positive for Intact Diagnostics Vital Signs (24Hr): Vital Signs - 24 hr 02/27/25 18:34 02/27/25 20:00 02/28/25 08:00 Temperature 98.6 F 98.2 F Pulse Rate 102 H 72 Respiratory Rate 20 18 Blood Pressure 115/77 115/77 107/64 Pulse Oximetry 100 98 Oxygen Delivery Method Room Air BMI result Body Mass Index 25.9 Labs 02/20/25 04:32 02/20/25 04:32 Medications Medications Current Medications Acetaminophen (Acetaminophen 325 Mg Tablet) 650 mg PO Q6H PRN PRN Reason: Headache/Pain, Scale 1-10 Al Hydroxide/Mg Hydroxide (Magnesium Hydrox/Alum Hydrox 30 Ml Oral.Susp) 30 ml PO Q6H PRN PRN Reason: Heartburn/Nausea Last Admin: 02/26/25 20:24 Dose: 30 ml Baclofen (Baclofen 10 Mg Tablet) 10 mg PO BID [place] Last Admin: 02/28/25 08:15 Dose: 10 mg Clonidine HCl (Clonidine Hcl 0.1 Mg Tablet) 0.1 mg PO TID PRN; Protocol PRN Reason: Opioid/KARISHMA W/D Last Admin: 02/27/25 18:34 Dose: 0.1 mg Hydroxyzine HCl (Hydroxyzine Hcl 25 Mg Tablet) 75 mg PO Q6H PRN PRN Reason: mild anxiety Last Admin: 02/28/25 12:42 Dose: 75 mg Ibuprofen (Ibuprofen 800 Mg Tablet) 800 mg PO TID PRN PRN Reason: svere pain Last Admin: 02/28/25 07:24 Dose: 800 mg Lamotrigine (Lamotrigine 25 Mg Tablet) 25 mg PO BID [facility] Last Admin: 02/28/25 08:15 Dose: 25 mg Magnesium Hydroxide (Milk Of Magnesia 30 Ml Oral.Susp) 30 ml PO DAILY PRN PRN Reason: Constipation Nicotine Polacrilex (Nicotine Polacrilex 2 Mg Gum) 2 mg BUCCAL Q2H PRN PRN Reason: Nicotine Cravings Sertraline HCl (Sertraline Hcl 50 Mg Tablet) 50 mg PO DAILY [facility] Last Admin: 02/28/25 08:15 Dose: 50 mg Trazodone HCl (Trazodone Hcl 100 Mg Tablet) 300 mg PO BEDTIME [facility] Last Admin: 02/27/25 20:24 Dose: 300 mg Allergies Allergies Allergy/AdvReac Type Severity Reaction Status Date / Time penicillin G Allergy Unknown UNKNOWN Verified 02/20/25 03:42 Assessment & Plan Assessment & Plan (1) Suicidal ideation: Status: Acute Code(s): R45.851 - Suicidal ideations (2) PTSD (post-traumatic stress disorder): Status: Acute Code(s): F43.10 - Post-traumatic stress disorder, unspecified (3) MDD (major depressive disorder), recurrent episode, moderate: Status: Acute Code(s): F33.1 - Major depressive disorder, recurrent, moderate (4) Polysubstance abuse: Status: Acute Code(s): F19.10 - Other psychoactive substance abuse, uncomplicated Plan HPI: Patient is a 59 years old single, Welsh speaking, male who was BIBA to [facility] secondary to SI with a plan but refused to disclose details. Patient had history of MDD, personality disorder, PTSD, IV cocaine use disorder and alcohol use disorder. Reports ongoing cocaine use due to multiple life stressors. Recently being homeless and living in the car for a past month and also stated that he still grieving his girlfriend who last year. Was discharged on M3 last month on 01/20. Same presentation. Formulation/clinical reasoning: SI with plan, did not disclose, increase drug use. Not follow-up with appointments for aftercare, not sure if he has outpatient providers. However last time [facility] came in to visit him. History of MDD, polysubstance use, personality disorder. Given the above information, patient will benefit from restrictive environment for medication management, monitor for withdrawal, refer patient to outpatient aftercare services Hospital course: 02/21/25: Trazodone 50 at bedtime for mood Zyprexa meant 10 mg at bedtime Baclofen 10 mg BID for withdrawal/craving Clonidine 0.1 t.i.d. as needed for withdrawal from cocaine/fentanyl use. No severe withdrawal symptoms from fentanyl cocaine use at the current time. 02/22/25: Met with patient in the kitchen, more pleasant upon approach, denies safety concerns or hallucinations but reports I am depressed . Patient said that he will not taking Zyprexa anymore as he does not feel right when he take it. Explained to patient that he took other PRNs combined with the scheduled meds yesterday at the same time which could be too much for him. Reports to the nurse that he takes trazodone 300 at bedtime. He does not remember what trials for antidepressant hx. Per record, was given trazodone 300 last draft roller picker was in January. History of taking sertraline 25 mg. Patient also agree to see addiction team regarding treatment and aftercare for substance use. He he good like to go to the substance use treatment program for aftercare. Trazodone 300mg at HS start on 02/23. Sertraline 50mg in the AM for depression. 02/24: Continue tx 02/25: Continue tx. Pt will not consider further medication/mood stabilizer interventions at this time. 02/26: Lamictal 25 mg bid 02/27: Continue tx 02/28: continue tx plan Plan Patient on 15 minute checks for safety. Admitted to . CV. Work with treatment team to do collateral and for CSS/CCS if possible for aftercare. Refer to patient to substance abuse on 02/22/25: pending result. Patient educated on: diagnosis, medication risk/benefits and therapeutic strategies Reason for continued inpatient stay Substantial Risk for: med/psych decompensation Time Spent With Patient Time: Total time managing care of this patient today _15___ minutes.
[2025-02-28 14:31] VITALS: BP 122/85
[2025-03-01 08:00] VITALS: RESP 18
[2025-03-01 10:42] VITALS: BP 118/69
--- NOTE | 2025-03-01 11:45 | P.PNPSI_ITS ---
Subjective Subjective Date of Service: 03/01/25 Reason For Visit: SI Interim History: Social with peers. irritable. Patient believes he does not need to be on a psychiatric unit. pt stated, Today I'm acting like I'm schizophrenic. I don't need to be on this unit. I don't have a mental illness. I just needed to detox . pacing unit hallway. continue tx plan. Medication Compliance: Yes Side effects from medications: No Mental Status Exam Mental Status Exam Patient Appearance: Appropriate Patient Orientation: Person, Place, Time and Situation Level of Consciousness: Awake and Alert Patient Behavior: Guarded, Cooperative, Good Eye Contact and Pacing Mood Description: Calm Affect Description: Constricted Patient Cognition Impaired: No Ability to Follow Directions: Good Speech Pattern: Clear Memory Description: Intact Hallucinations: None Delusions: Not Present Thought Process: Intact Thought Content: positive for Intact Diagnostics Vital Signs (24Hr): Vital Signs - 24 hr 02/28/25 14:31 03/01/25 08:00 03/01/25 10:42 Respiratory Rate 18 Blood Pressure 122/85 118/69 BMI result Body Mass Index 25.9 Labs 02/20/25 04:32 02/20/25 04:32 Medications Medications Current Medications Acetaminophen (Acetaminophen 325 Mg Tablet) 650 mg PO Q6H PRN PRN Reason: Headache/Pain, Scale 1-10 Al Hydroxide/Mg Hydroxide (Magnesium Hydrox/Alum Hydrox 30 Ml Oral.Susp) 30 ml PO Q6H PRN PRN Reason: Heartburn/Nausea Last Admin: 02/26/25 20:24 Dose: 30 ml Baclofen (Baclofen 10 Mg Tablet) 10 mg PO BID [place] Last Admin: 03/01/25 08:03 Dose: 10 mg Clonidine HCl (Clonidine Hcl 0.1 Mg Tablet) 0.1 mg PO TID PRN; Protocol PRN Reason: Opioid/KARISHMA W/D Last Admin: 03/01/25 10:42 Dose: 0.1 mg Hydroxyzine HCl (Hydroxyzine Hcl 25 Mg Tablet) 75 mg PO Q6H PRN PRN Reason: mild anxiety Last Admin: 03/01/25 10:42 Dose: 75 mg Ibuprofen (Ibuprofen 800 Mg Tablet) 800 mg PO TID PRN PRN Reason: svere pain Last Admin: 03/01/25 08:04 Dose: 800 mg Lamotrigine (Lamotrigine 25 Mg Tablet) 25 mg PO BID [facility] Last Admin: 03/01/25 08:03 Dose: 25 mg Magnesium Hydroxide (Milk Of Magnesia 30 Ml Oral.Susp) 30 ml PO DAILY PRN PRN Reason: Constipation Nicotine Polacrilex (Nicotine Polacrilex 2 Mg Gum) 2 mg BUCCAL Q2H PRN PRN Reason: Nicotine Cravings Sertraline HCl (Sertraline Hcl 50 Mg Tablet) 50 mg PO DAILY [facility] Last Admin: 03/01/25 08:03 Dose: 50 mg Trazodone HCl (Trazodone Hcl 100 Mg Tablet) 300 mg PO BEDTIME [facility] Last Admin: 02/28/25 20:13 Dose: 300 mg Allergies Allergies Allergy/AdvReac Type Severity Reaction Status Date / Time penicillin G Allergy Unknown UNKNOWN Verified 02/20/25 03:42 Assessment & Plan Assessment & Plan (1) Suicidal ideation: Status: Acute Code(s): R45.851 - Suicidal ideations (2) PTSD (post-traumatic stress disorder): Status: Acute Code(s): F43.10 - Post-traumatic stress disorder, unspecified (3) MDD (major depressive disorder), recurrent episode, moderate: Status: Acute Code(s): F33.1 - Major depressive disorder, recurrent, moderate (4) Polysubstance abuse: Status: Acute Code(s): F19.10 - Other psychoactive substance abuse, uncomplicated Plan HPI: Patient is a 59 years old single, [place]ian speaking, male who was [place] [facility] secondary to SI with a plan but refused to disclose details. Patient had history of MDD, personality disorder, PTSD, IV cocaine use disorder and alcohol use disorder. Reports ongoing cocaine use due to multiple life stressors. Recently being homeless and living in the car for a past month and also stated that he still grieving his girlfriend who last year. Was discharged on M3 last month on 01/20. Same presentation. Formulation/clinical reasoning: SI with plan, did not disclose, increase drug use. Not follow-up with appointments for aftercare, not sure if he has outpatient providers. However last time [facility] came in to visit him. History of MDD, polysubstance use, personality disorder. Given the above information, patient will benefit from restrictive environment for medication management, monitor for withdrawal, refer patient to outpatient aftercare services Hospital course: 02/21/25: Trazodone 50 at bedtime for mood Zyprexa meant 10 mg at bedtime Baclofen 10 mg BID for withdrawal/craving Clonidine 0.1 t.i.d. as needed for withdrawal from cocaine/fentanyl use. No severe withdrawal symptoms from fentanyl cocaine use at the current time. 02/22/25: Met with patient in the kitchen, more pleasant upon approach, denies safety concerns or hallucinations but reports I am depressed . Patient said that he will not taking Zyprexa anymore as he does not feel right when he take it. Explained to patient that he took other PRNs combined with the scheduled meds yesterday at the same time which could be too much for him. Reports to the nurse that he takes trazodone 300 at bedtime. He does not remember what trials for antidepressant hx. Per record, was given trazodone 300 last bead picker was in January. History of taking sertraline 25 mg. Patient also agree to see addiction team regarding treatment and aftercare for substance use. He he good like to go to the substance use treatment program for aftercare. Trazodone 300mg at HS start on 02/23. Sertraline 50mg in the AM for depression. 02/24: Continue tx 02/25: Continue tx. Pt will not consider further medication/mood stabilizer interventions at this time. 02/26: Lamictal 25 mg bid 02/27: Continue tx 02/28: continue tx plan 03/01: Social with peers. irritable. Patient believes he does not need to be on a psychiatric unit. pt stated, Today I'm acting like I'm schizophrenic. I don't need to be on this unit. I don't have a mental illness. I just needed to detox . pacing unit hallway. continue tx plan. Plan Patient on 15 minute checks for safety. Admitted to M5. CV. Work with treatment team to do collateral and for CSS/CCS if possible for aftercare. Refer to patient to substance abuse on 02/22/25: pending result. Patient educated on: diagnosis and medication risk/benefits Reason for continued inpatient stay Substantial Risk for: med/psych decompensation Time Spent With Patient Time: Total time managing care of this patient today _15___ minutes.
[2025-03-02 08:00] VITALS: RESP 15
--- NOTE | 2025-03-02 09:44 | HO.PSYCHPN ---
Subjective Subjective Date of Service: 03/02/25 Reason For Visit: SI Subjective Notes: Conditional Voluntary Healthcare Proxy: No Guardianship: No Medical Problems Affecting Mental Status: No Interim History: Pt reports feeling irritable as his visitory purchased energy drinks for him over the weekend and they are not allowed on the unit. Explained rationale for this policy, however, pt disagres and believes this to be a violation of his human rights. Discussed the process of filing a complaint which he will consider. Team reports some name calling over the weekend to peers and team. He has been accepted to [facility], however currently there are no beds. He reports anxiety as he continues to hope for a program. Denies SI,HI,AH,VH Medication Compliance: Yes Side effects from medications: No Attending Groups: Intermittent Review of Systems Acute medical concerns: No Review of Systems Review of Systems Denies Mental Status Exam Mental Status Exam Patient Appearance: Appropriate Patient Orientation: Person, Place, Time and Situation Level of Consciousness: Awake and Alert Patient Behavior: Guarded, Cooperative, Good Eye Contact and Pacing Mood Description: Calm Affect Description: Constricted Patient Cognition Impaired: No Ability to Follow Directions: Good Speech Pattern: Clear Memory Description: Intact Hallucinations: None Delusions: Not Present Thought Process: Intact Thought Content: positive for Intact Diagnostics Vital Signs (24Hr): Vital Signs - 24 hr 03/01/25 10:42 03/02/25 08:00 Respiratory Rate 15 Blood Pressure 118/69 BMI result Body Mass Index 25.9 Labs 02/20/25 04:32 02/20/25 04:32 Medications Medications Current Medications Acetaminophen (Acetaminophen 325 Mg Tablet) 650 mg PO Q6H PRN PRN Reason: Headache/Pain, Scale 1-10 Al Hydroxide/Mg Hydroxide (Magnesium Hydrox/Alum Hydrox 30 Ml Oral.Susp) 30 ml PO Q6H PRN PRN Reason: Heartburn/Nausea Last Admin: 02/26/25 20:24 Dose: 30 ml Baclofen (Baclofen 10 Mg Tablet) 10 mg PO BID [place] Last Admin: 03/02/25 09:24 Dose: 10 mg Clonidine HCl (Clonidine Hcl 0.1 Mg Tablet) 0.1 mg PO TID PRN; Protocol PRN Reason: Opioid/KARISHMA W/D Last Admin: 03/01/25 10:42 Dose: 0.1 mg Clotrimazole (Clotrimazole 1 % Cream 15 Gm Tube) 1 appl TOPICAL BID [place]; Protocol Hydroxyzine HCl (Hydroxyzine Hcl 25 Mg Tablet) 75 mg PO Q6H PRN PRN Reason: mild anxiety Last Admin: 03/02/25 09:24 Dose: 75 mg Ibuprofen (Ibuprofen 800 Mg Tablet) 800 mg PO TID PRN PRN Reason: svere pain Last Admin: 03/02/25 07:15 Dose: 800 mg Lamotrigine (Lamotrigine 25 Mg Tablet) 25 mg PO BID [facility] Last Admin: 03/02/25 09:24 Dose: 25 mg Magnesium Hydroxide (Milk Of Magnesia 30 Ml Oral.Susp) 30 ml PO DAILY PRN PRN Reason: Constipation Nicotine Polacrilex (Nicotine Polacrilex 2 Mg Gum) 2 mg BUCCAL Q2H PRN PRN Reason: Nicotine Cravings Sertraline HCl (Sertraline Hcl 50 Mg Tablet) 50 mg PO DAILY [facility] Last Admin: 03/02/25 09:24 Dose: 50 mg Trazodone HCl (Trazodone Hcl 100 Mg Tablet) 300 mg PO BEDTIME [facility] Last Admin: 03/01/25 20:05 Dose: 300 mg Allergies Allergies Allergy/AdvReac Type Severity Reaction Status Date / Time penicillin G Allergy Unknown UNKNOWN Verified 02/20/25 03:42 Assessment & Plan Assessment & Plan (1) Suicidal ideation: Status: Resolved Code(s): R45.851 - Suicidal ideations (2) PTSD (post-traumatic stress disorder): Status: Acute Code(s): F43.10 - Post-traumatic stress disorder, unspecified (3) MDD (major depressive disorder), recurrent episode, moderate: Status: Acute Code(s): F33.1 - Major depressive disorder, recurrent, moderate (4) Polysubstance abuse: Status: Acute Code(s): F19.10 - Other psychoactive substance abuse, uncomplicated Plan HPI: Patient is a 59 years old single, Amharic speaking, male who was BIBA to [facility] ED secondary to SI with a plan but refused to disclose details. Patient had history of MDD, personality disorder, PTSD, IV cocaine use disorder and alcohol use disorder. Reports ongoing cocaine use due to multiple life stressors. Recently being homeless and living in the car for a past month and also stated that he still grieving his girlfriend who last year. Was discharged on M3 last month on 01/20. Same presentation. Formulation/clinical reasoning: SI with plan, did not disclose, increase drug use. Not follow-up with appointments for aftercare, not sure if he has outpatient providers. However last time [facility] came in to visit him. History of MDD, polysubstance use, personality disorder. Given the above information, patient will benefit from restrictive environment for medication management, monitor for withdrawal, refer patient to outpatient aftercare services Hospital course: 02/21/25: Trazodone 50 at bedtime for mood Zyprexa meant 10 mg at bedtime Baclofen 10 mg BID for withdrawal/craving Clonidine 0.1 t.i.d. as needed for withdrawal from cocaine/fentanyl use. No severe withdrawal symptoms from fentanyl cocaine use at the current time. 02/22/25: Met with patient in the kitchen, more pleasant upon approach, denies safety concerns or hallucinations but reports I am depressed . Patient said that he will not taking Zyprexa anymore as he does not feel right when he take it. Explained to patient that he took other PRNs combined with the scheduled meds yesterday at the same time which could be too much for him. Reports to the nurse that he takes trazodone 300 at bedtime. He does not remember what trials for antidepressant hx. 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 History of taking sertraline 25 mg. Patient also agree to see addiction team regarding treatment and aftercare for substance use. He he good like to go to the substance use treatment program for aftercare. Trazodone 300mg at HS start on 02/23. Sertraline 50mg in the AM for depression. 02/24: Continue tx 02/25: Continue tx. Pt will not consider further medication/mood stabilizer interventions at this time. 02/26: Lamictal 25 mg bid 02/27: Continue tx 02/28: continue tx plan 03/01: Social with peers. irritable. Patient believes he does not need to be on a psychiatric unit. pt stated, Today I'm acting like I'm schizophrenic. I don't need to be on this unit. I don't have a mental illness. I just needed to detox . pacing unit hallway. continue tx plan. 03/02: Continue tx Plan Patient on 15 minute checks for safety. Admitted to M5. CV. Work with treatment team to do collateral and for CSS/CCS if possible for aftercare. Refer to patient to substance abuse on 02/22/25: pending result. Reason for continued inpatient stay Substantial Risk for: rapid decompensation Time Spent With Patient Time: Total time managing care of this patient today ____ minutes.
[2025-03-02] MEDS: Clotrimazole 1 % Cream 15 GM TUBE 1 APPL TOPICAL (20:02)
--- NOTE | 2025-03-03 08:58 | PM.PSYDC ---
DS: Providers Provider Date of Service: 03/03/25 Date of admission: 02/20/25 17:48 Date of discharge: 03/03/25 Primary care physician: None Physician Admitting clinician: Tyesha Manzanares Attending physician on admission: Darnell Philippe Consults: 02/22/25 20:07 Addiction Medicine Provider Routine Consulting Provider: Addiction Covering Reason for consultation: KARISHMA, FEN use Has provider been notified: No Attending physician on discharge: Darnell Philippe Discharging clinician: Kalyn Ford DS: Diagnosis Discharge Diagnosis (1) Suicidal ideation: Status: Resolved (2) PTSD (post-traumatic stress disorder): Status: Acute (3) MDD (major depressive disorder), recurrent episode, moderate: Status: Acute (4) Polysubstance abuse: Status: Acute DS: Medications Discharge Medications Home Medications: Home Medications ?Medication ?Instructions ?Recorded ?Confirmed food supplemt, lactose-reduced 237 ea PO BID 02/20/25 02/20/25 (Ensure oral liquid) ibuprofen 800 mg tablet 800 mg PO TID 02/20/25 02/20/25 trazodone 150 mg tablet 300 mg PO BEDTIME 02/20/25 02/20/25 Mental Status Exam Mental Status Exam Patient Appearance: Appropriate Patient Orientation: Person, Place, Time and Situation Level of Consciousness: Awake and Alert Patient Behavior: Talkative, Cooperative and Good Eye Contact Mood Description: Calm Affect Description: Constricted Patient Cognition Impaired: No Ability to Follow Directions: Good Speech Pattern: Clear Memory Description: Intact Hallucinations: None Delusions: Not Present Thought Process: Intact Thought Content: positive for Intact Judgement: Good Data Data Completed and Pending Completed studies during hospitalization [Text1]: 02/20/25 Unknown Urine clean catch - Clean Catch Midstream Urine Culture - Final No growth. Imaging Diagnostic Imaging Impressions Shoulder X-Ray 03/02/25 10:14 IMPRESSION: Severe osteoarthritis of the glenohumeral joint. Electronically signed by: Burt Howell MD 03/02/2025 10:27 AM EDT DS: Summary Hospital Course Hospital Course: Patient is a 59 years old single, Australian speaking, male who was BIBA to [facility] ED secondary to SI with a plan but refused to disclose details. Patient had history of MDD, personality disorder, PTSD, IV cocaine use disorder and alcohol use disorder. Reports ongoing cocaine use due to multiple life stressors. Recently being homeless and living in the car for a past month and also stated that he still grieving his girlfriend who last year. On M5: Patient signed a CV, did not want to talk I am tired I want to rest . Reason for being here is I want to . Denies SI/ SIB//HI AVH. Report mood is depressed . Do not engaged in for assessment. Denies fentanyl use, but reports cocaine use. He does not giving much details of history of drug use I am tired. I want to rest. Talk to you later to both attempt to talk to him in different days. Patient presented with the same behavior like he did a month ago when he was on M3. This time, this provider warns him that we will not taking the abusive behavior, if he is not behave himself not cooperative with the care, we will administrative discharge him. Patient is irritable, anxious, depressed, passive engaging in conversation/assessment. Less irritable compared to last admission. Alert and oriented x4. He asked for medication. Encouraged to compliant with medication this time. Speech is within, normal limit normal volume, and rate. Thought content is on treatment, denies SI/SIB/HI/AVH. Poor eye contact-closed during assessment time. Thought processes within normal limit, organized. He preferred to taking care by Dr. Lenz instead I want to have doctor Elizabeth . Poor judgment and poor insight. Treatment Course: Medications were evaluated and adjusted. Pt requested transfer for longer term addictions treatment. Team applied to several programs and pt will attend [facility] upon discharge. Status at Discharge Functional status at discharge: independent ambulation Overall status at discharge: patient is back to baseline Time Spent with Patient Time attestation: Total time managing care of this patient today ____ minutes. Time spent: Less than 30 minutes Discharge Plan Discharge Anticipated Discharge Date/Time: 03/03/25 10:00 Patient Disposition: Xfer Inpatient Rehab Fac Discharge Diagnosis: PTSD Recurrent Major Depression Polysubstance use disorder Referrals: [facility] Program [Other] - 03/03/25 Referral Note: Work with [facility] staff to take the next step to a TSS program and or to get set up with out mental health services for psychiatry and therapy. Physician,None [Primary Care Provider, Medical] - 1 Week Discharge Medications: New clonidine HCl 0.1 mg Tablet 0.1 mg PO TID PRN (Reason: Opioid/KARISHMA W/D) Qty: 90 0RF Protocol: Hold for SBP< HOLD for SBP < : 90 acetaminophen 325 mg Tablet 650 mg PO Q6H PRN (Reason: Headache/Pain, Scale 1-10) Qty: 0 0RF lamotrigine 25 mg Tablet 25 mg PO BID Qty: 60 0RF trazodone 100 mg Tablet 300 mg PO BEDTIME Qty: 90 0RF baclofen 10 mg Tablet 10 mg PO BID Qty: 60 0RF sertraline 25 mg Tablet 75 mg PO DAILY Qty: 90 0RF hydroxyzine HCl 25 mg Tablet 75 mg PO Q6H PRN (Reason: mild anxiety) Qty: 60 0RF celecoxib 100 mg Capsule 100 mg PO BID Qty: 60 0RF clotrimazole 1 % Cream 1 appl topical BID Qty: 30 0RF Protocol: Apply to: Apply to: left toenail Discontinued ibuprofen 800 mg tablet 800 mg PO TID trazodone 150 mg tablet 300 mg PO BEDTIME Ensure Liquid 237 ea PO BID Discharge Orders: Discharge Order (Routine); Ordered 03/03/25 Ordered By: Kalyn Ford Diet: Advance to usual diet Activity on Discharge: As tolerated Stand Alone Forms: Patient Portal Discharge page, Community Support Print Language: Australian Care Plan Goals: Mood and Behavioral Stabilization Abstinence from Substances Health Concerns: Mood and Behavioral Stabilization Abstinence from Substances Plan of Treatment: Accepted to [facility] for ongoing treatment Take medications as directed Utilize [facility] treatment planning to continue to build a base of stability for ongoing sobriety and mood stability Assessment: Leah SI,HI,AH, VH No acute symptoms of shalom or psychosis Discharge Date/Time: 03/03/25 10:00
== END 2025-03-03 10:00 | DRG 885 ==
LOC: HO.ED 18:26 → HO.PM5 18:42
PROVIDERS: Emergency Medicine; Admitting Provider Nurse Practitioner Psychiatric/Mental Health; Emergency Provider Emergency Medicine; Visit Provider Nurse Practitioner Psychiatric/Mental Health
DX: F33.1 Major depressive disorder, recurrent, moderate (principal); Z59.02 Unsheltered homelessness; R45.851 Suicidal ideations; F43.10 Post-traumatic stress disorder, unspecified; F17.210 Nicotine dependence, cigarettes, uncomplicated; Z71.6 Tobacco abuse counseling; F19.10 Other psychoactive substance abuse, uncomplicated; Z63.4 Disappearance and death of family member; Z79.899 Other long term (current) drug therapy
CPT/HCPCS: 36415; 73030; 80053; 80307; 81001; 85025; 87086; 93005; 99285; S9485

== ENCOUNTER → 2025-02-20 07:56 | Outpatient (BNV) | payer OTHER, SELFPAY | PROVIDERS: Admitting Provider Nurse Practitioner Psychiatric/Mental Health; Emergency Provider Emergency Medicine; Visit Provider Internal Medicine Cardiovascular Disease | DX: Z13.6 Encounter for screening for cardiovascular disorders (principal) | CPT/HCPCS: 93010 ==

== ENCOUNTER 2025-02-20 17:48 | Outpatient (BNV) | payer OTHER, SELFPAY | END 2025-03-02 10:14 | PROVIDERS: Admitting Provider Nurse Practitioner Psychiatric/Mental Health; Emergency Provider Emergency Medicine; Visit Provider Radiology Diagnostic Radiology | DX: M19.011 Primary osteoarthritis, right shoulder (principal) | CPT/HCPCS: 73030 ==

== ENCOUNTER → 2025-02-20 17:48 | Outpatient (BNV) | payer OTHER, SELFPAY | PROVIDERS: Admitting Provider Nurse Practitioner Psychiatric/Mental Health; Emergency Provider Emergency Medicine; Visit Provider Nurse Practitioner Psychiatric/Mental Health | DX: R45.851 Suicidal ideations (principal); F43.10 Post-traumatic stress disorder, unspecified; F33.1 Major depressive disorder, recurrent, moderate; F19.10 Other psychoactive substance abuse, uncomplicated | CPT/HCPCS: 99222; 99232 ==